=== PATIENT | female | born 2000 | race Caucasian/White ===

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

== ENCOUNTER 2020-04-18 20:33 | Inpatient (IN) | payer MEDICAID, SELFPAY ==
[2020-02-28 09:34] VITALS: BMI 18.8
[2020-04-18] VITALS (8 sets, daily range): BP systolic 124–131; BP diastolic 78–87; PULSE 113–141; RESP 16–28; TEMP 36.3–37.4; O2SAT 98–100; BMI 23.0; BMI 22.8; BMI 66.2
--- NOTE | 2020-04-18 20:46 | EKG12_ITS ---
Test Reason : VOMITTING Blood Pressure : / mmHG Vent. Rate : 131 BPM Atrial Rate : 133 BPM P-R Int : 136 ms QRS Dur : 082 ms QT Int : 400 ms P-R-T Axes : 079 074 027 degrees QTc Int : 590 ms Sinus tachycardia Nonspecific ST and T wave abnormality Abnormal ECG Confirmed by GONZALO IQBAL, ANA MARIA ([id number]), associate entertainment editor SERGIO LEE ([id number]) on 04/21/2020 8:17:31 AM Referred By: JULIANNA Confirmed By:ANA MARIA SÁNCHEZ MD
--- NOTE | 2020-04-18 20:47 | ED.DCSUM_ITS ---
History of Present Illness Chief Complaint: Nausea/Vomiting Informant: Patient Onset: Days - 2 days Context: Gradual Onset Current Severity: Moderate Maximum Severity: Moderate Narrative: Patient presents with nausea and vomiting for the past 2 days and believes she is likely in DKA. She is a type I diabetic and reports being out of her insulin for the last month. She does not have test strips has not been checking her blood sugar. She states she lost her insurance and was not able to get her insulin filled. She has not talked to her doctor or her straightener and aligner about this. - Past Medical History (1) Diabetes Status: Chronic Past Medical History - Allergies and Home Meds Allergies/Adverse Reactions: Allergies amoxicillin Allergy (Verified 04/18/20 20:58) Hives Sulfa (Sulfonamide Antibiotics) Allergy (Verified 04/18/20 20:58) Hives tomato Allergy (Verified 04/18/20 20:58) Hives Primary Care Physician: Rima Sheets MD [Primary Care Provider] - Prior records reviewed: Yes Smoking Status: Unknown if ever smoked Review of Systems General: Denies: Chills, Fever Eyes: Denies: Visual changes - bilaterally ENT: Denies: Bilateral ear pain Cardiovascular: Denies: Chest pain Respiratory: Denies: Dyspnea Gastrointestinal: Reports: Abdominal pain, Nausea, Vomiting. Denies: Diarrhea Genitourinary: Denies: Dysuria Musculoskeletal: Denies: Extremity Pain Neurological: Denies: Headache Endocrine: Reports: Polyuria, Polydipsia Physical Exam Vital Signs/Narrative: Vital Signs Temp Pulse Resp BP Pulse Ox 04/18/20 20:34 97.4 F L 141 H 20 H 130/87 H 100 Inital Vital Signs reviewed: Yes General: Well nourished, Well developed Head: Normocephalic ENT: Dry mucous membranes Cardiovascular: Tachycardia Respiratory: No distress, CTA bilaterally, - - Tachypneic Abdomen: Soft, Nontender, Hypoactive bowel sounds Extremities: Nontender Skin: Normal color Neurological: Alert, Oriented x3 Psychological: Normal affect Diagnostic/Tx/Re-eval Laboratory Results 04/18/20 04/18/20 04/18/20 20:44 21:00 21:00 WBC 14.9 H RBC 5.39 Hgb 16.4 H Hct 48.0 H MCV 89.1 MCH 30.4 MCHC 34.2 RDW Std Deviation 42.6 RDW Coeff of Mark 13.2 Plt Count 348 MPV 9.3 Immature Gran % (Auto) 0.700 Neut % (Auto) 74.1 H Lymph % (Auto) 16.3 L [place] % (Auto) 7.3 Eos % (Auto) 1.1 Baso % (Auto) 0.5 Absolute Neuts (auto) 11.0 H Absolute Lymphs (auto) 2.43 Nucleated RBC % 0 Sodium 138 Potassium 3.3 L Chloride 113 H Carbon Dioxide 5.0 L* Anion Gap 20 H BUN 6 L Creatinine 0.82 Estim Creat Clear Calc 106.42 Est GFR (MDRD) Af Amer 114 Est GFR (MDRD) Non-Af 94 BUN/Creatinine Ratio 7.3 L Glucose 467 H* Hemoglobin A1c Calcium 8.4 L Total Bilirubin 0.50 AST 7 L ALT 19 Alkaline Phosphatase 214 H Total Protein 7.9 Albumin 3.8 Globulin 4.1 Albumin/Globulin Ratio 0.9 Serum , Qual Acetone Level POC Glucose 468 H* 04/18/20 04/18/20 04/18/20 21:00 21:00 21:00 WBC RBC Hgb Hct MCV MCH MCHC RDW Std Deviation RDW Coeff of Mark Plt Count MPV Immature Gran % (Auto) Neut % (Auto) Lymph % (Auto) [place] % (Auto) Eos % (Auto) Baso % (Auto) Absolute Neuts (auto) Absolute Lymphs (auto) Nucleated RBC % Sodium Potassium Chloride Carbon Dioxide Anion Gap BUN Creatinine Estim Creat Clear Calc Est GFR (MDRD) Af Amer Est GFR (MDRD) Non-Af BUN/Creatinine Ratio Glucose Hemoglobin A1c 11.9 H Calcium Total Bilirubin AST ALT Alkaline Phosphatase Total Protein Albumin Globulin Albumin/Globulin Ratio Serum , Qual NEGATIVE Acetone Level LARGE H POC Glucose - EKG Initial EKG Interpretation: Sinus Tachycardia - Sinus tach at 131. - Medical Decision Making Patient was ordered Phenergan for nausea as well as 2 L of IV fluid on my initial evaluation. Labs are reviewed with her. Insulin drip will be ordered. I will speak with hospitalist regarding admission. - Critical Care Time Critical care time (excluding procedures): 30-74 minutes ED Disposition - Plan for ED Patient: Disposition: Acute Care Hospital [facility] Diagnosis: DKA (diabetic ketoacidoses) Referrals: Rima Sheets MD [Primary Care Provider] -
[2020-04-18 20:51] LABS: Bedside Glucose 468 mg/dL (70-110)
[2020-04-18] MEDS: 0.9% Normal Saline 1,000 ML 999 ML IV ×2 (20:59→22:38)
[2020-04-18] MEDS: proMETHazine 25 MG/ML Syringe 12.5 MG IV (21:07)
[2020-04-18 21:10] LABS: Absolute Lymphocyte Count 2.43 X10^3/uL (0.83-4.51); Basophil# 0.07 X10^3/uL; Basophil% 0.5 % (0-1); Eosinophil# 0.16 X10^3/uL; Eosinophils% 1.1 % (0-5); Hemoglobin 16.4 g/dL (12.0-15.0); Lymphocyte # 2.43 X10^3/ul (4.0); Lymphocyte % 16.3 % (19-41); Mean Corp Hgb Conc 34.2 g/dL (32-36); Mean Corpuscular Hgb 30.4 pg (27.0-32.0); Mean Corpuscular Volume 89.1 fL (81-99); Mean Platelet Vol. 9.3 fl (6.2-12.0); Monocyte# 1.08 X10^3/uL; Monocyte% 7.3 % (0-10); NRBC Flagged by Analyzer 0 % (0-5); Neutrophil # 11.04 X10^3/uL (2.7-7.7); Neutrophil % 74.1 % (47-70); Platelet Count 348 K/mm3 (150-450); RBC Distribution Width CV 13.2 % (11.6-14.6); RBC Distribution Width SD 42.6 fl (35.1-43.9); Red Blood Count 5.39 M/mm3 (4.2-5.4); White Blood Count 14.9 K/mm3 (4.4-11.0)
[2020-04-18 21:17] LABS: Internal QC Validated? YES +Cl - CLEAR BKGD; Pregnancy, Serum, hCG Quali. NEGATIVE Negative
[2020-04-18 21:27] LABS: Hemoglobin A1c 11.9 % (3.8-5.6)
[2020-04-18 21:49] LABS: ALB/GLOB Ratio 0.9 RATIO (0.9-2.4); AST(SGOT) 7 U/L (15-37); Alanine Aminotransfer ALT/SGPT 19 U/L (13-56); Albumin, Serum 3.8 g/dL (3.2-5.0); Alkaline Phosphatase 214 U/L (45-117); Anion Gap 20 (5-15); BUN 6 mg/dL (7-18); BUN/Creat Ratio 7.3 RATIO (10-20); Calcium,Total 8.4 mg/dL (8.5-10.1); Chloride 113 mmol/L (98-107); Creatinine, Serum 0.82 mg/dL (0.55-1.02); EST Glomerular Filtration Rate 94 mL/min (>60); Est Glom Filt Rate - Afr Amer 114 mL/min (>60); Estimated Creatinine Clearance 106.42 ml/min; Globulin 4.1 g/dL (2.2-4.2); Glucose 467 mg/dL (74-106); Potassium 3.3 mmol/L (3.5-5.1); Protein, Total 7.9 g/dL (6.4-8.2); Sodium Level 138 mmol/L (136-145)
[2020-04-18 22:15] LABS: Bedside Glucose 375 mg/dL (70-110)
[2020-04-18] MEDS: Potassium Chloride 10mEq/100mL 10 MEQ/100 ML IV.SOLN. 100 MEQ IV BOLUS (22:40)
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
[2020-04-19] VITALS (23 sets, daily range): BP systolic 88–124; BP diastolic 57–81; PULSE 90–123; RESP 14–26; TEMP 36.2–36.7; O2SAT 97–100
[2020-04-19 00:11] LABS: Bedside Glucose 282 mg/dL (70-110)
[2020-04-19 00:11] LABS: Bedside Glucose 355 mg/dL (70-110)
[2020-04-19] MEDS: Ondansetron 4 MG/2 ML Vial IV ×3 (01:00→10:20)
[2020-04-19 01:06] LABS: Bedside Glucose 227 mg/dL (70-110)
[2020-04-19] MEDS: Dext 5%-0.45% NS 1,000 ML 200 ML IV ×3 (02:00→12:21)
[2020-04-19 02:11] LABS: Bedside Glucose 117 mg/dL (70-110)
[2020-04-19 02:16] LABS: Anion Gap 16 (5-15); BUN 7 mg/dL (7-18); BUN/Creat Ratio 12.9 RATIO (10-20); Calcium,Total 8.1 mg/dL (8.5-10.1); Chloride 122 mmol/L (98-107); Creatinine, Serum 0.54 mg/dL (0.55-1.02); EST Glomerular Filtration Rate 152 mL/min (>60); Est Glom Filt Rate - Afr Amer 184 mL/min (>60); Glucose 155 mg/dL (74-106); Potassium 3.2 mmol/L (3.5-5.1); Sodium Level 144 mmol/L (136-145)
[2020-04-19 03:06] LABS: Bedside Glucose 182 mg/dL (70-110)
[2020-04-19 04:11] LABS: Bedside Glucose 194 mg/dL (70-110)
[2020-04-19] MEDS: Ibuprofen 400 MG Tablet PO (05:34)
[2020-04-19 05:36] LABS: Bedside Glucose 186 mg/dL (70-110)
[2020-04-19 05:47] LABS: Anion Gap 12 (5-15); BUN 7 mg/dL (7-18); BUN/Creat Ratio 10.6 RATIO (10-20); Calcium,Total 7.9 mg/dL (8.5-10.1); Chloride 120 mmol/L (98-107); Creatinine, Serum 0.66 mg/dL (0.55-1.02); EST Glomerular Filtration Rate 121 mL/min (>60); Est Glom Filt Rate - Afr Amer 146 mL/min (>60); Estimated Creatinine Clearance 132.22 ml/min; Glucose 186 mg/dL (74-106); Potassium 2.9 mmol/L (3.5-5.1); Sodium Level 141 mmol/L (136-145)
[2020-04-19 06:06] LABS: Bedside Glucose 162 mg/dL (70-110)
[2020-04-19 07:11] LABS: Bedside Glucose 155 mg/dL (70-110)
[2020-04-19 07:48] LABS: Magnesium 1.7 mg/dL (1.6-2.6)
[2020-04-19 09:00] LABS: Bedside Glucose 124 mg/dL (70-110)
[2020-04-19 09:41] LABS: Anion Gap 8 (5-15); BUN 8 mg/dL (7-18); Calcium,Total 7.9 mg/dL (8.5-10.1); Chloride 124 mmol/L (98-107); Creatinine, Serum 0.57 mg/dL (0.55-1.02); EST Glomerular Filtration Rate 143 mL/min (>60); Est Glom Filt Rate - Afr Amer 174 mL/min (>60); Glucose 138 mg/dL (74-106); Potassium 2.7 mmol/L (3.5-5.1); Sodium Level 143 mmol/L (136-145)
[2020-04-19 10:11] LABS: Bedside Glucose 110 mg/dL (70-110)
--- NOTE | 2020-04-19 10:14 | PN_ITS ---
Patient Problems: Active and Suspected Problems (Last Reviewed 04/18/20 @ 22:[address] David Ortega, DO) DKA (diabetic ketoacidoses) (Acute) Subjective: Pt sleepy and not wanting to talk much today> reports compliance with her insulin but A1c is 11.9. She has been a diabetic since she was a child. Vitals/I&O's: Vital Signs Temp Pulse Resp BP Pulse Ox 97.6 F L 90 25 H 100/63 99 04/19/20 08:00 04/19/20 09:00 04/19/20 09:00 04/19/20 09:00 04/19/20 09:00 Oxygen Delivery Method Room Air Weight: 67.54 kg Body Mass Index (BMI) 22.8 Finger Stick Blood Glucose 124 Intake and Output for Last 24 Hours 04/17/20 04/18/20 04/19/20 23:59 23:59 23:59 Intake Total 1030.14 / 1046.84 3.93 / 2092.93 Output Total 0 / 0 Balance 1030.14 / 1046.84 2092. / 2092.93 General: Oriented x3, Cooperative, No apparent distress, Well developed, Well nourished, - - sleepy but answers questions when stimulated and answers correctly HEENT: Atraumatic, Normocephalic Oral: Moist Mucosa, No Gingival or Mucosal Lesions/ Ulcerations Neck: Supple, Trachea Midline, Thyroid Normal Size and Texture Lungs: Clear to auscultation, Normal air movement, No rhonchi, No wheeze, No rales Cardiovascular: Regular rate, Regular Rhythm, Normal S1, Normal S2, No murmurs, No Ectopic Activity, No rub noted, No Gallop Abdomen: Bowel Sounds Present, Soft, Non Tender, Non-Distended Extremities: No clubbing, No cyanosis, No edema, Capillary Refill Less than 3 Seconds, Peripheral Pulses Normal Skin: No rashes, No breakdown Musculoskeletal: No Tenderness to Palpation of Joints or Extremities, No Muscle Wasting Lymphatic: No Cervical, Supraclavicular, or Inguinal Adenopathy Neurological: Cranial nerves II-XII grossly intact, Neuro grossly intact, Muscle tone normal, Coordination normal, - - [place] symmetrically Psych/Mental Status: - - sleepy and no wanting to interact much Laboratory Results 04/18/20 20:44: POC Glucose 468 H* 04/18/20 21:00: WBC 14.9 H, RBC 5.39, Hgb 16.4 H, Hct 48.0 H, MCV 89.1, MCH 30.4, MCHC 34.2, RDW Std Deviation 42.6, RDW Coeff of Mark 13.2, Plt Count 348, MPV 9.3, Immature Gran % (Auto) 0.700, Neut % (Auto) 74.1 H, Lymph % (Auto) 16.3 L, [place] % (Auto) 7.3, Eos % (Auto) 1.1, Baso % (Auto) 0.5, Absolute Neuts (auto) 11.0 H, Absolute Lymphs (auto) 2.43, Nucleated RBC % 0 04/18/20 21:00: Sodium 138, Potassium 3.3 L, Chloride 113 H, Carbon Dioxide 5.0 L*, Anion Gap 20 H, BUN 6 L, Creatinine 0.82, Estim Creat Clear Calc 106.42, Est GFR (MDRD) Af Amer 114, Est GFR (MDRD) Non-Af 94, BUN/Creatinine Ratio 7.3 L, Glucose 467 H*, Calcium 8.4 L, Total Bilirubin 0.50, AST 7 L, ALT 19, Alkaline Phosphatase 214 H, Total Protein 7.9, Albumin 3.8, Globulin 4.1, Albumin/Globulin Ratio 0.9 04/18/20 21:00: Acetone Level LARGE H 04/18/20 21:00: Hemoglobin A1c 11.9 H 04/18/20 21:00: Serum , Qual NEGATIVE 04/18/20 22:07: POC Glucose 375 H 04/18/20 23:04: POC Glucose 355 H 04/18/20 23:59: POC Glucose 282 H 04/19/20 00:55: POC Glucose 227 H 04/19/20 01:50: Sodium 144, Potassium 3.2 L, Chloride 122 H, Carbon Dioxide 6.0 L*, Anion Gap 16 H, BUN 7, Creatinine 0.54 L, Estim Creat Clear Calc 161.60, Est GFR (MDRD) Af Amer 184, Est GFR (MDRD) Non-Af 152, BUN/Creatinine Ratio 12.9, Glucose 155 H, Calcium 8.1 L 04/19/20 02:02: POC Glucose 117 H 04/19/20 03:01: POC Glucose 182 H 04/19/20 04:01: POC Glucose 194 H 04/19/20 05:02: POC Glucose 186 H 04/19/20 05:05: Sodium 141, Potassium 2.9 L, Chloride 120 H, Carbon Dioxide 9.0 L*, Anion Gap 12, BUN 7, Creatinine 0.66, Estim Creat Clear Calc 132.22, Est GFR (MDRD) Af Amer 146, Est GFR (MDRD) Non-Af 121, BUN/Creatinine Ratio 10.6, Glucos e 186 H, Calcium 7.9 L 04/19/20 05:05: Magnesium 1.7 04/19/20 06:00: POC Glucose 162 H 04/19/20 07:03: POC Glucose 155 H 04/19/20 08:40: Sodium 143, Potassium 2.7 L*, Chloride 124 H, Carbon Dioxide 11.0 L, Anion Gap 8, BUN 8, Creatinine 0.57, Estim Creat Clear Calc 153.10, Est GFR (MDRD) Af Amer 174, Est GFR (MDRD) Non-Af 143, BUN/Creatinine Ratio 14.0, Glucose 138 H, Calcium 7.9 L 04/19/20 08:56: POC Glucose 124 H 04/19/20 10:04: POC Glucose 110 Current Medications Acetaminophen (Acetaminophen 325 Mg Tablet) 650 mg PO Q6H PRN PRN PRN Reason: Pain Score 1-10/Temp > 100.7 F Dextrose (Dextrose 50%-Water 25 Gm/50 Ml Disp.Syrin) 0 gm IV X1 PRN; Protocol PRN Reason: Hypoglycemia Protocol Insulin Human Lispro 100 unit/ (Sodium Chloride) 100 mls @ 6.66 mls/hr IV .Q15H1M DERRELL; Protocol Last Titration: 04/19/20 08:59 Dose: 0.08 units/kg/hr, 5 mls/hr Documented by: Dextrose/Sodium Chloride () 1,000 mls @ 200 mls/hr IV .Q5H DERRELL Last Admin: 04/19/20 07:22 Dose: 200 mls/hr Documented by: Ibuprofen (Ibuprofen 400 Mg Tablet) 400 mg PO Q4H PRN PRN PRN Reason: Pain Score 1-10/Temp > 100.7 F Last Admin: 04/19/20 05:34 Dose: 400 mg Documented by: Melatonin (Melatonin 3 Mg Tablet) 3 mg PO QHS PRN PRN PRN Reason: INSOMNIA Ondansetron HCl (Ondansetron 4 Mg/2 Ml Vial) 4 mg IV Q4H PRN PRN PRN Reason: NAUSEA Last Admin: 04/19/20 05:45 Dose: 4 mg Documented by: Potassium Chloride (Potassium Chloride 20 Meq Tablet) 40 meq PO BIDCM DERRELL Stop: 04/20/20 08:01 Last Admin: 04/19/20 08:30 Dose: 40 meq Documented by: Potassium Chloride (Potassium Chloride 20 Meq Tablet) 40 meq PO X1 ONE Stop: 04/19/20 12:01 Sodium Chloride (0.9% Saline Lock 10 Ml Syringe) 10 - 40 ml IV UD PRN PRN Reason: SALINE FLUSH STROKE Vital Signs/Narrative: Vital Signs Temp Pulse Resp BP Pulse Ox 04/19/20 09:00 90 25 H 100/63 99 04/19/20 08:00 97.6 F L 97 20 H 107/72 99 04/19/20 07:15 105 H Medical Necessity - Tobacco Use Smoking Status: Current every day smoker Tobacco Use: Vapor Assessment/Plan All Active Problems (Last Reviewed 04/18/20 @ 22:[address] David Ortega, DO) DKA (diabetic ketoacidoses) (Acute) DKA -resolving -HCO2 is still low but Gap is closed x 2 -repeat ketones at 12 and if better will get off ggt later today -continue IVF -ok for carb controlled diet DM-1 uncontrolled -suspect compliance is an issues although pt states that she is compliant -once wean ggt will restart home insulin and assess Severe Hypokalemia -40 mEq po today TID -was given 60 mEq overnight -continue BMP's until off ggt -repeat BMP in am NAGMA -suspect related to hyperchloremia -should resolve with cessation of IVF Leukocytosis and Erythrocytosis -suspect 2/2 hemoconcentration -repeat CBC in am Tobacco Abuse -recommend cessation -nicotine patch DVT prophylaxis -early ambulation Inpatient E&M: [id number] [facility] Hosp L3
[2020-04-19] MEDS: Acetaminophen 325 MG Tablet 650 MG PO ×2 (10:20→19:31)
[2020-04-19 11:10] LABS: Bedside Glucose 117 mg/dL (70-110)
[2020-04-19 12:10] LABS: Bedside Glucose 114 mg/dL (70-110)
[2020-04-19] MEDS: Insulin NPH Human 100 UNITS/ML PEN 10 UNITS SC (13:13)
[2020-04-19 13:16] LABS: Bedside Glucose 122 mg/dL (70-110)
[2020-04-19] MEDS: Insulin Lispro 100 UNIT/ML INSULN.PEN SC ×2 (16:23→21:42)
[2020-04-19] MEDS: Insulin Lispro 100 UNIT/ML INSULN.PEN 14 UNIT SC (16:23)
[2020-04-19 16:31] LABS: Bedside Glucose 267 mg/dL (70-110)
[2020-04-19 20:54] LABS: Anion Gap 11 (5-15); BUN 9 mg/dL (7-18); BUN/Creat Ratio 16.6 RATIO (10-20); Calcium,Total 8.3 mg/dL (8.5-10.1); Chloride 115 mmol/L (98-107); Creatinine, Serum 0.54 mg/dL (0.55-1.02); EST Glomerular Filtration Rate 152 mL/min (>60); Est Glom Filt Rate - Afr Amer 184 mL/min (>60); Glucose 341 mg/dL (74-106); Potassium 3.6 mmol/L (3.5-5.1); Sodium Level 138 mmol/L (136-145)
[2020-04-19] MEDS: 0.9% Saline Lock 10 ML Syringe IV (21:44)
[2020-04-19 21:51] LABS: Bedside Glucose 309 mg/dL (70-110)
[2020-04-20] VITALS (23 sets, daily range): BP systolic 92–118; BP diastolic 51–79; PULSE 91–117; RESP 12–25; TEMP 36.1–36.6; O2SAT 98–100
[2020-04-20] MEDS: Ibuprofen 400 MG Tablet PO ×3 (02:38→15:43)
[2020-04-20 04:50] LABS: Anion Gap 14 (5-15); BUN 7 mg/dL (7-18); BUN/Creat Ratio 12.3 RATIO (10-20); Chloride 113 mmol/L (98-107); Creatinine, Serum 0.57 mg/dL (0.55-1.02); EST Glomerular Filtration Rate 143 mL/min (>60); Est Glom Filt Rate - Afr Amer 174 mL/min (>60); Glucose 365 mg/dL (74-106); Magnesium 1.9 mg/dL (1.6-2.6); Potassium 3.2 mmol/L (3.5-5.1); Sodium Level 140 mmol/L (136-145)
[2020-04-20] MEDS: Acetaminophen 325 MG Tablet 650 MG PO ×2 (06:01→14:40)
--- NOTE | 2020-04-20 07:59 | PN_ITS ---
Patient Problems: Active and Suspected Problems (Last Reviewed 04/18/20 @ 22:[address] David Ortega, DO) DKA (diabetic ketoacidoses) (Acute) Reason for Visit: Follow-up for DKA Objective: Patient has mild nausea but no vomiting. Loss of appetite. No fever or chills. K3.2. Anion gap was 11 to 14. Bicarb increased 11 to 13. Patient is still having nausea and mild loss of appetite. No vomiting, abdominal pain. Mild tachycardia, heart rate 112. Respiratory rate 22. Physical exam General: Alert, Oriented x3, Cooperative HEENT: Atraumatic, PERRLA, EOMI, Normocephalic Oral: No Gingival or Mucosal Lesions/ Ulcerations Neck: Supple, No JVD, Negative Carotid Bruits Lungs: Air entry equal in bilateral lung bases. No crepitation/rhonchi Cardiovascular: Regular rate, Regular Rhythm, Normal S1, Normal S2, No murmurs Abdomen: Bowel Sounds Present, Soft, Non Tender, Non-Distended : No renal angle tenderness. No suprapubic tenderness. Extremities: No edema, Capillary Refill Less than 3 Seconds Skin: No rashes, No breakdown Musculoskeletal: No Tenderness to Palpation of Joints or Extremities Neurological: Cranial nerves II-XII grossly intact, Deep Tendon Reflexes 2+/4 and Symmetrical, Neuro grossly intact Psych/Mental Status: Normal Affect, Appropriate. Vitals/I&O's: Vital Signs Temp Pulse Resp BP Pulse Ox 97.7 F L 105 H 12 96/65 99 04/20/20 04:00 04/20/20 06:00 04/20/20 06:00 04/20/20 06:00 04/20/20 06:00 Oxygen Delivery Method Room Air Weight: 149 lb 14.629 oz Body Mass Index (BMI) 22.8 Finger Stick Blood Glucose 114 Intake and Output for Last 24 Hours 04/18/20 04/19/20 04/20/20 23:59 23:59 23:59 Intake Total 1030.14 / 1046.84 4200.88 / 4200.88 560 / 560 Output Total 1900 / 1900 0 / 0 Balance 1030.14 / 1046.84 2300.88 / 2300.88 560 / 560 Laboratory Results 04/19/20 08:40: Sodium 143, Potassium 2.7 L*, Chloride 124 H, Carbon Dioxide 11.0 L, Anion Gap 8, BUN 8, Creatinine 0.57, Estim Creat Clear Calc 153.10, Est GFR (MDRD) Af Amer 174, Est GFR (MDRD) Non-Af 143, BUN/Creatinine Ratio 14.0, Glucose 138 H, Calcium 7.9 L 04/19/20 08:56: POC Glucose 124 H 04/19/20 10:04: POC Glucose 110 04/19/20 11:07: POC Glucose 117 H 04/19/20 11:40: Acetone Level SMALL H 04/19/20 12:08: POC Glucose 114 H 04/19/20 13:09: POC Glucose 122 H 04/19/20 16:22: POC Glucose 267 H 04/19/20 20:15: Sodium 138, Potassium 3.6, Chloride 115 H, Carbon Dioxide 12.0 L , Anion Gap 11, BUN 9, Creatinine 0.54 L, Estim Creat Clear Calc 161.60, Est GFR (MDRD) Af Amer 184, Est GFR (MDRD) Non-Af 152, BUN/Creatinine Ratio 16.6, Glucose 341 H, Calcium 8.3 L 04/19/20 21:40: POC Glucose 309 H 04/20/20 04:25: Sodium 140, Potassium 3.2 L, Chloride 113 H, Carbon Dioxide 13.0 L, Anion Gap 14, BUN 7, Creatinine 0.57, Estim Creat Clear Calc 153.10, Est GFR (MDRD) Af Amer 174, Est GFR (MDRD) Non-Af 143, BUN/Creatinine Ratio 12.3, Glucose 365 H, Calcium 8.0 L, Magnesium 1.9 Current Medications Acetaminophen (Acetaminophen 325 Mg Tablet) 650 mg PO Q6H PRN PRN PRN Reason: Pain Score 1-10/Temp > 100.7 F Last Admin: 04/20/20 06:01 Dose: 650 mg Documented by: Dextrose (Dextrose 50%-Water 25 Gm/50 Ml Disp.Syrin) 0 gm IV X1 PRN; Protocol PRN Reason: Hypoglycemia Protocol Ibuprofen (Ibuprofen 400 Mg Tablet) 400 mg PO Q4H PRN PRN PRN Reason: Pain Score 1-10/Temp > 100.7 F Last Admin: 04/20/20 02:38 Dose: 400 mg Documented by: Insulin Glargine (Insulin Glargine 100 Units/Ml Pen) 30 units SC QHS [facility] Last Admin: 04/19/20 21:41 Dose: 30 units Documented by: Insulin Human Lispro (Insulin Lispro 100 Unit/Ml Insuln.Pen) 14 unit SC TIDAC [facility] Last Admin: 04/19/20 16:23 Dose: 14 u Documented by: Insulin Human Lispro (Insulin Lispro 100 Unit/Ml Insuln.Pen) 0 unit SC ACHS [facility]; Protocol Last Admin: 04/19/20 21:42 Dose: 3 u Documented by: Melatonin (Melatonin 3 Mg Tablet) 3 mg PO QHS PRN PRN PRN Reason: INSOMNIA Ondansetron HCl (Ondansetron 4 Mg/2 Ml Vial) 4 mg IV Q4H PRN PRN PRN Reason: NAUSEA Last Admin: 04/19/20 10:20 Dose: 4 mg Documented by: Potassium Chloride (Potassium Chloride 20 Meq Tablet) 40 meq PO BIDCM [facility] Stop: 04/20/20 08:01 Last Admin: 04/19/20 16:24 Dose: 40 meq Documented by: Sodium Chloride (0.9% Saline Lock 10 Ml Syringe) 10 - 40 ml IV UD PRN PRN Reason: SALINE FLUSH Last Admin: 04/19/20 21:44 Dose: 20 ml Documented by: STROKE Vital Signs/Narrative: Vital Signs Temp Pulse Resp BP Pulse Ox 04/20/20 06:00 105 H 12 96/65 99 04/20/20 05:00 94 17 95/51 L 98 04/20/20 04:00 97.7 F L 99 18 96/63 98 Medical Necessity - Tobacco Use Smoking Status: Current every day smoker Tobacco Use: Vapor Assessment/Plan All Active Problems (Last Reviewed 04/18/20 @ 22:[address] David Ortega, DO) DKA (diabetic ketoacidoses) (Acute) This 20-year-old female admitted with DKA. She has history of type 1 diabetes mellitus. DKA Patient had a rebound of DKA probably was taken off insulin drip early. Serum acetone small. Patient bicarb is trending low and anion gap high. Last bicarb 14, anion gap 15 and glucose 176. Patient put back on insulin drip. 1 L of normal saline. Continue diet. DM-1 uncontrolled -suspect compliance is an issues although pt states that she is compliant Severe Hypokalemia and hypophosphatemia Continue potassium replacement. IV K-Phos ordered. Monitor electrolyte High anion gap metabolic acidosis Leukocytosis and Erythrocytosis -CBC ordered Tobacco Abuse -recommend cessation -nicotine patch DVT prophylaxis -early ambulation Inpatient E&M: 31243 Subs Hosp L3
[2020-04-20] MEDS: Insulin Lispro 100 UNIT/ML INSULN.PEN 14 UNIT SC (08:56)
[2020-04-20] MEDS: Insulin Lispro 100 UNIT/ML INSULN.PEN SC ×2 (08:57→22:08)
[2020-04-20 09:01] LABS: Bedside Glucose 335 mg/dL (70-110)
[2020-04-20 09:36] LABS: Phosphorus 1.4 mg/dL (2.5-4.9)
[2020-04-20 10:29] LABS: Anion Gap 15 (5-15); BUN 6 mg/dL (7-18); BUN/Creat Ratio 9.2 RATIO (10-20); Calcium,Total 7.8 mg/dL (8.5-10.1); Chloride 108 mmol/L (98-107); Creatinine, Serum 0.66 mg/dL (0.55-1.02); EST Glomerular Filtration Rate 122 mL/min (>60); Est Glom Filt Rate - Afr Amer 148 mL/min (>60); Estimated Creatinine Clearance 132.22 ml/min; Glucose 476 mg/dL (74-106); Potassium 3.4 mmol/L (3.5-5.1); Sodium Level 137 mmol/L (136-145)
--- NOTE | 2020-04-20 11:08 | CASEMGMT ---
Addendum entered by Suma Harding 04/20/20 12:57: Received call back from Mariana with [facility]. Per Mariana, patient does not have a child. Mariana to follow up with patient. This worker to follow up with patient regarding Release of Information for Mariana with [facility]. Original Note: SOCIAL WORK Reason for Consult: Resources/Discharge Planning Met with patient in room. Introduced role and reason for referral. Patient reports up until the last week was living with her parents. Patient admits to being homeless since leaving parents home and states I just don't like it there so I've been staying with friends. Patient denies any history of mental health or substance use. Discussed needs for home going. Patient reports to not have insulin or a glucometer. Informed patient insurance has been verified as [employer]. Patient states enthusiastically YES! Sorry that is just good to know because I thought I lost it since I worked 40 hours last week. Patient states has been employed with [employer] for last month and a half. Informed patient Sri GREGORY will be following up in regards to medications and obtaining glucometer. Patient reports will be staying with friend, Suma upon discharge from hospital and will have transportation home. Patient states does not have a primary care provider. Explored option of following up [facility] and information given. Per report from staff, patient has a baby and person to notify on chart is Mariana Hoffmann with [facility]. Discussed care of baby while in the hospital and if patient has been in contact with Mariana. Mariana became upset stating, You don't have to call her. The baby is fine. Patient later stated, I will call her, you don't have to. There is no baby. Patient unwilling to give this worker any further information. Due to concerns for child, call to Mariana Aceer with [facility]. No answer, left message requesting return phone call with this worker contact information. Call to Isadora to make report regarding the above and safety of child. Isadora to follow up and return call to this worker. Plan: Home with friend. Resources provided. RICCARDO De Santiago, CASE FINISHER
[2020-04-20] MEDS: 0.9% Normal Saline 1,000 ML 999 ML IV (11:48)
[2020-04-20 12:51] LABS: Absolute Lymphocyte Count 2.05 X10^3/uL (0.83-4.51); Basophil# 0.05 X10^3/uL; Basophil% 0.6 % (0-1); Eosinophil# 0.38 X10^3/uL; Eosinophils% 4.6 % (0-5); Hemoglobin 12.5 g/dL (12.0-15.0); Lymphocyte # 2.05 X10^3/ul (4.0); Lymphocyte % 25.1 % (19-41); Mean Corp Hgb Conc 34.7 g/dL (32-36); Mean Corpuscular Volume 86.3 fL (81-99); Mean Platelet Vol. 9.5 fl (6.2-12.0); Monocyte# 0.64 X10^3/uL; Monocyte% 7.8 % (0-10); NRBC Flagged by Analyzer 0 % (0-5); Neutrophil # 5.03 X10^3/uL (2.7-7.7); Neutrophil % 61.5 % (47-70); Platelet Count 221 K/mm3 (150-450); RBC Distribution Width CV 13.5 % (11.6-14.6); RBC Distribution Width SD 42.4 fl (35.1-43.9); Red Blood Count 4.17 M/mm3 (4.2-5.4); White Blood Count 8.2 K/mm3 (4.4-11.0)
--- NOTE | 2020-04-20 12:55 | CASEMGMT ---
PETEY GREGORY NOTE: PETEY GREGORY to room to talk w/pt re: glucometer and insulin. Pt states she used to have a glucometer (through [employer] insurance) but she does not have it any longer. She states she got it about 6 months ago. Pt made aware that [employer] will most likely not cover for another glucometer so soon, but [employer] @ [employer] is very inexpensive for the machine and supplies (~$20) and that a script could be provided for her. She states this is affordable and she plans to get one. Pt made aware to talk with pharmacist when purchasing glucometer for instruction/teaching on the new machine. She also states does not have any insulin d/t she thought she no longer had insurance coverage, so she did not get her medications. She states, if her insurance will cover it, she would get it and is willing to take it. Call placed to [facility] and spoke with Yesica. She confirms pt is active with [employer] insurance/has coverage. Pt made aware. Pt states she does not have a PCP, stating she used to go to Dr Rima Sheets, but she has not been there for a couple years. She states would like to go to [facility] and agreeable to secretary to board of commissioners making a new-pt appt for her. Dolores, ICU secretary to board of commissioners, made aware and states she will call to set this up. Pt provided with [facility] information and also with Dr [email or web address]. Pt states, Oh, I know her. Pt states she is a pt of Dr Rush's and that she just had an appt with her a couple months ago and has another appt scheduled with her in May. Pt states she has transportation to her appts. D/C Plan: Stem Roller to [facility] to get established as a new pt. Pt will need script for glucometer and insulin/pen needles. Pt prefers Flex Pen. SW has been in to see pt. See SW notes. Sean CHAMBERSN PETEY GREGORY
[2020-04-20 13:26] LABS: Bedside Glucose 175 mg/dL (70-110)
--- NOTE | 2020-04-20 14:07 | CASEMGMT ---
Addendum entered by Suma Harding 04/20/20 17:12: Copy of SOPHIE faxed to Mariana with [facility]. Original Note: SOCIAL WORK Patient signed Release of Information for this worker to share information with Mariana Hoffmann with [facility]. Mariana Hoffmann is listed as patient's Person to Notify. Copy of SOPHIE added to chart. Anjum Harding, FILL TECHNICIAN, OWNER OPERATOR TANKER TRUCK DRIVER
[2020-04-20 14:51] LABS: Bedside Glucose 86 mg/dL (70-110)
[2020-04-20 15:46] LABS: Bedside Glucose 162 mg/dL (70-110)
[2020-04-20 15:46] LABS: Bedside Glucose 249 mg/dL (70-110)
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
[2020-04-20 16:20] LABS: Anion Gap 9 (5-15); BUN 8 mg/dL (7-18); BUN/Creat Ratio 20.5 RATIO (10-20); Calcium,Total 7.6 mg/dL (8.5-10.1); Chloride 113 mmol/L (98-107); Creatinine, Serum 0.39 mg/dL (0.55-1.02); EST Glomerular Filtration Rate 222 mL/min (>60); Est Glom Filt Rate - Afr Amer 269 mL/min (>60); Estimated Creatinine Clearance 223.76 ml/min; Glucose 171 mg/dL (74-106); Potassium 3.7 mmol/L (3.5-5.1); Sodium Level 142 mmol/L (136-145)
[2020-04-20 17:01] LABS: Bedside Glucose 183 mg/dL (70-110)
[2020-04-20 17:56] LABS: Bedside Glucose 302 mg/dL (70-110)
[2020-04-20 19:01] LABS: Bedside Glucose 308 mg/dL (70-110)
[2020-04-20 20:16] LABS: Bedside Glucose 291 mg/dL (70-110)
[2020-04-20 20:24] LABS: Anion Gap 9 (5-15); BUN 12 mg/dL (7-18); BUN/Creat Ratio 28.1 RATIO (10-20); Calcium,Total 7.5 mg/dL (8.5-10.1); Chloride 110 mmol/L (98-107); Creatinine, Serum 0.43 mg/dL (0.55-1.02); EST Glomerular Filtration Rate 201 mL/min (>60); Est Glom Filt Rate - Afr Amer 243 mL/min (>60); Estimated Creatinine Clearance 202.95 ml/min; Glucose 300 mg/dL (74-106); Sodium Level 138 mmol/L (136-145)
[2020-04-20 21:05] LABS: Bedside Glucose 262 mg/dL (70-110)
[2020-04-20 22:15] LABS: Bedside Glucose 237 mg/dL (70-110)
[2020-04-20] MEDS: 0.9% Saline Lock 10 ML Syringe IV (22:21)
[2020-04-21] VITALS: BP 110/68; PULSE 97; RESP 19; TEMP 36.6; O2SAT 99
[2020-04-21 01:00] VITALS: BP 112/74; PULSE 99; RESP 19; O2SAT 99
[2020-04-21 01:16] LABS: Bedside Glucose 259 mg/dL (70-110)
--- NOTE | 2020-04-21 01:22 | NURSING ---
Called and gave report to Laney ANGELO on [facility]
--- NOTE | 2020-04-21 01:35 | NURSING ---
Transferred pt. with all of her belongings to 320.
--- NOTE | 2020-04-21 01:48 | NURSING ---
Called registration to transfer pt to [id number].
[2020-04-21 02:23] VITALS: BP 119/70; PULSE 92; RESP 16; TEMP 36.6; O2SAT 100
[2020-04-21 06:12] LABS: Absolute Lymphocyte Count 3.28 X10^3/uL (0.83-4.51); Absolute Neutrophil Count 2.9 X10^3/uL (2.0-7.7); Basophil# 0.05 X10^3/uL; Basophil% 0.7 % (0-1); Eosinophil# 0.39 X10^3/uL; Eosinophils% 5.4 % (0-5); Hematocrit 35.4 % (37-47); Hemoglobin 12.4 g/dL (12.0-15.0); Lymphocyte # 3.28 X10^3/ul (4.0); Lymphocyte % 45.6 % (19-41); Mean Corpuscular Volume 85.7 fL (81-99); Mean Platelet Vol. 8.8 fl (6.2-12.0); Monocyte# 0.61 X10^3/uL; Monocyte% 8.5 % (0-10); NRBC Flagged by Analyzer 0 % (0-5); Neutrophil # 2.85 X10^3/uL (2.7-7.7); Neutrophil % 39.7 % (47-70); Platelet Count 208 K/mm3 (150-450); RBC Distribution Width CV 13.4 % (11.6-14.6); RBC Distribution Width SD 42.1 fl (35.1-43.9); Red Blood Count 4.13 M/mm3 (4.2-5.4); White Blood Count 7.2 K/mm3 (4.4-11.0)
[2020-04-21] MEDS: Ibuprofen 400 MG Tablet PO (06:22)
[2020-04-21 06:46] LABS: Anion Gap 7 (5-15); BUN 8 mg/dL (7-18); BUN/Creat Ratio 25.9 RATIO (10-20); Chloride 112 mmol/L (98-107); Creatinine, Serum 0.31 mg/dL (0.55-1.02); EST Glomerular Filtration Rate 291 mL/min (>60); Est Glom Filt Rate - Afr Amer 352 mL/min (>60); Glucose 123 mg/dL (74-106); Potassium 2.7 mmol/L (3.5-5.1); Sodium Level 142 mmol/L (136-145)
[2020-04-21] MEDS: Potassium Chloride 10mEq/100mL 10 MEQ/100 ML IV.SOLN. 100 MEQ IV BOLUS ×4 (07:59→14:20)
[2020-04-21] MEDS: Insulin Lispro 100 UNIT/ML INSULN.PEN 15 UNIT SC ×3 (08:13→17:30)
[2020-04-21 08:21] LABS: Bedside Glucose 104 mg/dL (70-110)
[2020-04-21 08:23] VITALS: BP 106/69; PULSE 82; RESP 18; TEMP 36.6; O2SAT 97
[2020-04-21 08:38] LABS: Magnesium 1.9 mg/dL (1.6-2.6); Phosphorus 2.6 mg/dL (2.5-4.9)
--- NOTE | 2020-04-21 10:03 | DCINST_ITS ---
- Discharge Diagnoses Current Active Problems: Current Active and Chronic Problems (Last Reviewed 04/18/20 @ 22:[address] David Ortega, DO) DKA (diabetic ketoacidoses) (Acute) Diabetes (Chronic) You will use the following diet at home:: Calorie/Carbohydrate Controlled (specify 1200, 1400, etc) - CARB Controlled Your food should be the consistency of: Regular Discharge Activity: May Not Drive - for 2 weeks until see PCP Call your doctor if you observe: Fever of 101 or Higher, Numbness or Tingling, Change in Color, Inability to have a bowel movement, Using more than one pad per hour, Shortness of breath, Dizziness, Fainting spells, Swelling in the ankles, Chest pain, Prolonged hiccoughing, Increased palpitations (irregular heartbeat), Calf discomfort, Uncontrolled pain Allergies/Adverse Reactions: Allergies amoxicillin Allergy (Verified 04/18/20 20:58) Hives Sulfa (Sulfonamide Antibiotics) Allergy (Verified 04/18/20 20:58) Hives tomato Allergy (Verified 04/18/20 20:58) Hives Medications to take at Discharge MedroxyPROGESTERone [Depo-Provera] 150 mg IM .[id number] 06/01/17 glucagon HCl 1 mg solution for injection 1 mg SC Q20M PRN #1 ea 12/03/19 insulin aspart U-100 100 unit/mL (3 mL) subcutaneous pen See Rx Instructions SC TID #15 ml 12/16/19 blood sugar diagnostic See Rx Instructions .ROUTE .MEDSUPPLY #150 ea 01/24/20 Insulin Degludec [Tresiba Flextouch U-100] 30 unit SC DAILY #15 ml 04/21/20 Insulin Lispro [Humalog Kwikpen] 15 unit SC TID #15 ml 04/21/20 Lancets See Rx Instructions .ROUTE .MEDSUPPLY #150 ea 04/21/20 Na Biphos/Potassium Phosphate [Neutra-Phos Packet] 1 packet PO TID #7 packet 04/21/20 The following prescriptions were given: Insulin Lispro [Humalog Kwikpen] 15 unit SC TID #15 ml Lancets See Rx Instructions .ROUTE .MEDSUPPLY #150 ea Na Biphos/Potassium Phosphate [Neutra-Phos Packet] 1 packet PO TID #7 packet Insulin Degludec [Tresiba Flextouch U-100] 30 unit SC DAILY #15 ml Primary Care Physician: Rima Sheets MD [Primary Care Provider] - Please follow up with your Primary Care Physician in: In 1 to 2-week Test Results: Test results from this visit will be discussed in further detail at your follow- up appointment, if applicable. Please Follow Up With: Moustapha Rush MD When: In 2 weeks
[2020-04-21] MEDS: Na Biphos/Potassium Phosphate PACKET 1 PACKET PO ×2 (11:38→14:19)
[2020-04-21] MEDS: Insulin Lispro 100 UNIT/ML INSULN.PEN SC ×2 (11:49→17:30)
[2020-04-21 11:56] LABS: Bedside Glucose 198 mg/dL (70-110)
--- NOTE | 2020-04-21 12:30 | CASEMGMT ---
Addendum entered by Suma Harding 04/21/20 16:39: Received call back from [facility]. New patient appointment scheduled for 05/04/[address] Alvarado. Call to floor to add to discharge instructions. Patient has given permission for this worker to update case sealerMariana Workinger with [facility] as Mariana assists with transportation. Mariana updated at this time. Original Note: SOCIAL WORK Met with patient in room to follow up. Discussed establishing with primary care. Informed patient of case sealerMariana's recommendation for patient to follow up with PCP at [facility] as patient is already following with Dr. Rush in that office. Patient in agreement with plan. Patient reports will get in touch with Mariana today. Patient states plan is to go home with parents upon discharge and is hopeful for discharge today. Verified patient's contact information [phone] and informed patient if discharged before appointment arranged this worker will follow up via phone call. Patient in agreement with plan. Call to [facility] to set up new patient appointment. No answer, left message requesting return phone call with this worker's call back information. Anjum Harding, RETIREMENT ACTUARY, BLEACHER LARD
--- NOTE | 2020-04-21 17:05 | DS.PCM_ITS ---
Discharge Date and Diagnosis - Problem List Patient Problems: Active and Suspected Problems (Last Reviewed 04/18/20 @ 22:[address] David Ortega DO) DKA (diabetic ketoacidoses) (Acute) Date of Admission: 04/18/20 Date of Discharge: 04/21/20 - Primary Discharge Diagnosis Acute Problems: Active Problems (Last Reviewed 04/18/20 @ 22:[address] David Ortega DO) DKA (diabetic ketoacidoses) (Acute) - Secondary Discharge Diagnosis Chronic Problems: Chronic Problems (Last Reviewed 04/18/20 @ 22:[address] David Ortega DO) Diabetes (Chronic) Hospital Course and Treatment Summary of Care Provided: [] This 20-year-old female admitted with DKA. She has history of type 1 diabetes mellitus. DKA Patient had a rebound of DKA and pt was put back on Insulin drip and NaCl IV fluid Serum acetone small. AG times x2 closed along with increase in CO2. Mg and Phos level normal. Patient put back on insulin drip. 1 L of normal saline. Continue diet. DM-1 uncontrolled -suspect compliance is an issues although pt states that she is compliant Severe Hypokalemia and hypophosphatemia Electrolytes were monitored and replaced. Repeat K4.0. High anion gap metabolic acidosis Leukocytosis and Erythrocytosis Repeat cbc SHOWS normal wbc and HB. Tobacco Abuse -recommend cessation -nicotine patch DVT prophylaxis -early ambulation Discharge medication reconciliation done. Discharge follow-up instructions completed. Discharge process discussed with the patient and all questions were answered to patient's satisfaction. Prescription for insulin degludec and Humalog sent to retail pharmacy. Glucometer and insulin supplies were given. Total time spent, exact 35 minutes on discharge meds reconciliation, examinatio n, coordination of care with nurses and ancillary staff, review of imaging and blood test and discussion with the patient on follow-up instructions Laboratory Results 04/21/20 06:02: WBC 7.2, RBC 4.13 L, Hgb 12.4, Hct 35.4 L, MCV 85.7, MCH 30.0, MCHC 35.0, RDW Std Deviation 42.1, RDW Coeff of Mark 13.4, Plt Count 208, MPV 8.8, Immature Gran % (Auto) 0.100, Neut % (Auto) 39.7 L, Lymph % (Auto) 45.6 H, [place] % (Auto) 8.5, Eos % (Auto) 5.4 H, Baso % (Auto) 0.7, Absolute Neuts (auto) 2.9, Absolute Lymphs (auto) 3.28, Nucleated RBC % 0 04/21/20 06:02: Sodium 142, Potassium 2.7 L*, Chloride 112 H, Carbon Dioxide 23.0, Anion Gap 7, BUN 8, Creatinine 0.31 L, Estim Creat Clear Calc 281.51, Est GFR (MDRD) Af Amer 352, Est GFR (MDRD) Non-Af 291, BUN/Creatinine Ratio 25.9 H, Glucose 123 H, Calcium 8.0 L 04/21/20 06:02: Phosphorus 2.6, Magnesium 1.9 04/21/20 08:12: POC Glucose 104 04/21/20 11:46: POC Glucose 198 H Patient Problems: Active and Suspected Problems (Last Reviewed 04/18/20 @ 22:[address] David Ortega, DO) DKA (diabetic ketoacidoses) (Acute) - Physical Exam Vitals/I&O's: Vital Signs Temp Pulse Resp BP Pulse Ox 97.8 F 82 18 106/69 97 04/21/20 08:23 04/21/20 08:23 04/21/20 08:23 04/21/20 08:23 04/21/20 08:23 Oxygen Delivery Method Room Air Weight: 152 lb 1.903 oz Body Mass Index (BMI) 22.8 Finger Stick Blood Glucose 237 Intake and Output for Last 24 Hours 04/19/20 04/20/20 04/21/20 23:59 23:59 23:59 Intake Total 4200.88 / 4200.88 2607.22 / 2607.22 200 / 200 Output Total 1900 / 1900 0 / 0 Balance 2300.88 / 2300.88 2607.22 / 2607.22 200 / 200 Laboratory Results 04/20/20 10:00: Sodium 137, Potassium 3.4 L, Chloride 108 H, Carbon Dioxide 14.0 L, Anion Gap 15, BUN 6 L, Creatinine 0.66, Estim Creat Clear Calc 132.22, Est GFR (MDRD) Af Amer 148, Est GFR (MDRD) Non-Af 122, BUN/Creatinine Ratio 9.2 L, Glucose 476 H*, Calcium 7.8 L 04/20/20 12:09: POC Glucose 249 H 04/20/20 12:40: Acetone Level SMALL H 04/20/20 12:40: WBC 8.2, RBC 4.17 L, Hgb 12.5, Hct 36.0 L, MCV 86.3, MCH 30.0, MCHC 34.7, RDW Std Deviation 42.4, RDW Coeff of Mark 13.5, Plt Count 221, MPV 9.5, Immature Gran % (Auto) 0.400, Neut % (Auto) 61.5, Lymph % (Auto) 25.1, [place] % (Auto) 7.8, Eos % (Auto) 4.6, Baso % (Auto) 0.6, Absolute Neuts (auto) 5.0, Absolute Lymphs (auto) 2.05, Nucleated RBC % 0 04/20/20 13:17: POC Glucose 175 H 04/20/20 14:45: POC Glucose 86 04/20/20 15:39: POC Glucose 162 H 04/20/20 15:55: Sodium 142, Potassium 3.7, Chloride 113 H, Carbon Dioxide 20.0 L , Anion Gap 9, BUN 8, Creatinine 0.39 L, Estim Creat Clear Calc 223.76, Est GFR (MDRD) Af Amer 269, Est GFR (MDRD) Non-Af 222, BUN/Creatinine Ratio 20.5 H, Glucose 171 H, Calcium 7.6 L 04/20/20 15:55: Acetone Level SMALL H 04/20/20 16:53: POC Glucose 183 H 04/20/20 17:49: POC Glucose 302 H 04/20/20 18:56: POC Glucose 308 H 04/20/20 19:45: Sodium 138, Potassium 4.0, Chloride 110 H, Carbon Dioxide 19.0 L , Anion Gap 9, BUN 12, Creatinine 0.43 L, Estim Creat Clear Calc 202.95, Est GFR (MDRD) Af Amer 243, Est GFR (MDRD) Non-Af 201, BUN/Creatinine Ratio 28.1 H, Glucose 300 H, Calcium 7.5 L 04/20/20 19:58: POC Glucose 291 H 04/20/20 20:55: POC Glucose 262 H 04/20/20 22:06: POC Glucose 237 H 04/21/20 01:12: POC Glucose 259 H 04/21/20 06:02: WBC 7.2, RBC 4.13 L, Hgb 12.4, Hct 35.4 L, MCV 85.7, MCH 30.0, MCHC 35.0, RDW Std Deviation 42.1, RDW Coeff of Mark 13.4, Plt Count 208, MPV 8.8, Immature Gran % (Auto) 0.100, Neut % (Auto) 39.7 L, Lymph % (Auto) 45.6 H, [place] % (Auto) 8.5, Eos % (Auto) 5.4 H, Baso % (Auto) 0.7, Absolute Neuts (auto) 2.9, Absolute Lymphs (auto) 3.28, Nucleated RBC % 0 04/21/20 06:02: Sodium 142, Potassium 2.7 L*, Chloride 112 H, Carbon Dioxide 23.0, Anion Gap 7, BUN 8, Creatinine 0.31 L, Estim Creat Clear Calc 281.51, Est GFR (MDRD) Af Amer 352, Est GFR (MDRD) Non-Af 291, BUN/Creatinine Ratio 25.9 H, Glucose 123 H, Calcium 8.0 L 04/21/20 06:02: Phosphorus 2.6, Magnesium 1.9 04/21/20 08:12: POC Glucose 104 Current Medications Acetaminophen (Acetaminophen 325 Mg Tablet) 650 mg PO Q6H PRN PRN PRN Reason: Pain Score 1-10/Temp > 100.7 F Last Admin: 04/20/20 14:40 Dose: 650 mg Documented by: Dextrose (Dextrose 50%-Water 25 Gm/50 Ml Disp.Syrin) 0 gm IV X1 PRN; Protocol PRN Reason: Hypoglycemia Protocol Dextrose (Dextrose 50%-Water 25 Gm/50 Ml Disp.Syrin) 0 gm IV X1 PRN; Protocol PRN Reason: Hypoglycemia Glucagon (Glucagon 1 Mg/Ml Syringe) 1 mg IM .X1 PRN PRN Reason: Hypoglycemia Potassium Chloride () 10 meq in 100 mls @ 100 mls/hr IV BOLUS Q1H DERRELL Stop: 04/21/20 11:59 Last Admin: 04/21/20 07:59 Dose: 100 mls/hr Documented by: Ibuprofen (Ibuprofen 400 Mg Tablet) 400 mg PO Q4H PRN PRN PRN Reason: Pain Score 1-10/Temp > 100.7 F Last Admin: 04/21/20 06:22 Dose: 400 mg Documented by: Insulin Glargine (Insulin Glargine 100 Units/Ml Pen) 40 units SC QHS REPLACED BY [facility] Last Admin: 04/20/20 20:58 Dose: 40 units Documented by: Insulin Human Lispro (Insulin Lispro 100 Unit/Ml Insuln.Pen) 15 unit SC TIDAC REPLACED BY [facility] Last Admin: 04/21/20 08:13 Dose: 15 u Documented by: Insulin Human Lispro (Insulin Lispro 100 Unit/Ml Insuln.Pen) 0 unit SC ACHS REPLACED BY [facility]; Protocol Last Admin: 04/21/20 08:15 Dose: Not Given Documented by: Melatonin (Melatonin 3 Mg Tablet) 3 mg PO QHS PRN PRN PRN Reason: INSOMNIA Ondansetron HCl (Ondansetron 4 Mg/2 Ml Vial) 4 mg IV Q4H PRN PRN PRN Reason: NAUSEA Last Admin: 04/19/20 10:20 Dose: 4 mg Documented by: Potassium Chloride (Potassium Chloride 20 Meq Tablet) 40 meq PO Q3H REPLACED BY [facility] Stop: 04/21/20 11:01 Last Admin: 04/21/20 08:06 Dose: 40 meq Documented by: Potassium Phos/Sodium Phos (Na Biphos/Potassium Phosphate Packet) 1 packet PO TID REPLACED BY [facility] Stop: 04/23/20 09:56 Sodium Chloride (0.9% Saline Lock 10 Ml Syringe) 10 - 40 ml IV UD PRN PRN Reason: SALINE FLUSH Last Admin: 04/20/20 22:21 Dose: 20 ml Documented by: Discharge Activity: May Not Drive - for 2 weeks until see PCP Call your doctor if you observe: Fever of 101 or Higher, Numbness or Tingling, Change in Color, Inability to have a bowel movement, Using more than one pad per hour, Shortness of breath, Dizziness, Fainting spells, Swelling in the ankles, Chest pain, Prolonged hiccoughing, Increased palpitations (irregular heartbeat), Calf discomfort, Uncontrolled pain Home Medications: Medications to take at Discharge MedroxyPROGESTERone [Depo-Provera] 150 mg IM .[id number] 06/01/17 glucagon HCl 1 mg solution for injection 1 mg SC Q20M PRN #1 ea 12/03/19 blood sugar diagnostic See Rx Instructions .ROUTE .MEDSUPPLY #150 ea 01/24/20 Insulin Degludec [Tresiba Flextouch U-100] 30 unit SC DAILY #15 ml 04/21/20 Insulin Lispro [Humalog KwikPen] See Protocol SC ACHS #0 insuln.pen 04/21/20 Insulin Lispro [Humalog Kwikpen] 15 unit SC TID #15 ml 04/21/20 Lancets See Rx Instructions .ROUTE .MEDSUPPLY #150 ea 04/21/20 Na Biphos/Potassium Phosphate [Neutra-Phos Packet] 1 packet PO TID #7 packet 04/21/20 Following Prescriptions Were Given to Patient: Insulin Lispro [Humalog Kwikpen] 15 unit SC TID #15 ml Transmission Status: Received by [facility] Lancets See Rx Instructions .ROUTE .MEDSUPPLY #150 ea Transmission Status: Received by [facility] Na Biphos/Potassium Phosphate [Neutra-Phos Packet] 1 packet PO TID #7 packet Transmission Status: Received by [facility] Insulin Degludec [Tresiba Flextouch U-100] 30 unit SC DAILY #15 ml Transmission Status: Received by [facility] Other Amb Orders: Glucometer Location: None Selected Primary Care Physician: Rima Sheets MD [Primary Care Provider] - Please follow up with your Primary Care Physician in: In 1 to 2-week Please Follow Up With: Moustapha Rush MD When: In 2 weeks Medical Necessity - Tobacco Use Smoking Status: Current every day smoker Tobacco Use: Vapor Meaningful Use Info Meaningful Use Diagnoses (Choose all that apply): None applicable Inpatient E&M: [id number] [facility]
[2020-04-21 17:35] LABS: Bedside Glucose 186 mg/dL (70-110)
[2020-04-21 19:14] VITALS: BP 121/61; PULSE 68; RESP 18; TEMP 36.7; O2SAT 96
== END 2020-04-21 19:13 | disposition home or self-care (01) | DRG 420 ==
LOC: ED 21:53 → ICU 22:59 → MS3 04-21 01:49
PROVIDERS: Internal Medicine; Emergency Provider Emergency Medicine; PCP Pediatrics; Visit Provider Internal Medicine
DX: E10.10 Type 1 diabetes mellitus with ketoacidosis without coma (principal); Z79.4 Long term (current) use of insulin; Z23 Encounter for immunization; E87.6 Hypokalemia; E83.39 Other disorders of phosphorus metabolism; D75.1 Secondary polycythemia; D72.829 Elevated white blood cell count, unspecified; F17.290 Nicotine dependence, other tobacco product, uncomplicated; Z91.410 Personal history of adult physical and sexual abuse
CPT/HCPCS: 36415; 80048; 80053; 82009; 82962; 83036; 83735; 84100; 84132; 84703; 85025; 93005; 94762; 97802; 99281; 99285; 99406; J7030; J7050; 90686; A4216; J2405; J7799

== ENCOUNTER 2020-06-09 13:56 | Observation (INO) | payer MEDICAID, SELFPAY ==
[2020-06-08 08:09] VITALS: BMI 25.3
[2020-06-09] VITALS (13 sets, daily range): BP systolic 101–140; BP diastolic 55–90; PULSE 20–140; RESP 14–22; TEMP 35.9–36.4; O2SAT 94–100; BMI 26.9; BMI 25.7
--- NOTE | 2020-06-09 14:30 | EKG12_ITS ---
Test Reason : HYPERGLYCEMIA Blood Pressure : / mmHG Vent. Rate : 114 BPM Atrial Rate : 114 BPM P-R Int : 158 ms QRS Dur : 082 ms QT Int : 336 ms P-R-T Axes : 071 083 038 degrees QTc Int : 463 ms Sinus tachycardia Otherwise normal ECG Confirmed by MALINI IQBAL, MERRITT ([id number]), technical editor REI CONTRERAS ([id number]) on 06/22/2020 8:37:01 AM Referred By: GEOFF Confirmed By:DINORAH NAYAK MD
[2020-06-09 14:36] LABS: Bedside Glucose > 500 mg/dL (70-110)
--- NOTE | 2020-06-09 15:09 | RAD_ITS ---
STUDY: X-RAY CHEST REASON FOR EXAM: Female, 20 years old. DKA. N/V. TECHNIQUE: Single AP portable view of the chest. COMPARISON: None. FINDINGS: EKG electrodes are seen. The lungs are clear and expanded. There is no demonstrated pleural abnormality. Normal size heart. Normal mediastinum and raji. Normal visualized pulmonary arteries. Normal visualized aortic arch and descending thoracic aorta. Normal visualized thoracic spine. Normal visualized ribs, clavicles, and shoulders. There is no demonstrated abnormality of the visualized soft tissue structures of the upper abdomen. RAD/Chest 1 View (Portable) IMPRESSION: Normal x-ray examination of the chest. Electronically Signed: Dustin Castro, at 15:21 EST , Service support ,
[2020-06-09] MEDS: 0.9% Normal Saline 1,000 ML 999 ML IV ×2 (15:34→17:28)
[2020-06-09 15:36] LABS: Blood Gas Specimen Type VEN; VBG BASE EXCESS -11 mmol/L (-1.0-3.5); VBG Bicarbonate 15 mmol/L (22-26); VBG PO2 62 mmHg (25-40); VBG SO2 90 % (50-70); VBG TCO2 16 mmol/L (23-33); VBG pH 7.32 (7.32-7.42)
[2020-06-09 15:48] LABS: Absolute Lymphocyte Count 2.44 X10^3/uL (0.83-4.51); Absolute Neutrophil Count 7.5 X10^3/uL (2.0-7.7); Basophil# 0.05 X10^3/uL; Basophil% 0.5 % (0-1); Eosinophil# 0.02 X10^3/uL; Eosinophils% 0.2 % (0-5); Hematocrit 44.5 % (37-47); Hemoglobin 15.9 g/dL (12.0-15.0); Lymphocyte # 2.44 X10^3/ul (4.0); Mean Corp Hgb Conc 35.7 g/dL (32-36); Mean Corpuscular Hgb 30.9 pg (27.0-32.0); Mean Corpuscular Volume 86.4 fL (81-99); Monocyte# 0.61 X10^3/uL; Monocyte% 5.7 % (0-10); NRBC Flagged by Analyzer 0 % (0-5); Neutrophil # 7.45 X10^3/uL (2.7-7.7); Neutrophil % 70.1 % (47-70); Platelet Count 388 K/mm3 (150-450); RBC Distribution Width CV 11.1 % (11.6-14.6); RBC Distribution Width SD 35.2 fl (35.1-43.9); Red Blood Count 5.15 M/mm3 (4.2-5.4); White Blood Count 10.6 K/mm3 (4.4-11.0)
--- NOTE | 2020-06-09 16:16 | ED.DCSUM_ITS ---
History of Present Illness Chief Complaint: Hyperglycemia Narrative: Patient presenting for evaluation due to concern for diabetic ketoacidosis. Patient has a history of type 1 diabetes. Patient reports that over the course of the last 3 days. Patient reports that she has been having nausea vomiting and diarrhea. Patient reports that she thinks that she is currently in diabetic ketoacidosis. She has had high running glucoses and feels generally ill. She denies any fevers. She denies any cough or chest pain. She denies any urinary signs or symptoms. Patient does report that she had a similar presentation in April. Review of systems otherwise negative. Past Medical History - Allergies and Home Meds Allergies/Adverse Reactions: Allergies amoxicillin Allergy (Verified 04/18/20 20:58) Hives Sulfa (Sulfonamide Antibiotics) Allergy (Verified 04/18/20 20:58) Hives tomato Allergy (Verified 04/18/20 20:58) Hives Primary Care Physician: Care Physician,No Primary [Primary Care Provider] - Prior records reviewed: Yes Past Medical History: - - Type 1 diabetes Smoking Status: Unknown if ever smoked Alcohol: None Drugs: None - Family History Maternal Family History: Reports: - - no diabetes Review of Systems All systems negative except as indicated General: Reports: Malaise Eyes: Denies: Visual changes - bilaterally, Diplopia ENT: Denies: Rhinorrhea, Sore throat Cardiovascular: Denies: Chest pain, Palpitations Respiratory: Denies: Dyspnea, Cough, Dyspnea on exertion Gastrointestinal: Reports: Nausea, Vomiting, Diarrhea Genitourinary: Denies: Dysuria, Hematuria, Frequency Musculoskeletal: Denies: Back pain, Extremity Pain Skin: Denies: Rash, Wounds Neurological: Denies: Headache, Weakness, Numbness Physical Exam Vital Signs/Narrative: Vital Signs Temp Pulse Resp BP Pulse Ox 06/09/20 15:52 104 H 20 H 101/67 06/09/20 13:57 96.6 F L 140 H 22 H 138/90 H 98 Inital Vital Signs reviewed: Yes General: Well nourished, Well developed, No Acute Distress Head: Normocephalic, Atraumatic Eyes: Perrl, EOMI ENT: No rhinorrhea, Dry mucous membranes Neck: Supple, Nontender Cardiovascular: Regular rhythm, No murmurs, Tachycardia Respiratory: CTA bilaterally, Chest nontender, - - Mildly tachypneic, but not an otherwise respiratory distress Abdomen: Soft, Nontender, Nondistended, Normal bowel sounds Back: Nontender, Normal Inspection Extremities: Nontender, No edema Skin: Normal color, No rash Neurological: Alert, Oriented x3, Cranial nerves II-XII grossly intact, Normal Strength, Normal Sensation Psychological: Normal affect, Normal Mood Diagnostic/Tx/Re-eval Clinical Impression(s) from Imaging Studies Chest X-Ray 06/09/20 15:09 IMPRESSION: Normal x-ray examination of the chest. Electronically Signed: Dustin Castro, at 15:21 EST , Service support , Laboratory Data 06/09/20 06/09/20 06/09/20 14:18 15:30 15:30 WBC 10.6 RBC 5.15 Hgb 15.9 H Hct 44.5 MCV 86.4 MCH 30.9 MCHC 35.7 RDW Std Deviation 35.2 RDW Coeff of Mark 11.1 L Plt Count 388 MPV 9.0 Immature Gran % (Auto) 0.500 Neut % (Auto) 70.1 H Lymph % (Auto) 23.0 [place] % (Auto) 5.7 Eos % (Auto) 0.2 Baso % (Auto) 0.5 Absolute Neuts (auto) 7.5 Absolute Lymphs (auto) 2.44 Nucleated RBC % 0 Specimen Type VBG pH VBG pO2 VBG HCO3 VBG Total CO2 VBG O2 Sat (Calc) VBG Base Excess POC Mix VBG pCO2 Pt Tmp Sodium 133 L Potassium 4.1 Chloride 101 Carbon Dioxide 17.0 L Anion Gap 15 BUN 16 Creatinine 0.70 Estim Creat Clear Calc 120.01 Est GFR (MDRD) Af Amer 138 Est GFR (MDRD) Non-Af 114 BUN/Creatinine Ratio 23.0 H Glucose 471 H* Calcium 9.2 Phosphorus 4.0 Magnesium 2.2 Serum , Qual Acetone Level POC Glucose > 500 H* 06/09/20 06/09/20 06/09/20 15:30 15:30 15:32 WBC RBC Hgb Hct MCV MCH MCHC RDW Std Deviation RDW Coeff of Mark Plt Count MPV Immature Gran % (Auto) Neut % (Auto) Lymph % (Auto) [place] % (Auto) Eos % (Auto) Baso % (Auto) Absolute Neuts (auto) Absolute Lymphs (auto) Nucleated RBC % Specimen Type HAN VBG pH 7.32 VBG pO2 62 H VBG HCO3 15 L VBG Total CO2 16 L VBG O2 Sat (Calc) 90 H VBG Base Excess -11 L POC Mix VBG pCO2 Pt Tmp 29.0 L Sodium Potassium Chloride Carbon Dioxide Anion Gap BUN Creatinine Estim Creat Clear Calc Est GFR (MDRD) Af Amer Est GFR (MDRD) Non-Af BUN/Creatinine Ratio Glucose Calcium Phosphorus Magnesium Serum , Qual NEGATIVE Acetone Level MODERATE H POC Glucose - EKG Initial EKG Interpretation: - - Sinus tachycardia with a rate of 114 normal intervals, isoelectric ST segments normal T waves no evidence of acute ischemia or arrhythmia - Medical Decision Making Patient presented with concerns for DKA. Initial sugar was read as high she was tachycardic and tachypneic I feel little high likelihood of diabetic ketoacidosis, fluid resuscitation and insulin were immediately ordered. Chest x-ray was obtained was found to be negative. Patient was found to have a bicarbonate of 15 on a venous blood gas but not significant acidosis, there was moderate ketones. test was found to be negative. Patient was continued on fluid resuscitation and insulin drip. Patient is in early DKA at this point, I believe that she requires admission. I discussed this with the hospitalist. Critical care time (excluding procedures): 30-74 minutes ED Disposition - Plan for ED Patient: Disposition: Acute Care [facility] Diagnosis: DKA (diabetic ketoacidoses)
[2020-06-09 16:18] LABS: Anion Gap 15 (5-15); BUN 16 mg/dL (7-18); Calcium,Total 9.2 mg/dL (8.5-10.1); Chloride 101 mmol/L (98-107); EST Glomerular Filtration Rate 114 mL/min (>60); Est Glom Filt Rate - Afr Amer 138 mL/min (>60); Estimated Creatinine Clearance 120.01 ml/min; Glucose 471 mg/dL (74-106); Magnesium 2.2 mg/dL (1.6-2.6); Potassium 4.1 mmol/L (3.5-5.1); Sodium Level 133 mmol/L (136-145)
[2020-06-09 16:23] LABS: Internal QC Validated? YES +Cl - CLEAR BKGD; Pregnancy, Serum, hCG Quali. NEGATIVE Negative
--- NOTE | 2020-06-09 16:36 | PCM.HP.STD ---
Problem List (1) DKA (diabetic ketoacidoses) Status: Acute Qualifiers: Diabetes mellitus type: type 1 Diabetes mellitus complication detail: without coma Qualified Code(s): E10.10 - Type 1 diabetes mellitus with ketoacidosis without coma History of Present Illness Date of Admission: 06/09/20 Chief Complaint: Nausea, vomiting, diarrhea - 3 days The patient is a 20 year old F with past medical history of type I DM, history of recurrent admissions for DKA, noncompliant with medication who comes in with nausea, vomiting, diarrhea ongoing for 3 days. Patient states her blood sugars have been running high. She states that she has not been checking her blood sugars and giving herself an appropriate amount of insulin. She denied running out of supplies. She has enough supplies for diabetes management but she does not like to use prick to check her blood glucose. Denies any fever or chills or dysuria or chest pain or dizziness or palpitation. She denied any exposure to COVID-19. Labs in the ED showed temperature of 96.6F, heart rate 142, blood pressure 138/90, respiratory 22, SPO2 is 98% on room air. WBC count was 10.6, hemoglobin 15.9, platelet count 388, sodium 133, potassium 4.1, chloride 101, bicarbonate was 17, anion gap was 15, BUN was 16, creatinine 0.70. Glucose is 471, test negative. Acetone moderate. Admitting blood glucose was more than 500. VBG showed pH of 7.32, PO2 62, bicarb was 15. Rapid antigen test was negative. Admitting chest x-ray was unremarkable. Past Medical History Past Medical History (Chronic Problems): Chronic Problems (Last Reviewed 06/08/20 @ 09:[address] Moustapha Rush MD) Psychosocial problem (Chronic) Diabetes (Chronic) Medical History: Medical History (Last Reviewed 06/08/20 @ 09:[address] Moustapha Rush MD) Anxiety F41.9 Bipolar 1 disorder, depressed F31.9 Type 1 diabetes mellitus E10.9 Allergies amoxicillin Allergy (Verified 04/18/20 20:58) Hives Sulfa (Sulfonamide Antibiotics) Allergy (Verified 04/18/20 20:58) Hives tomato Allergy (Verified 04/18/20 20:58) Hives Home Medications: Ambulatory Orders Medication Instructions Recorded diazepam 5 mg tablet 5 mg PO DAILY 06/08/20 gabapentin 100 mg capsule 100 mg PO TID 06/08/20 Aripiprazole [Abilify] 15 mg PO DAILY 06/09/20 Diazepam [Valium] 10 mg PO QHS 06/09/20 Insulin Degludec [Tresiba 30 unit SC DAILY 06/09/20 Flextouch U-100] Insulin Lispro [Humalog Kwikpen] 20 unit SC TIDCM 06/09/20 Prazosin HCl 2 mg PO DAILY 06/09/20 Surgical History: no surgical history Psychiatric History: Bipolar 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 Denies: Anorexia, Chills, Fever, Weight Change Eyes: Denies: Blurred vision, Cataracts, Conjunctivae Inflammation HEENT: Denies: Difficulty Hearing, Difficulty Swallowing, Head Aches, Hearing Changes, Sinus Congestion, Sinus Drainage Cardiovascular: Denies: Chest Pain, Claudication, Orthopnea, Palpitations Respiratory: Denies: Cough, Hemoptysis, Shortness of breath at rest, Shortness of breath upon exertion, Sputum production Gastrointestinal: Denies: Abdominal Pain, Constipation, Hematemesis, Hematochezia, Nausea, Vomiting Genitourinary: Denies: Dysuria, Frequency Musculoskeletal: Denies: Joint Pain, Joint stiffness, Joint swelling, Joint Tenderness Skin: Denies: Rash, Wounds Neurological: Denies: Difficulty swallowing, Focal weakness, Numbness, Tingling Psychiatric: Denies: Anxiety, Depression, Homicidal Ideations, Suicidal Ideations Hematologic/ Lymphatic: Denies: Easy Bruising, Easy Bleeding VTE Information - Inpt Only VTE Present on Admission: No VTE Pharm Prophylaxis ordered?: Yes Patient Problems: Active and Suspected Problems (Last Reviewed 06/08/20 @ 09:[address] Moustapha Rush MD) DKA (diabetic ketoacidoses) (Acute) - Physical Exam Vitals/I&O's: Vital Signs Temp Pulse Resp BP Pulse Ox 96.6 F L 104 H 20 H 101/67 98 06/09/20 13:57 06/09/20 15:52 06/09/20 15:52 06/09/20 15:52 06/09/20 13:57 Oxygen Delivery Method Room Air Weight: 75.7 kg Body Mass Index (BMI) 26.9 Finger Stick Blood Glucose 500 General: Alert, Oriented x3, Cooperative, No apparent distress HEENT: Atraumatic, PERRLA, EOMI, Normocephalic Oral: Dry Mucosa Neck: Supple Lungs: Clear to auscultation, Normal air movement Cardiovascular: Regular rate, Regular Rhythm, Normal S1, Normal S2, No murmurs Abdomen: Bowel Sounds Present, Soft, Non Tender, Non-Distended Extremities: No edema Skin: No rashes Musculoskeletal: No Tenderness to Palpation of Joints or Extremities Lymphatic: No Cervical, Supraclavicular, or Inguinal Adenopathy Neurological: Cranial nerves II-XII grossly intact, Neuro grossly intact Psych/Mental Status: Normal Affect, Appropriate Laboratory Results 06/09/20 14:18: POC Glucose > 500 H* 06/09/20 15:30: WBC 10.6, RBC 5.15, Hgb 15.9 H, Hct 44.5, MCV 86.4, MCH 30.9, MCHC 35.7, RDW Std Deviation 35.2, RDW Coeff of Mark 11.1 L, Plt Count 388, MPV 9.0, Immature Gran % (Auto) 0.500, Neut % (Auto) 70.1 H, Lymph % (Auto) 23.0, [place] % (Auto) 5.7, Eos % (Auto) 0.2, Baso % (Auto) 0.5, Absolute Neuts (auto) 7.5, Absolute Lymphs (auto) 2.44, Nucleated RBC % 0 06/09/20 15:30: Sodium 133 L, Potassium 4.1, Chloride 101, Carbon Dioxide 17.0 L, Anion Gap 15, BUN 16, Creatinine 0.70, Estim Creat Clear Calc 120.01, Est GFR (MDRD) Af Amer 138, Est GFR (MDRD) Non-Af 114, BUN/Creatinine Ratio 23.0 H, Glucose 471 H*, Calcium 9.2, Phosphorus 4.0, Magnesium 2.2 06/09/20 15:30: Acetone Level MODERATE H 06/09/20 15:30: Serum , Qual NEGATIVE 06/09/20 15:32: Specimen Type HAN, VBG pH 7.32, VBG pO2 62 H, VBG HCO3 15 L, VBG Total CO2 16 L, VBG O2 Sat (Calc) 90 H, VBG Base Excess -11 L, POC Mix VBG pCO2 Pt Tmp 29.0 L Current Medications Insulin Human Lispro 100 unit/ (Sodium Chloride) 100 mls @ 7.57 mls/hr CONT INF .[id number] DERRELL; Protocol Stop: 06/10/20 03:42 Last Admin: 06/09/20 15:49 Dose: 7.5 mls/hr, 7.5 mls/hr Documented by: Assessment/Plan All Active Problems (Last Reviewed 06/08/20 @ 09:[address] Moustapha Rush MD) DKA (diabetic ketoacidoses) (Acute) 1. Acute DKA in a patient with known type I DKA. History of recurrent DKA Admitted with blood sugar more than 500, anion gap is 15, moderate ketones Started on insulin drip, will continue same Admit to ICU, follow-up with DKA protocol 2. Pseudohyponatremia, sodium is 133, secondary to DKA Repeat BMP per protocol 3. Bipolar disorder, continue on Abilify and Valium as well as gabapentin 4. DVT prophylaxis with early ambulation Inpatient E&M: [id number] Init Hosp L3
--- NOTE | 2020-06-09 16:42 | NURSING ---
ICU DKA PAINTSIL
[2020-06-09 17:00] LABS: Bedside Glucose 306 mg/dL (70-110)
--- NOTE | 2020-06-09 17:00 | NURSING ---
CV ICU 204
[2020-06-09 17:56] LABS: Bedside Glucose 208 mg/dL (70-110)
[2020-06-09 19:20] LABS: Bedside Glucose 122 mg/dL (70-110)
[2020-06-09] MEDS: Dext 5%-0.45% NS 1,000 ML 150 ML IV (19:25)
[2020-06-09 20:23] LABS: Anion Gap 9 (5-15); BUN 14 mg/dL (7-18); BUN/Creat Ratio 22.8 RATIO (10-20); Calcium,Total 7.6 mg/dL (8.5-10.1); Chloride 111 mmol/L (98-107); Creatinine, Serum 0.62 mg/dL (0.55-1.02); EST Glomerular Filtration Rate 132 mL/min (>60); Est Glom Filt Rate - Afr Amer 159 mL/min (>60); Glucose 385 mg/dL (74-106); Potassium 3.3 mmol/L (3.5-5.1); Sodium Level 140 mmol/L (136-145)
[2020-06-09 20:25] LABS: Osmolality, Serum 307 mOsm/KG (275-295)
[2020-06-09 20:30] LABS: Bedside Glucose 114 mg/dL (70-110)
[2020-06-09] MEDS: Gabapentin 100 MG Capsule PO (21:35)
[2020-06-09] MEDS: diazePAM 5 MG Tablet 10 MG PO (21:40)
[2020-06-10] VITALS (12 sets, daily range): BP systolic 102–129; BP diastolic 52–80; PULSE 86–99; RESP 8–21; TEMP 36.8–37.1; O2SAT 98–100
[2020-06-10 03:46] LABS: Absolute Lymphocyte Count 3.06 X10^3/uL (0.83-4.51); Basophil# 0.05 X10^3/uL; Basophil% 0.6 % (0-1); Eosinophil# 0.02 X10^3/uL; Eosinophils% 0.2 % (0-5); Hematocrit 37.1 % (37-47); Lymphocyte # 3.06 X10^3/ul (4.0); Lymphocyte % 34.3 % (19-41); Mean Corpuscular Hgb 30.5 pg (27.0-32.0); Mean Corpuscular Volume 87.1 fL (81-99); Mean Platelet Vol. 8.8 fl (6.2-12.0); Monocyte# 0.74 X10^3/uL; Monocyte% 8.3 % (0-10); NRBC Flagged by Analyzer 0 % (0-5); Neutrophil # 5.02 X10^3/uL (2.7-7.7); Neutrophil % 56.3 % (47-70); Platelet Count 272 K/mm3 (150-450); RBC Distribution Width CV 11.4 % (11.6-14.6); RBC Distribution Width SD 36.1 fl (35.1-43.9); Red Blood Count 4.26 M/mm3 (4.2-5.4); White Blood Count 8.9 K/mm3 (4.4-11.0)
[2020-06-10 04:04] LABS: ALB/GLOB Ratio 0.9 RATIO (0.9-2.4); AST(SGOT) 15 U/L (15-37); Alanine Aminotransfer ALT/SGPT 18 U/L (13-56); Albumin, Serum 2.9 g/dL (3.2-5.0); Alkaline Phosphatase 118 U/L (45-117); Anion Gap 6 (5-15); BUN 15 mg/dL (7-18); BUN/Creat Ratio 35.6 RATIO (10-20); Calcium,Total 8.2 mg/dL (8.5-10.1); Chloride 108 mmol/L (98-107); Creatinine, Serum 0.42 mg/dL (0.55-1.02); EST Glomerular Filtration Rate 204 mL/min (>60); Est Glom Filt Rate - Afr Amer 246 mL/min (>60); Estimated Creatinine Clearance 200.02 ml/min; Globulin 3.1 g/dL (2.2-4.2); Glucose 306 mg/dL (74-106); Potassium 4.5 mmol/L (3.5-5.1); Sodium Level 135 mmol/L (136-145)
[2020-06-10 05:36] LABS: Bedside Glucose 279 mg/dL (70-110)
[2020-06-10 08:31] LABS: Bedside Glucose 282 mg/dL (70-110)
[2020-06-10] MEDS: Insulin Lispro 100 UNIT/ML INSULN.PEN 20 UNIT SC (09:17)
[2020-06-10] MEDS: Doxazosin 1 MG Tablet 2 MG PO (09:19)
[2020-06-10] MEDS: ARIPiprazole 5 MG Tablet 15 MG PO (09:19)
[2020-06-10] MEDS: diazePAM 5 MG Tablet PO (09:25)
--- NOTE | 2020-06-10 10:14 | DCINST_ITS ---
- Discharge Diagnoses Current Active Problems: Current Active and Chronic Problems (Last Reviewed 06/08/20 @ 09:[address] Moustapha Rush MD) DKA (diabetic ketoacidoses) (Acute) You will use the following diet at home:: Calorie/Carbohydrate Controlled (specify 1200, 1400, etc) - 1800 Your food should be the consistency of: Regular Call your doctor if you observe: Fever of 101 or Higher, - - intactable nausea and vomiting. uncontrolled blood sugars. Allergies/Adverse Reactions: Allergies amoxicillin Allergy (Verified 06/09/20 16:53) Hives Sulfa (Sulfonamide Antibiotics) Allergy (Verified 06/09/20 16:53) Hives tomato Allergy (Verified 06/09/20 16:53) Hives Medications to take at Discharge diazepam 5 mg tablet 5 mg PO DAILY 06/08/20 gabapentin 100 mg capsule 100 mg PO TID 06/08/20 Aripiprazole [Abilify] 15 mg PO DAILY 06/09/20 Diazepam [Valium] 10 mg PO QHS 06/09/20 Insulin Degludec [Tresiba Flextouch U-100] 30 unit SC DAILY 06/09/20 Insulin Lispro [Humalog Kwikpen] 20 unit SC TIDCM 06/09/20 Prazosin HCl 2 mg PO DAILY 06/09/20 Primary Care Physician: Care Physician,No Primary [Primary Care Provider] - Test Results: Test results from this visit will be discussed in further detail at your follow- up appointment, if applicable. Please Follow Up With: primary care physician When: 2 weeks Please Follow Up With: endocrinology When: 4-6 weeks Proposed Discharge Date: 06/10/20
--- NOTE | 2020-06-10 10:16 | PCM.DC.SUM ---
Discharge Date and Diagnosis - Problem List Patient Problems: Active and Suspected Problems (Last Reviewed 06/08/20 @ 09:[address] Moustapha Rush MD) DKA (diabetic ketoacidoses) (Acute) Date of Admission: 06/09/20 Date of Discharge: 06/10/20 - Primary Discharge Diagnosis Acute Problems: Active Problems (Last Reviewed 06/08/20 @ 09:[address] Moustapha Rush MD) DKA (diabetic ketoacidoses) (Acute) - Secondary Discharge Diagnosis Chronic Problems: Chronic Problems (Last Reviewed 06/08/20 @ 09:[address] Moustapha Rush MD) Psychosocial problem (Chronic) Diabetes (Chronic) Hospital Course and Treatment Imaging Results: Clinical Impression(s) from Imaging Studies Chest X-Ray 06/09/20 15:09 IMPRESSION: Normal x-ray examination of the chest. Electronically Signed: Dustin Castro, at 15:21 EST , Service support , Operations: None Procedures: None Summary of Care Provided: The patient is a 20 year old F a 3-day history of intractable nausea and vomiting. Patient was still taking her basal insulin despite this but presented with diabetic ketoacidosis. Blood sugar was 471 with moderate acetone. Patient was started on insulin drip but DKA resolved quickly and the patient was resumed back on her normal home regimen. Patient has been eating and is otherwise feeling well. Patient was checked for COVID-19 with a rapid antigen test and that was negative. [] Patient Problems: Active and Suspected Problems (Last Reviewed 06/08/20 @ 09:[address] Moustapha Rush MD) DKA (diabetic ketoacidoses) (Acute) - Physical Exam Vitals/I&O's: Vital Signs Temp Pulse Resp BP Pulse Ox 36.8 C 97 20 H 129/80 H 100 06/10/20 08:00 06/10/20 09:00 06/10/20 09:00 06/10/20 09:00 06/10/20 09:00 Oxygen Delivery Method Room Air Weight: 68.5 kg Body Mass Index (BMI) 25.7 Finger Stick Blood Glucose 267 Intake and Output for Last 24 Hours 06/08/20 06/09/20 06/10/20 23:59 23:59 23:59 Intake Total 2597.61 / 2797.61 300 / 300 Output Total 0 / 0 Balance 2597.61 / 2797.61 300 / 300 General: Alert, No apparent distress HEENT: Atraumatic, Normocephalic Oral: Moist Mucosa, No Gingival or Mucosal Lesions/ Ulcerations Neck: No Nodes, Thyroid Normal Size and Texture Lungs: Clear to auscultation, Normal air movement, No rhonchi, No wheeze, No rales Cardiovascular: Regular rate, Regular Rhythm, Normal S1, Normal S2, No murmurs Abdomen: Bowel Sounds Present, Soft, Non Tender, Non-Distended, No Hepato-splenomegaly Microbiology Past 72 Hours 06/09/20 16:01 Mucosa - Nose SARS-CoV-2 Antigen (Rapid) - Final Laboratory Results 06/09/20 14:18: POC Glucose > 500 H* 06/09/20 15:30: WBC 10.6, RBC 5.15, Hgb 15.9 H, Hct 44.5, MCV 86.4, MCH 30.9, MCHC 35.7, RDW Std Deviation 35.2, RDW Coeff of Mark 11.1 L, Plt Count 388, MPV 9.0, Immature Gran % (Auto) 0.500, Neut % (Auto) 70.1 H, Lymph % (Auto) 23.0, Traill % (Auto) 5.7, Eos % (Auto) 0.2, Baso % (Auto) 0.5, Absolute Neuts (auto) 7.5, Absolute Lymphs (auto) 2.44, Nucleated RBC % 0 06/09/20 15:30: Sodium 133 L, Potassium 4.1, Chloride 101, Carbon Dioxide 17.0 L, Anion Gap 15, BUN 16, Creatinine 0.70, Estim Creat Clear Calc 120.01, Est GFR (MDRD) Af Amer 138, Est GFR (MDRD) Non-Af 114, BUN/Creatinine Ratio 23.0 H, Glucose 471 H*, Calcium 9.2, Phosphorus 4.0, Magnesium 2.2 06/09/20 15:30: Acetone Level MODERATE H 06/09/20 15:30: Serum , Qual NEGATIVE 06/09/20 15:32: Specimen Type HAN, VBG pH 7.32, VBG pO2 62 H, VBG HCO3 15 L, VBG Total CO2 16 L, VBG O2 Sat (Calc) 90 H, VBG Base Excess -11 L, POC Mix VBG pCO2 Pt Tmp 29.0 L 06/09/20 16:50: POC Glucose 306 H 06/09/20 17:46: POC Glucose 208 H 06/09/20 19:13: POC Glucose 122 H 06/09/20 19:40: Sodium 140, Potassium 3.3 L, Chloride 111 H, Carbon Dioxide 20.0 L, Anion Gap 9, BUN 14, Creatinine 0.62, Estim Creat Clear Calc 135.50, Est GFR (MDRD) Af Amer 159, Est GFR (MDRD) Non-Af 132, BUN/Creatinine Ratio 22.8 H, Glucose 385 H, Calcium 7.6 L 06/09/20 19:40: Serum Osmolality 307 H 06/09/20 20:27: POC Glucose 114 H 06/09/20 21:33: POC Glucose 279 H 06/10/20 03:25: WBC 8.9, RBC 4.26, Hgb 13.0, Hct 37.1, MCV 87.1, MCH 30.5, MCHC 35.0, RDW Std Deviation 36.1, RDW Coeff of Mark 11.4 L, Plt Count 272, MPV 8.8, Immature Gran % (Auto) 0.300, Neut % (Auto) 56.3, Lymph % (Auto) 34.3, Traill % (Auto) 8.3, Eos % (Auto) 0.2, Baso % (Auto) 0.6, Absolute Neuts (auto) 5.0, Absolute Lymphs (auto) 3.06, Nucleated RBC % 0 06/10/20 03:25: Sodium 135 L, Potassium 4.5, Chloride 108 H, Carbon Dioxide 21.0, Anion Gap 6, BUN 15, Creatinine 0.42 L, Estim Creat Clear Calc 200.02, Est GFR (MDRD) Af Amer 246, Est GFR (MDRD) Non-Af 204, BUN/Creatinine Ratio 35.6 H, Glucose 306 H, Calcium 8.2 L, Total Bilirubin 0.50, AST 15, ALT 18, Alkaline Phosphatase 118 H, Total Protein 6.0 L, Albumin 2.9 L, Globulin 3.1, Albumin/Globulin Ratio 0.9 06/10/20 08:27: POC Glucose 282 H Current Medications Acetaminophen (Acetaminophen 325 Mg Tablet) 650 mg PO Q6H PRN PRN PRN Reason: Pain Score 1-10/Temp > 100.7 F Al Hydroxide/Mg Hydroxide (Mag Hydrox/Al Hydrox/Simeth 30 Ml Udc) 30 ml PO Q6H PRN PRN PRN Reason: Gastric Burning Aripiprazole (Aripiprazole 5 Mg Tablet) 15 mg PO DAILY [facility] Last Admin: 06/10/20 09:19 Dose: 15 mg Documented by: Dextrose (Dextrose 50%-Water 25 Gm/50 Ml Disp.Syrin) 0 gm IV X1 PRN; Protocol PRN Reason: HYPOGLYCEMIA Diazepam (Diazepam 5 Mg Tablet) 10 mg PO QHS [facility] Last Admin: 06/09/20 21:40 Dose: 10 mg Documented by: Diazepam (Diazepam 5 Mg Tablet) 5 mg PO DAILY [facility] Last Admin: 06/10/20 09:25 Dose: 5 mg Documented by: Doxazosin Mesylate (Doxazosin 1 Mg Tablet) 2 mg PO DAILY [facility] Last Admin: 06/10/20 09:19 Dose: 2 mg Documented by: Gabapentin (Gabapentin 100 Mg Capsule) 100 mg PO TID [facility] Last Admin: 06/10/20 05:56 Dose: Not Given Documented by: Dextrose/Sodium Chloride () 1,000 mls @ 150 mls/hr IV .Q6H40M [facility] Last Admin: 06/10/20 09:18 Dose: Not Given Documented by: Insulin Glargine (Insulin Glargine 100 Units/Ml Pen) 30 units SC DAILY [facility] Last Admin: 06/10/20 09:18 Dose: 30 units Documented by: Insulin Human Lispro (Insulin Lispro 100 Unit/Ml Insuln.Pen) 20 unit SC 0800,1200,1700 [facility] Last Admin: 06/10/20 09:17 Dose: 20 units Documented by: Ondansetron HCl (Ondansetron 4 Mg/2 Ml Vial) 4 mg IV Q8H PRN PRN PRN Reason: NAUSEA/VOMITING Sodium Chloride (0.9% Saline Lock 10 Ml Syringe) 10 - 40 ml IV UD PRN PRN Reason: SALINE FLUSH Discharge Diet: 1800 Calorie Control Diet Discharge Activity: Return to Normal Activity Call your doctor if you observe: Fever of 101 or Higher, - - intactable nausea and vomiting. uncontrolled blood sugars. Home Medications: Medications to take at Discharge diazepam 5 mg tablet 5 mg PO DAILY 06/08/20 gabapentin 100 mg capsule 100 mg PO TID 06/08/20 Aripiprazole [Abilify] 15 mg PO DAILY 06/09/20 Diazepam [Valium] 10 mg PO QHS 06/09/20 Insulin Degludec [Tresiba Flextouch U-100] 30 unit SC DAILY 06/09/20 Insulin Lispro [Humalog Kwikpen] 20 unit SC TIDCM 06/09/20 Prazosin HCl 2 mg PO DAILY 06/09/20 Primary Care Physician: Care Physician,No Primary [Primary Care Provider] - Please Follow Up With: primary care physician When: 2 weeks Please Follow Up With: endocrinology When: 4-6 weeks Disposition: Home Minutes spent on discharge:: 28 Patient Condition:: Good Medical Necessity - Tobacco Use Smoking Status: Never smoker Tobacco Use: Non-smoker Meaningful Use Info Meaningful Use Diagnoses (Choose all that apply): None applicable OBSV E&M: 05853 Observation care discharge
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
== END 2020-06-10 11:05 | disposition home or self-care (01) ==
LOC: ED 16:31 → ICU 06-10 06:56
PROVIDERS: Admitting Provider Internal Medicine; Emergency Provider Emergency Medicine
DX: E10.10 Type 1 diabetes mellitus with ketoacidosis without coma (principal); Z79.899 Other long term (current) drug therapy; Z79.4 Long term (current) use of insulin; Z65.9 Problem related to unspecified psychosocial circumstances; F31.9 Bipolar disorder, unspecified
CPT/HCPCS: 71045; 80048; 80053; 82009; 82803; 82962; 83735; 83930; 84100; 84703; 85025; 87426; 93005; 96365; 96366; 97802; 99218; 99285; J7030; A4216; G0378; J7799

== ENCOUNTER 2020-06-15 08:30 | Outpatient (RCR) | payer MEDICAID, SELFPAY ==
[2020-06-09 18:27] VITALS: BMI 25.7
--- NOTE | 2020-06-15 09:10 | BH.SGPN.GN ---
Behaviors/Verbalizations/Mental Status: [] Eye contact is good. Motor activity is appropriate. Appearance is casual. Speech is Appropriate. Mood is depressed. Affect is flat. Thoughts are linear and logical. No evidence of psychosis. Reviewed daily check in sheet and pt reports 1/5 for suicidal thoughts and 0/5 for intent. Client Response/Progress/Benefit: [] Pt participated at times during the group discussion. Daily symptom tracker notes 2/5 for depression and 4/5 for anxiety. This was pt's first day in IOP. Shared with the group that she entered IOP due to severe depression and feelings of lonlieness. Discussed her struggles managing her Bipolar which has impacted her sleep. Reports that she will often wake up around 3am with increased energy and have to take a walk. States 2019 has been a very hard year for her. Hopeful about IOP and also notes she has a job interview today. Benefited from group support, encouragment, and feedback. Will continue in IOP to maintain safety, increase health coping skills, and improve functioning. Narrative Note: []
--- NOTE | 2020-06-15 10:20 | BH.SGPN.GN ---
Behaviors/Verbalizations/Mental Status: []Client alert and oriented, casually dressed and groomed. Eye contact good. Motor activity appropriate. Speech within normal limits. Affect constricted, mood anxious and depressed. Thoughts linear, logical, no signs of hallucinations or delusions. Client Response/Progress/Benefit: []Client engaged participant AEB client taking notes and listening attentively to peers. Group discussed healthy versus unhealthy coping skills and what contributes to people using unhealthy skills. The group stated unhealthy coping skills tend to be easy and habitual, temporary relief, and learned behaviors. Client shared she ?uses other?s problems to avoid my problems? and client uses other distractions. Had insight that these coping skills have negative consequences over time. Client participated in the group activity and connected that a healthy foundation of coping skills is composed of healthy internal and external coping skills. Client seemed to benefit from increased awareness of the importance of increasing healthy coping skills and consequences of utilizing unhealthy coping skills. Client?s first day of IOP tx. Will continue IOP tx to prevent decompensation, increase healthy coping skills, and improve daily functioning. Narrative Note: []
--- NOTE | 2020-06-15 11:20 | BH.SGPN.GN ---
Behaviors/Verbalizations/Mental Status: []Client alert and oriented, casual dress, hygiene tended to. Eye contact fair. Motor activity appropriate. Speech within normal limits. Affect constricted, mood anxious. Thoughts linear, logical, no signs of hallucinations or delusions. Client Response/Progress/Benefit: []Client responded well to session, actively listening and providing examples. Group discussed the different categories of coping skills which included distraction, emotional release, grounding, self-love, and thought challenging. Client participated in creating a coping skills ?menu? from the five categories of coping skills. Client's coping skill menu included: yelling, arts and crafts, pros and cons list, bubble bath and listening to audio book. Pt's first day in IOP. Appeared to benefit from increasing repertoire of healthy coping skills. Will continue tx to improve daily functioning, stabilize moods, and prevent decompensation. Narrative Note: []
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
--- NOTE | 2020-06-16 11:07 | BH.SGPN.GN ---
Behaviors/Verbalizations/Mental Status: []Client alert and oriented, neatly dressed and groomed. Eye contact good. Motor activity appropriate. Speech within normal limits. Affect constricted, mood anxious. Thoughts linear, logical, no signs of hallucinations or delusions. Client Response/Progress/Benefit: []Client responded well to session AEB client listening attentively to others and providing input during group discussion on the pay offs and costs of the different communication styles. Client took a leadership role in the activity. Attentive during psychoeducation on assertiveness strategies to improve communication, and client selected an assertiveness skill to practice. Client selected the skill describe the situation objectively. Client selected this skill as client reports having a difficult time verbalizing her emotions and thoughts to others. Client seemed to benefit from increasing awareness of healthy strategies to improve communication. Will continue IOP tx to prevent decompensation, improve emotional regulation skills, and improve daily functioning. Narrative Note: []
--- NOTE | 2020-06-17 09:35 | BH.COMM_ITS ---
Communication Note - Communication with Client Communication Note: Pt was scheduled with psychiatrist this AM however did not show for appointment. Attempted to call with no answer. We also recieved medical records from [facility] yesterday with pt's discharge plan. She had an appointment scheduled with [facility] yesterday morning which she was unaware and missed. Spoke with pt's polymer specialist. Reports that she has been attempting to reach pt as well with no success. biofuels plant construction worker is going to attempt to go to pt's residence. Per polymer specialist plan at discharge from [facility] was to place pt into [facility]'s [facility] however she was denied. Unsure why however due to pt's hx of non-compliance with medical as well as mental health treatment as well as unstable housing fci setting would be most beneficial to ensure stability and safety.
--- NOTE | 2020-06-17 09:35 | BH.COMM ---
Communication Note - Communication with Client Communication Note: Pt was scheduled with psychiatrist this AM however did not show for appointment. Attempted to call with no answer. We also recieved medical records from [facility] yesterday with pt's discharge plan. She had an appointment scheduled with psychiatrist at [facility] yesterday morning which she was unaware and missed. Spoke with pt's ammunition assembly ii laborer. Reports that she has been attempting to reach pt as well with no success. packing floor worker is going to attempt to go to pt's residence. Per ammunition assembly ii laborer plan at discharge from [facility] was to place pt into [facility]'s assisted however she was denied. Unsure why however due to pt's hx of non-compliance with medical as well as mental health treatment as well as unstable housing assisted setting would be most beneficial to ensure stability and safety.
--- NOTE | 2020-06-17 11:32 | BH.COMM_ITS ---
Communication Note - Communication with Client Communication Note: According to pt's porter sample case pt was re-addmitted to [facility]'s psychiatric unit yesterday. Unsure on the reasons. Talent Advisor in contact with psych unit and will keep us updated if referral to IOP to recommended.
--- NOTE | 2020-06-17 11:32 | BH.COMM ---
Communication Note - Communication with Client Communication Note: According to pt's case coordinator pt was re-addmitted to [facility]'s psychiatric unit yesterday. Unsure on the reasons. Metal Grinder in contact with psych unit and will keep us updated if referral to IOP to recommended.
--- NOTE | 2020-06-17 11:34 | BH.DS_ITS ---
Discharge Summary - Demographics Date of Admission:: 06/15/20 Discharge Date: 06/17/20 Presenting Problems at Admission:: Pt is a 20 year old female with a hx of Bipolar, Anxiety, PTSD, and Borderline PD. Recent admission to [facility] Psych unit with discharge on 06/01/20. Intially was admitted to ICU due to issues related to not managing her diabetes and was later transferred to psych. Per pt she was in a manic episode. At discharge from [place] pt was later admitted to [facility] due to DKA on 06/09/20. Pt unclear if follow-up psych was scheduled at her d/c on 06/01/20. Currently no outpatient psychiatrist and is unclear on if/when her next Abilify shot is scheduled. Prior to psych admit pt reported disorganized thoughts, impulsivity, and erratic mood. Reports that she had bought a plane ticket to [place]. Currently reports depressive episode with hopelessness and feelings of lonliness. Panic attacks. Possibly rapid cycling as she reports 1-2 days w/o sleep and then depression with SI. Reports SI with thoughts of methods on 06/11/20. Denied active SI, plan, or intent during intake. Denies substance abuse. Family hx of Bipolar. Adopted. Due to recent psych admission, fleeting SI, and erratic mood recommended [facility] level of care. Discharge Diagnoses:: Bipolar, most recent epsiode depressed. F31.4 Reason for Discharge:: Pt was admitted to higher level of care (inpatient psych unit). - Treatment Progress During Treatment & Response: Pt attended 2 days of IOP. She was engaged and per her report was gaining skills and insight from program. Pt reported significant stressors related to housing and medicaion compliance which was impacting stability. Pt was scheduled to meet with program psychiatrist on 06/17/20, however was admitted to [facility] psychiatric unit on 06/16/20 Issues Still to be Addressed:: Bipolar, psychosocial stressors, housing issues, hx of poor treatment and medication compliance, depression, Discharge Recommendations/Instructions:: Informed by pt's therapeutic case manager of her admission to inpatient level of care. Informed therapeutic case manager that pt is able to return to [facility] after discharge. Discharge Handout: Complete Discharge Handout with client on aftercare options and continuity of care.
== END 2020-06-17 13:57 | disposition short-term general hospital (02) ==
LOC: BHIOP 08:30
PROVIDERS: Referring Provider Psychiatry & Neurology Psychiatry; Visit Provider Psychiatry & Neurology Psychiatry
DX: F31.4 Bipolar disorder, current episode depressed, severe, without psychotic features (principal)
CPT/HCPCS: H2020

== ENCOUNTER 2020-09-17 16:24 | Observation (INO) | payer MEDICAID, SELFPAY ==
[2020-09-08 09:02] VITALS: BMI 25.1
[2020-09-17] VITALS (14 sets, daily range): BP systolic 96–137; BP diastolic 55–100; PULSE 103–142; RESP 19–32; TEMP 36.4–37.3; O2SAT 97–100; BMI 27.0; BMI 27.1; BMI 24.0
[2020-09-17 16:45] LABS: Bedside Glucose 400 mg/dL (70-110)
--- NOTE | 2020-09-17 16:51 | RAD_ITS ---
STUDY: X-RAY CHEST REASON FOR EXAM: Female, 20 years old. sob TECHNIQUE: Frontal view COMPARISON: 06/09/2020 FINDINGS: The lungs are clear and expanded. There is no demonstrated pleural abnormality. Normal size heart. Normal mediastinum and raji. Normal visualized pulmonary arteries. Normal visualized aortic arch and descending thoracic aorta. Normal visualized thoracic spine. Normal visualized ribs, clavicles, and shoulders. There is no demonstrated abnormality of the visualized soft tissue structures of the upper abdomen. RAD/Chest 1 View (Portable) IMPRESSION: Normal x-ray examination of the chest. Electronically Signed: Bradley Broussard DO at 19:48 EDT Tel [phone], Service support ,
--- NOTE | 2020-09-17 16:52 | EKG12_ITS ---
Test Reason : Blood Pressure : / mmHG Vent. Rate : 128 BPM Atrial Rate : 128 BPM P-R Int : 124 ms QRS Dur : 084 ms QT Int : 342 ms P-R-T Axes : 079 079 055 degrees QTc Int : 499 ms Sinus tachycardia Right atrial enlargement Borderline ECG Confirmed by HENRIQUE IQBAL, MORIAH ([id number]), editor publications SERGIO LEE ([id number]) on 09/21/2020 10:29:00 AM Referred By: RUDOLPH Confirmed By:MORIAH DUENAS MD
--- NOTE | 2020-09-17 16:56 | ED.DCSUM_ITS ---
History of Present Illness Chief Complaint: Nausea/Vomiting Informant: Patient Onset: Days Context: Gradual Onset Timing: Continuous Current Severity: Moderate Maximum Severity: Severe Narrative: The patient is a 20-year-old female medical history significant for bipolar disorder and insulin-dependent diabetes who presents to the emergency department shortness of breath, nausea, and vomiting. The patient states she is been without her diabetic supplies for about 5 to 7 days. She states that she left her bag in her friend's car and has not been able to get back. She states for the past few days, she had increasing shortness of breath, nausea, and vomiting. She states this feels very similar and she is in DKA before. She denies chest pain. She denies fever. She denies cough. She has not been checking her blood sugars. Prior similar symptoms: Yes Recent Illness/Hospitalization: No Past Medical History - Allergies and Home Meds Allergies/Adverse Reactions: Allergies amoxicillin Allergy (Verified 09/17/20 16:25) Hives Sulfa (Sulfonamide Antibiotics) Allergy (Verified 09/17/20 16:25) Hives tomato Allergy (Verified 09/17/20 16:25) Hives Primary Care Physician: Care Physician,No Primary [Primary Care Provider] - Prior records reviewed: Yes Past Medical History: - - DM Surgical History: no surgical history Smoking Status: Never smoker - Family History Maternal Family History: Family History (Last Reviewed 09/08/20 @ 09:[address] Moustapha Rush MD) Grandmother Diabetes Father Respiratory disease Uncle Respiratory disease Aunt Respiratory disease Family History: Reports: Unknown, - - no diabetes Paternal Family History: Family History (Last Reviewed 09/08/20 @ 09:[address] Moustapha Rush MD) Grandmother Diabetes Father Respiratory disease Uncle Respiratory disease Aunt Respiratory disease Family History: Reports: Unknown Review of Systems General: Reports: Malaise. Denies: Chills, Fever, Sweats Eyes: Denies: Visual changes - bilaterally, Diplopia ENT: Denies: Rhinorrhea, Sore throat Cardiovascular: Reports: Heart racing. Denies: Chest pain, Palpitations Respiratory: Reports: Dyspnea. Denies: Cough, Dyspnea on exertion Gastrointestinal: Reports: Nausea, Vomiting. Denies: Abdominal pain, Diarrhea, Melena, Hematochezia Genitourinary: Denies: Dysuria, Hematuria, Frequency Musculoskeletal: Denies: Back pain, Extremity Pain Skin: Denies: Rash, Wounds Neurological: Denies: Headache, Weakness, Numbness Physical Exam Vital Signs/Narrative: Vital Signs Temp Pulse Resp BP Pulse Ox 09/17/20 16:26 99.1 F 142 H 22 H 137/100 H 100 Inital Vital Signs reviewed: Yes General: Well nourished, Well developed, No Acute Distress Head: Normocephalic, Atraumatic Eyes: Perrl, EOMI ENT: No rhinorrhea, Dry mucous membranes Neck: Supple, Nontender Cardiovascular: No murmurs, Tachycardia Respiratory: No distress, CTA bilaterally, Chest nontender Abdomen: Soft, Nontender, Nondistended, Normal bowel sounds Back: Nontender, Normal Inspection Extremities: Nontender, No edema Skin: Normal color, No rash Neurological: Alert, Oriented x3, Cranial nerves II-XII grossly intact, Normal Strength, Normal Sensation Psychological: Normal affect, Normal Mood Diagnostic/Tx/Re-eval Chest X-Ray - ED: 1 View, Read by ED Physician, Normal, Heart, Lungs, Mediastinum, Bony Structures Abnormal Lab Results 09/17/20 09/17/20 09/17/20 16:31 18:24 18:24 WBC 16.7 H RBC 6.49 H Hgb 18.9 H* Hct 55.8 H MCV 86.0 MCH 29.1 MCHC 33.9 RDW Std Deviation 40.7 RDW Coeff of Mark 13.2 Plt Count 501 H MPV 9.6 Immature Gran % (Auto) 0.500 Neut % (Auto) 81.0 H Lymph % (Auto) 11.9 L [place] % (Auto) 5.5 Eos % (Auto) 0.2 Baso % (Auto) 0.9 Absolute Neuts (auto) 13.5 H Absolute Lymphs (auto) 1.99 Nucleated RBC % 0 Specimen Type VBG pH VBG pO2 VBG HCO3 VBG Total CO2 VBG O2 Sat (Calc) VBG Base Excess POC Mix VBG pCO2 Pt Tmp Crit Call To/Read Back Sodium 131 L Potassium 3.4 L Chloride 100 Carbon Dioxide 7.0 L* Anion Gap 24 H BUN 12 Creatinine 1.10 H Estim Creat Clear Calc 82.30 Est GFR (MDRD) Af Amer 81 Est GFR (MDRD) Non-Af 67 BUN/Creatinine Ratio 10.9 Glucose 406 H Lactic Acid Calcium 8.9 Total Bilirubin 0.50 AST 5 L ALT 19 Alkaline Phosphatase 182 H Total Protein 9.4 H Albumin 4.6 Globulin 4.8 H Albumin/Globulin Ratio 1.0 Serum , Qual Urine Color Urine Clarity Urine pH Ur Specific [place] Urine Protein Urine Glucose (UA) Urine Ketones Urine Occult Blood Urine Nitrite Urine Bilirubin Urine Urobilinogen Ur Leukocyte Esterase Urine RBC Urine WBC Ur Squamous Epith Cells Urine Bacteria Urine Mucus Acetone Level POC Glucose 400 H 09/17/20 09/17/20 09/17/20 18:24 18:24 18:24 WBC RBC Hgb Hct MCV MCH MCHC RDW Std Deviation RDW Coeff of Mark Plt Count MPV Immature Gran % (Auto) Neut % (Auto) Lymph % (Auto) [place] % (Auto) Eos % (Auto) Baso % (Auto) Absolute Neuts (auto) Absolute Lymphs (auto) Nucleated RBC % Specimen Type VBG pH VBG pO2 VBG HCO3 VBG Total CO2 VBG O2 Sat (Calc) VBG Base Excess POC Mix VBG pCO2 Pt Tmp Crit Call To/Read Back Sodium Potassium Chloride Carbon Dioxide Anion Gap BUN Creatinine Estim Creat Clear Calc Est GFR (MDRD) Af Amer Est GFR (MDRD) Non-Af BUN/Creatinine Ratio Glucose Lactic Acid 1.7 Calcium Total Bilirubin AST ALT Alkaline Phosphatase Total Protein Albumin Globulin Albumin/Globulin Ratio Serum , Qual NEGATIVE Urine Color Urine Clarity Urine pH Ur Specific [place] Urine Protein Urine Glucose (UA) Urine Ketones Urine Occult Blood Urine Nitrite Urine Bilirubin Urine Urobilinogen Ur Leukocyte Esterase Urine RBC Urine WBC Ur Squamous Epith Cells Urine Bacteria Urine Mucus Acetone Level SMALL H POC Glucose 09/17/20 09/17/20 18:36 18:36 WBC RBC Hgb Hct MCV MCH MCHC RDW Std Deviation RDW Coeff of Mark Plt Count MPV Immature Gran % (Auto) Neut % (Auto) Lymph % (Auto) [place] % (Auto) Eos % (Auto) Baso % (Auto) Absolute Neuts (auto) Absolute Lymphs (auto) Nucleated RBC % Specimen Type HAN VBG pH 6.99 L* VBG pO2 44 H VBG HCO3 7 L VBG Total CO2 7 L VBG O2 Sat (Calc) 56 VBG Base Excess -25 L POC Mix VBG pCO2 Pt Tmp 26.8 L Crit Call To/Read Back Yes Sodium Potassium Chloride Carbon Dioxide Anion Gap BUN Creatinine Estim Creat Clear Calc Est GFR (MDRD) Af Amer Est GFR (MDRD) Non-Af BUN/Creatinine Ratio Glucose Lactic Acid Calcium Total Bilirubin AST ALT Alkaline Phosphatase Total Protein Albumin Globulin Albumin/Globulin Ratio Serum , Qual Urine Color Yellow Urine Clarity Clear Urine pH 5.0 Ur Specific [place] 1.025 Urine Protein 100 H Urine Glucose (UA) 1000 H Urine Ketones 150 H Urine Occult Blood 250 H Urine Nitrite Negative Urine Bilirubin Negative Urine Urobilinogen Normal Ur Leukocyte Esterase Negative Urine RBC 0 SEEN Urine WBC 0 SEEN Ur Squamous Epith Cells 0 SEEN Urine Bacteria 0 SEEN Urine Mucus 0 SEEN Acetone Level POC Glucose - Rhythm Strip Rhythm Strip: Sinus Tach Rate: 130 Ectopy: None - EKG Initial EKG Interpretation: No Acute Injury Pattern, Sinus Tachycardia Prior: Unchanged - Medical Decision Making The patient is a 20-year-old female who presents with symptoms of DKA. She has been without her insulin for 5 days. We did have a difficult time establishing IV access. EKG was obtained which was sinus tachycardia without acute ischemic change. I was able to place an ultrasound-guided IV in her left AC. Labs were obtained. I obtained a venous blood gas which showed that the patient was acidotic consistent with her history. Her bicarb is 7. The patient was aggressively hydrated and started on insulin drip. At this point, she will be admitted to the ICU for further treatment of DKA. Impression 1. DKA 2. Tachycardia 3. Nausea vomiting - Critical Care Time Critical care time (excluding procedures): 30-74 minutes, Discussing w/Patient &/or Family/Clinic Manager, Discussing w/Consultants, Arranging Admission or Transfer, Performing Direct Patient Care at Bedside ED Disposition - Plan for ED Patient: Referrals: Care Physician,No Primary [Primary Care Provider] -
--- NOTE | 2020-09-17 17:46 | ED.RN ---
third nurse assessing for iv line at this time.
[2020-09-17] MEDS: Ondansetron ODT 4 MG Tablet PO (18:00)
[2020-09-17 18:40] LABS: Blood Gas Specimen Type VEN; VBG BASE EXCESS -25 mmol/L (-1.0-3.5); VBG Bicarbonate 7 mmol/L (22-26); VBG PO2 44 mmHg (25-40); VBG SO2 56 % (50-70); VBG TCO2 7 mmol/L (23-33); VBG pCO2 26.8 mmHg (41-51); VBG pH 6.99 (7.32-7.42)
[2020-09-17] MEDS: Acetaminophen 500 MG Tablet 1000 MG PO (18:40)
[2020-09-17] MEDS: 0.9% Normal Saline 1,000 ML 1000 ML IV ×2 (18:40→19:10)
--- NOTE | 2020-09-17 18:41 | CPS ---
Critical VBG results handed to Dr. Moore at 1841.
[2020-09-17 18:45] LABS: Bacteria 0 SEEN /hpf (None Seen); Mucous, Urine 0 SEEN /hpf (<or=2+); Red Blood Cells-Urine 0 SEEN /hpf (0-5); Squamous Epithelial Cells - UA 0 SEEN /hpf (5-10); White Blood Cells 0 SEEN /hpf (0-5)
[2020-09-17 18:46] LABS: Color, Urine Yellow (Yellow); Glucose, Dipstick 1000 mg/dl (Normal); Leukocyte Esterase-Dipstick Negative /ul (Negative); Nitrite-Dipstick Negative (Negative); Occult Blood-Urine 250 /ul (Negative); Protein-Dipstick 100 mg/dl (Negative); Specific Gravity, Urine 1.025 (1.002-1.030); Urine Bilirubin Dipstick Negative (Negative); Urine Clarity Clear (Clear); Urine Urobilinogen Normal (Normal)
[2020-09-17 18:46] LABS: Absolute Lymphocyte Count 1.99 X10^3/uL (0.83-4.51); Absolute Neutrophil Count 13.5 X10^3/uL (2.0-7.7); Basophil# 0.15 X10^3/uL; Basophil% 0.9 % (0-1); Eosinophil# 0.03 X10^3/uL; Eosinophils% 0.2 % (0-5); Lymphocyte # 1.99 X10^3/ul (4.0); Lymphocyte % 11.9 % (19-41); Mean Corp Hgb Conc 33.9 g/dL (32-36); Mean Corpuscular Hgb 29.1 pg (27.0-32.0); Mean Platelet Vol. 9.6 fl (6.2-12.0); Monocyte# 0.91 X10^3/uL; Monocyte% 5.5 % (0-10); NRBC Flagged by Analyzer 0 % (0-5); Platelet Count 501 K/mm3 (150-450); RBC Distribution Width CV 13.2 % (11.6-14.6); RBC Distribution Width SD 40.7 fl (35.1-43.9); Red Blood Count 6.49 M/mm3 (4.2-5.4); White Blood Count 16.7 K/mm3 (4.4-11.0)
[2020-09-17 18:47] LABS: Ketone-Dipstick 150 mg/dl (Negative)
[2020-09-17 18:49] LABS: Hematocrit 55.8 % (37-47)
[2020-09-17 18:50] LABS: Hemoglobin 18.9 g/dL (12.0-15.0); POSITIVE COUNT NO; POSITIVE DIFFERENTIAL NO; POSITIVE MORPHOLOGY NO
[2020-09-17 18:59] LABS: Internal QC Validated? YES +Cl - CLEAR BKGD; Pregnancy, Serum, hCG Quali. NEGATIVE Negative
[2020-09-17 19:45] LABS: AST(SGOT) 5 U/L (15-37); Alanine Aminotransfer ALT/SGPT 19 U/L (13-56); Albumin, Serum 4.6 g/dL (3.2-5.0); Alkaline Phosphatase 182 U/L (45-117); Anion Gap 24 (5-15); BUN 12 mg/dL (7-18); BUN/Creat Ratio 10.9 RATIO (10-20); Calcium,Total 8.9 mg/dL (8.5-10.1); Chloride 100 mmol/L (98-107); EST Glomerular Filtration Rate 67 mL/min (>60); Est Glom Filt Rate - Afr Amer 81 mL/min (>60); Globulin 4.8 g/dL (2.2-4.2); Glucose 406 mg/dL (74-106); Lactic Acid 1.7 mmol/L (0.4-1.9); Potassium 3.4 mmol/L (3.5-5.1); Protein, Total 9.4 g/dL (6.4-8.2); Sodium Level 131 mmol/L (136-145)
--- NOTE | 2020-09-17 19:56 | CM.ED ---
Social Work Consult: No PCP Referral Source: Self Referral Met with patient in room. Introduced self and social media project manager role. Patient agreeable to speak with this social media project manager. This social media project manager broached topic of PCP for patient. Patient reports to have a PCP, Dr. Gallo. This social media project manager updated patient chart. Patient denies any other community needs or concerns. Patient to be admitted for DKA. Stefani GU, RYAN
[2020-09-17 20:21] LABS: Bedside Glucose 291 mg/dL (70-110)
--- NOTE | 2020-09-17 20:28 | HP.PCM_ITS ---
Problem List (1) Bipolar disorder Status: Chronic Comment: Patient follows with psychiatry in [place]. She will be changing psychiatrists in the future. (2) Psychosocial problem Status: Chronic (3) DKA (diabetic ketoacidoses) Status: Acute Qualifiers: Diabetes mellitus type: type 1 Diabetes mellitus complication detail: without coma Qualified Code(s): E10.10 - Type 1 diabetes mellitus with ketoacidosis without coma (4) Diabetes Status: Chronic Qualifiers: Diabetes mellitus type: type 1 Diabetes mellitus complication status: with hyperglycemia Qualified Code(s): E10.65 - Type 1 diabetes mellitus with h yperglycemia History of Present Illness Date of Admission: 09/17/20 Chief Complaint: nausea and vomiting The patient is a 20 year old F with a significant history of anxiety and depression; bipolar disorder and diabetes mellitus with multiple DKA who presents to the emergency department with progressively worsening nausea and vomiting that started 3 days ago. Associated with her symptoms is polydipsia; anorexia; fatigue and headache. Reportedly patient missed her insulin for 5 days because she left her insulin in her friend's vehicle. Past Medical History Past Medical History (Chronic Problems): Chronic Problems (Last Reviewed 09/17/20 @ 20:[address] Aristeo Banuelos MD) Bipolar disorder (Chronic) Patient follows with psychiatry in [place]. She will be changing psychiatrists in the future. Psychosocial problem (Chronic) Diabetes (Chronic) Medical History: Medical History (Last Reviewed 09/17/20 @ 23:[address] Aristeo Banuelos MD) Anxiety F41.9 Bipolar 1 disorder, depressed F31.9 Type 1 diabetes mellitus E10.9 Allergies amoxicillin Allergy (Verified 09/17/20 16:25) Hives Sulfa (Sulfonamide Antibiotics) Allergy (Verified 09/17/20 16:25) Hives tomato Allergy (Verified 09/17/20 16:25) Hives Home Medications: Ambulatory Orders Medication Instructions Recorded Insulin Degludec [Tresiba 30 unit SC DAILY 06/09/20 Flextouch U-100] Insulin Lispro [Humalog Kwikpen] 20 unit SC TIDCM 06/09/20 aripiprazole 400 mg intramuscular 400 mg IM QMONTH ea 09/08/20 suspension,extended release gabapentin 300 mg capsule 300 mg PO TID cap 09/08/20 Surgical History: no surgical history Psychiatric History: Bipolar [employer] History: No pertinent [employer] history Smoking Status: Current every day smoker Tobacco Use: Cigarettes, Vapor - *Family History Maternal Family History: Family History (Last Reviewed 09/17/20 @ 23:[address] Aristeo Banuelos MD) Grandmother Diabetes Father Respiratory disease Uncle Respiratory disease Aunt Respiratory disease History Items: Unknown, - - no diabetes Paternal Family History: Family History (Last Reviewed 09/17/20 @ 23:[address] Aristeo Banuelos MD) Grandmother Diabetes Father Respiratory disease Uncle Respiratory disease Aunt Respiratory disease Review of Systems Constitutional: Reports: Anorexia. Denies: Chills, Fever, Weight Change HEENT: Reports: Head Aches. Denies: Sinus Congestion, Sinus Drainage Cardiovascular: Denies: Chest Pain, Palpitations Respiratory: Denies: Cough, Shortness of breath at rest, Sputum production Gastrointestinal: Reports: Nausea, Vomiting. Denies: Abdominal Pain Genitourinary: Denies: Dysuria Musculoskeletal: Denies: Joint Pain, Joint Tenderness Skin: Denies: Rash, Wounds Neurological: Denies: Numbness, Tingling, Focal weakness Psychiatric: Denies: Anxiety, Depression, Homicidal Ideations, Suicidal Ideations Hematologic/ Lymphatic: Denies: Easy Bruising, Easy Bleeding VTE Information - Inpt Only VTE Present on Admission: No VTE Mechan Device Prophylaxis: SCD's VTE Pharm Prophylaxis ordered?: No Patient Problems: Active and Suspected Problems (Last Reviewed 09/17/20 @ 20:[address] Aristeo Banuelos MD) DKA (diabetic ketoacidoses) (Acute) - Physical Exam Vitals/I&O's: Vital Signs Temp Pulse Resp BP Pulse Ox 97.5 F L 128 H 24 H 124/97 H 100 09/17/20 20:00 09/17/20 20:00 09/17/20 20:00 09/17/20 20:00 09/17/20 20:00 Oxygen Delivery Method Room Air Weight: 80.739 kg Body Mass Index (BMI) 27.0 Finger Stick Blood Glucose 291 Intake and Output for Last 24 Hours 09/15/20 09/16/20 09/17/20 23:59 23:59 23:59 Intake Total 508.51 / 508.51 Balance 508.51 / 508.51 General: Alert, Oriented x3, Cooperative HEENT: Atraumatic, PERRLA, EOMI, Normocephalic, - - Injected left eye Neck: Supple, No JVD, Negative Carotid Bruits Lungs: Clear to auscultation, Normal air movement, Tachypneic Cardiovascular: Normal S1, Normal S2, No murmurs, Tachycardic Abdomen: Bowel Sounds Present, Soft, Non Tender Extremities: No edema, Capillary Refill Less than 3 Seconds Skin: No rashes, No breakdown Musculoskeletal: No Tenderness to Palpation of Joints or Extremities Neurological: Cranial nerves II-XII grossly intact Psych/Mental Status: Normal Affect, Appropriate Laboratory Results 09/17/20 16:31: POC Glucose 400 H 09/17/20 18:24: WBC 16.7 H, RBC 6.49 H, Hgb 18.9 H*, Hct 55.8 H, MCV 86.0, MCH 29.1, MCHC 33.9, RDW Std Deviation 40.7, RDW Coeff of Mark 13.2, Plt Count 501 H, MPV 9.6, Immature Gran % (Auto) 0.500, Neut % (Auto) 81.0 H, Lymph % (Auto) 11.9 L, [place] % (Auto) 5.5, Eos % (Auto) 0.2, Baso % (Auto) 0.9, Absolute Neuts (auto) 13.5 H, Absolute Lymphs (auto) 1.99, Nucleated RBC % 0 09/17/20 18:24: Sodium 131 L, Potassium 3.4 L, Chloride 100, Carbon Dioxide 7.0 L*, Anion Gap 24 H, BUN 12, Creatinine 1.10 H, Estim Creat Clear Calc 82.30, Est GFR (MDRD) Af Amer 81, Est GFR (MDRD) Non-Af 67, BUN/Creatinine Ratio 10.9, Glucose 406 H, Calcium 8.9, Total Bilirubin 0.50, AST 5 L, ALT 19, Alkaline Phosphatase 182 H, Total Protein 9.4 H, Albumin 4.6, Globulin 4.8 H, Albumin/Globulin Ratio 1.0 09/17/20 18:24: Lactic Acid 1.7 09/17/20 18:24: Serum , Qual NEGATIVE 09/17/20 18:24: Acetone Level SMALL H 09/17/20 18:36: Urine Color Yellow, Urine Clarity Clear, Urine pH 5.0, Ur Specific [place] 1.025, Urine Protein 100 H, Urine Glucose (UA) 1000 H, Urine Ketones 150 H, Urine Occult Blood 250 H, Urine Nitrite Negative, Urine Bilirubin Negative, Urine Urobilinogen Normal, Ur Leukocyte Esterase Negative, Urine RBC 0 SEEN, Urine WBC 0 SEEN, Ur Squamous Epith Cells 0 SEEN, Urine Bacteria 0 SEEN, Urine Mucus 0 SEEN 09/17/20 18:36: Specimen Type HAN, VBG pH 6.99 L*, VBG pO2 44 H, VBG HCO3 7 L, VBG Total CO2 7 L, VBG O2 Sat (Calc) 56, VBG Base Excess -25 L, POC Mix VBG pCO2 Pt Tmp 26.8 L, Crit Call To/Read Back Yes 09/17/20 20:09: POC Glucose 291 H Current Medications Dextrose (Dextrose 50%-Water 25 Gm/50 Ml Disp.Syrin) 0 gm IV X1 PRN; Protocol PRN Reason: Hypoglycemia Protocol Insulin Human Lispro 100 unit/ (Sodium Chloride) 100 mls @ 8.074 mls/hr CONT INF .[id number] DERRELL; Protocol Stop: 09/18/20 07:08 Last Infusion: 09/17/20 20:14 Dose: 4 mls/hr Documented by: Assessment/Plan All Active Problems (Last Reviewed 09/17/20 @ 20:[address] Aristeo Banuelos MD) DKA (diabetic ketoacidoses) (Acute) The patient is a 20 year old F with a significant history of anxiety and depression; bipolar disorder and diabetes mellitus with multiple DKA who presents emergency department with progressively worsening nausea and vomiting ; polydipsia; anorexia; fatigue and headache and found to be in DKA. DKA Her DKA is secondary to insufficient insulin to meet her metabolic demands Serum glucose : 406 acetone level: small Anion gap of 24 Sodium 131, . Corrected sodium: 136 Insulin drip started from emergency department; continue Completed IV bolus of normal saline and normal saline infusion. Because of hypokalemia with potassium of 3.4 mEq of potassium p.o. was ordered at emergency department. IV hydration/dextrose and potassium supplementation per DKA protocol ordered BMP every 4 hours to calculate anion gap. N.p.o. for now Admitted to ICU Zofran as needed. Hold home insulin regimen at this time. Acute left eye conjunctivitis/Corneal abrasion Erythromycin ordered. Tobacco abuse Counseled Declined nicotine patch because of allergy to a adhesives. Nicotine gum ordered. DVT prophylaxis Low risk. Encourage to ambulate. Inpatient E&M: [id number] Init Hosp L3
[2020-09-17] MEDS: Erythromycin Base 1 OPTH.TUBE 1 APPLIC LEFT EYE (20:38)
[2020-09-17] MEDS: Potassium Chloride Oral Tablet 20 MEQ 40 MEQ PO (20:38)
[2020-09-17] MEDS: Gabapentin 300 MG Capsule PO (22:28)
[2020-09-17] MEDS: Potassium Chloride 40 MEQ in Dext 5%-0.45% NS 1,000 ML 150 MEQ IV (22:53)
[2020-09-17 23:02] LABS: Anion Gap 17 (5-15); BUN 11 mg/dL (7-18); BUN/Creat Ratio 15.6 RATIO (10-20); Calcium,Total 7.6 mg/dL (8.5-10.1); Chloride 113 mmol/L (98-107); EST Glomerular Filtration Rate 112 mL/min (>60); Est Glom Filt Rate - Afr Amer 136 mL/min (>60); Estimated Creatinine Clearance 129.32 ml/min; Glucose 178 mg/dL (74-106); Potassium 3.3 mmol/L (3.5-5.1); Sodium Level 139 mmol/L (136-145)
[2020-09-18] VITALS (16 sets, daily range): BP systolic 95–125; BP diastolic 44–74; PULSE 98–123; RESP 14–21; TEMP 36.6–36.8; O2SAT 96–100
[2020-09-18 00:01] LABS: Bedside Glucose 176 mg/dL (70-110)
[2020-09-18 00:01] LABS: Bedside Glucose 198 mg/dL (70-110)
[2020-09-18 00:13] LABS: Hemoglobin A1c 10.6 % (3.8-5.6)
[2020-09-18 01:36] LABS: Bedside Glucose 189 mg/dL (70-110)
[2020-09-18 02:36] LABS: Anion Gap 8 (5-15); BUN 11 mg/dL (7-18); BUN/Creat Ratio 14.9 RATIO (10-20); Calcium,Total 7.8 mg/dL (8.5-10.1); Chloride 115 mmol/L (98-107); Creatinine, Serum 0.74 mg/dL (0.55-1.02); EST Glomerular Filtration Rate 106 mL/min (>60); Est Glom Filt Rate - Afr Amer 128 mL/min (>60); Estimated Creatinine Clearance 122.33 ml/min; Glucose 198 mg/dL (74-106); Potassium 3.7 mmol/L (3.5-5.1); Sodium Level 138 mmol/L (136-145)
[2020-09-18 04:31] LABS: Bedside Glucose 198 mg/dL (70-110)
[2020-09-18] MEDS: Potassium Chloride 40 MEQ in Dext 5%-0.45% NS 1,000 ML 150 MEQ IV (05:47)
[2020-09-18] MEDS: Erythromycin Base 1 OPTH.TUBE 1 APPLIC LEFT EYE ×2 (06:01→13:15)
[2020-09-18 06:45] LABS: Bedside Glucose 180 mg/dL (70-110)
--- NOTE | 2020-09-18 07:24 | CON.PCM_ITS ---
Problem List (1) Bipolar disorder Status: Chronic Comment: Patient follows with psychiatry in [place]. She will be changing psychiatrists in the future. (2) Psychosocial problem Status: Chronic (3) DKA (diabetic ketoacidoses) Status: Acute Qualifiers: Diabetes mellitus type: type 1 Diabetes mellitus complication detail: without coma Qualified Code(s): E10.10 - Type 1 diabetes mellitus with ketoacidosis without coma (4) Diabetes Status: Chronic Qualifiers: Diabetes mellitus type: type 1 Diabetes mellitus complication status: with hyperglycemia Qualified Code(s): E10.65 - Type 1 diabetes mellitus with h yperglycemia Reason for Consult Date of Consultation: 09/18/20 Reason for Consultation: DKA History of Present Illness: The patient is a 20 year old F, with past medical history listed below, who presented to [facility] on 09/17/2020 secondary to shortness of breath, nausea and vomiting. Patient reportedly had not had her diabetic supplies for 5 to 7 days secondary to leaving them in a friend's car. This is patient's third presentation in the last 6 months with similar type of symptoms. Patient had reported increased shortness of breath, nausea and vomiting. Patient thought this was similar to previous DKA admissions. Patient reportedly has not had anything to eat 48 hours prior to presentation. Patient did report that she had presented to an outside urgent care secondary to eye pain and was found to have a corneal abrasion following fluorescein. In the ER, patient was tachycardic at 142 bpm, tachypneic at 22 with elevated blood pressure. Patient was saturating well on room air. Laboratory work-up showed significant hemoconcentration with a leukocytosis of 16.7, hemoglobin of 18.9 and platelet count of 501. Chemistry showed a bicarbonate of 7 with anion gap of 24, along with a glucose of 400. Lactate was within normal limits and pH was 6.99. UA was unremarkable. Patient was given fluid resuscitation, insulin drip and admitted to the intensive care unit for further evaluation. Since being admitted to the intensive care unit, patient has been h emodynamically stable. Patient's last BMP did show that her gap is closed. Patient is still reporting some mild nausea, but feels this is better than previous. Patient attributes this to not having food for several days. Patient denies any current chest pain, abdominal pain or cough. Nursing reports there has been some difficulty in obtaining laboratory studies. Review of systems otherwise negative from a constitutional, HEENT, respiratory, cardiovascular, GI, genitourinary, musculoskeletal, skin, neurologic, psychiatric and hematologic system unless stated above. Past Medical History Past Medical History (Chronic Problems): Chronic Problems (Last Reviewed 09/17/20 @ 23:[address] Aristeo Banuelos MD) Bipolar disorder (Chronic) Patient follows with psychiatry in [place]. She will be changing psychiatrists in the future. Psychosocial problem (Chronic) Diabetes (Chronic) Medical History: Medical History (Last Reviewed 09/17/20 @ 23:[address] Aristeo Banuelos MD) Anxiety F41.9 Bipolar 1 disorder, depressed F31.9 Type 1 diabetes mellitus E10.9 Allergies amoxicillin Allergy (Verified 09/17/20 16:25) Hives Sulfa (Sulfonamide Antibiotics) Allergy (Verified 09/17/20 16:25) Hives tomato Allergy (Verified 09/17/20 16:25) Hives Home Medications: Ambulatory Orders Medication Instructions Recorded Insulin Degludec [Tresiba 30 unit SC DAILY 06/09/20 Flextouch U-100] Insulin Lispro [Humalog Kwikpen] 20 unit SC TIDCM 06/09/20 aripiprazole 400 mg intramuscular 400 mg IM QMONTH ea 09/08/20 suspension,extended release gabapentin 300 mg capsule 300 mg PO TID cap 09/08/20 Surgical History: no surgical history Psychiatric History: Bipolar INFECTION CONTROL RN History: No pertinent INFECTION CONTROL RN history Smoking Status: Current every day smoker Tobacco Use: Cigarettes, Vapor - *Family History Maternal Family History: Family History (Last Reviewed 09/17/20 @ 23:[address] Aristeo Banuelos MD) Grandmother Diabetes Father Respiratory disease Uncle Respiratory disease Aunt Respiratory disease History Items: Unknown, - - no diabetes Paternal Family History: Family History (Last Reviewed 09/17/20 @ 23:[address] Aristeo Banuelos MD) Grandmother Diabetes Father Respiratory disease Uncle Respiratory disease Aunt Respiratory disease History Items: Unknown Review of Systems Comment: See HPI Patient Problems: Active and Suspected Problems (Last Reviewed 09/17/20 @ 23:[address] Aristeo Banuelos MD) DKA (diabetic ketoacidoses) (Acute) Objective: Chest x-ray was personally reviewed and shows no significant infiltrates or pathology. - Physical Exam Vitals/I&O's: Vital Signs Temp Pulse Resp BP Pulse Ox 36.7 C 104 H 21 H 116/61 100 09/18/20 04:00 09/18/20 07:00 09/18/20 07:00 09/18/20 07:00 09/18/20 07:00 Oxygen Delivery Method Room Air Weight: 71.9 kg Body Mass Index (BMI) 24.0 Finger Stick Blood Glucose 137 Intake and Output for Last 24 Hours 09/16/20 09/17/20 09/18/20 23:59 23:59 23:59 Intake Total 1518.55 / 1518.55 1042.22 / 1042.22 Output Total 600 / 600 Balance 1518.55 / 1518.55 442.22 / 442.22 General: Alert, Oriented x3, Cooperative, No apparent distress, - - No conversational dyspnea HEENT: Atraumatic, PERRLA, EOMI, Normocephalic, - - Scleral injection and edema of the left eye noted Oral: Moist Mucosa, No Gingival or Mucosal Lesions/ Ulcerations Neck: Supple, No JVD, No Nodes, Trachea Midline Lungs: Clear to auscultation, Normal air movement, No rhonchi, No wheeze, No rales Cardiovascular: Regular rate, Regular Rhythm, Normal S1, Normal S2, No murmurs, No rub noted, No Gallop Abdomen: Bowel Sounds Present, Soft, Non Tender, Non-Distended Extremities: No clubbing, No cyanosis, No edema Skin: No rashes, No breakdown Musculoskeletal: No Tenderness to Palpation of Joints or Extremities Lymphatic: No Cervical, Supraclavicular, or Inguinal Adenopathy Neurological: Cranial nerves II-XII grossly intact, Neuro grossly intact, Motor Exam 5/5 strength throughout Psych/Mental Status: Flat Affect, Restless Laboratory Results 09/17/20 16:31: POC Glucose 400 H 09/17/20 18:24: WBC 16.7 H, RBC 6.49 H, Hgb 18.9 H*, Hct 55.8 H, MCV 86.0, MCH 29.1, MCHC 33.9, RDW Std Deviation 40.7, RDW Coeff of Mark 13.2, Plt Count 501 H, MPV 9.6, Immature Gran % (Auto) 0.500, Neut % (Auto) 81.0 H, Lymph % (Auto) 11.9 L, Iron % (Auto) 5.5, Eos % (Auto) 0.2, Baso % (Auto) 0.9, Absolute Neuts (auto) 13.5 H, Absolute Lymphs (auto) 1.99, Nucleated RBC % 0 09/17/20 18:24: Sodium 131 L, Potassium 3.4 L, Chloride 100, Carbon Dioxide 7.0 L*, Anion Gap 24 H, BUN 12, Creatinine 1.10 H, Estim Creat Clear Calc 82.30, Est GFR (MDRD) Af Amer 81, Est GFR (MDRD) Non-Af 67, BUN/Creatinine Ratio 10.9, Glucose 406 H, Calcium 8.9, Total Bilirubin 0.50, AST 5 L, ALT 19, Alkaline Phosphatase 182 H, Total Protein 9.4 H, Albumin 4.6, Globulin 4.8 H, Albumin/Globulin Ratio 1.0 09/17/20 18:24: Lactic Acid 1.7 09/17/20 18:24: Serum , Qual NEGATIVE 09/17/20 18:24: Acetone Level SMALL H 09/17/20 18:24: Hemoglobin A1c 10.6 H 09/17/20 18:36: Urine Color Yellow, Urine Clarity Clear, Urine pH 5.0, Ur Specific [place] 1.025, Urine Protein 100 H, Urine Glucose (UA) 1000 H, Urine Ketones 150 H, Urine Occult Blood 250 H, Urine Nitrite Negative, Urine Bilirubin Negative, Urine Urobilinogen Normal, Ur Leukocyte Esterase Negative, Urine RBC 0 SEEN, Urine WBC 0 SEEN, Ur Squamous Epith Cells 0 SEEN, Urine Bacteria 0 SEEN, Urine Mucus 0 SEEN 09/17/20 18:36: Specimen Type HAN, VBG pH 6.99 L*, VBG pO2 44 H, VBG HCO3 7 L, VBG Total CO2 7 L, VBG O2 Sat (Calc) 56, VBG Base Excess -25 L, POC Mix VBG pCO2 Pt Tmp 26.8 L, Crit Call To/Read Back Yes 09/17/20 20:09: POC Glucose 291 H 09/17/20 21:26: POC Glucose 198 H 09/17/20 22:27: POC Glucose 176 H 09/17/20 22:30: Sodium 139, Potassium 3.3 L, Chloride 113 H, Carbon Dioxide 9.0 L*, Anion Gap 17 H, BUN 11, Creatinine 0.70, Estim Creat Clear Calc 129.32, Est GFR (MDRD) Af Amer 136, Est GFR (MDRD) Non-Af 112, BUN/Creatinine Ratio 15.6, Glucose 178 H, Calcium 7.6 L 09/17/20 23:57: POC Glucose 189 H 09/18/20 02:12: POC Glucose 180 H 09/18/20 02:15: Sodium 138, Potassium 3.7, Chloride 115 H, Carbon Dioxide 15.0 L , Anion Gap 8, BUN 11, Creatinine 0.74, Estim Creat Clear Calc 122.33, Est GFR (MDRD) Af Amer 128, Est GFR (MDRD) Non-Af 106, BUN/Creatinine Ratio 14.9, Glucose 198 H, Calcium 7.8 L 09/18/20 04:24: POC Glucose 198 H 09/18/20 07:15: Sodium Pending, Potassium Pending, Chloride Pending, Carbon Dioxide Pending, Anion Gap Pending, BUN Pending, Creatinine Pending, Est GFR (MDRD) Af Amer Pending, Est GFR (MDRD) Non-Af Pending, BUN/Creatinine Ratio Pending, Glucose Pending, Calcium Pending Current Medications Acetaminophen (Acetaminophen 325 Mg Tablet) 650 mg PO Q4H PRN PRN PRN Reason: Pain 1-10 or Fever Dextrose (Dextrose 50%-Water 25 Gm/50 Ml Disp.Syrin) 0 gm IV X1 PRN; Protocol PRN Reason: Hypoglycemia Protocol Dextrose (Dextrose 50%-Water 25 Gm/50 Ml Disp.Syrin) 0 gm IV X1 PRN; Protocol PRN Reason: HYPOGLYCEMIA Erythromycin (Erythromycin Base 1 Opth.Tube) 1 applic LEFT EYE TID [facility] Last Admin: 09/18/20 06:01 Dose: 1 applic Documented by: Insulin Human Lispro 100 unit/ (Sodium Chloride) 100 mls @ 8.074 mls/hr CONT INF .[id number] [facility]; Protocol Last Admin: 09/17/20 21:38 Dose: Not Given Documented by: Sodium Chloride () 250 mls @ 15 mls/hr IV .[id number] PRN PRN Reason: Saline Flush Sodium Chloride () 250 mls @ 15 mls/hr IV .[id number] PRN PRN Reason: Additional IVPB Infusion Potassium Chloride 40 meq/ (Dextrose/Sodium Chloride) 1,020 mls @ 150 mls/hr IV .[id number] [facility] Last Admin: 09/18/20 05:47 Dose: 150 mls/hr Documented by: Nicotine Polacrilex (Nicotine Polacrilex 2 Mg Gum) 2 mg PO Q2H PRN PRN PRN Reason: Nicotine cravings Ondansetron HCl (Ondansetron 4 Mg/2 Ml Vial) 4 mg IV Q8H PRN PRN PRN Reason: NAUSEA/VOMITING Sodium Chloride (0.9% Saline Lock 10 Ml Syringe) 10 - 40 ml IV UD PRN PRN Reason: SALINE FLUSH Clinical Impression(s) from Imaging Studies Chest X-Ray 09/17/20 16:51 IMPRESSION: Normal x-ray examination of the chest. Electronically Signed: Bradley Broussard DO at 19:48 EDT Tel [phone], Service support , Assessment/Plan Active and Suspected Problems (Last Reviewed 09/17/20 @ 23:[address] Aristeo Banuelos MD) DKA (diabetic ketoacidoses) (Acute) RECOMMENDATIONS: 1. Continue with DKA protocol 2. Potentially switch to subcu insulin following next BMP 3. Social work/case management for diabetic supplies given recurrent admi ssions 4. Diabetic teaching 5. Continue erythromycin eye drops IMPRESSIONS: 1. Acute DKA secondary to noncompliance Patient is not reporting any difficulty with obtaining supplies, but does not feel motivated to control her sugars at this time. Recommend diabetic teaching. We will have case management/social work evaluate for possible barriers to compliance. Gap has been closed on last BMP. If this persists, patient will be transition to subcu insulin. Continue aggressive fluid resuscitation. Do not believe home regimen needs to be changed at this time to avoid future complications. Corneal abrasion does not appear systemic that would lead to DKA. 2. Corneal abrasion/left eye conjunctivitis Patient reportedly seen in outside urgent care and evaluated with fluorescein. Continue with erythromycin as previously ordered. Patient does not appear to have loss of visual acuity or systemic effects that would lead to DKA. 3. Bipolar disorder/tobacco abuse/recurrent admissions Complicates care, management, recovery and prognosis. Patient would benefit from control of psychiatric condition to help with compliance with DKA. Smoking cessation was recommended. Inpatient E&M: 45630 Init Hosp L2
[2020-09-18 07:29] LABS: Absolute Lymphocyte Count 3.06 X10^3/uL (0.83-4.51); Absolute Neutrophil Count 5.5 X10^3/uL (2.0-7.7); Basophil# 0.08 X10^3/uL; Basophil% 0.8 % (0-1); Eosinophil# 0.46 X10^3/uL; Eosinophils% 4.4 % (0-5); Hematocrit 45.2 % (37-47); Hemoglobin 15.7 g/dL (12.0-15.0); Lymphocyte # 3.06 X10^3/ul (4.0); Lymphocyte % 29.5 % (19-41); Mean Corp Hgb Conc 34.7 g/dL (32-36); Mean Corpuscular Hgb 29.3 pg (27.0-32.0); Mean Corpuscular Volume 84.3 fL (81-99); Mean Platelet Vol. 9.2 fl (6.2-12.0); Monocyte# 1.23 X10^3/uL; Monocyte% 11.9 % (0-10); NRBC Flagged by Analyzer 0 % (0-5); Neutrophil # 5.49 X10^3/uL (2.7-7.7); Platelet Count 338 K/mm3 (150-450); RBC Distribution Width CV 13.3 % (11.6-14.6); RBC Distribution Width SD 40.7 fl (35.1-43.9); Red Blood Count 5.36 M/mm3 (4.2-5.4); White Blood Count 10.4 K/mm3 (4.4-11.0)
[2020-09-18 07:48] LABS: Anion Gap 7 (5-15); BUN 12 mg/dL (7-18); BUN/Creat Ratio 17.1 RATIO (10-20); Calcium,Total 8.4 mg/dL (8.5-10.1); Chloride 117 mmol/L (98-107); EST Glomerular Filtration Rate 112 mL/min (>60); Est Glom Filt Rate - Afr Amer 136 mL/min (>60); Estimated Creatinine Clearance 129.32 ml/min; Glucose 122 mg/dL (74-106); Potassium 3.5 mmol/L (3.5-5.1); Sodium Level 140 mmol/L (136-145)
[2020-09-18 07:55] LABS: Bedside Glucose 137 mg/dL (70-110)
[2020-09-18 08:16] LABS: Bedside Glucose 148 mg/dL (70-110)
[2020-09-18 09:00] LABS: Bedside Glucose 115 mg/dL (70-110)
--- NOTE | 2020-09-18 10:28 | CASEMGMT ---
PETEY GREGORY Assessment: Face to Face with pt for initial transition planning/care coordination assessment. PETEY GREGORY introduced self and role at [facility], pt voices understanding and consents to assessment. Pt laying in bed with lights off due to pain in her eye. Pt is A/O x4 and answers all questions appropriately at this time. Care providers, pharmacy, and demographics verified/updated. Admitting Dx: DKA PCP: Dr. Gallo Specialists: , senior program analyst Preferred Pharmacy: [facility] [place] Insurance: Ji Prescription Benefit: yes LW/HPOA: Pt denies having LW/HPOA and denies need for info. LNOK: Mariana Hoffmann, shelter case manager through [place]. Living Arrangements: Pt lives with 2 friends in a first floor apt with 1 step to enter. Pt is I in ADL's. Denies concerns at home. Transportation: Pt unable to drive d/t A1C. States her shelter case manager takes her to appts. DME/HHC/SNF: Pt has glucometer at home, no other DME. Denies need for DME. Pt has no history of HHC and reports no SNF stay. Pt states she has a glucometer, test strips and lancets at home. She reports testing her blood sugar before meals and reports this is what the endocrinologst has asked her to do. Pt states she does take insulin. She denies any issues regarding monitoring of blood sugar or insulin administration. Pt states no concerns with going home at time of dc. Pt states no further concerns/needs. CM to follow. Advised pt to ask CM if any further question/concerns/needs arise, voices understanding. Pt Goal: Home Plan: Home
[2020-09-18 11:20] LABS: Pathologist Review Reviewed
[2020-09-18] MEDS: Insulin Lispro 100 UNIT/ML INSULN.PEN SC (11:59)
[2020-09-18] MEDS: Acetaminophen 325 MG Tablet 650 MG PO (12:02)
--- NOTE | 2020-09-18 12:04 | DCINST_ITS ---
- Discharge Diagnoses Current Active Problems: Current Active and Chronic Problems (Last Reviewed 09/17/20 @ 23:[address] Aristeo Banuelos MD) Bipolar disorder (Chronic) Patient follows with psychiatry in [place]. She will be changing psychiatrists in the future. Psychosocial problem (Chronic) DKA (diabetic ketoacidoses) (Acute) Diabetes (Chronic) You will use the following diet at home:: Calorie/Carbohydrate Controlled (specify 1200, 1400, etc) - 1800 Your food should be the consistency of: Regular Your liquids should be the consistency of: Regular/Thin Call your doctor if you observe: Fever of 101 or Higher, - - uncontrolled blood sugar Allergies/Adverse Reactions: Allergies amoxicillin Allergy (Verified 09/17/20 16:25) Hives Sulfa (Sulfonamide Antibiotics) Allergy (Verified 09/17/20 16:25) Hives tomato Allergy (Verified 09/17/20 16:25) Hives Medications to take at Discharge Insulin Degludec [Tresiba Flextouch U-100] 30 unit SC DAILY 06/09/20 Insulin Lispro [Humalog Kwikpen] 20 unit SC TIDCM 06/09/20 aripiprazole 400 mg intramuscular suspension,extended release 400 mg IM QMONTH ea 09/08/20 gabapentin 300 mg capsule 300 mg PO TID cap 09/08/20 Primary Care Physician: Care Physician,No Primary [NON-STAFF] - Test Results: Test results from this visit will be discussed in further detail at your follow- up appointment, if applicable. Please Follow Up With: Thalia Gallo MD When: 1-2 weeks Proposed Discharge Date: 09/18/20
[2020-09-18 12:06] LABS: Bedside Glucose 296 mg/dL (70-110)
--- NOTE | 2020-09-18 12:09 | DS.PCM_ITS ---
Discharge Date and Diagnosis - Problem List Patient Problems: Active and Suspected Problems (Last Reviewed 09/17/20 @ 23:[address] Aristeo Banuelos MD) DKA (diabetic ketoacidoses) (Acute) Date of Admission: 09/17/20 Date of Discharge: 09/18/20 - Primary Discharge Diagnosis Acute Problems: Active Problems (Last Reviewed 09/17/20 @ 23:[address] Aristeo Banuelos MD) DKA (diabetic ketoacidoses) (Acute) - Secondary Discharge Diagnosis Chronic Problems: Chronic Problems (Last Reviewed 09/17/20 @ 23:[address] Aristeo Banuelos MD) Bipolar disorder (Chronic) Patient follows with psychiatry in [place]. She will be changing psychiatrists in the future. Psychosocial problem (Chronic) Diabetes (Chronic) Hospital Course and Treatment Imaging Results: Clinical Impression(s) from Imaging Studies Chest X-Ray 09/17/20 16:51 IMPRESSION: Normal x-ray examination of the chest. Electronically Signed: Bradley Broussard DO at 19:48 EDT Tel [phone], Service support , Operations: None Procedures: None Summary of Care Provided: The patient is a 20 year old F presents with nausea and vomiting. Patient stated that she has not taken her insulin because she left in a friend's vehicle. So patient presented with diabetic ketoacidosis. Patient started on insulin drip and then this morning was transitioned over to insulin glargine.. Patient has been feeling well tolerating p.o.. Patient was able to get her insulin from her friend but states that she has very little short-term insulin so patient will receive a prescription for NovoLog to be sent to her pharmacy. Patient is otherwise doing well and stable condition he will be discharged home. Patient states that she has all of her supplies. [] Patient Problems: Active and Suspected Problems (Last Reviewed 09/17/20 @ 23:[address] Aristeo Banuelos MD) DKA (diabetic ketoacidoses) (Acute) - Physical Exam Vitals/I&O's: Vital Signs Temp Pulse Resp BP Pulse Ox 36.7 C 118 H 16 116/59 L 100 09/18/20 08:00 09/18/20 11:13 09/18/20 11:00 09/18/20 11:00 09/18/20 11:00 Oxygen Delivery Method Room Air Weight: 71.9 kg Body Mass Index (BMI) 24.0 Finger Stick Blood Glucose 137 Intake and Output for Last 24 Hours 09/16/20 09/17/20 09/18/20 23:59 23:59 23:59 Intake Total 1518.55 / 1518.55 1992.42 / 1991.42 Output Total 1400 / 1400 Balance 1518.55 / 1518.55 592.42 / 592.42 General: Alert, No apparent distress HEENT: Atraumatic, Normocephalic Oral: Moist Mucosa, No Gingival or Mucosal Lesions/ Ulcerations Neck: No Nodes, Thyroid Normal Size and Texture Lungs: Clear to auscultation, Normal air movement, No rhonchi, No wheeze, No rales Cardiovascular: Regular rate, Regular Rhythm, Normal S1, Normal S2, No murmurs Abdomen: Bowel Sounds Present, Soft, Non Tender, Non-Distended, No Hepato- splenomegaly Extremities: No edema, No Calf Tenderness Laboratory Results 09/17/20 16:31: POC Glucose 400 H 09/17/20 18:24: WBC 16.7 H, RBC 6.49 H, Hgb 18.9 H*, Hct 55.8 H, MCV 86.0, MCH 29.1, MCHC 33.9, RDW Std Deviation 40.7, RDW Coeff of Mark 13.2, Plt Count 501 H, MPV 9.6, Immature Gran % (Auto) 0.500, Neut % (Auto) 81.0 H, Lymph % (Auto) 11.9 L, [place] % (Auto) 5.5, Eos % (Auto) 0.2, Baso % (Auto) 0.9, Absolute Neuts (auto) 13.5 H, Absolute Lymphs (auto) 1.99, Nucleated RBC % 0, Diff Path Review Reviewed 09/17/20 18:24: Sodium 131 L, Potassium 3.4 L, Chloride 100, Carbon Dioxide 7.0 L*, Anion Gap 24 H, BUN 12, Creatinine 1.10 H, Estim Creat Clear Calc 82.30, Est GFR (MDRD) Af Amer 81, Est GFR (MDRD) Non-Af 67, BUN/Creatinine Ratio 10.9, Glucose 406 H, Calcium 8.9, Total Bilirubin 0.50, AST 5 L, ALT 19, Alkaline Phosphatase 182 H, Total Protein 9.4 H, Albumin 4.6, Globulin 4.8 H, Albumin/Globulin Ratio 1.0 09/17/20 18:24: Lactic Acid 1.7 09/17/20 18:24: Serum , Qual NEGATIVE 09/17/20 18:24: Acetone Level SMALL H 09/17/20 18:24: Hemoglobin A1c 10.6 H 09/17/20 18:36: Urine Color Yellow, Urine Clarity Clear, Urine pH 5.0, Ur Specific [place] 1.025, Urine Protein 100 H, Urine Glucose (UA) 1000 H, Urine Ketones 150 H, Urine Occult Blood 250 H, Urine Nitrite Negative, Urine Bilirubin Negative, Urine Urobilinogen Normal, Ur Leukocyte Esterase Negative, Urine RBC 0 SEEN, Urine WBC 0 SEEN, Ur Squamous Epith Cells 0 SEEN, Urine Bacteria 0 SEEN, Urine Mucus 0 SEEN 09/17/20 18:36: Specimen Type HAN, VBG pH 6.99 L*, VBG pO2 44 H, VBG HCO3 7 L, VBG Total CO2 7 L, VBG O2 Sat (Calc) 56, VBG Base Excess -25 L, POC Mix VBG pCO2 Pt Tmp 26.8 L, Crit Call To/Read Back Yes 09/17/20 20:09: POC Glucose 291 H 09/17/20 21:26: POC Glucose 198 H 09/17/20 22:27: POC Glucose 176 H 09/17/20 22:30: Sodium 139, Potassium 3.3 L, Chloride 113 H, Carbon Dioxide 9.0 L*, Anion Gap 17 H, BUN 11, Creatinine 0.70, Estim Creat Clear Calc 129.32, Est GFR (MDRD) Af Amer 136, Est GFR (MDRD) Non-Af 112, BUN/Creatinine Ratio 15.6, Glucose 178 H, Calcium 7.6 L 09/17/20 23:57: POC Glucose 189 H 09/18/20 02:12: POC Glucose 180 H 09/18/20 02:15: Sodium 138, Potassium 3.7, Chloride 115 H, Carbon Dioxide 15.0 L , Anion Gap 8, BUN 11, Creatinine 0.74, Estim Creat Clear Calc 122.33, Est GFR (MDRD) Af Amer 128, Est GFR (MDRD) Non-Af 106, BUN/Creatinine Ratio 14.9, Glucose 198 H, Calcium 7.8 L 09/18/20 04:24: POC Glucose 198 H 09/18/20 06:38: POC Glucose 137 H 09/18/20 07:15: Sodium 140, Potassium 3.5, Chloride 117 H, Carbon Dioxide 16.0 L , Anion Gap 7, BUN 12, Creatinine 0.70, Estim Creat Clear Calc 129.32, Est GFR (MDRD) Af Amer 136, Est GFR (MDRD) Non-Af 112, BUN/Creatinine Ratio 17.1, Glucose 122 H, Calcium 8.4 L 09/18/20 07:15: WBC 10.4, RBC 5.36, Hgb 15.7 H, Hct 45.2, MCV 84.3, MCH 29.3, MCHC 34.7, RDW Std Deviation 40.7, RDW Coeff of Mark 13.3, Plt Count 338, MPV 9.2, Immature Gran % (Auto) 0.400, Neut % (Auto) 53.0, Lymph % (Auto) 29.5, [place] % (Auto) 11.9 H, Eos % (Auto) 4.4, Baso % (Auto) 0.8, Absolute Neuts (auto) 5.5, Absolute Lymphs (auto) 3.06, Nucleated RBC % 0 09/18/20 08:09: POC Glucose 148 H 09/18/20 08:55: POC Glucose 115 H 09/18/20 11:54: POC Glucose 296 H Current Medications Acetaminophen (Acetaminophen 325 Mg Tablet) 650 mg PO Q4H PRN PRN PRN Reason: Pain 1-10 or Fever Last Admin: 09/18/20 12:02 Dose: 650 mg Documented by: Dextrose (Dextrose 50%-Water 25 Gm/50 Ml Disp.Syrin) 0 gm IV X1 PRN; Protocol PRN Reason: Hypoglycemia Protocol Dextrose (Dextrose 50%-Water 25 Gm/50 Ml Disp.Syrin) 0 gm IV X1 PRN; Protocol PRN Reason: HYPOGLYCEMIA Erythromycin (Erythromycin Base 1 Opth.Tube) 1 applic LEFT EYE TID [facility] Last Admin: 09/18/20 06:01 Dose: 1 applic Documented by: Sodium Chloride () 250 mls @ 15 mls/hr IV .[id number] PRN PRN Reason: Saline Flush Sodium Chloride () 250 mls @ 15 mls/hr IV .[id number] PRN PRN Reason: Additional IVPB Infusion Insulin Glargine (Insulin Glargine 100 Units/Ml Pen) 30 units SC DAILY [facility] Last Admin: 09/18/20 10:10 Dose: 30 u Documented by: Insulin Human Lispro (Insulin Lispro 100 Unit/Ml Insuln.Pen) 0 unit SC ACHS [facility]; Protocol Last Admin: 09/18/20 11:59 Dose: 9 u Documented by: Nicotine Polacrilex (Nicotine Polacrilex 2 Mg Gum) 2 mg PO Q2H PRN PRN PRN Reason: Nicotine cravings Ondansetron HCl (Ondansetron 4 Mg/2 Ml Vial) 4 mg IV Q8H PRN PRN PRN Reason: NAUSEA/VOMITING Sodium Chloride (0.9% Saline Lock 10 Ml Syringe) 10 - 40 ml IV UD PRN PRN Reason: SALINE FLUSH Discharge Diet: 1800 Calorie Control Diet Call your doctor if you observe: Fever of 101 or Higher, - - uncontrolled blood sugar Home Medications: Medications to take at Discharge Insulin Degludec [Tresiba Flextouch U-100] 30 unit SC DAILY 06/09/20 aripiprazole 400 mg intramuscular suspension,extended release 400 mg IM QMONTH ea 09/08/20 gabapentin 300 mg capsule 300 mg PO TID cap 09/08/20 Insulin Lispro [Humalog Kwikpen] 20 unit SC TIDCM #1 pen 09/18/20 Following Prescriptions Were Given to Patient: Insulin Lispro [Humalog Kwikpen] 20 unit SC TIDCM #1 pen Transmission Status: Pending to [facility]/pharmacy #[id number] Primary Care Physician: Care Physician,No Primary [NON-STAFF] - Please Follow Up With: Thalia Gallo MD When: 1-2 weeks Minutes spent on discharge:: 24 Patient Condition:: Good Medical Necessity - Tobacco Use Smoking Status: Current every day smoker Tobacco Use: Cigarettes, Vapor Meaningful Use Info Meaningful Use Diagnoses (Choose all that apply): None applicable OBSV E&M: 14788 Observation care discharge
== END 2020-09-18 13:45 | disposition home or self-care (01) ==
LOC: ED 19:55 → ICU 09-18 07:02
PROVIDERS: Admitting Provider Hospitalist; Emergency Provider Emergency Medicine; PCP Internal Medicine
DX: E10.10 Type 1 diabetes mellitus with ketoacidosis without coma (principal); F31.9 Bipolar disorder, unspecified; Z79.899 Other long term (current) drug therapy; Z79.4 Long term (current) use of insulin; R00.0 Tachycardia, unspecified; Z65.9 Problem related to unspecified psychosocial circumstances; F41.9 Anxiety disorder, unspecified; F17.210 Nicotine dependence, cigarettes, uncomplicated; H10.32 Unspecified acute conjunctivitis, left eye; S05.02XA Injury of conjunctiva and corneal abrasion without foreign body, left eye, initial encounter; X58.XXXA Exposure to other specified factors, initial encounter; Z91.19 Patient's noncompliance with other medical treatment and regimen
CPT/HCPCS: 36415; 71045; 80048; 80053; 81001; 82009; 82803; 82962; 83036; 83605; 84703; 85025; 93005; 96361; 96365; 96366; 97802; 99218; 99284; J7030; A4216; G0378; J7799

== ENCOUNTER 2020-10-09 14:09 | Observation (INO) | payer MEDICAID, SELFPAY ==
[2020-09-17 21:01] VITALS: BMI 24.0
[2020-10-09] VITALS (10 sets, daily range): BP systolic 109–130; BP diastolic 63–80; PULSE 64–88; RESP 15–18; TEMP 36.4–36.9; O2SAT 97–100; BMI 23.6; BMI 26.5
--- NOTE | 2020-10-09 14:28 | EKG12_ITS ---
Test Reason : HG Blood Pressure : / mmHG Vent. Rate : 074 BPM Atrial Rate : 074 BPM P-R Int : 158 ms QRS Dur : 078 ms QT Int : 386 ms P-R-T Axes : 069 077 053 degrees QTc Int : 428 ms Normal sinus rhythm with sinus arrhythmia Normal ECG Confirmed by HENRIQUE IQBAL, MORIAH ([id number]), editor publications SERGIO LEE ([id number]) on 10/14/2020 10:38:41 AM Referred By: MR Confirmed By:MORIAH DUENAS MD
[2020-10-09] MEDS: Ondansetron 4 MG/2 ML Vial IV (14:59)
[2020-10-09 15:00] LABS: Absolute Lymphocyte Count 2.41 X10^3/uL (0.83-4.51); Absolute Neutrophil Count 4.3 X10^3/uL (2.0-7.7); Basophil# 0.05 X10^3/uL; Basophil% 0.6 % (0-1); Eosinophil# 0.38 X10^3/uL; Eosinophils% 4.9 % (0-5); Hemoglobin 14.2 g/dL (12.0-15.0); Lymphocyte # 2.41 X10^3/ul (4.0); Lymphocyte % 31.3 % (19-41); Mean Corp Hgb Conc 33.8 g/dL (32-36); Mean Corpuscular Hgb 29.3 pg (27.0-32.0); Mean Corpuscular Volume 86.8 fL (81-99); Monocyte# 0.53 X10^3/uL; Monocyte% 6.9 % (0-10); NRBC Flagged by Analyzer 0 % (0-5); Neutrophil # 4.31 X10^3/uL (2.7-7.7); Neutrophil % 55.9 % (47-70); Platelet Count 286 K/mm3 (150-450); RBC Distribution Width CV 12.6 % (11.6-14.6); RBC Distribution Width SD 39.7 fl (35.1-43.9); Red Blood Count 4.84 M/mm3 (4.2-5.4); White Blood Count 7.7 K/mm3 (4.4-11.0)
[2020-10-09] MEDS: 0.9% Normal Saline 1,000 ML 999 ML IV ×2 (15:00→16:04)
[2020-10-09 15:01] LABS: Bedside Glucose > 500 mg/dL (70-110)
[2020-10-09 15:05] LABS: Internal QC Validated? YES +Cl - CLEAR BKGD; Pregnancy, Serum, hCG Quali. NEGATIVE Negative
[2020-10-09 15:14] LABS: Anion Gap 10 (5-15); BUN 14 mg/dL (7-18); BUN/Creat Ratio 19.4 RATIO (10-20); Calcium,Total 8.8 mg/dL (8.5-10.1); Chloride 100 mmol/L (98-107); Creatinine, Serum 0.72 mg/dL (0.55-1.02); EST Glomerular Filtration Rate 109 mL/min (>60); Est Glom Filt Rate - Afr Amer 132 mL/min (>60); Estimated Creatinine Clearance 125.73 ml/min; Glucose 575 mg/dL (74-106); Potassium 3.8 mmol/L (3.5-5.1); Sodium Level 130 mmol/L (136-145)
--- NOTE | 2020-10-09 16:10 | ED.DCSUM_ITS ---
History of Present Illness Chief Complaint: Hyperglycemia Narrative: Patient presenting due to concern for diabetic ketoacidosis. Patient is a type I diabetic. She tells me that her glucose meter broke, and she has not tested her blood sugar in 2 days. She has been continuing to give herself her baseline insulin, but believes that she potentially could be in diabetic ketoacidosis currently. She states that she has been vomiting all morning. She denies any abdominal pain. She states that she is very thirsty. She denies any presence of fevers. Review of systems otherwise negative. Past Medical History - Allergies and Home Meds Allergies/Adverse Reactions: Allergies amoxicillin Allergy (Verified 10/09/20 14:10) Hives Sulfa (Sulfonamide Antibiotics) Allergy (Verified 10/09/20 14:10) Hives tomato Allergy (Verified 10/09/20 14:10) Hives Prior records reviewed: Yes Past Medical History: - - Type 1 diabetes Surgical History: no surgical history Smoking Status: Current every day smoker - Family History Maternal Family History: Family History (Last Reviewed 09/17/20 @ 23:[address] Aristeo Banuelos MD) Grandmother Diabetes Father Respiratory disease Uncle Respiratory disease Aunt Respiratory disease Family History: Reports: Unknown, - - no diabetes Paternal Family History: Family History (Last Reviewed 09/17/20 @ 23:[address] Aristeo Banuelos MD) Grandmother Diabetes Father Respiratory disease Uncle Respiratory disease Aunt Respiratory disease Family History: Reports: Unknown Review of Systems All systems negative except as indicated General: Denies: Chills, Fever, Sweats Eyes: Denies: Visual changes - bilaterally, Diplopia ENT: Denies: Rhinorrhea, Sore throat Cardiovascular: Denies: Chest pain, Palpitations Respiratory: Denies: Dyspnea, Cough, Dyspnea on exertion Gastrointestinal: Reports: Nausea, Vomiting Genitourinary: Denies: Dysuria, Hematuria, Frequency Musculoskeletal: Denies: Back pain, Extremity Pain Skin: Denies: Rash, Wounds Neurological: Denies: Headache, Weakness, Numbness Endocrine: Reports: Polydipsia Physical Exam Vital Signs/Narrative: Vital Signs Temp Pulse Resp BP Pulse Ox 10/09/20 14:10 97.6 F L 88 16 120/74 97 Inital Vital Signs reviewed: Yes General: Well nourished, Well developed, No Acute Distress Head: Normocephalic, Atraumatic Eyes: Perrl, EOMI ENT: No rhinorrhea, Dry mucous membranes Neck: Supple, Nontender Cardiovascular: Regular rate, Regular rhythm, No murmurs Respiratory: No distress, CTA bilaterally, Chest nontender Abdomen: Soft, Nontender, Nondistended, Normal bowel sounds Back: Nontender, Normal Inspection Extremities: Nontender, No edema Skin: Normal color, No rash Neurological: Alert, Oriented x3, Cranial nerves II-XII grossly intact, Normal Strength, Normal Sensation Psychological: Normal affect, Normal Mood Diagnostic/Tx/Re-eval Laboratory Data 10/09/20 10/09/20 10/09/20 14:45 14:45 14:45 WBC 7.7 RBC 4.84 Hgb 14.2 Hct 42.0 MCV 86.8 MCH 29.3 MCHC 33.8 RDW Std Deviation 39.7 RDW Coeff of Mark 12.6 Plt Count 286 MPV 10.0 Immature Gran % (Auto) 0.400 Neut % (Auto) 55.9 Lymph % (Auto) 31.3 [place] % (Auto) 6.9 Eos % (Auto) 4.9 Baso % (Auto) 0.6 Absolute Neuts (auto) 4.3 Absolute Lymphs (auto) 2.41 Nucleated RBC % 0 Sodium 130 L Potassium 3.8 Chloride 100 Carbon Dioxide 20.0 L Anion Gap 10 BUN 14 Creatinine 0.72 Estim Creat Clear Calc 125.73 Est GFR (MDRD) Af Amer 132 Est GFR (MDRD) Non-Af 109 BUN/Creatinine Ratio 19.4 Glucose 575 H* Calcium 8.8 Serum , Qual Acetone Level SMALL H POC Glucose 10/09/20 10/09/20 14:45 14:58 WBC RBC Hgb Hct MCV MCH MCHC RDW Std Deviation RDW Coeff of Mark Plt Count MPV Immature Gran % (Auto) Neut % (Auto) Lymph % (Auto) [place] % (Auto) Eos % (Auto) Baso % (Auto) Absolute Neuts (auto) Absolute Lymphs (auto) Nucleated RBC % Sodium Potassium Chloride Carbon Dioxide Anion Gap BUN Creatinine Estim Creat Clear Calc Est GFR (MDRD) Af Amer Est GFR (MDRD) Non-Af BUN/Creatinine Ratio Glucose Calcium Serum , Qual NEGATIVE Acetone Level POC Glucose > 500 H* - Medical Decision Making Patient presenting for evaluation secondary to concerns for DKA. She was noted to be profoundly hyperglycemic in the 500s she was started on fluid resuscitation. Patient was noted to have a glucose in the 500s with no anion gap a mild acidosis. I had social work speak with the patient about getting a new glucose monitor, she apparently already got her 1 allotted glucose monitor for the year and its already broken. They had a discussion about whether or not she could get some money from her mother and get a cheap [id number] monitor. Patient remained stable in the emergency department. She is in mild DKA at this point, so I did order insulin. Patient seems also have other social confounding factors that would make it difficult to discharge the patient after emergency department resuscitation although I do feel that she will rebound quite quickly as this is mild DKA with no evidence of anion gap acidosis. I will discuss this with the hospitalist. - Critical Care Time Critical care time (excluding procedures): 30-74 minutes ED Disposition - Plan for ED Patient: Disposition: Acute Care Hospital [facility] Diagnosis: DKA (diabetic ketoacidoses), Noncompliance
[2020-10-09 16:15] LABS: Bedside Glucose 369 mg/dL (70-110)
--- NOTE | 2020-10-09 16:49 | PCM.HP.STD ---
Problem List (1) Hyperglycemia due to type 1 diabetes mellitus Status: Acute (2) Tobacco abuse Status: Chronic (3) Bipolar disorder Status: Chronic Qualifiers: Active/Remission status: remission status unspecified Qualified Code(s): F31.9 - Bipolar disorder, unspecified Comment: Patient follows with psychiatry in [place]. She will be changing psychiatrists in the future. (4) Psychosocial problem Status: Chronic History of Present Illness Date of Admission: 10/09/20 Chief Complaint: DM meter broke, N/V, polyuria, polydipsia. The patient is a 20 y/o F w/ PMHx: Anxiety and Depression/bipolar disorder, Diabetes mellitus type I with non-compliance history, Tobacco use who presents to the [facility] ED on 10/09/20 with history of her diabetic meter reportedly breaking 2 days prior with no specific patient effort to contact her primary care physician or retread builder with onset following nausea, emesis, polyuria as well as polydipsia, not improving and given concern with history of frequent DKA patient presented to the ED for evaluation. Work-up in the ED included T 97.6, heart rate 88, BP 120/74, respiratory rate 16, 97% on room air, CBC with WC 7.7, hemoglobin 14.2, platelet 286 without marked shift, BMP with sodium 130, common oxide 20, anion gap 10, BUN/creatinine 14/0.72, glucose 575, negative serum testing, small acetone. Given patient significant nausea and emesis with notable history of DKA, recent admissions ED physician initiated patient on aggressive IV fluids with insulin drip and hospitalist consulted for admission for concern for early DKA. Past Medical History Past Medical History (Chronic Problems): Chronic Problems (Last Reviewed 09/17/20 @ 23:[address] Aristeo Banuelos MD) Tobacco abuse (Chronic) Bipolar disorder (Chronic) Patient follows with psychiatry in [place]. She will be changing psychiatrists in the future. Psychosocial problem (Chronic) Diabetes (Chronic) Medical History: Medical History (Last Reviewed 09/17/20 @ 23:[address] Aristeo Banuelos MD) Anxiety F41.9 Bipolar 1 disorder, depressed F31.9 Type 1 diabetes mellitus E10.9 Allergies amoxicillin Allergy (Verified 10/09/20 14:10) Hives Sulfa (Sulfonamide Antibiotics) Allergy (Verified 10/09/20 14:10) Hives tomato Allergy (Verified 10/09/20 14:10) Hives Home Medications: Ambulatory Orders Medication Instructions Recorded Insulin Degludec [Tresiba 30 unit SC DAILY 06/09/20 Flextouch U-100] aripiprazole 400 mg intramuscular 400 mg IM QMONTH ea 09/08/20 suspension,extended release gabapentin 300 mg capsule 300 mg PO TID cap 09/08/20 Insulin Lispro [Humalog Kwikpen] 20 unit SC TIDCM #1 pen 09/18/20 Surgical History: no surgical history Psychiatric History: Anxiety, Bipolar, Depression [employer] History: No pertinent [employer] history Lives: Roommate Smoking Status: Current every day smoker - Patient with ongoing 1 pack/day since he got tobacco usage. Tobacco Use: Cigarettes Alcohol: None Drugs: None - *Family History Maternal Family History: Family History (Last Reviewed 09/17/20 @ 23:[address] Aristeo Banuelos MD) Grandmother Diabetes Father Respiratory disease Uncle Respiratory disease Aunt Respiratory disease History Items: - - Mother with a history of significant psychiatric disorders including bipolar. Patient denies any maternal family history of heart disease, diabetes, cancer. Paternal Family History: Family History (Last Reviewed 09/17/20 @ 23:[address] Aristeo Banuelos MD) Grandmother Diabetes Father Respiratory disease Uncle Respiratory disease Aunt Respiratory disease History Items: Pulmonary Disease, - - Father with a history of significant emphysema/COPD with significant tobacco use history. Review of Systems Constitutional: Reports: Anorexia, Malaise, Weakness, Fatigue. Denies: Chills, Fever, Weight Change HEENT: Denies: Head Aches, Sinus Congestion, Sinus Drainage Cardiovascular: Denies: Chest Pain, Chest Pressure, Chest Tightness, Palpitations Respiratory: Denies: Cough, Shortness of Breath, Shortness of breath at rest, Shortness of breath upon exertion, Sputum production Gastrointestinal: Reports: Abdominal Pain, Nausea, Vomiting Genitourinary: Denies: Dysuria Musculoskeletal: Reports: Joint Pain. Denies: Joint Tenderness Skin: Denies: Rash, Wounds Neurological: Denies: Numbness, Tingling, Focal weakness Psychiatric: Reports: Anxiety, Depression. Denies: Homicidal Ideations, Suicidal Ideations Endocrine: Reports: Polydipsia, Polyuria Hematologic/ Lymphatic: Denies: Easy Bruising, Easy Bleeding VTE Information - Inpt Only VTE Present on Admission: No VTE Mechan Device Prophylaxis: SCD's VTE Pharm Prophylaxis ordered?: Yes Patient Problems: Active and Suspected Problems (Last Reviewed 09/17/20 @ 23:[address] Aristeo Banuelos MD) Noncompliance (Acute) DKA (diabetic ketoacidoses) (Acute) Subjective: Patient laying in the ED bed, fatigued and ill-appearing. Objective: Physical Examination: General: awake, alert, oriented x 3 and cooperative, laying in the ED bed, fatigued and ill-appearing. Skin: normal color, turgor, no icterus, cyanosis. HEENT: AT/NC, EOMI, PERRLA, dry MM, no carotid bruits or JVD noted. Lungs: Diminished breath sounds, greater bases, appropriate effort, no rales, ronchi or wheezing. Heart: Regular rate and rhythm; no gallop, rub audible. Abdomen: soft, mild generalized discomfort with palpation, ND, moderately hyperactive BS, no HSM. Extremities: no cyanosis, clubbing, or edema. Neurological: patient awake, alert, oriented x 3; cognitive function intact; pupils equally reactive to light and accomodation; cranial nerves II-XII grossly normal, moving all 4 extremities, no focal deficits, strength moderately global decrease secondary to acute presentation. Psychiatric: affect appears fatigued, ill-appearing, tearful, history of anxiety depression/bipolar disorder. - Physical Exam Vitals/I&O's: Vital Signs Temp Pulse Resp BP Pulse Ox 97.6 F L 66 15 120/74 99 10/09/20 14:10 10/09/20 16:10 10/09/20 16:10 10/09/20 14:10 10/09/20 16:10 Oxygen Delivery Method Room Air Weight: 155 lb 3.287 oz Body Mass Index (BMI) 23.6 Finger Stick Blood Glucose 369 Intake and Output for Last 24 Hours 10/07/20 10/08/20 10/09/20 23:59 23:59 23:59 Intake Total 1000 / 1000 Balance 1000 / 1000 Laboratory Results 10/09/20 14:45: WBC 7.7, RBC 4.84, Hgb 14.2, Hct 42.0, MCV 86.8, MCH 29.3, MCHC 33.8, RDW Std Deviation 39.7, RDW Coeff of Mark 12.6, Plt Count 286, MPV 10.0, Immature Gran % (Auto) 0.400, Neut % (Auto) 55.9, Lymph % (Auto) 31.3, [place] % (Auto) 6.9, Eos % (Auto) 4.9, Baso % (Auto) 0.6, Absolute Neuts (auto) 4.3, Absolute Lymphs (auto) 2.41, Nucleated RBC % 0 10/09/20 14:45: Sodium 130 L, Potassium 3.8, Chloride 100, Carbon Dioxide 20.0 L, Anion Gap 10, BUN 14, Creatinine 0.72, Estim Creat Clear Calc 125.73, Est GFR (MDRD) Af Amer 132, Est GFR (MDRD) Non-Af 109, BUN/Creatinine Ratio 19.4, Glucose 575 H*, Calcium 8.8 10/09/20 14:45: Acetone Level SMALL H 10/09/20 14:45: Serum , Qual NEGATIVE 10/09/20 14:58: POC Glucose > 500 H* 10/09/20 16:09: POC Glucose 369 H Current Medications Dextrose (Dextrose 50%-Water 25 Gm/50 Ml Disp.Syrin) 0 gm IV X1 PRN; Protocol PRN Reason: Hypoglycemia Protocol Insulin Human Lispro 100 unit/ (Sodium Chloride) 100 mls @ 7.04 mls/hr CONT INF .[id number] DERRELL; Protocol Assessment/Plan All Active Problems (Last Reviewed 09/17/20 @ 23:[address] Aristeo Banuelos MD) Noncompliance (Acute) Hyperglycemia due to type 1 diabetes mellitus (Acute) DKA (diabetic ketoacidoses) (Acute) The patient is a 20 y/o F w/ PMHx: Anxiety and Depression/bipolar disorder, Diabetes mellitus type I with non-compliance history, Tobacco use who presents to the [facility] ED on 10/09/20 with history of her diabetic meter reportedly breaking 2 days prior with onset nausea, emesis, polyuria as well as polydipsia. 1. Hyperglycemia w/ Acidosis with intractable nausea, emesis, polyuria and polydipsia with Non-anion Gap: Patient started on an insulin drip in the ED given concern for transition to DKA with ongoing nausea and emesis with hyperglycemia and small acetone although no specific anion gap. Will admit to the ICU given usage of insulin drip, continue on insulin drip, check serial K+, glucose w/ IVF changes pending these levels, serial chemistry, obtain mag, phos daily w/ repletion as needed, transition to home SC regimen when blood sugars appropriately improved and resolution of nausea/emesis, nutrition consultation. Encouraged diet and insulin regimen compliance. Most recent noted hemoglobin A1c 06/08/2020 11.1%, repeat requested. Continue patient gabapentin regimen. 2. Anxiety and depression/bipolar disorder: Patient on monthly IM injection of a rip resolved, encourage continuation of this regimen as well as outpatient therapy. 3. Tobacco Abuse: Encouraged cessation, inpatient consultation per RT, NR if desired. 4. GERD: We will continue famotidine. 5. DVT prophylaxis: SCDs, Lovenox. OBSV E&M: [id number] Initial observation care L3
--- NOTE | 2020-10-09 17:15 | CM.ED ---
Social Work Emergency Department Consulted by Dr. Blackburn regarding resources for diabetic management. Chart reviewed. Met with patient in room who was laying curled up in bed, fair eye contact, answers questions. Patient reports to live with 2 roommates and to feel safe in home situation. No income reported and states to live for free at the apartment. Patient's mother reportedly buys patient food. Patient reports her parents are usually good about helping with cost of household items the patient needs. Discussed glucometer. Patient reports her insurance will pay for one a year, and has already received the meter for 2020. Educated to the relyon brand at [facility], which seems to be the least expensive option. Patient reports to be aware of this brand, and reports belief that her mother would be willing to purchase this for the patient. Addressed other supports in patient's life. Patient reports to have a counselor at [facility] and then involved with the transitional program at children services for people who have aged out of foster care, and in the transitional period of independent living. Offered to call Mariana, and patient declined stating that will update Mariana on own. Patient denies any other concerns at this time. Denies any suicidals thoughts, ideation, or planning. Updated ED physician about patient's response regarding the glucometer. -RYAN Palencia, MATERNAL CHILD NURSE
[2020-10-09 17:30] LABS: Bedside Glucose 311 mg/dL (70-110)
[2020-10-09 18:21] LABS: Anion Gap 9 (5-15); BUN 10 mg/dL (7-18); BUN/Creat Ratio 20.2 RATIO (10-20); Calcium,Total 7.8 mg/dL (8.5-10.1); Chloride 109 mmol/L (98-107); EST Glomerular Filtration Rate 168 mL/min (>60); Est Glom Filt Rate - Afr Amer 203 mL/min (>60); Estimated Creatinine Clearance 181.05 ml/min; Glucose 315 mg/dL (74-106); Potassium 4.3 mmol/L (3.5-5.1); Sodium Level 137 mmol/L (136-145)
[2020-10-09 18:41] LABS: Bedside Glucose 212 mg/dL (70-110)
[2020-10-09 18:58] LABS: Magnesium 1.9 mg/dL (1.6-2.6); Phosphorus 3.6 mg/dL (2.5-4.9)
[2020-10-09 19:15] LABS: Anion Gap 8 (5-15); BUN 11 mg/dL (7-18); BUN/Creat Ratio 25.2 RATIO (10-20); Chloride 111 mmol/L (98-107); Creatinine, Serum 0.44 mg/dL (0.55-1.02); EST Glomerular Filtration Rate 195 mL/min (>60); Est Glom Filt Rate - Afr Amer 236 mL/min (>60); Estimated Creatinine Clearance 205.74 ml/min; Glucose 200 mg/dL (74-106); Potassium 3.3 mmol/L (3.5-5.1); Sodium Level 138 mmol/L (136-145)
[2020-10-09] MEDS: Potassium Chloride Oral Tablet 20 MEQ 60 MEQ PO (22:10)
[2020-10-09] MEDS: Gabapentin 300 MG Capsule PO (22:11)
[2020-10-09] MEDS: Famotidine 20 MG Tablet PO (22:11)
[2020-10-09] MEDS: Insulin Lispro 100 UNIT/ML INSULN.PEN SC (22:11)
[2020-10-09 22:45] LABS: Bedside Glucose 320 mg/dL (70-110)
--- NOTE | 2020-10-09 23:46 | NURSING ---
Dillon from lab called about 2226 lab order. He states that it has been cancelled. I called Kassandra in ICU who cancelled the order and she said those orders pertain to when the pt is on an insulin gtt and the pt is no longer on one so it was cancelled. Lab notified.
[2020-10-10] MEDS: Gabapentin 300 MG Capsule PO (05:33)
[2020-10-10 05:43] VITALS: BP 110/62; PULSE 75; RESP 16; TEMP 36.8; O2SAT 100
[2020-10-10 05:51] LABS: Mucous, Urine 0 SEEN /hpf (<or=2+)
[2020-10-10 05:56] LABS: Color, Urine Yellow (Yellow); Glucose, Dipstick 1000 mg/dl (Normal); Ketone-Dipstick 50 mg/dl (Negative); Leukocyte Esterase-Dipstick 100 /ul (Negative); Nitrite-Dipstick Negative (Negative); Occult Blood-Urine Negative /ul (Negative); Protein-Dipstick 15 mg/dl (Negative); Specific Gravity, Urine 1.015 (1.002-1.030); Urine Bilirubin Dipstick Negative (Negative); Urine Clarity Clear (Clear); Urine Urobilinogen Normal (Normal)
[2020-10-10] MEDS: Insulin Lispro 100 UNIT/ML INSULN.PEN SC ×2 (06:23→11:21)
[2020-10-10 06:26] LABS: Bedside Glucose 281 mg/dL (70-110)
[2020-10-10 06:31] LABS: Squamous Epithelial Cells - UA 0-5 SEEN /hpf (5-10); White Blood Cells 0-5 SEEN /hpf (0-5)
[2020-10-10 06:32] LABS: Amorphous Sediment R; Bacteria RARE /hpf (None Seen); Red Blood Cells-Urine 0-5 SEEN /hpf (0-5)
[2020-10-10 07:14] LABS: Absolute Lymphocyte Count 3.24 X10^3/uL (0.83-4.51); Absolute Neutrophil Count 3.4 X10^3/uL (2.0-7.7); Basophil# 0.06 X10^3/uL; Basophil% 0.8 % (0-1); Eosinophil# 0.48 X10^3/uL; Eosinophils% 6.2 % (0-5); Hematocrit 41.2 % (37-47); Hemoglobin 13.8 g/dL (12.0-15.0); Lymphocyte # 3.24 X10^3/ul (4.0); Lymphocyte % 42.1 % (19-41); Mean Corp Hgb Conc 33.5 g/dL (32-36); Mean Corpuscular Hgb 29.4 pg (27.0-32.0); Mean Corpuscular Volume 87.8 fL (81-99); Mean Platelet Vol. 9.7 fl (6.2-12.0); Monocyte# 0.47 X10^3/uL; Monocyte% 6.1 % (0-10); NRBC Flagged by Analyzer 0 % (0-5); Neutrophil # 3.43 X10^3/uL (2.7-7.7); Neutrophil % 44.5 % (47-70); Platelet Count 269 K/mm3 (150-450); RBC Distribution Width CV 12.7 % (11.6-14.6); RBC Distribution Width SD 40.8 fl (35.1-43.9); Red Blood Count 4.69 M/mm3 (4.2-5.4); White Blood Count 7.7 K/mm3 (4.4-11.0)
[2020-10-10 07:29] LABS: Anion Gap 6 (5-15); BUN 9 mg/dL (7-18); Calcium,Total 8.2 mg/dL (8.5-10.1); Chloride 108 mmol/L (98-107); Creatinine, Serum 0.45 mg/dL (0.55-1.02); EST Glomerular Filtration Rate 188 mL/min (>60); Est Glom Filt Rate - Afr Amer 227 mL/min (>60); Estimated Creatinine Clearance 201.17 ml/min; Glucose 264 mg/dL (74-106); Sodium Level 137 mmol/L (136-145)
[2020-10-10 07:42] VITALS: O2SAT 98
[2020-10-10] MEDS: Famotidine 20 MG Tablet PO (08:31)
[2020-10-10 09:42] LABS: Hemoglobin A1c 11.2 % (3.8-5.6)
[2020-10-10 09:56] VITALS: BP 117/70; PULSE 84; RESP 16; TEMP 37.2; O2SAT 98
[2020-10-10 11:20] LABS: Bedside Glucose 325 mg/dL (70-110)
[2020-10-10] MEDS: Insulin Lispro 100 UNIT/ML INSULN.PEN 15 UNIT SC (11:20)
--- NOTE | 2020-10-10 14:03 | PCM.DC ---
- Discharge Diagnoses Current Active Problems: Current Active and Chronic Problems (Last Reviewed 09/17/20 @ 23:[address] Aristeo Banuelos MD) Noncompliance (Acute) Hyperglycemia due to type 1 diabetes mellitus (Acute) Tobacco abuse (Chronic) Bipolar disorder (Chronic) Patient follows with psychiatry in [place]. She will be changing psychiatrists in the future. Psychosocial problem (Chronic) DKA (diabetic ketoacidoses) (Acute) You will use the following diet at home:: Calorie/Carbohydrate Controlled (specify 1200, 1400, etc) - 2000 Your food should be the consistency of: Regular Your liquids should be the consistency of: Regular/Thin Discharge Activity: Return to Normal Activity Weight Bearing Status: Full weight bearing Allergies/Adverse Reactions: Allergies amoxicillin Allergy (Verified 10/09/20 14:10) Hives Sulfa (Sulfonamide Antibiotics) Allergy (Verified 10/09/20 14:10) Hives tomato Allergy (Verified 10/09/20 14:10) Hives Medications to take at Discharge aripiprazole 400 mg intramuscular suspension,extended release 400 mg IM QMONTH ea 09/08/20 gabapentin 300 mg capsule 300 mg PO TID cap 09/08/20 Insulin Degludec [Tresiba Flextouch U-100] 38 unit SC DAILY #1 10/10/20 Insulin Lispro [Humalog Kwikpen] 25 unit SC TIDCM #1 pen 10/10/20 The following prescriptions were given: Insulin Lispro [Humalog Kwikpen] 25 unit SC TIDCM #1 pen Insulin Degludec [Tresiba Flextouch U-100] 38 unit SC DAILY #1 Primary Care Physician: Thalia Gallo MD [Primary Care Provider] - Please follow up with your Primary Care Physician in: in one week Test Results: Test results from this visit will be discussed in further detail at your follow-up appointment, if applicable.
--- NOTE | 2020-10-10 18:16 | PCM.DC.SUM ---
Discharge Date and Diagnosis - Problem List Patient Problems: Active and Suspected Problems (Last Reviewed 09/17/20 @ 23:[address] Aristeo Banuelos MD) Noncompliance (Acute) Hyperglycemia due to type 1 diabetes mellitus (Acute) DKA (diabetic ketoacidoses) (Acute) Date of Admission: 10/09/20 Date of Discharge: 10/10/20 - Primary Discharge Diagnosis Acute Problems: Active Problems (Last Reviewed 09/17/20 @ 23:[address] Aristeo Banuelos MD) #1 uncontrolled type 1 diabetes without DKA #2 anxiety and depression/bipolar disorder #3 noncompliance with medical regimen - Secondary Discharge Diagnosis Chronic Problems: Chronic Problems (Last Reviewed 09/17/20 @ 23:[address] Aristeo Banuelos MD) Tobacco abuse (Chronic) Bipolar disorder (Chronic) Patient follows with psychiatry in [place]. She will be changing psychiatrists in the future. Psychosocial problem (Chronic) Diabetes (Chronic) Hospital Course and Treatment Operations: None Procedures: None Summary of Care Provided: The patient is a 20 year old F was seen in the emergency room at [facility] with a chief complaint of blurred vision, fatigue, and dry mouth. Patient is a type I diabetic, her glucose monitor have been broken over 2 weeks and she had not contacted her PCP. Evaluation in the emergency room revealed her glucose to be 575, her anion gap was not abnormal, she had a small amount of acetone present. Patient was not felt to be in DKA, she was placed in observation status and given IV fluids and supplemental insulin. On 10/10/2020, patient was seen and examined: On examination she appeared in good health and spirits, she does not appear to be in any distress. Vital signs as documented. Skin warm and dry and without overt rashes. Neck without JVD, thyroid appears normal, trachea is midline, neck is supple. Lungs clear, normal air movement was noted. Heart exam notable for regular rhythm, normal sounds and absence of murmurs, rubs or gallops. Abdomen unremarkable and without evidence of organomegaly, masses, or abdominal aortic enlargement, bowel sounds are present in all 4 quadrants, no abdominal tenderness was noted. Extremities nonedematous, no cyanosis was noted, no clubbing was noted. Neuro: Cranial nerves II through XII are grossly intact, no focal motor deficits were noted, sensation to light touch and pinprick is intact, motor exam 5/5 throughout. Psych: Patient is alert and oriented x3, she does not appear anxious or depressed, she does not appear agitated. Patient was felt to be stable for discharge on 10/10/2020, I made changes in her ongoing insulin dosage, patient stated that she did have a replacement monitor and will be following up with her lithographic press feeder. Patient Problems: Active and Suspected Problems (Last Reviewed 09/17/20 @ 23:[address] Aristeo Banuelos MD) Noncompliance (Acute) Hyperglycemia due to type 1 diabetes mellitus (Acute) DKA (diabetic ketoacidoses) (Acute) - Physical Exam Vitals/I&O's: Vital Signs Temp Pulse Resp BP Pulse Ox 98.9 F 84 16 117/70 98 10/10/20 09:56 10/10/20 09:56 10/10/20 09:56 10/10/20 09:56 10/10/20 09:56 Oxygen Delivery Method Room Air Weight: 79.1 kg Body Mass Index (BMI) 26.5 Finger Stick Blood Glucose 212 Intake and Output for Last 24 Hours 10/08/20 10/09/20 10/10/20 23:59 23:59 23:59 Intake Total 500 / 500 Output Total 200 / 200 Balance 300 / 300 Laboratory Results 10/09/20 17:25: Sodium 137, Potassium 4.3, Chloride 109 H, Carbon Dioxide 19.0 L, Anion Gap 9, BUN 10, Creatinine 0.50 L, Estim Creat Clear Calc 181.05, Est GFR (MDRD) Af Amer 203, Est GFR (MDRD) Non-Af 168, BUN/Creatinine Ratio 20.2 H, Glucose 315 H, Calcium 7.8 L 10/09/20 17:25: Phosphorus 3.6, Magnesium 1.9 10/09/20 18:35: POC Glucose 212 H 10/09/20 18:45: Sodium 138, Potassium 3.3 L, Chloride 111 H, Carbon Dioxide 19.0 L, Anion Gap 8, BUN 11, Creatinine 0.44 L, Estim Creat Clear Calc 205.74, Est GFR (MDRD) Af Amer 236, Est GFR (MDRD) Non-Af 195, BUN/Creatinine Ratio 25.2 H, Glucose 200 H, Calcium 8.0 L 10/09/20 22:07: POC Glucose 320 H 10/10/20 05:40: Urine Color Yellow, Urine Clarity Clear, Urine pH 6.0, Ur Specific [place] 1.015, Urine Protein 15 H, Urine Glucose (UA) 1000 H, Urine Ketones 50 H, Urine Occult Blood Negative, Urine Nitrite Negative, Urine Bilirubin Negative, Urine Urobilinogen Normal, Ur Leukocyte Esterase 100 H, Urine RBC 0-5 SEEN, Urine WBC 0-5 SEEN, Ur Squamous Epith Cells 0-5 SEEN, Amorphous Sediment R, Urine Bacteria RARE, Urine Mucus 0 SEEN 10/10/20 06:20: POC Glucose 281 H 10/10/20 06:44: WBC 7.7, RBC 4.69, Hgb 13.8, Hct 41.2, MCV 87.8, MCH 29.4, MCHC 33.5, RDW Std Deviation 40.8, RDW Coeff of Mark 12.7, Plt Count 269, MPV 9.7, Immature Gran % (Auto) 0.300, Neut % (Auto) 44.5 L, Lymph % (Auto) 42.1 H, [place] % (Auto) 6.1, Eos % (Auto) 6.2 H, Baso % (Auto) 0.8, Absolute Neuts (auto) 3.4, Absolute Lymphs (auto) 3.24, Nucleated RBC % 0 10/10/20 06:44: Hemoglobin A1c 11.2 H 10/10/20 06:44: Sodium 137, Potassium 4.0, Chloride 108 H, Carbon Dioxide 23.0, Anion Gap 6, BUN 9, Creatinine 0.45 L, Estim Creat Clear Calc 201.17, Est GFR (MDRD) Af Amer 227, Est GFR (MDRD) Non-Af 188, BUN/Creatinine Ratio 20.0, Glucose 264 H, Calcium 8.2 L 10/10/20 11:17: POC Glucose 325 H Discharge Activity: Return to Normal Activity Weight Bearing Status: Full weight bearing Home Medications: Medications to take at Discharge aripiprazole 400 mg intramuscular suspension,extended release 400 mg IM QMONTH ea 09/08/20 gabapentin 300 mg capsule 300 mg PO TID cap 09/08/20 Insulin Degludec [Tresiba Flextouch U-100] 38 unit SC DAILY #1 10/10/20 Insulin Lispro [Humalog Kwikpen] 25 unit SC TIDCM #1 pen 10/10/20 Following Prescriptions Were Given to Patient: Insulin Lispro [Humalog Kwikpen] 25 unit SC TIDCM #1 pen Insulin Degludec [Tresiba Flextouch U-100] 38 unit SC DAILY #1 Primary Care Physician: Thalia Gallo MD [Primary Care Provider] - Please follow up with your Primary Care Physician in: in one week Disposition: Home Minutes spent on discharge:: 30 Patient Condition:: Stable Medical Necessity - Tobacco Use Smoking Status: Current every day smoker Tobacco Use: Cigarettes Meaningful Use Info Meaningful Use Diagnoses (Choose all that apply): None applicable OBSV E&M: 24233 Observation care discharge
== END 2020-10-10 15:00 | disposition home or self-care (01) ==
LOC: ED 16:16 → ICU 18:11 → MS3 22:50
PROVIDERS: Admitting Provider Family Medicine; Emergency Provider Emergency Medicine; PCP Internal Medicine; Visit Provider Internal Medicine
DX: E10.10 Type 1 diabetes mellitus with ketoacidosis without coma (principal); Z91.19 Patient's noncompliance with other medical treatment and regimen; F17.210 Nicotine dependence, cigarettes, uncomplicated; F31.9 Bipolar disorder, unspecified; F41.9 Anxiety disorder, unspecified; K21.9 Gastro-esophageal reflux disease without esophagitis; Z79.4 Long term (current) use of insulin; Z79.899 Other long term (current) drug therapy; Z65.9 Problem related to unspecified psychosocial circumstances
CPT/HCPCS: 36415; 80048; 81001; 82009; 82962; 83036; 83735; 84100; 84703; 85025; 93005; 96361; 96365; 96375; 97802; 99218; 99285; J7030; A4216; G0378; J2405

== ENCOUNTER 2020-11-15 16:38 | Emergency (ER) | payer MEDICAID, SELFPAY ==
[2020-10-09 18:26] VITALS: BMI 26.5
[2020-11-15 16:38] VITALS: BP 108/76; PULSE 100; RESP 16; TEMP 36.1; O2SAT 98; BMI 23.7
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
--- NOTE | 2020-11-15 17:05 | RAD_ITS ---
EXAM: XR LEFT FOOT COMPLETE, 3 OR MORE VIEWS : 2000 CLINICAL INDICATION: injury TECHNIQUE: Frontal, lateral and oblique views of the left foot. This report was created using [place] report generation technology. COMPARISON: None. FINDINGS: BONES/JOINTS: Unremarkable. No acute fracture. No subluxation. Normal alignment. Preservation of the joint space. No sclerotic or destructive changes observed. SOFT TISSUES: Unremarkable. No soft tissue swelling or gas. No radiopaque foreign body. RAD/Foot min 3 Views IMPRESSION: Negative left foot x-rays. at 1727 Reported and signed by: Brody Kapoor MD Electronically Signed: Brody Kapoor MD at 17:26 EDT Tel , Service support ,
== END 2020-11-15 17:52 | disposition home or self-care (01) ==
PROVIDERS: Emergency Provider Emergency Medicine; PCP Internal Medicine
DX: S90.32XA Contusion of left foot, initial encounter (principal); S90.812A Abrasion, left foot, initial encounter; W01.0XXA Fall on same level from slipping, tripping and stumbling without subsequent striking against object, initial encounter; Y93.02 Activity, running; Y92.9 Unspecified place or not applicable; F41.9 Anxiety disorder, unspecified; F31.9 Bipolar disorder, unspecified; E10.9 Type 1 diabetes mellitus without complications; Z79.4 Long term (current) use of insulin; Z79.899 Other long term (current) drug therapy; F17.200 Nicotine dependence, unspecified, uncomplicated
CPT/HCPCS: 73630; 99283

== ENCOUNTER 2020-11-27 16:12 | Inpatient (IN) | payer MEDICAID, SELFPAY ==
[2020-11-24 08:12] VITALS: BMI 23.7
[2020-11-27] VITALS (17 sets, daily range): BP systolic 117–145; BP diastolic 66–97; PULSE 93–138; RESP 20–36; TEMP 35.5–36.8; O2SAT 99–100; BMI 21.8
--- NOTE | 2020-11-27 16:30 | EKG12_ITS ---
Test Reason : Blood Pressure : / mmHG Vent. Rate : 127 BPM Atrial Rate : 127 BPM P-R Int : 120 ms QRS Dur : 078 ms QT Int : 406 ms P-R-T Axes : 080 077 073 degrees QTc Int : 590 ms Sin[address] tachycardia Nonspecific ST abnormality Abnormal ECG Confirmed by HENRIQUE IQBAL, MORIAH ([id number]), newspaper or periodical editor SERGIO LEE ([id number]) on 12/01/2020 2:00:30 PM Referred By: JAVON Confirmed By:MORIAH DUENAS MD
--- NOTE | 2020-11-27 16:34 | EDS_ITS ---
HPI <Dr. Levi Alejandro DO - Last Filed: 11/27/20 21:45> History of Present Illness Chief Complaint: General Illness Narrative Narrative: Patient presenting with generalized malaise, shortness of breath, nausea, achiness. She reports a fever of 101 at home. Patient also feels as if she is short of breath. She denies chest pain. She has history of type 1 diabetes and has not been taking her insulin because she is not been eating for the last 2 days. She states she does not like hypoglycemia. Patient admits to increased thirst. She has some crampy abdominal pain as well. [facility] <Dr. Levi Alejandro DO - Last Filed: 11/27/20 21:45> [facility] Medical History Anxiety Bipolar 1 disorder, depressed Type 1 diabetes mellitus Home Medications aripiprazole 400 mg intramuscular suspension,extended release 400 mg IM QMONTH ea 09/08/20 [History Last Taken 09/21/20] gabapentin 300 mg capsule 300 mg PO BID cap 09/08/20 [History Last Taken 10/08/20] blood sugar diagnostic #100 ea 11/24/20 [Rx Last Taken Unknown] blood-glucose meter #1 ea 11/24/20 [Rx Last Taken Unknown] insulin degludec 100 unit/mL (3 mL) subcutaneous pen 38 unit SC DAILY #15 ml 11/24/20 [Rx Last Taken Unknown] insulin lispro 100 unit/mL subcutaneous pen 25 unit SC TIDCM #30 ml 11/24/20 [Rx Last Taken Unknown] pen needle, diabetic 32 gauge x 5/16 #200 ea 11/27/20 [Rx Last Taken Unknown] Allergy/AdvReac Type Severity Reaction Status Date / Time amoxicillin Allergy Hives Verified 11/27/20 16:17 Sulfa (Sulfonamide Allergy Hives Verified 11/27/20 16:17 Antibiotics) tomato Allergy Hives Verified 11/27/20 16:17 Family History Grandmother Diabetes Father Respiratory disease Uncle Respiratory disease Aunt Respiratory disease Social History Smoking Status: Current every day smoker tobacco type: cigarettes Tobacco: How many years used: 1 alcohol intake: never substance use type: does not use what type of physical activity do you participate in: walking frequency: daily ROS <Dr. Levi Alejandro, DO - Last Filed: 11/27/20 21:45> ROS ED Constitutional Constitutional ED: Reports chills and fever(s); Denies sweats Eyes Eyes: Denies blurry vision or change in vision ENT ENT ED: Denies ear pain, rhinorrhea or sore throat Cardiovascular Cardiovascular: Reports racing heartbeat; Denies chest pain or palpitations Respiratory/Chest Respiratory/Chest: Reports dyspnea; Denies cough or sputum Gastrointestinal Gastrointestinal: Reports abdominal pain; Denies constipation, diarrhea or vomiting Genitourinary Genitourinary ED: Denies dysuria, hematuria or urinary frequency Musculoskeletal Musculoskeletal: Reports myalgias; Denies arthralgias or neck pain Integumentary Denies abscess, Abrasions or rash Neurologic Neurologic: Denies headache(s), paresthesias or weakness Psychiatric Psychiatric: Reports anxiety; Denies depression, suicidal ideation or suicidal thoughts Endocrine Endocrinology: Denies polydipsia or polyuria EXAM <Dr. Levi Alejandro, DO - Last Filed: 11/27/20 21:45> Physical Exam Const Vital Signs: 11/27/20 16:13 11/27/20 16:17 11/27/20 16:32 Temperature 98.2 F 98.2 F Temperature Source Oral Oral Pulse Rate 128 H 122 H Respiratory Rate 25 H 30 H Respiratory Effort Short of Breath Respiratory Pattern Kussmaul Blood Pressure 138/97 H 138/97 H Blood Pressure Mean 110 110 Pulse Ox 100 100 Oxygen Delivery Method Nasal Cannula Room Air Oxygen Flow Rate (L/min) 3 11/27/20 18:21 11/27/20 18:30 11/27/20 18:45 Temperature 98.0 F Temperature Source Temporal Pulse Rate 133 H 125 H 138 H Respiratory Rate 31 H 20 H 36 H Respiratory Effort Respiratory Pattern Blood Pressure 130/90 H 131/79 H 145/89 H Blood Pressure Mean 103 96 107 Pulse Ox 100 99 99 Oxygen Delivery Method Room Air Room Air Room Air Oxygen Flow Rate (L/min) 11/27/20 19:00 11/27/20 19:15 11/27/20 19:30 Temperature Temperature Source Pulse Rate 132 H 129 H 130 H Respiratory Rate 35 H 32 H 28 H Respiratory Effort Respiratory Pattern Blood Pressure 127/85 H 125/90 H 130/88 H Blood Pressure Mean 99 101 102 Pulse Ox 100 100 100 Oxygen Delivery Method Room Air Room Air Room Air Oxygen Flow Rate (L/min) 11/27/20 19:45 11/27/20 20:06 11/27/20 20:19 Temperature 97.0 F L Temperature Source Temporal Pulse Rate 124 H 129 H 120 H Respiratory Rate 30 H 29 H 30 H Respiratory Effort Respiratory Pattern Blood Pressure 125/78 H 125/90 H 137/76 H Blood Pressure Mean 93 101 96 Pulse Ox 100 100 100 Oxygen Delivery Method Room Air Room Air Room Air Oxygen Flow Rate (L/min) General Appearance ED: Negative for pallor HEENT Reports normocephalic, head/scalp atraumatic and moist mucous membranes trauma Eyes PERRL and EOMs intact bilaterally Neck no lymphadenopathy and supple Chest Wall inspection of chest normal and palpation of chest normal Resp normal respiratory effort and clear to auscultation bilaterally Resp Narrative: Tachypneic Auscultation: Negative for rales, rhonchi or wheezes Cardio regular rhythm Rate: tachycardic GI normal to inspection, nondistended, normoactive bowel sounds and non-distended Palpation: soft Narrative: Deferred Back/Spine General Back: Negative for CVA tenderness Cervical Spine: Negative for cervical spine tenderness Extremity normal to inspection General Extremety ED: Negative for edema or tenderness General Extremity: Negative for edema Neuro oriented x3 and CN's II-XII intact bilaterally Sensorium / Orientation: alert Motor Exam: strength 5/5 throughout Psych mental status grossly normal Attitude: No agitated Skin no rashes or lesions noted and no wounds General Skin Exam: Negative for jaundice or pallor <Dr. Charlie Leggett MD - Last Filed: 11/27/20 19:52> Physical Exam Const Vital Signs: 11/27/20 16:13 11/27/20 16:17 11/27/20 16:32 Temperature 98.2 F 98.2 F Temperature Source Oral Oral Pulse Rate 128 H 122 H Respiratory Rate 25 H 30 H Respiratory Effort Short of Breath Respiratory Pattern Kussmaul Blood Pressure 138/97 H 138/97 H Blood Pressure Mean 110 110 Pulse Ox 100 100 Oxygen Delivery Method Nasal Cannula Room Air Oxygen Flow Rate (L/min) 3 11/27/20 18:21 11/27/20 18:30 11/27/20 18:45 Temperature 98.0 F Temperature Source Temporal Pulse Rate 133 H 125 H 138 H Respiratory Rate 31 H 20 H 36 H Respiratory Effort Respiratory Pattern Blood Pressure 130/90 H 131/79 H 145/89 H Blood Pressure Mean 103 96 107 Pulse Ox 100 99 99 Oxygen Delivery Method Room Air Room Air Room Air Oxygen Flow Rate (L/min) 11/27/20 19:00 11/27/20 19:15 11/27/20 19:30 Temperature Temperature Source Pulse Rate 132 H 129 H 130 H Respiratory Rate 35 H 32 H 28 H Respiratory Effort Respiratory Pattern Blood Pressure 127/85 H 125/90 H 130/88 H Blood Pressure Mean 99 101 102 Pulse Ox 100 100 100 Oxygen Delivery Method Room Air Room Air Room Air Oxygen Flow Rate (L/min) 11/27/20 19:45 11/27/20 20:06 11/27/20 20:19 Temperature 97.0 F L Temperature Source Temporal Pulse Rate 124 H 129 H 120 H Respiratory Rate 30 H 29 H 30 H Respiratory Effort Respiratory Pattern Blood Pressure 125/78 H 125/90 H 137/76 H Blood Pressure Mean 93 101 96 Pulse Ox 100 100 100 Oxygen Delivery Method Room Air Room Air Room Air Oxygen Flow Rate (L/min) [facility] <Dr. Levi Alejandro, DO - Last Filed: 11/27/20 21:45> [facility] Narrative Medical decision making narrative: Patient presents with tachycardia, tachypnea, 3 days of not using her insulin stating that she has not been eating. She does express increased thirst. She appears to be having Kussmaul breathing. Blood sugar by EMS was 326. Patient had EKG performed on arrival which shows a sinus tachycardia at 127 bpm as interpreted by myself. Chest x-ray is interpreted by myself shows no acute cardiopulmonary process and the central line appears to be in good place. Radiologist does agree. Patient has leukocytosis of 20,000 without findings on chest x-ray or urinalysis of infection. Renal function appears normal however patient has a glucose of 405 and an anion gap of 25. CO2 on BMP is 2.0. She has large acetone. LFTs are normal. Patient had delay in care as IV access was difficult to obtain. Please see procedure note. Patient was given 2 L of IV fluids. It is noted that her potassium is 3.0 and therefore I cannot start an insulin drip. I suspect that this will be lower after getting IV fluids. I did add a magnesium level which is also low at 1.5. Patient will need to have magnesium repleted as well. Patient was discussed with hospitalist who admit the patient to ICU for further treatment and monitoring. Impression: 1. DKA Lab Data Attestation: I reviewed the patient's lab results. Labs: Laboratory Results - last 24 hr 11/27/20 11/27/20 11/27/20 18:15 19:35 19:35 WBC 20.0 H RBC 5.45 H Hgb 16.7 H Hct 49.5 H MCV 90.8 MCH 30.6 MCHC 33.7 RDW Std Deviation 44.3 H RDW Coeff of Mark 13.5 Plt Count 436 MPV 9.6 Immature Gran % (Auto) 1.200 H Neut % (Auto) 77.6 H Lymph % (Auto) 14.5 L Eagle % (Auto) 5.6 Eos % (Auto) 0.2 Baso % (Auto) 0.9 Absolute Neuts (auto) 15.5 H Absolute Lymphs (auto) 2.90 Nucleated RBC % 0 PT INR Sodium 138 Potassium 3.0 L Chloride 111 H Carbon Dioxide 2.0 L* Anion Gap 25 H BUN 10 Creatinine 0.74 Estim Creat Clear Calc 122.33 Est GFR (MDRD) Af Amer 128 Est GFR (MDRD) Non-Af 106 BUN/Creatinine Ratio 13.6 Glucose 405 H Lactic Acid Calcium 8.2 L Phosphorus Magnesium Total Bilirubin 0.40 AST 7 L ALT 14 Alkaline Phosphatase 145 H Troponin I < 0.015 Total Protein 7.8 Albumin 3.9 Globulin 3.9 Albumin/Globulin Ratio 1.0 Serum , Qual Urine Color Yellow Urine Clarity Sl. Cloudy Urine pH 5.0 Ur Specific [place] 1.025 Urine Protein 100 H Urine Glucose (UA) 1000 H Urine Ketones 150 A* Urine Occult Blood 10 H Urine Nitrite Negative Urine Bilirubin Negative Urine Urobilinogen Normal Ur Leukocyte Esterase Negative Urine RBC 0-5 SEEN Urine WBC 0-5 SEEN Ur Squamous Epith Cells 5-10 SEEN Amorphous Sediment 1+ URATE Urine Bacteria 0 SEEN Urine Mucus 0 SEEN Acetone Level 11/27/20 11/27/20 11/27/20 19:35 19:35 19:35 WBC RBC Hgb Hct MCV MCH MCHC RDW Std Deviation RDW Coeff of Mark Plt Count MPV Immature Gran % (Auto) Neut % (Auto) Lymph % (Auto) Eagle % (Auto) Eos % (Auto) Baso % (Auto) Absolute Neuts (auto) Absolute Lymphs (auto) Nucleated RBC % PT 15.3 H INR 1.3 Sodium Potassium Chloride Carbon Dioxide Anion Gap BUN Creatinine Estim Creat Clear Calc Est GFR (MDRD) Af Amer Est GFR (MDRD) Non-Af BUN/Creatinine Ratio Glucose Lactic Acid Calcium Phosphorus Magnesium Total Bilirubin AST ALT Alkaline Phosphatase Troponin I Total Protein Albumin Globulin Albumin/Globulin Ratio Serum , Qual NEGATIVE Urine Color Urine Clarity Urine pH Ur Specific [place] Urine Protein Urine Glucose (UA) Urine Ketones Urine Occult Blood Urine Nitrite Urine Bilirubin Urine Urobilinogen Ur Leukocyte Esterase Urine RBC Urine WBC Ur Squamous Epith Cells Amorphous Sediment Urine Bacteria Urine Mucus Acetone Level LARGE H 11/27/20 11/27/20 11/27/20 19:35 19:35 19:35 WBC RBC Hgb Hct MCV MCH MCHC RDW Std Deviation RDW Coeff of Mark Plt Count MPV Immature Gran % (Auto) Neut % (Auto) Lymph % (Auto) Eagle % (Auto) Eos % (Auto) Baso % (Auto) Absolute Neuts (auto) Absolute Lymphs (auto) Nucleated RBC % PT INR Sodium Potassium Chloride Carbon Dioxide Anion Gap BUN Creatinine Estim Creat Clear Calc Est GFR (MDRD) Af Amer Est GFR (MDRD) Non-Af BUN/Creatinine Ratio Glucose Lactic Acid 0.8 Calcium Phosphorus 3.2 Magnesium 1.5 L Total Bilirubin AST ALT Alkaline Phosphatase Troponin I Total Protein Albumin Globulin Albumin/Globulin Ratio Serum , Qual Urine Color Urine Clarity Urine pH Ur Specific [place] Urine Protein Urine Glucose (UA) Urine Ketones Urine Occult Blood Urine Nitrite Urine Bilirubin Urine Urobilinogen Ur Leukocyte Esterase Urine RBC Urine WBC Ur Squamous Epith Cells Amorphous Sediment Urine Bacteria Urine Mucus Acetone Level ABG Data ABG results: ABG 11/27/20 20:10 Specimen Type HAN VBG pH 6.93 L* VBG pO2 61 H VBG HCO3 3 L VBG Total CO2 < 5 L VBG O2 Sat (Calc) 73 H VBG Base Excess -30 L POC Mix VBG pCO2 Pt Tmp 13.8 L* Crit Call To/Read Back Yes Blood Gas Notified Whom DR ALEJANDRO Radiography Diagnostic Testing: Radiology Impression Chest X-Ray 11/27/20 19:35 IMPRESSION: 1. No acute pulmonary abnormality. 2. Central venous catheter in good position. at 2017 Reported and signed by: Brody Kapoor MD Electronically Signed: Brody Kapoor MD at 20:16 EDT Tel , Service support , Chest X-Ray 11/27/20 19:55 IMPRESSION: 1. No acute pulmonary abnormality. 2. Central venous catheter in good position. at 2026 Reported and signed by: Brody Kapoor MD Electronically Signed: Brody Kapoor MD at 20:26 EDT Tel , Service support , <Dr. Charlie Leggett MD - Last Filed: 11/27/20 19:52> [facility] Lab Data Labs: Laboratory Results - last 24 hr 11/27/20 11/27/20 11/27/20 18:15 19:35 19:35 WBC 20.0 H RBC 5.45 H Hgb 16.7 H Hct 49.5 H MCV 90.8 MCH 30.6 MCHC 33.7 RDW Std Deviation 44.3 H RDW Coeff of Mark 13.5 Plt Count 436 MPV 9.6 Immature Gran % (Auto) 1.200 H Neut % (Auto) 77.6 H Lymph % (Auto) 14.5 L Eagle % (Auto) 5.6 Eos % (Auto) 0.2 Baso % (Auto) 0.9 Absolute Neuts (auto) 15.5 H Absolute Lymphs (auto) 2.90 Nucleated RBC % 0 PT INR Sodium 138 Potassium 3.0 L Chloride 111 H Carbon Dioxide 2.0 L* Anion Gap 25 H BUN 10 Creatinine 0.74 Estim Creat Clear Calc 122.33 Est GFR (MDRD) Af Amer 128 Est GFR (MDRD) Non-Af 106 BUN/Creatinine Ratio 13.6 Glucose 405 H Lactic Acid Calcium 8.2 L Phosphorus Magnesium Total Bilirubin 0.40 AST 7 L ALT 14 Alkaline Phosphatase 145 H Troponin I < 0.015 Total Protein 7.8 Albumin 3.9 Globulin 3.9 Albumin/Globulin Ratio 1.0 Serum , Qual Urine Color Yellow Urine Clarity Sl. Cloudy Urine pH 5.0 Ur Specific [place] 1.025 Urine Protein 100 H Urine Glucose (UA) 1000 H Urine Ketones 150 A* Urine Occult Blood 10 H Urine Nitrite Negative Urine Bilirubin Negative Urine Urobilinogen Normal Ur Leukocyte Esterase Negative Urine RBC 0-5 SEEN Urine WBC 0-5 SEEN Ur Squamous Epith Cells 5-10 SEEN Amorphous Sediment 1+ URATE Urine Bacteria 0 SEEN Urine Mucus 0 SEEN Acetone Level 11/27/20 11/27/20 11/27/20 19:35 19:35 19:35 WBC RBC Hgb Hct MCV MCH MCHC RDW Std Deviation RDW Coeff of Mark Plt Count MPV Immature Gran % (Auto) Neut % (Auto) Lymph % (Auto) Eagle % (Auto) Eos % (Auto) Baso % (Auto) Absolute Neuts (auto) Absolute Lymphs (auto) Nucleated RBC % PT 15.3 H INR 1.3 Sodium Potassium Chloride Carbon Dioxide Anion Gap BUN Creatinine Estim Creat Clear Calc Est GFR (MDRD) Af Amer Est GFR (MDRD) Non-Af BUN/Creatinine Ratio Glucose Lactic Acid Calcium Phosphorus Magnesium Total Bilirubin AST ALT Alkaline Phosphatase Troponin I Total Protein Albumin Globulin Albumin/Globulin Ratio Serum , Qual NEGATIVE Urine Color Urine Clarity Urine pH Ur Specific [place] Urine Protein Urine Glucose (UA) Urine Ketones Urine Occult Blood Urine Nitrite Urine Bilirubin Urine Urobilinogen Ur Leukocyte Esterase Urine RBC Urine WBC Ur Squamous Epith Cells Amorphous Sediment Urine Bacteria Urine Mucus Acetone Level LARGE H 11/27/20 11/27/20 11/27/20 19:35 19:35 19:35 WBC RBC Hgb Hct MCV MCH MCHC RDW Std Deviation RDW Coeff of Mark Plt Count MPV Immature Gran % (Auto) Neut % (Auto) Lymph % (Auto) Eagle % (Auto) Eos % (Auto) Baso % (Auto) Absolute Neuts (auto) Absolute Lymphs (auto) Nucleated RBC % PT INR Sodium Potassium Chloride Carbon Dioxide Anion Gap BUN Creatinine Estim Creat Clear Calc Est GFR (MDRD) Af Amer Est GFR (MDRD) Non-Af BUN/Creatinine Ratio Glucose Lactic Acid 0.8 Calcium Phosphorus 3.2 Magnesium 1.5 L Total Bilirubin AST ALT Alkaline Phosphatase Troponin I Total Protein Albumin Globulin Albumin/Globulin Ratio Serum , Qual Urine Color Urine Clarity Urine pH Ur Specific [place] Urine Protein Urine Glucose (UA) Urine Ketones Urine Occult Blood Urine Nitrite Urine Bilirubin Urine Urobilinogen Ur Leukocyte Esterase Urine RBC Urine WBC Ur Squamous Epith Cells Amorphous Sediment Urine Bacteria Urine Mucus Acetone Level ABG Data ABG results: ABG 11/27/20 20:10 Specimen Type HAN VBG pH 6.93 L* VBG pO2 61 H VBG HCO3 3 L VBG Total CO2 < 5 L VBG O2 Sat (Calc) 73 H VBG Base Excess -30 L POC Mix VBG pCO2 Pt Tmp 13.8 L* Crit Call To/Read Back Yes Blood Gas Notified Whom DR ALEJANDRO Radiography Diagnostic Testing: Radiology Impression Chest X-Ray 11/27/20 19:35 IMPRESSION: 1. No acute pulmonary abnormality. 2. Central venous catheter in good position. at 2017 Reported and signed by: Brody Kapoor MD Electronically Signed: Brody Kapoor MD at 20:16 EDT Tel , Service support , Chest X-Ray 11/27/20 19:55 IMPRESSION: 1. No acute pulmonary abnormality. 2. Central venous catheter in good position. at 2026 Reported and signed by: Brody Kapoor MD Electronically Signed: Brody Kapoor MD at 20:26 EDT Tel , Service support , <Dr. Charlie Leggett MD - Last Filed: 11/27/20 19:52> Other Procedures Procedure(s): Central line placement --I performed the central line for Dr. Alejandro, I agree the patient is presenting like she is in DKA and very dehydrated. Nurses were not able to get blood or peripheral IV. I obtained informed consent from the patient. Initially attempted left subclavian site but after 3 different attempts, was not able to get any blood. Then moved to the left internal jugular site which was sterilized and prepped and draped in a sterile fashion, under ultrasound guidance, I watched the vessel collapse under the tip of the needle without getting a flash of blood. The patient was having Kusmall breathing which made it more difficult and as a result, I inadvertently hit the carotid artery. This was recognized immediately and I held pressure, there is no hematoma formation. After that, I was able to find the internal jugular, for the guidewire without any resistance or difficulty, all 3 ports kirill back dark red blood and flushed easily. Modified Seldinger technique used. Chest x-ray confirms good placement and no pneumothorax with the exception that it is fairly deep with the tip residing in the RV area. Therefore, I withdrew the catheter 3 cm, resutured it, repeat chest x-ray showed good placement. <Dr. Levi Alejandro, DO - Last Filed: 11/27/20 21:45> Critical Care Time Critical care time (excluding procedures): 30-74 minutes, Discussing w/Patient &/or Family/Administrative Assistant Receptionist and Performing Direct Patient Care at Bedside Discharge Plan Triage Chief Complaint: General Illness ED Provider: Levi Alejandro Dx/Rx/DC Orders Primary Care Provider: Thalia Gallo
[2020-11-27] MEDS: Ondansetron ODT 4 MG Tablet PO (17:42)
[2020-11-27 18:26] LABS: Bacteria 0 SEEN /hpf (None Seen); Mucous, Urine 0 SEEN /hpf (<or=2+)
[2020-11-27 18:31] LABS: Color, Urine Yellow (Yellow); Nitrite-Dipstick Negative (Negative); Urine Bilirubin Dipstick Negative (Negative); Urine Clarity Sl. Cloudy (Clear); Urine Urobilinogen Normal (Normal)
[2020-11-27 18:33] LABS: Glucose, Dipstick 1000 mg/dl (Normal); Leukocyte Esterase-Dipstick Negative /ul (Negative); Occult Blood-Urine 10 /ul (Negative); Protein-Dipstick 100 mg/dl (Negative); Specific Gravity, Urine 1.025 (1.002-1.030)
[2020-11-27 18:42] LABS: Ketone-Dipstick 150 mg/dl (Negative)
[2020-11-27 18:54] LABS: Amorphous Sediment 1+ URATE; Red Blood Cells-Urine 0-5 SEEN /hpf (0-5); Squamous Epithelial Cells - UA 5-10 SEEN /hpf (5-10); White Blood Cells 0-5 SEEN /hpf (0-5)
--- NOTE | 2020-11-27 19:35 | RAD_ITS ---
EXAM: XR CHEST, 1 VIEW : 2000 CLINICAL INDICATION: dyspnea and line placement TECHNIQUE: Frontal view of the chest. This report was created using [employer] report generation technology. COMPARISON: 09/17/2020 FINDINGS: LUNGS AND PLEURAL SPACES: Unremarkable. No consolidation or edema. No pneumothorax. No effusion. HEART: Unremarkable. Cardiac silhouette not enlarged. MEDIASTINUM: Central airways and mediastinal contour are unremarkable. BONES/JOINTS: Unremarkable. SOFT TISSUES: Unremarkable. TUBES, LINES AND DEVICES: Left central venous catheter is in place the distal tip overlying the right atrium. RAD/Chest 1 View (Portable) IMPRESSION: 1. No acute pulmonary abnormality. 2. Central venous catheter in good position. at 2017 Reported and signed by: Brody Kapoor MD Electronically Signed: Brody Kapoor MD at 20:16 EDT Tel , Service support ,
--- NOTE | 2020-11-27 19:47 | ED.RN ---
THIS RN AT BEDSIDE TO ASSIST DR. GUILLEN IN PLACEMENT OF CENTRAL LINE. MULTIPLE ATTEMPTS TO TO LEFT CHEST WITH NO SUCCESS. MINIMAL FROM SITE. US GUIDED INTERNAL JUGULAR LINE PLACED PER DR. GUILLEN. SUTURED IN PLACED. STERILE DRESSING APPLIED. BLOOD DRAWN OFF OF [place]. FLUSHED WITH [address] GUILLEN LINE NEEDS PULLED BACK AFTER INITIAL XRAY COMPLETE. LINE PULLED BACK 3CM AND SUTURED IN PLACE, STERILE DRESSING APPLIED. PT TOLERATED WELL. PT PLACED IN POSITION OF COMFORT. AWAITING REPEAT XRAY AT THIS TIME.
--- NOTE | 2020-11-27 19:55 | RAD_ITS ---
EXAM: XR CHEST, 1 VIEW : 2000 CLINICAL INDICATION: line placement TECHNIQUE: Frontal view of the chest. This report was created using [employer] report generation technology. COMPARISON: 11/19/2020 at 1928 hrs. FINDINGS: LUNGS AND PLEURAL SPACES: Unremarkable. No consolidation or edema. No pneumothorax. No effusion. HEART: Unremarkable. Cardiac silhouette not enlarged. MEDIASTINUM: Central airways and mediastinal contour are unremarkable. BONES/JOINTS: Unremarkable. SOFT TISSUES: Unremarkable. TUBES, LINES AND DEVICES: Left jugular catheter has been retracted with the distal tip now at the junction of the superior vena cava and right atrium. RAD/Chest 1 View (Portable) IMPRESSION: 1. No acute pulmonary abnormality. 2. Central venous catheter in good position. at 2026 Reported and signed by: Brody Kapoor MD Electronically Signed: Brody Kapoor MD at 20:26 EDT Tel , Service support ,
[2020-11-27 19:57] LABS: Absolute Neutrophil Count 15.5 X10^3/uL (2.0-7.7); Basophil# 0.18 X10^3/uL; Basophil% 0.9 % (0-1); Eosinophil# 0.04 X10^3/uL; Eosinophils% 0.2 % (0-5); Hematocrit 49.5 % (37-47); Hemoglobin 16.7 g/dL (12.0-15.0); Lymphocyte % 14.5 % (19-41); Mean Corp Hgb Conc 33.7 g/dL (32-36); Mean Corpuscular Hgb 30.6 pg (27.0-32.0); Mean Corpuscular Volume 90.8 fL (81-99); Mean Platelet Vol. 9.6 fl (6.2-12.0); Monocyte# 1.12 X10^3/uL; Monocyte% 5.6 % (0-10); NRBC Flagged by Analyzer 0 % (0-5); Neutrophil # 15.48 X10^3/uL (2.7-7.7); Neutrophil % 77.6 % (47-70); Platelet Count 436 K/mm3 (150-450); RBC Distribution Width CV 13.5 % (11.6-14.6); RBC Distribution Width SD 44.3 fl (35.1-43.9); Red Blood Count 5.45 M/mm3 (4.2-5.4)
[2020-11-27 20:05] LABS: International Normalized Ratio 1.3; Prothrombin Time (Protime)PT. 15.3 SECONDS (11.7-14.9)
[2020-11-27] MEDS: 0.9% Normal Saline 1,000 ML 999 ML IV ×2 (20:05)
[2020-11-27 20:07] LABS: Internal QC Validated? YES +Cl - CLEAR BKGD; Pregnancy, Serum, hCG Quali. NEGATIVE Negative
[2020-11-27 20:10] LABS: Lactic Acid 0.8 mmol/L (0.4-1.9)
[2020-11-27 20:33] LABS: Blood Gas Specimen Type VEN
[2020-11-27 20:34] LABS: VBG BASE EXCESS -30 mmol/L (-1.0-3.5); VBG Bicarbonate 3 mmol/L (22-26); VBG PO2 61 mmHg (25-40); VBG SO2 73 % (50-70); VBG pCO2 13.8 mmHg (41-51); VBG pH 6.93 (7.32-7.42)
[2020-11-27 20:34] LABS: AST(SGOT) 7 U/L (15-37); Alanine Aminotransfer ALT/SGPT 14 U/L (13-56); Albumin, Serum 3.9 g/dL (3.2-5.0); Alkaline Phosphatase 145 U/L (45-117); Anion Gap 25 (5-15); BUN 10 mg/dL (7-18); BUN/Creat Ratio 13.6 RATIO (10-20); Calcium,Total 8.2 mg/dL (8.5-10.1); Chloride 111 mmol/L (98-107); Creatinine, Serum 0.74 mg/dL (0.55-1.02); EST Glomerular Filtration Rate 106 mL/min (>60); Est Glom Filt Rate - Afr Amer 128 mL/min (>60); Estimated Creatinine Clearance 122.33 ml/min; Globulin 3.9 g/dL (2.2-4.2); Glucose 405 mg/dL (74-106); Protein, Total 7.8 g/dL (6.4-8.2); Sodium Level 138 mmol/L (136-145)
[2020-11-27 20:35] LABS: VBG TCO2 < 5 mmol/L (23-33)
[2020-11-27 20:59] LABS: Magnesium 1.5 mg/dL (1.6-2.6)
--- NOTE | 2020-11-27 21:02 | PCM.HP.STD ---
HPI - General General Date of Admission: 11/27/20 Date of Service: 11/27/20 Chief Complaint: Abdominal pain, fever, difficulty breathing -3 days HPI Narrative RONA CHAU, is a 20 F who presents abdominal pain, difficulty breathing ongoing for 3 days. Patient has history of type I DKA, noncompliant with medication, anxiety/depression who comes in with the above. Patient stated that she has not been feeling well over the past 3 days. She lives with a friend. She has not been taking her insulin. She denies any fever or chills. She follows with Dr. Rush in the outpatient. Rapid Covid antigen test was negative. Chest x-ray was negative for acute abnormality. [facility] Medical History (Updated 11/27/20 @ 22:[address] Maureen Ospina MD) Anxiety Bipolar 1 disorder, depressed Type 1 diabetes mellitus Home Medications aripiprazole 400 mg intramuscular suspension,extended release 400 mg IM QMONTH ea 09/08/20 [History Last Taken 09/21/20] gabapentin 300 mg capsule 300 mg PO BID cap 09/08/20 [History Last Taken 10/08/20] blood sugar diagnostic #100 ea 11/24/20 [Rx Last Taken Unknown] blood-glucose meter #1 ea 11/24/20 [Rx Last Taken Unknown] insulin degludec 100 unit/mL (3 mL) subcutaneous pen 38 unit SC DAILY #15 ml 11/24/20 [Rx Last Taken Unknown] insulin lispro 100 unit/mL subcutaneous pen 25 unit SC TIDCM #30 ml 11/24/20 [Rx Last Taken Unknown] pen needle, diabetic 32 gauge x 5/16 #200 ea 11/27/20 [Rx Last Taken Unknown] Allergy/AdvReac Type Severity Reaction Status Date / Time amoxicillin Allergy Hives Verified 11/27/20 16:17 Sulfa (Sulfonamide Allergy Hives Verified 11/27/20 16:17 Antibiotics) tomato Allergy Hives Verified 11/27/20 16:17 Family History Grandmother Diabetes Father Respiratory disease Uncle Respiratory disease Aunt Respiratory disease Social History Smoking Status: Current every day smoker tobacco type: cigarettes Tobacco: How many years used: 1 alcohol intake: never substance use type: does not use what type of physical activity do you participate in: walking frequency: daily ROS ROS Narrative Constitutional: Reports: Malaise, Weakness, Fatigue. Denies: Anorexia, Chills, Fever, Night Sweats, Weight Change Eyes: Denies: Blurred vision, Cataracts, Conjunctivae Inflammation, Pain, Redness, Vision Change HEENT: Denies: Difficulty Hearing, Difficulty Swallowing, Head Aches, Hearing Changes, Sinus Congestion, Sinus Drainage Cardiovascular: Denies: Chest Pain, Orthopnea, Palpitations Respiratory: Denies: Cough, Shortness of breath at rest, Sputum production Gastrointestinal: Denies: Abdominal Pain, Nausea, Vomiting Genitourinary: Denies: Dysuria Musculoskeletal: Denies: Joint Pain, Joint stiffness, Joint swelling, Joint Tenderness Skin: Denies: Rash, Wounds Neurological: Denies: Numbness, Tingling, Focal weakness Vital Signs Vital Signs Vital Signs: 11/27/20 16:13 11/27/20 16:17 11/27/20 16:32 Temperature 98.2 F 98.2 F Temperature Source Oral Oral Pulse Rate 128 H 122 H Respiratory Rate 25 H 30 H Respiratory Effort Short of Breath Respiratory Pattern Kussmaul Blood Pressure 138/97 H 138/97 H Blood Pressure Mean 110 110 Pulse Ox 100 100 Oxygen Delivery Method Nasal Cannula Room Air Oxygen Flow Rate (L/min) 3 11/27/20 18:21 11/27/20 18:30 11/27/20 18:45 Temperature 98.0 F Temperature Source Temporal Pulse Rate 133 H 125 H 138 H Respiratory Rate 31 H 20 H 36 H Respiratory Effort Respiratory Pattern Blood Pressure 130/90 H 131/79 H 145/89 H Blood Pressure Mean 103 96 107 Pulse Ox 100 99 99 Oxygen Delivery Method Room Air Room Air Room Air Oxygen Flow Rate (L/min) 11/27/20 19:00 11/27/20 19:15 11/27/20 19:30 Temperature Temperature Source Pulse Rate 132 H 129 H 130 H Respiratory Rate 35 H 32 H 28 H Respiratory Effort Respiratory Pattern Blood Pressure 127/85 H 125/90 H 130/88 H Blood Pressure Mean 99 101 102 Pulse Ox 100 100 100 Oxygen Delivery Method Room Air Room Air Room Air Oxygen Flow Rate (L/min) 11/27/20 19:45 11/27/20 20:06 11/27/20 20:19 Temperature 97.0 F L Temperature Source Temporal Pulse Rate 124 H 129 H 120 H Respiratory Rate 30 H 29 H 30 H Respiratory Effort Respiratory Pattern Blood Pressure 125/78 H 125/90 H 137/76 H Blood Pressure Mean 93 101 96 Pulse Ox 100 100 100 Oxygen Delivery Method Room Air Room Air Room Air Oxygen Flow Rate (L/min) Weight Weight: 65.2 kg Body Mass Index (BMI) 21.8 Physical Exam Narrative Physical exam: General: Alert, Oriented x3, lethargic, cooperative, No apparent distress, malnourished, having Kussmaul's breathing HEENT: Atraumatic Oral: Dry Mucosa Neck: Supple Lungs: Clear to auscultation Cardiovascular: HS I+II, regular, no murmurs Abdomen: Bowel Sounds Present, Soft, Non Tender Extremities: Multiple areas of ulcers on the legs Neurological: Grossly intact Psych/Mental Status: Appropriate Lab / Micro Data Result Diagrams: 11/27/20 19:35 11/27/20 19:35 Labs: Laboratory Results - last 24 hr 11/27/20 11/27/20 11/27/20 18:15 19:35 19:35 WBC 20.0 H RBC 5.45 H Hgb 16.7 H Hct 49.5 H MCV 90.8 MCH 30.6 MCHC 33.7 RDW Std Deviation 44.3 H RDW Coeff of Mark 13.5 Plt Count 436 MPV 9.6 Immature Gran % (Auto) 1.200 H Neut % (Auto) 77.6 H Lymph % (Auto) 14.5 L [place] % (Auto) 5.6 Eos % (Auto) 0.2 Baso % (Auto) 0.9 Absolute Neuts (auto) 15.5 H Absolute Lymphs (auto) 2.90 Nucleated RBC % 0 PT INR Sodium 138 Potassium 3.0 L Chloride 111 H Carbon Dioxide 2.0 L* Anion Gap 25 H BUN 10 Creatinine 0.74 Estim Creat Clear Calc 122.33 Est GFR (MDRD) Af Amer 128 Est GFR (MDRD) Non-Af 106 BUN/Creatinine Ratio 13.6 Glucose 405 H Lactic Acid Calcium 8.2 L Magnesium Total Bilirubin 0.40 AST 7 L ALT 14 Alkaline Phosphatase 145 H Troponin I < 0.015 Total Protein 7.8 Albumin 3.9 Globulin 3.9 Albumin/Globulin Ratio 1.0 Serum , Qual Urine Color Yellow Urine Clarity Sl. Cloudy Urine pH 5.0 Ur Specific [place] 1.025 Urine Protein 100 H Urine Glucose (UA) 1000 H Urine Ketones 150 A* Urine Occult Blood 10 H Urine Nitrite Negative Urine Bilirubin Negative Urine Urobilinogen Normal Ur Leukocyte Esterase Negative Urine RBC 0-5 SEEN Urine WBC 0-5 SEEN Ur Squamous Epith Cells 5-10 SEEN Amorphous Sediment 1+ URATE Urine Bacteria 0 SEEN Urine Mucus 0 SEEN Acetone Level 11/27/20 11/27/20 11/27/20 19:35 19:35 19:35 WBC RBC Hgb Hct MCV MCH MCHC RDW Std Deviation RDW Coeff of Mark Plt Count MPV Immature Gran % (Auto) Neut % (Auto) Lymph % (Auto) [place] % (Auto) Eos % (Auto) Baso % (Auto) Absolute Neuts (auto) Absolute Lymphs (auto) Nucleated RBC % PT 15.3 H INR 1.3 Sodium Potassium Chloride Carbon Dioxide Anion Gap BUN Creatinine Estim Creat Clear Calc Est GFR (MDRD) Af Amer Est GFR (MDRD) Non-Af BUN/Creatinine Ratio Glucose Lactic Acid Calcium Magnesium Total Bilirubin AST ALT Alkaline Phosphatase Troponin I Total Protein Albumin Globulin Albumin/Globulin Ratio Serum , Qual NEGATIVE Urine Color Urine Clarity Urine pH Ur Specific [place] Urine Protein Urine Glucose (UA) Urine Ketones Urine Occult Blood Urine Nitrite Urine Bilirubin Urine Urobilinogen Ur Leukocyte Esterase Urine RBC Urine WBC Ur Squamous Epith Cells Amorphous Sediment Urine Bacteria Urine Mucus Acetone Level LARGE H 11/27/20 11/27/20 19:35 19:35 WBC RBC Hgb Hct MCV MCH MCHC RDW Std Deviation RDW Coeff of Mark Plt Count MPV Immature Gran % (Auto) Neut % (Auto) Lymph % (Auto) [place] % (Auto) Eos % (Auto) Baso % (Auto) Absolute Neuts (auto) Absolute Lymphs (auto) Nucleated RBC % PT INR Sodium Potassium Chloride Carbon Dioxide Anion Gap BUN Creatinine Estim Creat Clear Calc Est GFR (MDRD) Af Amer Est GFR (MDRD) Non-Af BUN/Creatinine Ratio Glucose Lactic Acid 0.8 Calcium Magnesium 1.5 L Total Bilirubin AST ALT Alkaline Phosphatase Troponin I Total Protein Albumin Globulin Albumin/Globulin Ratio Serum , Qual Urine Color Urine Clarity Urine pH Ur Specific [place] Urine Protein Urine Glucose (UA) Urine Ketones Urine Occult Blood Urine Nitrite Urine Bilirubin Urine Urobilinogen Ur Leukocyte Esterase Urine RBC Urine WBC Ur Squamous Epith Cells Amorphous Sediment Urine Bacteria Urine Mucus Acetone Level Micro: Microbiology 11/27/20 18:02 SARS-CoV-2 Antigen (Rapid) - Final Nasal Secretion ABG Data ABG results: ABG 11/27/20 20:10 Specimen Type HAN VBG pH 6.93 L* VBG pO2 61 H VBG HCO3 3 L VBG Total CO2 < 5 L VBG O2 Sat (Calc) 73 H VBG Base Excess -30 L POC Mix VBG pCO2 Pt Tmp 13.8 L* Crit Call To/Read Back Yes Blood Gas Notified Whom DR ALEJANDRO Radiology Impression Chest X-Ray 11/27/20 19:35 IMPRESSION: 1. No acute pulmonary abnormality. 2. Central venous catheter in good position. at 2017 Reported and signed by: Brody Kapoor MD Electronically Signed: Brody Kapoor MD at 20:16 EDT Tel , Service support , Chest X-Ray 11/27/20 19:55 IMPRESSION: 1. No acute pulmonary abnormality. 2. Central venous catheter in good position. at 2026 Reported and signed by: Brody Kapoor MD Electronically Signed: Brody Kapoor MD at 20:26 EDT Tel , Service support , Assessment & Plan Assessment/Plan (1) Noncompliance: (2) DKA (diabetic ketoacidoses): QUALIFIERS: Diabetes mellitus type: type 1 Diabetes mellitus complication detail: without coma Qualified Code(s): E10.10 - Type 1 diabetes mellitus with ketoacidosis without coma (3) Bipolar disorder: QUALIFIERS: Active/Remission status: remission status unspecified Qualified Code(s): F31.9 - Bipolar disorder, unspecified (4) Tobacco abuse: (5) High anion gap metabolic acidosis: (6) Leucocytosis: QUALIFIERS: Leukocytosis type: unspecified Qualified Code(s): D72.829 - Elevated white blood cell count, unspecified (7) Hypokalemia: (8) Hypomagnesemia: PLAN: 1. Severe acute DKA in the type I DM patient, noncompliant with insulin Patient follows with Dr. 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 Electrolyte imbalances/hypokalemia/hypomagnesemia -replace, continue to monitor 3. Leukocytosis without evidence of sepsis, secondary to #1, trend 4. Nicotine dependence, on replacement 5. Rest of chronic medical problems including bipolar disorder, noncompliance, complicates patient's care resulting in recurrent admissions and increases risk for Continue with home psychotropic medication when verified Visit Charges Inpatient E&M: 42193 Init Hosp L3
[2020-11-27] MEDS: Potassium Chloride 10mEq/100mL 10 MEQ/100 ML IV.SOLN. 100 MEQ IV BOLUS ×3 (21:10→23:07)
[2020-11-27 21:22] LABS: Phosphorus 3.2 mg/dL (2.5-4.9)
[2020-11-27] MEDS: Potassium Chloride Oral Tablet 20 MEQ 40 MEQ PO (21:52)
[2020-11-27 23:12] LABS: Amphetamine Urine VISTA NEGATIVE (<1000 ng/mL); Barbiturate Urine VISTA NEGATIVE (< 200 ng/mL); Benzodiazepine Urine VISTA NEGATIVE (< 200 ng/mL); Cocaine Urine VISTA NEGATIVE (< 300 ng/mL); Ecstacy Urine VISTA NEGATIVE (< 500 ng/mL); Methadone Urine VISTA NEGATIVE (< 300 ng/mL); PCP Urine VISTA NEGATIVE (< 25 ng/mL); THC Urine VISTA NEGATIVE (< 50 ng/mL); Vista UDS pH Range 6
[2020-11-28] VITALS (27 sets, daily range): BP systolic 100–130; BP diastolic 54–96; PULSE 85–150; RESP 15–30; TEMP 35.4–37.2; O2SAT 100; BMI 21.7
[2020-11-28 00:01] LABS: Bedside Glucose 343 mg/dL (70-110)
[2020-11-28 00:01] LABS: Bedside Glucose 438 mg/dL (70-110)
[2020-11-28 00:11] LABS: Hemoglobin A1c 11.7 % (3.8-5.6)
[2020-11-28 00:11] LABS: Bedside Glucose 366 mg/dL (70-110)
[2020-11-28] MEDS: Potassium Chloride 10mEq/100mL 10 MEQ/100 ML IV.SOLN. 100 MEQ IV BOLUS ×4 (00:13→23:47)
[2020-11-28 00:17] LABS: Anion Gap 20 (5-15); BUN 10 mg/dL (7-18); BUN/Creat Ratio 16.4 RATIO (10-20); Calcium,Total 6.7 mg/dL (8.5-10.1); Chloride 119 mmol/L (98-107); Creatinine, Serum 0.61 mg/dL (0.55-1.02); EST Glomerular Filtration Rate 132 mL/min (>60); Est Glom Filt Rate - Afr Amer 160 mL/min (>60); Glucose 365 mg/dL (74-106); Potassium 4.1 mmol/L (3.5-5.1); Sodium Level 141 mmol/L (136-145)
[2020-11-28] MEDS: 0.9% Normal Saline 1,000 ML 500 ML IV (00:32)
[2020-11-28 01:06] LABS: Bedside Glucose 326 mg/dL (70-110)
[2020-11-28 01:26] LABS: Bedside Glucose 322 mg/dL (70-110)
[2020-11-28] MEDS: Dext 5%-0.45% NS 1,000 ML 150 ML IV ×3 (03:32→18:08)
[2020-11-28 03:36] LABS: Bedside Glucose 204 mg/dL (70-110)
[2020-11-28 04:19] LABS: AST(SGOT) 8 U/L (15-37); Alanine Aminotransfer ALT/SGPT 16 U/L (13-56); Albumin, Serum 3.4 g/dL (3.2-5.0); Alkaline Phosphatase 149 U/L (45-117); Anion Gap 17 (5-15); BUN 10 mg/dL (7-18); BUN/Creat Ratio 17.3 RATIO (10-20); Calcium,Total 6.5 mg/dL (8.5-10.1); Chloride 122 mmol/L (98-107); Creatinine, Serum 0.58 mg/dL (0.55-1.02); EST Glomerular Filtration Rate 141 mL/min (>60); Est Glom Filt Rate - Afr Amer 170 mL/min (>60); Estimated Creatinine Clearance 156.08 ml/min; Globulin 3.3 g/dL (2.2-4.2); Glucose 203 mg/dL (74-106); Magnesium 2.1 mg/dL (1.6-2.6); Potassium 3.6 mmol/L (3.5-5.1); Protein, Total 6.7 g/dL (6.4-8.2); Sodium Level 143 mmol/L (136-145)
[2020-11-28 04:31] LABS: Bedside Glucose 191 mg/dL (70-110)
[2020-11-28 05:31] LABS: Bedside Glucose 263 mg/dL (70-110)
[2020-11-28 05:31] LABS: Bedside Glucose 212 mg/dL (70-110)
[2020-11-28] MEDS: Calcium Chloride 1 GM/10 ML Syringe IV (05:58)
[2020-11-28 06:30] LABS: Bedside Glucose 187 mg/dL (70-110)
--- NOTE | 2020-11-28 06:32 | EX.PCM.CONCC ---
Assessment & Plan Assessment/Plan (1) DKA (diabetic ketoacidoses): QUALIFIERS: Diabetes mellitus type: type 1 Diabetes mellitus complication detail: without coma Qualified Code(s): E10.10 - Type 1 diabetes mellitus with ketoacidosis without coma PLAN: RECOMMENDATIONS: 1. Continue supplemental IV fluid hydration and insulin infusion per DKA protocol. 2. Continue aggressive electrolyte repletion as needed. 3. Once anion gap has been closed x2, the patient can be transitioned to basal and sliding scale coverage. 4. Patient to remain n.p.o. until gap closed x2. 5. Diabetic education to be provided. IMPRESSIONS: 1. Diabetic ketoacidosis secondary to outpatient noncompliance The patient was just recently seen by her painter spray and was noted to have a significantly elevated hemoglobin A1c. She does have a known history of outpatient noncompliance with her prescribed diabetic regimen. Accordingly, the patient will be continued on treatment per DKA protocol with supplemental IV fluids, aggressive electrolyte repletion and continuous insulin infusion, until anion gap has been closed x2. Following this, basal and sliding scale insulin can be initiated and diet advanced accordingly. Diabetic education to be once again provided to the patient. 2. History of tobacco dependency/bipolar disorder Complicates care, management, recovery and prognosis. Nicotine replacement therapy to be offered to the patient. This note was generated with [employer] dictation software. It may contain incorrect words, spelling, and punctuation that were not noted in checking the note before signing. HPI Consult Data Date of Consult: 11/28/20 HPI Narrative Reason for Consultation: Diabetic ketoacidosis HPI Narrative: The patient is a 20-year-old female, with a history as outlined below, who presented to the emergency department on November 27 with generalized malaise, shortness of breath and nausea. The patient has a known history of type 1 diabetes mellitus and is currently followed by Dr. Moustapha Rush in the endocrinology clinic. She was last seen by her painter spray on November 24. At that time, the patient was noted to have a hemoglobin A1c greater than 14. The patient was just admitted to the hospital in October for DKA as well secondary to outpatient noncompliance with her insulin regimen. Laboratory evaluation on presentation revealed a white blood cell count of 20,000. Chemistry profile was notable for a potassium of 3.0, chloride of 111, bicarbonate of 2.0 and anion gap of 25. Glucose was elevated to 405. Hemoglobin A1c on November 24 was noted to be 13.4. Lactate was within normal limits. Magnesium was low at 1.5. Large serum acetone level was noted. The patient received supplemental IV fluid hydration and was started on a continuous insulin infusion. She was subsequently admitted to the medical intensive care unit for management of her DKA. [facility] Medical History (Updated 11/28/20 @ 01:56 by Kylah Summers) Anxiety Bipolar 1 disorder, depressed Depression Type 1 diabetes mellitus Home Medications aripiprazole 400 mg intramuscular suspension,extended release 400 mg IM QMONTH ea 09/08/20 [History Last Taken 09/21/20] gabapentin 300 mg capsule 300 mg PO BID cap 09/08/20 [History Last Taken 10/08/20] blood sugar diagnostic #100 ea 11/24/20 [Rx Last Taken Unknown] blood-glucose meter #1 ea 11/24/20 [Rx Last Taken Unknown] insulin degludec 100 unit/mL (3 mL) subcutaneous pen 38 unit SC DAILY #15 ml 11/24/20 [Rx Last Taken Unknown] insulin lispro 100 unit/mL subcutaneous pen 25 unit SC TIDCM #30 ml 11/24/20 [Rx Last Taken Unknown] pen needle, diabetic 32 gauge x 5/16 #200 ea 11/27/20 [Rx Last Taken Unknown] Allergy/AdvReac Type Severity Reaction Status Date / Time amoxicillin Allergy Hives Verified 11/27/20 16:17 Sulfa (Sulfonamide Allergy Hives Verified 11/27/20 16:17 Antibiotics) tomato Allergy Hives Verified 11/27/20 16:17 Family History Grandmother Diabetes Father Respiratory disease Uncle Respiratory disease Aunt Respiratory disease Social History Smoking Status: Current every day smoker tobacco type: cigarettes and e-cigarettes Tobacco: How many years used: 1 alcohol intake: never substance use type: does not use what type of physical activity do you participate in: walking frequency: daily ROS Constitutional Constitutional: Reports fatigue and malaise Eyes Eyes: Denies blurry vision or change in vision ENT HEENT: Reports headache(s) Cardiovascular Cardiovascular: Denies chest pain, dizziness or dyspnea Respiratory/Chest Respiratory/Chest: Denies cough or dyspnea Gastrointestinal Gastrointestinal: Reports nausea Genitourinary Genitourinary: Denies difficulty urinating Musculoskeletal Musculoskeletal: Denies arthralgias or back pain Integumentary Integumentary: Denies lesions or rash Neurologic Neurologic: Denies abnormal gait Psychiatric Psychiatric: Reports mood swings Endocrine Endocrinology: Reports fatigue Hematologic/Lymphatic Hematologic/Lymphatic: Denies easy bleeding or easy bruising Physical Exam Const alert, oriented x3 and no apparent distress General Appearance: cooperative HEENT normocephalic and head/scalp atraumatic Eyes PERRL and EOMs intact bilaterally Resp normal respiratory effort Auscultation: Negative for rales, rhonchi or wheezes Cardio S1 normal heart sound and S2 normal heart sound Rate: tachycardic GI normal to inspection, nondistended, normoactive bowel sounds Extremity no clubbing, cyanosis or edema Skin no rashes or lesions noted Neuro oriented x3 and moves all extremities Psych cooperative and affect normal Lab / Micro Data Result Diagrams: 11/28/20 08:20 11/28/20 03:27 Labs: Laboratory Results - last 24 hr 11/27/20 11/27/20 11/27/20 18:15 18:15 19:35 WBC 20.0 H RBC 5.45 H Hgb 16.7 H Hct 49.5 H MCV 90.8 MCH 30.6 MCHC 33.7 RDW Std Deviation 44.3 H RDW Coeff of Mark 13.5 Plt Count 436 MPV 9.6 Immature Gran % (Auto) 1.200 H Neut % (Auto) 77.6 H Lymph % (Auto) 14.5 L [place] % (Auto) 5.6 Eos % (Auto) 0.2 Baso % (Auto) 0.9 Absolute Neuts (auto) 15.5 H Absolute Lymphs (auto) 2.90 Nucleated RBC % 0 PT INR Sodium Potassium Chloride Carbon Dioxide Anion Gap BUN Creatinine Estim Creat Clear Calc Est GFR (MDRD) Af Amer Est GFR (MDRD) Non-Af BUN/Creatinine Ratio Glucose Hemoglobin A1c Lactic Acid Calcium Phosphorus Magnesium Total Bilirubin AST ALT Alkaline Phosphatase Troponin I Total Protein Albumin Globulin Albumin/Globulin Ratio Serum , Qual Urine Color Yellow Urine Clarity Sl. Cloudy Urine pH 5.0 Ur Specific [place] 1.025 Urine Protein 100 H Urine Glucose (UA) 1000 H Urine Ketones 150 A* Urine Occult Blood 10 H Urine Nitrite Negative Urine Bilirubin Negative Urine Urobilinogen Normal Ur Leukocyte Esterase Negative Urine RBC 0-5 SEEN Urine WBC 0-5 SEEN Ur Squamous Epith Cells 5-10 SEEN Amorphous Sediment 1+ URATE Urine Bacteria 0 SEEN Urine Mucus 0 SEEN Urine Opiates Screen NEGATIVE Urine Methadone Screen NEGATIVE Ur Barbiturates Screen NEGATIVE Ur Phencyclidine Scrn NEGATIVE Ur Amphetamines Screen NEGATIVE U Methamphetamin-MDMA NEGATIVE U Benzodiazepines Scrn NEGATIVE Urine Cocaine Screen NEGATIVE U Cannabinoids Screen NEGATIVE Ur Drug Screen Comment Acetone Level POC Glucose 11/27/20 11/27/20 11/27/20 19:35 19:35 19:35 WBC RBC Hgb Hct MCV MCH MCHC RDW Std Deviation RDW Coeff of Mark Plt Count MPV Immature Gran % (Auto) Neut % (Auto) Lymph % (Auto) [place] % (Auto) Eos % (Auto) Baso % (Auto) Absolute Neuts (auto) Absolute Lymphs (auto) Nucleated RBC % PT INR Sodium 138 Potassium 3.0 L Chloride 111 H Carbon Dioxide 2.0 L* Anion Gap 25 H BUN 10 Creatinine 0.74 Estim Creat Clear Calc 122.33 Est GFR (MDRD) Af Amer 128 Est GFR (MDRD) Non-Af 106 BUN/Creatinine Ratio 13.6 Glucose 405 H Hemoglobin A1c Lactic Acid Calcium 8.2 L Phosphorus Magnesium Total Bilirubin 0.40 AST 7 L ALT 14 Alkaline Phosphatase 145 H Troponin I < 0.015 Total Protein 7.8 Albumin 3.9 Globulin 3.9 Albumin/Globulin Ratio 1.0 Serum , Qual NEGATIVE Urine Color Urine Clarity Urine pH Ur Specific [place] Urine Protein Urine Glucose (UA) Urine Ketones Urine Occult Blood Urine Nitrite Urine Bilirubin Urine Urobilinogen Ur Leukocyte Esterase Urine RBC Urine WBC Ur Squamous Epith Cells Amorphous Sediment Urine Bacteria Urine Mucus Urine Opiates Screen Urine Methadone Screen Ur Barbiturates Screen Ur Phencyclidine Scrn Ur Amphetamines Screen U Methamphetamin-MDMA U Benzodiazepines Scrn Urine Cocaine Screen U Cannabinoids Screen Ur Drug Screen Comment Acetone Level LARGE H POC Glucose 11/27/20 11/27/20 11/27/20 19:35 19:35 19:35 WBC RBC Hgb Hct MCV MCH MCHC RDW Std Deviation RDW Coeff of Mark Plt Count MPV Immature Gran % (Auto) Neut % (Auto) Lymph % (Auto) [place] % (Auto) Eos % (Auto) Baso % (Auto) Absolute Neuts (auto) Absolute Lymphs (auto) Nucleated RBC % PT 15.3 H INR 1.3 Sodium Potassium Chloride Carbon Dioxide Anion Gap BUN Creatinine Estim Creat Clear Calc Est GFR (MDRD) Af Amer Est GFR (MDRD) Non-Af BUN/Creatinine Ratio Glucose Hemoglobin A1c Lactic Acid 0.8 Calcium Phosphorus Magnesium 1.5 L Total Bilirubin AST ALT Alkaline Phosphatase Troponin I Total Protein Albumin Globulin Albumin/Globulin Ratio Serum , Qual Urine Color Urine Clarity Urine pH Ur Specific [place] Urine Protein Urine Glucose (UA) Urine Ketones Urine Occult Blood Urine Nitrite Urine Bilirubin Urine Urobilinogen Ur Leukocyte Esterase Urine RBC Urine WBC Ur Squamous Epith Cells Amorphous Sediment Urine Bacteria Urine Mucus Urine Opiates Screen Urine Methadone Screen Ur Barbiturates Screen Ur Phencyclidine Scrn Ur Amphetamines Screen U Methamphetamin-MDMA U Benzodiazepines Scrn Urine Cocaine Screen U Cannabinoids Screen Ur Drug Screen Comment Acetone Level POC Glucose 11/27/20 11/27/20 11/27/20 19:35 20:05 21:56 WBC RBC Hgb Hct MCV MCH MCHC RDW Std Deviation RDW Coeff of Mark Plt Count MPV Immature Gran % (Auto) Neut % (Auto) Lymph % (Auto) [place] % (Auto) Eos % (Auto) Baso % (Auto) Absolute Neuts (auto) Absolute Lymphs (auto) Nucleated RBC % PT INR Sodium Potassium Chloride Carbon Dioxide Anion Gap BUN Creatinine Estim Creat Clear Calc Est GFR (MDRD) Af Amer Est GFR (MDRD) Non-Af BUN/Creatinine Ratio Glucose Hemoglobin A1c Lactic Acid Calcium Phosphorus 3.2 Magnesium Total Bilirubin AST ALT Alkaline Phosphatase Troponin I Total Protein Albumin Globulin Albumin/Globulin Ratio Serum , Qual Urine Color Urine Clarity Urine pH Ur Specific [place] Urine Protein Urine Glucose (UA) Urine Ketones Urine Occult Blood Urine Nitrite Urine Bilirubin Urine Urobilinogen Ur Leukocyte Esterase Urine RBC Urine WBC Ur Squamous Epith Cells Amorphous Sediment Urine Bacteria Urine Mucus Urine Opiates Screen Urine Methadone Screen Ur Barbiturates Screen Ur Phencyclidine Scrn Ur Amphetamines Screen U Methamphetamin-MDMA U Benzodiazepines Scrn Urine Cocaine Screen U Cannabinoids Screen Ur Drug Screen Comment Acetone Level POC Glucose 438 H 343 H 11/27/20 11/27/20 11/27/20 23:26 23:35 23:35 WBC RBC Hgb Hct MCV MCH MCHC RDW Std Deviation RDW Coeff of Mark Plt Count MPV Immature Gran % (Auto) Neut % (Auto) Lymph % (Auto) [place] % (Auto) Eos % (Auto) Baso % (Auto) Absolute Neuts (auto) Absolute Lymphs (auto) Nucleated RBC % PT INR Sodium 141 Potassium 4.1 Chloride 119 H Carbon Dioxide 2.0 L* Anion Gap 20 H BUN 10 Creatinine 0.61 Estim Creat Clear Calc 148.40 Est GFR (MDRD) Af Amer 160 Est GFR (MDRD) Non-Af 132 BUN/Creatinine Ratio 16.4 Glucose 365 H Hemoglobin A1c 11.7 H Lactic Acid Calcium 6.7 L Phosphorus Magnesium Total Bilirubin AST ALT Alkaline Phosphatase Troponin I Total Protein Albumin Globulin Albumin/Globulin Ratio Serum , Qual Urine Color Urine Clarity Urine pH Ur Specific [place] Urine Protein Urine Glucose (UA) Urine Ketones Urine Occult Blood Urine Nitrite Urine Bilirubin Urine Urobilinogen Ur Leukocyte Esterase Urine RBC Urine WBC Ur Squamous Epith Cells Amorphous Sediment Urine Bacteria Urine Mucus Urine Opiates Screen Urine Methadone Screen Ur Barbiturates Screen Ur Phencyclidine Scrn Ur Amphetamines Screen U Methamphetamin-MDMA U Benzodiazepines Scrn Urine Cocaine Screen U Cannabinoids Screen Ur Drug Screen Comment Acetone Level POC Glucose 366 H 11/28/20 11/28/20 11/28/20 00:10 01:21 02:16 WBC RBC Hgb Hct MCV MCH MCHC RDW Std Deviation RDW Coeff of Mark Plt Count MPV Immature Gran % (Auto) Neut % (Auto) Lymph % (Auto) [place] % (Auto) Eos % (Auto) Baso % (Auto) Absolute Neuts (auto) Absolute Lymphs (auto) Nucleated RBC % PT INR Sodium Potassium Chloride Carbon Dioxide Anion Gap BUN Creatinine Estim Creat Clear Calc Est GFR (MDRD) Af Amer Est GFR (MDRD) Non-Af BUN/Creatinine Ratio Glucose Hemoglobin A1c Lactic Acid Calcium Phosphorus Magnesium Total Bilirubin AST ALT Alkaline Phosphatase Troponin I Total Protein Albumin Globulin Albumin/Globulin Ratio Serum , Qual Urine Color Urine Clarity Urine pH Ur Specific [place] Urine Protein Urine Glucose (UA) Urine Ketones Urine Occult Blood Urine Nitrite Urine Bilirubin Urine Urobilinogen Ur Leukocyte Esterase Urine RBC Urine WBC Ur Squamous Epith Cells Amorphous Sediment Urine Bacteria Urine Mucus Urine Opiates Screen Urine Methadone Screen Ur Barbiturates Screen Ur Phencyclidine Scrn Ur Amphetamines Screen U Methamphetamin-MDMA U Benzodiazepines Scrn Urine Cocaine Screen U Cannabinoids Screen Ur Drug Screen Comment Acetone Level POC Glucose 326 H 322 H 263 H 11/28/20 11/28/20 11/28/20 03:20 03:27 03:27 WBC RBC Hgb Hct MCV MCH MCHC RDW Std Deviation RDW Coeff of Mark Plt Count MPV Immature Gran % (Auto) Neut % (Auto) Lymph % (Auto) [place] % (Auto) Eos % (Auto) Baso % (Auto) Absolute Neuts (auto) Absolute Lymphs (auto) Nucleated RBC % PT INR Sodium Cancelled 143 Potassium Cancelled 3.6 Chloride Cancelled 122 H Carbon Dioxide Cancelled 4.0 L* Anion Gap Cancelled 17 H BUN Cancelled 10 Creatinine Cancelled 0.58 Estim Creat Clear Calc Cancelled 156.08 Est GFR (MDRD) Af Amer Cancelled 170 Est GFR (MDRD) Non-Af Cancelled 141 BUN/Creatinine Ratio Cancelled 17.3 Glucose Cancelled 203 H Hemoglobin A1c Lactic Acid Calcium Cancelled 6.5 L* Phosphorus Magnesium 2.1 Total Bilirubin 0.30 AST 8 L ALT 16 Alkaline Phosphatase 149 H Troponin I Total Protein 6.7 Albumin 3.4 Globulin 3.3 Albumin/Globulin Ratio 1.0 Serum , Qual Urine Color Urine Clarity Urine pH Ur Specific [place] Urine Protein Urine Glucose (UA) Urine Ketones Urine Occult Blood Urine Nitrite Urine Bilirubin Urine Urobilinogen Ur Leukocyte Esterase Urine RBC Urine WBC Ur Squamous Epith Cells Amorphous Sediment Urine Bacteria Urine Mucus Urine Opiates Screen Urine Methadone Screen Ur Barbiturates Screen Ur Phencyclidine Scrn Ur Amphetamines Screen U Methamphetamin-MDMA U Benzodiazepines Scrn Urine Cocaine Screen U Cannabinoids Screen Ur Drug Screen Comment Acetone Level POC Glucose 204 H 11/28/20 11/28/20 11/28/20 04:17 05:20 06:19 WBC RBC Hgb Hct MCV MCH MCHC RDW Std Deviation RDW Coeff of Mark Plt Count MPV Immature Gran % (Auto) Neut % (Auto) Lymph % (Auto) [place] % (Auto) Eos % (Auto) Baso % (Auto) Absolute Neuts (auto) Absolute Lymphs (auto) Nucleated RBC % PT INR Sodium Potassium Chloride Carbon Dioxide Anion Gap BUN Creatinine Estim Creat Clear Calc Est GFR (MDRD) Af Amer Est GFR (MDRD) Non-Af BUN/Creatinine Ratio Glucose Hemoglobin A1c Lactic Acid Calcium Phosphorus Magnesium Total Bilirubin AST ALT Alkaline Phosphatase Troponin I Total Protein Albumin Globulin Albumin/Globulin Ratio Serum , Qual Urine Color Urine Clarity Urine pH Ur Specific [place] Urine Protein Urine Glucose (UA) Urine Ketones Urine Occult Blood Urine Nitrite Urine Bilirubin Urine Urobilinogen Ur Leukocyte Esterase Urine RBC Urine WBC Ur Squamous Epith Cells Amorphous Sediment Urine Bacteria Urine Mucus Urine Opiates Screen Urine Methadone Screen Ur Barbiturates Screen Ur Phencyclidine Scrn Ur Amphetamines Screen U Methamphetamin-MDMA U Benzodiazepines Scrn Urine Cocaine Screen U Cannabinoids Screen Ur Drug Screen Comment Acetone Level POC Glucose 191 H 212 H 187 H Micro: Microbiology 11/27/20 18:02 SARS-CoV-2 Antigen (Rapid) - Final Nasal Secretion ABG Data ABG results: ABG 11/27/20 20:10 Specimen Type HAN VBG pH 6.93 L* VBG pO2 61 H VBG HCO3 3 L VBG Total CO2 < 5 L VBG O2 Sat (Calc) 73 H VBG Base Excess -30 L POC Mix VBG pCO2 Pt Tmp 13.8 L* Crit Call To/Read Back Yes Blood Gas Notified Whom DR ALEJANDRO Radiology Impression Chest X-Ray 11/27/20 19:35 IMPRESSION: 1. No acute pulmonary abnormality. 2. Central venous catheter in good position. at 2017 Reported and signed by: Brody Kapoor MD Electronically Signed: Brody Kapoor MD at 20:16 EDT Tel , Service support , Chest X-Ray 11/27/20 19:55 IMPRESSION: 1. No acute pulmonary abnormality. 2. Central venous catheter in good position. at 2026 Reported and signed by: Brody Kapoor MD Electronically Signed: Brody Kapoor MD at 20:26 EDT Tel , Service support , Charges/Coding Visit Charges Inpatient E&M: 56059 Init Hosp L3
[2020-11-28 07:26] LABS: Bedside Glucose 192 mg/dL (70-110)
[2020-11-28 08:30] LABS: Bedside Glucose 166 mg/dL (70-110)
[2020-11-28 08:39] LABS: Absolute Lymphocyte Count 2.47 X10^3/uL (0.83-4.51); Absolute Neutrophil Count 17.5 X10^3/uL (2.0-7.7); Basophil# 0.05 X10^3/uL; Basophil% 0.2 % (0-1); Hematocrit 41.1 % (37-47); Hemoglobin 14.4 g/dL (12.0-15.0); Lymphocyte # 2.47 X10^3/ul (0.83-4.51); Lymphocyte % 11.4 % (19-41); Mean Corpuscular Volume 88.6 fL (81-99); Mean Platelet Vol. 9.2 fl (6.2-12.0); Monocyte# 1.32 X10^3/uL; Monocyte% 6.1 % (0-10); NRBC Flagged by Analyzer 0 % (0-5); Neutrophil # 17.53 X10^3/uL (2.7-7.7); Neutrophil % 81.1 % (47-70); Platelet Count 246 K/mm3 (150-450); RBC Distribution Width CV 13.3 % (11.6-14.6); RBC Distribution Width SD 43.1 fl (35.1-43.9); Red Blood Count 4.64 M/mm3 (4.2-5.4); White Blood Count 21.6 K/mm3 (4.4-11.0)
[2020-11-28 08:57] LABS: Anion Gap 16 (5-15); BUN 10 mg/dL (7-18); Chloride 123 mmol/L (98-107); Creatinine, Serum 0.56 mg/dL (0.55-1.02); EST Glomerular Filtration Rate 147 mL/min (>60); Est Glom Filt Rate - Afr Amer 178 mL/min (>60); Estimated Creatinine Clearance 158.87 ml/min; Glucose 166 mg/dL (74-106); Sodium Level 143 mmol/L (136-145)
[2020-11-28 09:26] LABS: Bedside Glucose 167 mg/dL (70-110)
[2020-11-28 10:41] LABS: Bedside Glucose 120 mg/dL (70-110)
[2020-11-28 11:16] LABS: Bedside Glucose 118 mg/dL (70-110)
[2020-11-28 12:26] LABS: Bedside Glucose 127 mg/dL (70-110)
[2020-11-28 12:43] LABS: Anion Gap 11 (5-15); BUN 9 mg/dL (7-18); BUN/Creat Ratio 15.1 RATIO (10-20); Chloride 125 mmol/L (98-107); EST Glomerular Filtration Rate 136 mL/min (>60); Est Glom Filt Rate - Afr Amer 164 mL/min (>60); Estimated Creatinine Clearance 148.28 ml/min; Glucose 119 mg/dL (74-106); Potassium 2.9 mmol/L (3.5-5.1); Sodium Level 144 mmol/L (136-145)
--- NOTE | 2020-11-28 12:59 | PCM.PN.HOSP ---
Subjective Subjective Seen and examined. She complains of feeling hungry and wants to eat. She has been managed for DKA due to noncompliance. She denies any abdominal pain, nausea vomiting or diarrhea. Review of systems otherwise negative. Bicarb remains at 82 though anion gap is closed to 11 and potassium is 2.9. She has remained hemodynamically stable. Objective Data Objective Data Vital Signs: Vital Signs Temp Pulse Resp BP Pulse Ox 98.4 F 101 H 22 H 101/62 100 11/28/20 12:00 11/28/20 12:00 11/28/20 12:00 11/28/20 12:00 11/28/20 12:00 Oxygen Flow Rate (L/min) 3 Oxygen Delivery Method Room Air Weight: 138 lb 7.205 oz Body Mass Index (BMI) 21.7 Intake & Output: Intake and Output for Last 24 Hours 11/26/20 11/27/20 11/28/20 23:59 23:59 23:59 Intake Total 2686.67 / 2786.67 2679.06 / 2679.06 Output Total 3800 / 3800 Balance 2686.67 / 1986.67 -1120.94 / -1120.94 Lab / Micro Data Result Diagrams: 11/28/20 08:20 11/28/20 12:15 Labs: Laboratory Results - last 24 hr 11/27/20 11/27/20 11/27/20 18:15 18:15 19:35 WBC 20.0 H RBC 5.45 H Hgb 16.7 H Hct 49.5 H MCV 90.8 MCH 30.6 MCHC 33.7 RDW Std Deviation 44.3 H RDW Coeff of Mark 13.5 Plt Count 436 MPV 9.6 Immature Gran % (Auto) 1.200 H Neut % (Auto) 77.6 H Lymph % (Auto) 14.5 L [place] % (Auto) 5.6 Eos % (Auto) 0.2 Baso % (Auto) 0.9 Absolute Neuts (auto) 15.5 H Absolute Lymphs (auto) 2.90 Nucleated RBC % 0 PT INR Sodium Potassium Chloride Carbon Dioxide Anion Gap BUN Creatinine Estim Creat Clear Calc Est GFR (MDRD) Af Amer Est GFR (MDRD) Non-Af BUN/Creatinine Ratio Glucose Hemoglobin A1c Lactic Acid Calcium Phosphorus Magnesium Total Bilirubin AST ALT Alkaline Phosphatase Troponin I Total Protein Albumin Globulin Albumin/Globulin Ratio Serum , Qual Urine Color Yellow Urine Clarity Sl. Cloudy Urine pH 5.0 Ur Specific [place] 1.025 Urine Protein 100 H Urine Glucose (UA) 1000 H Urine Ketones 150 A* Urine Occult Blood 10 H Urine Nitrite Negative Urine Bilirubin Negative Urine Urobilinogen Normal Ur Leukocyte Esterase Negative Urine RBC 0-5 SEEN Urine WBC 0-5 SEEN Ur Squamous Epith Cells 5-10 SEEN Amorphous Sediment 1+ URATE Urine Bacteria 0 SEEN Urine Mucus 0 SEEN Urine Opiates Screen NEGATIVE Urine Methadone Screen NEGATIVE Ur Barbiturates Screen NEGATIVE Ur Phencyclidine Scrn NEGATIVE Ur Amphetamines Screen NEGATIVE U Methamphetamin-MDMA NEGATIVE U Benzodiazepines Scrn NEGATIVE Urine Cocaine Screen NEGATIVE U Cannabinoids Screen NEGATIVE Ur Drug Screen Comment Acetone Level POC Glucose 11/27/20 11/27/20 11/27/20 19:35 19:35 19:35 WBC RBC Hgb Hct MCV MCH MCHC RDW Std Deviation RDW Coeff of Mark Plt Count MPV Immature Gran % (Auto) Neut % (Auto) Lymph % (Auto) [place] % (Auto) Eos % (Auto) Baso % (Auto) Absolute Neuts (auto) Absolute Lymphs (auto) Nucleated RBC % PT INR Sodium 138 Potassium 3.0 L Chloride 111 H Carbon Dioxide 2.0 L* Anion Gap 25 H BUN 10 Creatinine 0.74 Estim Creat Clear Calc 122.33 Est GFR (MDRD) Af Amer 128 Est GFR (MDRD) Non-Af 106 BUN/Creatinine Ratio 13.6 Glucose 405 H Hemoglobin A1c Lactic Acid Calcium 8.2 L Phosphorus Magnesium Total Bilirubin 0.40 AST 7 L ALT 14 Alkaline Phosphatase 145 H Troponin I < 0.015 Total Protein 7.8 Albumin 3.9 Globulin 3.9 Albumin/Globulin Ratio 1.0 Serum , Qual NEGATIVE Urine Color Urine Clarity Urine pH Ur Specific [place] Urine Protein Urine Glucose (UA) Urine Ketones Urine Occult Blood Urine Nitrite Urine Bilirubin Urine Urobilinogen Ur Leukocyte Esterase Urine RBC Urine WBC Ur Squamous Epith Cells Amorphous Sediment Urine Bacteria Urine Mucus Urine Opiates Screen Urine Methadone Screen Ur Barbiturates Screen Ur Phencyclidine Scrn Ur Amphetamines Screen U Methamphetamin-MDMA U Benzodiazepines Scrn Urine Cocaine Screen U Cannabinoids Screen Ur Drug Screen Comment Acetone Level LARGE H POC Glucose 11/27/20 11/27/20 11/27/20 19:35 19:35 19:35 WBC RBC Hgb Hct MCV MCH MCHC RDW Std Deviation RDW Coeff of Mark Plt Count MPV Immature Gran % (Auto) Neut % (Auto) Lymph % (Auto) [place] % (Auto) Eos % (Auto) Baso % (Auto) Absolute Neuts (auto) Absolute Lymphs (auto) Nucleated RBC % PT 15.3 H INR 1.3 Sodium Potassium Chloride Carbon Dioxide Anion Gap BUN Creatinine Estim Creat Clear Calc Est GFR (MDRD) Af Amer Est GFR (MDRD) Non-Af BUN/Creatinine Ratio Glucose Hemoglobin A1c Lactic Acid 0.8 Calcium Phosphorus Magnesium 1.5 L Total Bilirubin AST ALT Alkaline Phosphatase Troponin I Total Protein Albumin Globulin Albumin/Globulin Ratio Serum , Qual Urine Color Urine Clarity Urine pH Ur Specific [place] Urine Protein Urine Glucose (UA) Urine Ketones Urine Occult Blood Urine Nitrite Urine Bilirubin Urine Urobilinogen Ur Leukocyte Esterase Urine RBC Urine WBC Ur Squamous Epith Cells Amorphous Sediment Urine Bacteria Urine Mucus Urine Opiates Screen Urine Methadone Screen Ur Barbiturates Screen Ur Phencyclidine Scrn Ur Amphetamines Screen U Methamphetamin-MDMA U Benzodiazepines Scrn Urine Cocaine Screen U Cannabinoids Screen Ur Drug Screen Comment Acetone Level POC Glucose 11/27/20 11/27/20 11/27/20 19:35 20:05 21:56 WBC RBC Hgb Hct MCV MCH MCHC RDW Std Deviation RDW Coeff of Mark Plt Count MPV Immature Gran % (Auto) Neut % (Auto) Lymph % (Auto) [place] % (Auto) Eos % (Auto) Baso % (Auto) Absolute Neuts (auto) Absolute Lymphs (auto) Nucleated RBC % PT INR Sodium Potassium Chloride Carbon Dioxide Anion Gap BUN Creatinine Estim Creat Clear Calc Est GFR (MDRD) Af Amer Est GFR (MDRD) Non-Af BUN/Creatinine Ratio Glucose Hemoglobin A1c Lactic Acid Calcium Phosphorus 3.2 Magnesium Total Bilirubin AST ALT Alkaline Phosphatase Troponin I Total Protein Albumin Globulin Albumin/Globulin Ratio Serum , Qual Urine Color Urine Clarity Urine pH Ur Specific [place] Urine Protein Urine Glucose (UA) Urine Ketones Urine Occult Blood Urine Nitrite Urine Bilirubin Urine Urobilinogen Ur Leukocyte Esterase Urine RBC Urine WBC Ur Squamous Epith Cells Amorphous Sediment Urine Bacteria Urine Mucus Urine Opiates Screen Urine Methadone Screen Ur Barbiturates Screen Ur Phencyclidine Scrn Ur Amphetamines Screen U Methamphetamin-MDMA U Benzodiazepines Scrn Urine Cocaine Screen U Cannabinoids Screen Ur Drug Screen Comment Acetone Level POC Glucose 438 H 343 H 11/27/20 11/27/20 11/27/20 23:26 23:35 23:35 WBC RBC Hgb Hct MCV MCH MCHC RDW Std Deviation RDW Coeff of Mark Plt Count MPV Immature Gran % (Auto) Neut % (Auto) Lymph % (Auto) [place] % (Auto) Eos % (Auto) Baso % (Auto) Absolute Neuts (auto) Absolute Lymphs (auto) Nucleated RBC % PT INR Sodium 141 Potassium 4.1 Chloride 119 H Carbon Dioxide 2.0 L* Anion Gap 20 H BUN 10 Creatinine 0.61 Estim Creat Clear Calc 148.40 Est GFR (MDRD) Af Amer 160 Est GFR (MDRD) Non-Af 132 BUN/Creatinine Ratio 16.4 Glucose 365 H Hemoglobin A1c 11.7 H Lactic Acid Calcium 6.7 L Phosphorus Magnesium Total Bilirubin AST ALT Alkaline Phosphatase Troponin I Total Protein Albumin Globulin Albumin/Globulin Ratio Serum , Qual Urine Color Urine Clarity Urine pH Ur Specific [place] Urine Protein Urine Glucose (UA) Urine Ketones Urine Occult Blood Urine Nitrite Urine Bilirubin Urine Urobilinogen Ur Leukocyte Esterase Urine RBC Urine WBC Ur Squamous Epith Cells Amorphous Sediment Urine Bacteria Urine Mucus Urine Opiates Screen Urine Methadone Screen Ur Barbiturates Screen Ur Phencyclidine Scrn Ur Amphetamines Screen U Methamphetamin-MDMA U Benzodiazepines Scrn Urine Cocaine Screen U Cannabinoids Screen Ur Drug Screen Comment Acetone Level POC Glucose 366 H 11/28/20 11/28/20 11/28/20 00:10 01:21 02:16 WBC RBC Hgb Hct MCV MCH MCHC RDW Std Deviation RDW Coeff of Mark Plt Count MPV Immature Gran % (Auto) Neut % (Auto) Lymph % (Auto) [place] % (Auto) Eos % (Auto) Baso % (Auto) Absolute Neuts (auto) Absolute Lymphs (auto) Nucleated RBC % PT INR Sodium Potassium Chloride Carbon Dioxide Anion Gap BUN Creatinine Estim Creat Clear Calc Est GFR (MDRD) Af Amer Est GFR (MDRD) Non-Af BUN/Creatinine Ratio Glucose Hemoglobin A1c Lactic Acid Calcium Phosphorus Magnesium Total Bilirubin AST ALT Alkaline Phosphatase Troponin I Total Protein Albumin Globulin Albumin/Globulin Ratio Serum , Qual Urine Color Urine Clarity Urine pH Ur Specific [place] Urine Protein Urine Glucose (UA) Urine Ketones Urine Occult Blood Urine Nitrite Urine Bilirubin Urine Urobilinogen Ur Leukocyte Esterase Urine RBC Urine WBC Ur Squamous Epith Cells Amorphous Sediment Urine Bacteria Urine Mucus Urine Opiates Screen Urine Methadone Screen Ur Barbiturates Screen Ur Phencyclidine Scrn Ur Amphetamines Screen U Methamphetamin-MDMA U Benzodiazepines Scrn Urine Cocaine Screen U Cannabinoids Screen Ur Drug Screen Comment Acetone Level POC Glucose 326 H 322 H 263 H 11/28/20 11/28/20 11/28/20 03:20 03:27 03:27 WBC RBC Hgb Hct MCV MCH MCHC RDW Std Deviation RDW Coeff of Mark Plt Count MPV Immature Gran % (Auto) Neut % (Auto) Lymph % (Auto) [place] % (Auto) Eos % (Auto) Baso % (Auto) Absolute Neuts (auto) Absolute Lymphs (auto) Nucleated RBC % PT INR Sodium Cancelled 143 Potassium Cancelled 3.6 Chloride Cancelled 122 H Carbon Dioxide Cancelled 4.0 L* Anion Gap Cancelled 17 H BUN Cancelled 10 Creatinine Cancelled 0.58 Estim Creat Clear Calc Cancelled 156.08 Est GFR (MDRD) Af Amer Cancelled 170 Est GFR (MDRD) Non-Af Cancelled 141 BUN/Creatinine Ratio Cancelled 17.3 Glucose Cancelled 203 H Hemoglobin A1c Lactic Acid Calcium Cancelled 6.5 L* Phosphorus Magnesium 2.1 Total Bilirubin 0.30 AST 8 L ALT 16 Alkaline Phosphatase 149 H Troponin I Total Protein 6.7 Albumin 3.4 Globulin 3.3 Albumin/Globulin Ratio 1.0 Serum , Qual Urine Color Urine Clarity Urine pH Ur Specific [place] Urine Protein Urine Glucose (UA) Urine Ketones Urine Occult Blood Urine Nitrite Urine Bilirubin Urine Urobilinogen Ur Leukocyte Esterase Urine RBC Urine WBC Ur Squamous Epith Cells Amorphous Sediment Urine Bacteria Urine Mucus Urine Opiates Screen Urine Methadone Screen Ur Barbiturates Screen Ur Phencyclidine Scrn Ur Amphetamines Screen U Methamphetamin-MDMA U Benzodiazepines Scrn Urine Cocaine Screen U Cannabinoids Screen Ur Drug Screen Comment Acetone Level POC Glucose 204 H 11/28/20 11/28/20 11/28/20 04:17 05:20 06:19 WBC RBC Hgb Hct MCV MCH MCHC RDW Std Deviation RDW Coeff of Mark Plt Count MPV Immature Gran % (Auto) Neut % (Auto) Lymph % (Auto) [place] % (Auto) Eos % (Auto) Baso % (Auto) Absolute Neuts (auto) Absolute Lymphs (auto) Nucleated RBC % PT INR Sodium Potassium Chloride Carbon Dioxide Anion Gap BUN Creatinine Estim Creat Clear Calc Est GFR (MDRD) Af Amer Est GFR (MDRD) Non-Af BUN/Creatinine Ratio Glucose Hemoglobin A1c Lactic Acid Calcium Phosphorus Magnesium Total Bilirubin AST ALT Alkaline Phosphatase Troponin I Total Protein Albumin Globulin Albumin/Globulin Ratio Serum , Qual Urine Color Urine Clarity Urine pH Ur Specific [place] Urine Protein Urine Glucose (UA) Urine Ketones Urine Occult Blood Urine Nitrite Urine Bilirubin Urine Urobilinogen Ur Leukocyte Esterase Urine RBC Urine WBC Ur Squamous Epith Cells Amorphous Sediment Urine Bacteria Urine Mucus Urine Opiates Screen Urine Methadone Screen Ur Barbiturates Screen Ur Phencyclidine Scrn Ur Amphetamines Screen U Methamphetamin-MDMA U Benzodiazepines Scrn Urine Cocaine Screen U Cannabinoids Screen Ur Drug Screen Comment Acetone Level POC Glucose 191 H 212 H 187 H 11/28/20 11/28/20 11/28/20 07:15 08:18 08:20 WBC RBC Hgb Hct MCV MCH MCHC RDW Std Deviation RDW Coeff of Mark Plt Count MPV Immature Gran % (Auto) Neut % (Auto) Lymph % (Auto) [place] % (Auto) Eos % (Auto) Baso % (Auto) Absolute Neuts (auto) Absolute Lymphs (auto) Nucleated RBC % PT INR Sodium 143 Potassium 3.0 L Chloride 123 H Carbon Dioxide 4.0 L* Anion Gap 16 H BUN 10 Creatinine 0.56 Estim Creat Clear Calc 158.87 Est GFR (MDRD) Af Amer 178 Est GFR (MDRD) Non-Af 147 BUN/Creatinine Ratio 18.0 Glucose 166 H Hemoglobin A1c Lactic Acid Calcium 8.0 L Phosphorus Magnesium Total Bilirubin AST ALT Alkaline Phosphatase Troponin I Total Protein Albumin Globulin Albumin/Globulin Ratio Serum , Qual Urine Color Urine Clarity Urine pH Ur Specific [place] Urine Protein Urine Glucose (UA) Urine Ketones Urine Occult Blood Urine Nitrite Urine Bilirubin Urine Urobilinogen Ur Leukocyte Esterase Urine RBC Urine WBC Ur Squamous Epith Cells Amorphous Sediment Urine Bacteria Urine Mucus Urine Opiates Screen Urine Methadone Screen Ur Barbiturates Screen Ur Phencyclidine Scrn Ur Amphetamines Screen U Methamphetamin-MDMA U Benzodiazepines Scrn Urine Cocaine Screen U Cannabinoids Screen Ur Drug Screen Comment Acetone Level POC Glucose 192 H 166 H 11/28/20 11/28/20 11/28/20 08:20 09:20 10:27 WBC 21.6 H RBC 4.64 Hgb 14.4 Hct 41.1 MCV 88.6 MCH 31.0 MCHC 35.0 RDW Std Deviation 43.1 RDW Coeff of Mark 13.3 Plt Count 246 MPV 9.2 Immature Gran % (Auto) 1.200 H Neut % (Auto) 81.1 H Lymph % (Auto) 11.4 L [place] % (Auto) 6.1 Eos % (Auto) 0.0 Baso % (Auto) 0.2 Absolute Neuts (auto) 17.5 H Absolute Lymphs (auto) 2.47 Nucleated RBC % 0 PT INR Sodium Potassium Chloride Carbon Dioxide Anion Gap BUN Creatinine Estim Creat Clear Calc Est GFR (MDRD) Af Amer Est GFR (MDRD) Non-Af BUN/Creatinine Ratio Glucose Hemoglobin A1c Lactic Acid Calcium Phosphorus Magnesium Total Bilirubin AST ALT Alkaline Phosphatase Troponin I Total Protein Albumin Globulin Albumin/Globulin Ratio Serum , Qual Urine Color Urine Clarity Urine pH Ur Specific [place] Urine Protein Urine Glucose (UA) Urine Ketones Urine Occult Blood Urine Nitrite Urine Bilirubin Urine Urobilinogen Ur Leukocyte Esterase Urine RBC Urine WBC Ur Squamous Epith Cells Amorphous Sediment Urine Bacteria Urine Mucus Urine Opiates Screen Urine Methadone Screen Ur Barbiturates Screen Ur Phencyclidine Scrn Ur Amphetamines Screen U Methamphetamin-MDMA U Benzodiazepines Scrn Urine Cocaine Screen U Cannabinoids Screen Ur Drug Screen Comment Acetone Level POC Glucose 167 H 120 H 11/28/20 11/28/20 11/28/20 11:08 12:14 12:15 WBC RBC Hgb Hct MCV MCH MCHC RDW Std Deviation RDW Coeff of Mark Plt Count MPV Immature Gran % (Auto) Neut % (Auto) Lymph % (Auto) [place] % (Auto) Eos % (Auto) Baso % (Auto) Absolute Neuts (auto) Absolute Lymphs (auto) Nucleated RBC % PT INR Sodium 144 Potassium 2.9 L Chloride 125 H Carbon Dioxide 8.0 L* Anion Gap 11 BUN 9 Creatinine 0.60 Estim Creat Clear Calc 148.28 Est GFR (MDRD) Af Amer 164 Est GFR (MDRD) Non-Af 136 BUN/Creatinine Ratio 15.1 Glucose 119 H Hemoglobin A1c Lactic Acid Calcium 8.0 L Phosphorus Magnesium Total Bilirubin AST ALT Alkaline Phosphatase Troponin I Total Protein Albumin Globulin Albumin/Globulin Ratio Serum , Qual Urine Color Urine Clarity Urine pH Ur Specific [place] Urine Protein Urine Glucose (UA) Urine Ketones Urine Occult Blood Urine Nitrite Urine Bilirubin Urine Urobilinogen Ur Leukocyte Esterase Urine RBC Urine WBC Ur Squamous Epith Cells Amorphous Sediment Urine Bacteria Urine Mucus Urine Opiates Screen Urine Methadone Screen Ur Barbiturates Screen Ur Phencyclidine Scrn Ur Amphetamines Screen U Methamphetamin-MDMA U Benzodiazepines Scrn Urine Cocaine Screen U Cannabinoids Screen Ur Drug Screen Comment Acetone Level POC Glucose 118 H 127 H Micro: Microbiology 11/27/20 18:02 Nasal Secretion SARS-CoV-2 Antigen (Rapid) - Final ABG Data ABG results: ABG 11/27/20 20:10 Specimen Type HAN VBG pH 6.93 L* VBG pO2 61 H VBG HCO3 3 L VBG Total CO2 < 5 L VBG O2 Sat (Calc) 73 H VBG Base Excess -30 L POC Mix VBG pCO2 Pt Tmp 13.8 L* Crit Call To/Read Back Yes Blood Gas Notified Whom DR ALEJANDRO Radiography Diagnostic Testing: Radiology Impression Chest X-Ray 11/27/20 19:35 IMPRESSION: 1. No acute pulmonary abnormality. 2. Central venous catheter in good position. at 2017 Reported and signed by: Brody Kapoor MD Electronically Signed: Brody Kapoor MD at 20:16 EDT Tel , Service support , Chest X-Ray 11/27/20 19:55 IMPRESSION: 1. No acute pulmonary abnormality. 2. Central venous catheter in good position. at 2026 Reported and signed by: Brody Kapoor MD Electronically Signed: Brody Kapoor MD at 20:26 EDT Tel , Service support , Physical Exam Const oriented x3 and no apparent distress Nutritional Appearance: thin HEENT head/scalp atraumatic, moist oral mucous membranes and oropharynx normal Head and Scalp: normocephalic Eyes PERRL, EOMs intact bilaterally and conjunctivae normal Neck no lymphadenopathy Resp normal respiratory effort, no retractions, no use of accessory muscles and clear to auscultation bilaterally Cardio regular rate, regular rhythm, S1 normal heart sound, S2 normal heart sound and no gallops GI normal to inspection, nondistended, normoactive bowel sounds, soft to palpation, non-tender and non-distended Extremity normal to inspection, full ROM and no clubbing, cyanosis or edema Peripheral Pulses: Yes pulses 2+ throughout Skin no rashes or lesions noted Neuro oriented x3 and moves all extremities Sensorium / Orientation: awake Psych affect normal Assessment & Plan Assessment/Plan (1) Diabetes: QUALIFIERS: Diabetes mellitus type: type 1 Diabetes mellitus complication status: with hyperglycemia Qualified Code(s): E10.65 - Type 1 diabetes mellitus with hyperglycemia (2) DKA (diabetic ketoacidoses): QUALIFIERS: Diabetes mellitus type: type 1 Diabetes mellitus complication detail: without coma Qualified Code(s): E10.10 - Type 1 diabetes mellitus with ketoacidosis without coma (3) Hypokalemia: (4) High anion gap metabolic acidosis: PLAN: #DKA due ot noncompliance Anion gap is closed to 11. Bicarb still remains low at 8. Will continue insulin drip since bicarb is still low. Switch to subcu insulin once bicarb normalizes and gap remains closed. Critical care on board. Continue hydration with IV fluids. #Anion gap metabolic acidosis due to DKA Bicarb is still low at 8. Though anion gap is close to 11. Being treated with insulin drip and IV fluids. We will trend bicarb. #Type 1 diabetes mellitus: Noncompliant with her medications. Currently in DKA as above #Hypokalemia: Potassium is 2.9. Replace and trend. #Leukocytosis: White cell count is still elevated. No evidence of infection. Likely reactive from DKA. Will trend. #Bipolar disorder: On aripiprazole. DVT prophylaxis: Lovenox Visit Charges Inpatient E&M: [id number] Subs Hosp L3
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
[2020-11-28 14:16] LABS: Bedside Glucose 110 mg/dL (70-110)
[2020-11-28 15:11] LABS: Bedside Glucose 117 mg/dL (70-110)
[2020-11-28 16:01] LABS: Bedside Glucose 116 mg/dL (70-110)
[2020-11-28 16:25] LABS: Bedside Glucose 101 mg/dL (70-110)
[2020-11-28] MEDS: Ondansetron 4 MG/2 ML Vial IV (17:08)
[2020-11-28 17:09] LABS: Anion Gap 9 (5-15); BUN 9 mg/dL (7-18); BUN/Creat Ratio 16.3 RATIO (10-20); Calcium,Total 7.9 mg/dL (8.5-10.1); Chloride 123 mmol/L (98-107); Creatinine, Serum 0.55 mg/dL (0.55-1.02); EST Glomerular Filtration Rate 148 mL/min (>60); Est Glom Filt Rate - Afr Amer 179 mL/min (>60); Estimated Creatinine Clearance 161.76 ml/min; Glucose 107 mg/dL (74-106); Potassium 2.5 mmol/L (3.5-5.1); Sodium Level 143 mmol/L (136-145)
[2020-11-28 17:11] LABS: Bedside Glucose 95 mg/dL (70-110)
[2020-11-28] MEDS: Potassium Chloride Oral Tablet 20 MEQ 40 MEQ PO (17:47)
[2020-11-28 18:15] LABS: Bedside Glucose 91 mg/dL (70-110)
[2020-11-28 19:01] LABS: Bedside Glucose 137 mg/dL (70-110)
[2020-11-28 20:21] LABS: Bedside Glucose 248 mg/dL (70-110)
[2020-11-28 21:04] LABS: Magnesium 1.7 mg/dL (1.6-2.6)
[2020-11-28 21:06] LABS: Anion Gap 15 (5-15); BUN 9 mg/dL (7-18); BUN/Creat Ratio 16.1 RATIO (10-20); Calcium,Total 7.9 mg/dL (8.5-10.1); Chloride 116 mmol/L (98-107); Creatinine, Serum 0.56 mg/dL (0.55-1.02); EST Glomerular Filtration Rate 146 mL/min (>60); Est Glom Filt Rate - Afr Amer 177 mL/min (>60); Estimated Creatinine Clearance 158.87 ml/min; Glucose 294 mg/dL (74-106); Potassium 3.2 mmol/L (3.5-5.1); Sodium Level 140 mmol/L (136-145)
[2020-11-28 22:06] LABS: Bedside Glucose 262 mg/dL (70-110)
[2020-11-29] VITALS (30 sets, daily range): BP systolic 85–114; BP diastolic 46–80; PULSE 89–119; RESP 15–23; TEMP 36.4–37.2; O2SAT 98–100
[2020-11-29] MEDS: Insulin Lispro 100 UNIT/ML INSULN.PEN SC ×5 (00:19→20:04)
[2020-11-29 00:31] LABS: Bedside Glucose 296 mg/dL (70-110)
[2020-11-29] MEDS: 0.9% Saline Lock 10 ML Syringe IV ×2 (00:33→04:30)
[2020-11-29 00:46] LABS: Anion Gap 18 (5-15); BUN 8 mg/dL (7-18); Calcium,Total 7.8 mg/dL (8.5-10.1); Chloride 112 mmol/L (98-107); Creatinine, Serum 0.53 mg/dL (0.55-1.02); EST Glomerular Filtration Rate 155 mL/min (>60); Est Glom Filt Rate - Afr Amer 187 mL/min (>60); Estimated Creatinine Clearance 167.86 ml/min; Glucose 355 mg/dL (74-106); Potassium 3.2 mmol/L (3.5-5.1); Sodium Level 137 mmol/L (136-145)
[2020-11-29] MEDS: 0.9% Normal Saline 1,000 ML 500 ML IV (01:11)
[2020-11-29] MEDS: Acetaminophen 325 MG Tablet 650 MG PO ×3 (01:38→23:25)
[2020-11-29 02:36] LABS: Bedside Glucose 214 mg/dL (70-110)
[2020-11-29] MEDS: 0.9% Normal Saline 1,000 ML 250 ML IV (02:55)
[2020-11-29 03:36] LABS: Bedside Glucose 180 mg/dL (70-110)
--- NOTE | 2020-11-29 05:48 | PCM.PN.INT ---
Assessment & Plan Assessment/Plan (1) DKA (diabetic ketoacidoses): QUALIFIERS: Diabetes mellitus complication detail: without coma Diabetes mellitus type: type 1 Qualified Code(s): E10.10 - Type 1 diabetes mellitus with ketoacidosis without coma PLAN: RECOMMENDATIONS: 1. Continue supplemental IV fluid hydration and insulin infusion per DKA protocol. 2. Continue aggressive electrolyte repletion as needed. 3. Once anion gap has been closed x2, the patient can be transitioned to basal and sliding scale coverage. 4. Patient to remain n.p.o. until gap closed x2. IMPRESSIONS: 1. Diabetic ketoacidosis secondary to outpatient noncompliance The patient was just recently seen by her bandage maker and was noted to have a significantly elevated hemoglobin A1c. She does have a known history of outpatient noncompliance with her prescribed diabetic regimen. Accordingly, the patient will be continued on treatment per DKA protocol with supplemental IV fluids, aggressive electrolyte repletion and continuous insulin infusion, until anion gap has been closed x2. Following this, basal and sliding scale insulin can be initiated and diet advanced accordingly. 2. History of tobacco dependency/bipolar disorder Complicates care, management, recovery and prognosis. Nicotine replacement therapy to be offered to the patient. This note was generated with [employer] dictation software. It may contain incorrect words, spelling, and punctuation that were not noted in checking the note before signing. Subjective Subjective The patient was seen and examined at the bedside this morning. Events from the last 24 hours have been reviewed. The patient is currently afebrile, hemodynamically stable and maintaining appropriate oxygen saturations on room air. The patient's DKA resolved last evening and she was transitioned off of her continuous insulin infusion. However, over the course of the night, the patient's anion gap opened up once again. She was subsequently placed back on the insulin infusion. Her repeat BMP from this morning revealed a potassium of 2.3 with a closed anion gap x1. Objective Data Objective Data The patient's most recent lab work, culture data and imaging studies have all been personally reviewed. Vital Signs: Vital Signs Temp Pulse Resp BP Pulse Ox 98.7 F 95 15 105/64 100 11/29/20 04:00 11/29/20 05:00 11/29/20 05:00 11/29/20 05:00 11/29/20 05:00 Oxygen Flow Rate (L/min) 3 Oxygen Delivery Method Room Air Weight: 138 lb 7.205 oz Body Mass Index (BMI) 21.7 Intake & Output: Intake and Output for Last 24 Hours 11/27/20 11/28/20 11/29/20 23:59 23:59 23:59 Intake Total 2686.67 / 2786.67 4775.42 / 4955.42 1581.58 / 1581.58 Output Total 6200 / 6200 1000 / 1000 Balance 2686.67 / 1986.67 -1424.58 / -1244.58 581.58 / 581.58 Lab / Micro Data Attestation: I reviewed the patient's lab results. Result Diagrams: 11/29/20 05:30 11/29/20 05:30 Labs: Laboratory Results - last 24 hr 11/28/20 11/28/20 11/28/20 06:19 07:15 08:18 WBC RBC Hgb Hct MCV MCH MCHC RDW Std Deviation RDW Coeff of Mark Plt Count MPV Immature Gran % (Auto) Neut % (Auto) Lymph % (Auto) [place] % (Auto) Eos % (Auto) Baso % (Auto) Absolute Neuts (auto) Absolute Lymphs (auto) Nucleated RBC % Sodium Potassium Chloride Carbon Dioxide Anion Gap BUN Creatinine Estim Creat Clear Calc Est GFR (MDRD) Af Amer Est GFR (MDRD) Non-Af BUN/Creatinine Ratio Glucose Calcium Magnesium POC Glucose 187 H 192 H 166 H 11/28/20 11/28/20 11/28/20 08:20 08:20 09:20 WBC 21.6 H RBC 4.64 Hgb 14.4 Hct 41.1 MCV 88.6 MCH 31.0 MCHC 35.0 RDW Std Deviation 43.1 RDW Coeff of Mark 13.3 Plt Count 246 MPV 9.2 Immature Gran % (Auto) 1.200 H Neut % (Auto) 81.1 H Lymph % (Auto) 11.4 L [place] % (Auto) 6.1 Eos % (Auto) 0.0 Baso % (Auto) 0.2 Absolute Neuts (auto) 17.5 H Absolute Lymphs (auto) 2.47 Nucleated RBC % 0 Sodium 143 Potassium 3.0 L Chloride 123 H Carbon Dioxide 4.0 L* Anion Gap 16 H BUN 10 Creatinine 0.56 Estim Creat Clear Calc 158.87 Est GFR (MDRD) Af Amer 178 Est GFR (MDRD) Non-Af 147 BUN/Creatinine Ratio 18.0 Glucose 166 H Calcium 8.0 L Magnesium POC Glucose 167 H 11/28/20 11/28/20 11/28/20 10:27 11:08 12:14 WBC RBC Hgb Hct MCV MCH MCHC RDW Std Deviation RDW Coeff of Mark Plt Count MPV Immature Gran % (Auto) Neut % (Auto) Lymph % (Auto) [place] % (Auto) Eos % (Auto) Baso % (Auto) Absolute Neuts (auto) Absolute Lymphs (auto) Nucleated RBC % Sodium Potassium Chloride Carbon Dioxide Anion Gap BUN Creatinine Estim Creat Clear Calc Est GFR (MDRD) Af Amer Est GFR (MDRD) Non-Af BUN/Creatinine Ratio Glucose Calcium Magnesium POC Glucose 120 H 118 H 127 H 11/28/20 11/28/20 11/28/20 12:15 13:16 14:08 WBC RBC Hgb Hct MCV MCH MCHC RDW Std Deviation RDW Coeff of Mark Plt Count MPV Immature Gran % (Auto) Neut % (Auto) Lymph % (Auto) [place] % (Auto) Eos % (Auto) Baso % (Auto) Absolute Neuts (auto) Absolute Lymphs (auto) Nucleated RBC % Sodium 144 Potassium 2.9 L Chloride 125 H Carbon Dioxide 8.0 L* Anion Gap 11 BUN 9 Creatinine 0.60 Estim Creat Clear Calc 148.28 Est GFR (MDRD) Af Amer 164 Est GFR (MDRD) Non-Af 136 BUN/Creatinine Ratio 15.1 Glucose 119 H Calcium 8.0 L Magnesium POC Glucose 116 H 110 11/28/20 11/28/20 11/28/20 15:03 16:14 16:15 WBC RBC Hgb Hct MCV MCH MCHC RDW Std Deviation RDW Coeff of Mark Plt Count MPV Immature Gran % (Auto) Neut % (Auto) Lymph % (Auto) [place] % (Auto) Eos % (Auto) Baso % (Auto) Absolute Neuts (auto) Absolute Lymphs (auto) Nucleated RBC % Sodium 143 Potassium 2.5 L* Chloride 123 H Carbon Dioxide 11.0 L Anion Gap 9 BUN 9 Creatinine 0.55 Estim Creat Clear Calc 161.76 Est GFR (MDRD) Af Amer 179 Est GFR (MDRD) Non-Af 148 BUN/Creatinine Ratio 16.3 Glucose 107 H Calcium 7.9 L Magnesium POC Glucose 117 H 101 11/28/20 11/28/20 11/28/20 17:02 18:06 18:55 WBC RBC Hgb Hct MCV MCH MCHC RDW Std Deviation RDW Coeff of Mark Plt Count MPV Immature Gran % (Auto) Neut % (Auto) Lymph % (Auto) [place] % (Auto) Eos % (Auto) Baso % (Auto) Absolute Neuts (auto) Absolute Lymphs (auto) Nucleated RBC % Sodium Potassium Chloride Carbon Dioxide Anion Gap BUN Creatinine Estim Creat Clear Calc Est GFR (MDRD) Af Amer Est GFR (MDRD) Non-Af BUN/Creatinine Ratio Glucose Calcium Magnesium POC Glucose 95 91 137 H 11/28/20 11/28/20 11/28/20 20:07 20:26 20:26 WBC RBC Hgb Hct MCV MCH MCHC RDW Std Deviation RDW Coeff of Mark Plt Count MPV Immature Gran % (Auto) Neut % (Auto) Lymph % (Auto) [place] % (Auto) Eos % (Auto) Baso % (Auto) Absolute Neuts (auto) Absolute Lymphs (auto) Nucleated RBC % Sodium 140 Potassium 3.2 L Chloride 116 H Carbon Dioxide 9.0 L* Anion Gap 15 BUN 9 Creatinine 0.56 Estim Creat Clear Calc 158.87 Est GFR (MDRD) Af Amer 177 Est GFR (MDRD) Non-Af 146 BUN/Creatinine Ratio 16.1 Glucose 294 H Calcium 7.9 L Magnesium 1.7 POC Glucose 248 H 11/28/20 11/29/20 11/29/20 21:59 00:15 00:27 WBC RBC Hgb Hct MCV MCH MCHC RDW Std Deviation RDW Coeff of Mark Plt Count MPV Immature Gran % (Auto) Neut % (Auto) Lymph % (Auto) [place] % (Auto) Eos % (Auto) Baso % (Auto) Absolute Neuts (auto) Absolute Lymphs (auto) Nucleated RBC % Sodium 137 Potassium 3.2 L Chloride 112 H Carbon Dioxide 7.0 L* Anion Gap 18 H BUN 8 Creatinine 0.53 L Estim Creat Clear Calc 167.86 Est GFR (MDRD) Af Amer 187 Est GFR (MDRD) Non-Af 155 BUN/Creatinine Ratio 15.0 Glucose 355 H Calcium 7.8 L Magnesium POC Glucose 262 H 296 H 11/29/20 11/29/20 02:29 03:27 WBC RBC Hgb Hct MCV MCH MCHC RDW Std Deviation RDW Coeff of Mark Plt Count MPV Immature Gran % (Auto) Neut % (Auto) Lymph % (Auto) [place] % (Auto) Eos % (Auto) Baso % (Auto) Absolute Neuts (auto) Absolute Lymphs (auto) Nucleated RBC % Sodium Potassium Chloride Carbon Dioxide Anion Gap BUN Creatinine Estim Creat Clear Calc Est GFR (MDRD) Af Amer Est GFR (MDRD) Non-Af BUN/Creatinine Ratio Glucose Calcium Magnesium POC Glucose 214 H 180 H Micro: Microbiology 11/27/20 18:02 Nasal Secretion SARS-CoV-2 Antigen (Rapid) - Final Physical Exam Const alert, oriented x3 and no apparent distress General Appearance: cooperative HEENT normocephalic and head/scalp atraumatic Eyes PERRL and EOMs intact bilaterally Resp normal respiratory effort Auscultation: Negative for rales, rhonchi or wheezes Cardio S1 normal heart sound and S2 normal heart sound Rate: tachycardic GI normal to inspection, nondistended, normoactive bowel sounds Extremity no clubbing, cyanosis or edema Skin no rashes or lesions noted Neuro oriented x3 and moves all extremities Psych cooperative and affect normal Charges/Coding Visit Charges Inpatient E&M: 33656 Subs Hosp L2
[2020-11-29 05:50] LABS: Absolute Lymphocyte Count 2.68 X10^3/uL (0.83-4.51); Absolute Neutrophil Count 7.5 X10^3/uL (2.0-7.7); Basophil# 0.03 X10^3/uL; Basophil% 0.3 % (0-1); Eosinophil# 0.09 X10^3/uL; Eosinophils% 0.8 % (0-5); Hematocrit 34.1 % (37-47); Hemoglobin 12.3 g/dL (12.0-15.0); Lymphocyte # 2.68 X10^3/ul (0.83-4.51); Lymphocyte % 23.2 % (19-41); Mean Corp Hgb Conc 36.1 g/dL (32-36); Mean Corpuscular Volume 85.9 fL (81-99); Mean Platelet Vol. 9.4 fl (6.2-12.0); Monocyte# 1.13 X10^3/uL; Monocyte% 9.8 % (0-10); NRBC Flagged by Analyzer 0 % (0-5); Neutrophil # 7.54 X10^3/uL (2.7-7.7); Neutrophil % 65.4 % (47-70); Platelet Count 226 K/mm3 (150-450); RBC Distribution Width CV 13.4 % (11.6-14.6); RBC Distribution Width SD 41.4 fl (35.1-43.9); Red Blood Count 3.97 M/mm3 (4.2-5.4); White Blood Count 11.5 K/mm3 (4.4-11.0)
[2020-11-29 06:27] LABS: Anion Gap 11 (5-15); BUN 7 mg/dL (7-18); BUN/Creat Ratio 16.9 RATIO (10-20); Calcium,Total 7.5 mg/dL (8.5-10.1); Chloride 120 mmol/L (98-107); Creatinine, Serum 0.42 mg/dL (0.55-1.02); EST Glomerular Filtration Rate 206 mL/min (>60); Est Glom Filt Rate - Afr Amer 249 mL/min (>60); Estimated Creatinine Clearance 214.86 ml/min; Glucose 103 mg/dL (74-106); Potassium 2.3 mmol/L (3.5-5.1); Sodium Level 145 mmol/L (136-145)
[2020-11-29 06:36] LABS: Bedside Glucose 143 mg/dL (70-110)
[2020-11-29 06:40] LABS: Bedside Glucose 98 mg/dL (70-110)
[2020-11-29] MEDS: Potassium Chloride Oral Tablet 20 MEQ 40 MEQ PO ×2 (07:01→14:54)
[2020-11-29] MEDS: Potassium Chloride 10mEq/100mL 10 MEQ/100 ML IV.SOLN. 100 MEQ IV BOLUS (07:02)
[2020-11-29] MEDS: Dext 5%-0.45% NS 1,000 ML 150 ML IV (07:45)
[2020-11-29] MEDS: Dextrose 50%-Water 25 GM/50 ML DISP.SYRIN IV (07:58)
[2020-11-29 08:21] LABS: Bedside Glucose 66 mg/dL (70-110)
[2020-11-29 08:21] LABS: Bedside Glucose 131 mg/dL (70-110)
[2020-11-29 09:11] LABS: Bedside Glucose 166 mg/dL (70-110)
[2020-11-29 09:28] LABS: Anion Gap 15 (5-15); BUN 7 mg/dL (7-18); BUN/Creat Ratio 15.9 RATIO (10-20); Calcium,Total 7.7 mg/dL (8.5-10.1); Chloride 115 mmol/L (98-107); Creatinine, Serum 0.44 mg/dL (0.55-1.02); EST Glomerular Filtration Rate 193 mL/min (>60); Est Glom Filt Rate - Afr Amer 234 mL/min (>60); Estimated Creatinine Clearance 205.09 ml/min; Glucose 178 mg/dL (74-106); Potassium 3.4 mmol/L (3.5-5.1); Sodium Level 142 mmol/L (136-145)
--- NOTE | 2020-11-29 10:15 | PN.HOSP_ITS ---
Subjective Subjective Patient seen and examined. She complained of feeling hungry. She went back into DKA overnight and had to be started back on the insulin drip. Blood sugar is now down again, but now up to 178. Bicarb is up 12 today, and anion gap is 15. Potassium is 3.4 today. Objective Data Objective Data Vital Signs: Vital Signs Temp Pulse Resp BP Pulse Ox 98.4 F 98 22 H 111/78 100 11/29/20 08:00 11/29/20 10:00 11/29/20 10:00 11/29/20 10:00 11/29/20 10:00 Oxygen Flow Rate (L/min) 3 Oxygen Delivery Method Room Air Weight: 140 lb 6.951 oz Body Mass Index (BMI) 21.7 Intake & Output: Intake and Output for Last 24 Hours 11/27/20 11/28/20 11/29/20 23:59 23:59 23:59 Intake Total 2686.67 / 2786.67 4775.42 / 4955.42 3116.30 / 3116.30 Output Total 6200 / 6200 2400 / 2400 Balance 2686.67 / 1986.67 -1424.58 / -1244.58 716.30 / 716.30 Lab / Micro Data Result Diagrams: 11/29/20 05:30 11/29/20 09:10 Labs: Laboratory Results - last 24 hr 11/28/20 11/28/20 11/28/20 10:27 11:08 12:14 WBC RBC Hgb Hct MCV MCH MCHC RDW Std Deviation RDW Coeff of Mark Plt Count MPV Immature Gran % (Auto) Neut % (Auto) Lymph % (Auto) [place] % (Auto) Eos % (Auto) Baso % (Auto) Absolute Neuts (auto) Absolute Lymphs (auto) Nucleated RBC % Sodium Potassium Chloride Carbon Dioxide Anion Gap BUN Creatinine Estim Creat Clear Calc Est GFR (MDRD) Af Amer Est GFR (MDRD) Non-Af BUN/Creatinine Ratio Glucose Calcium Magnesium POC Glucose 120 H 118 H 127 H 11/28/20 11/28/20 11/28/20 12:15 13:16 14:08 WBC RBC Hgb Hct MCV MCH MCHC RDW Std Deviation RDW Coeff of Mark Plt Count MPV Immature Gran % (Auto) Neut % (Auto) Lymph % (Auto) [place] % (Auto) Eos % (Auto) Baso % (Auto) Absolute Neuts (auto) Absolute Lymphs (auto) Nucleated RBC % Sodium 144 Potassium 2.9 L Chloride 125 H Carbon Dioxide 8.0 L* Anion Gap 11 BUN 9 Creatinine 0.60 Estim Creat Clear Calc 148.28 Est GFR (MDRD) Af Amer 164 Est GFR (MDRD) Non-Af 136 BUN/Creatinine Ratio 15.1 Glucose 119 H Calcium 8.0 L Magnesium POC Glucose 116 H 110 11/28/20 11/28/20 11/28/20 15:03 16:14 16:15 WBC RBC Hgb Hct MCV MCH MCHC RDW Std Deviation RDW Coeff of Mark Plt Count MPV Immature Gran % (Auto) Neut % (Auto) Lymph % (Auto) [place] % (Auto) Eos % (Auto) Baso % (Auto) Absolute Neuts (auto) Absolute Lymphs (auto) Nucleated RBC % Sodium 143 Potassium 2.5 L* Chloride 123 H Carbon Dioxide 11.0 L Anion Gap 9 BUN 9 Creatinine 0.55 Estim Creat Clear Calc 161.76 Est GFR (MDRD) Af Amer 179 Est GFR (MDRD) Non-Af 148 BUN/Creatinine Ratio 16.3 Glucose 107 H Calcium 7.9 L Magnesium POC Glucose 117 H 101 11/28/20 11/28/20 11/28/20 17:02 18:06 18:55 WBC RBC Hgb Hct MCV MCH MCHC RDW Std Deviation RDW Coeff of Mark Plt Count MPV Immature Gran % (Auto) Neut % (Auto) Lymph % (Auto) [place] % (Auto) Eos % (Auto) Baso % (Auto) Absolute Neuts (auto) Absolute Lymphs (auto) Nucleated RBC % Sodium Potassium Chloride Carbon Dioxide Anion Gap BUN Creatinine Estim Creat Clear Calc Est GFR (MDRD) Af Amer Est GFR (MDRD) Non-Af BUN/Creatinine Ratio Glucose Calcium Magnesium POC Glucose 95 91 137 H 11/28/20 11/28/20 11/28/20 20:07 20:26 20:26 WBC RBC Hgb Hct MCV MCH MCHC RDW Std Deviation RDW Coeff of Mark Plt Count MPV Immature Gran % (Auto) Neut % (Auto) Lymph % (Auto) [place] % (Auto) Eos % (Auto) Baso % (Auto) Absolute Neuts (auto) Absolute Lymphs (auto) Nucleated RBC % Sodium 140 Potassium 3.2 L Chloride 116 H Carbon Dioxide 9.0 L* Anion Gap 15 BUN 9 Creatinine 0.56 Estim Creat Clear Calc 158.87 Est GFR (MDRD) Af Amer 177 Est GFR (MDRD) Non-Af 146 BUN/Creatinine Ratio 16.1 Glucose 294 H Calcium 7.9 L Magnesium 1.7 POC Glucose 248 H 11/28/20 11/29/20 11/29/20 21:59 00:15 00:27 WBC RBC Hgb Hct MCV MCH MCHC RDW Std Deviation RDW Coeff of Mark Plt Count MPV Immature Gran % (Auto) Neut % (Auto) Lymph % (Auto) [place] % (Auto) Eos % (Auto) Baso % (Auto) Absolute Neuts (auto) Absolute Lymphs (auto) Nucleated RBC % Sodium 137 Potassium 3.2 L Chloride 112 H Carbon Dioxide 7.0 L* Anion Gap 18 H BUN 8 Creatinine 0.53 L Estim Creat Clear Calc 167.86 Est GFR (MDRD) Af Amer 187 Est GFR (MDRD) Non-Af 155 BUN/Creatinine Ratio 15.0 Glucose 355 H Calcium 7.8 L Magnesium POC Glucose 262 H 296 H 11/29/20 11/29/20 11/29/20 02:29 03:27 04:25 WBC RBC Hgb Hct MCV MCH MCHC RDW Std Deviation RDW Coeff of Mark Plt Count MPV Immature Gran % (Auto) Neut % (Auto) Lymph % (Auto) [place] % (Auto) Eos % (Auto) Baso % (Auto) Absolute Neuts (auto) Absolute Lymphs (auto) Nucleated RBC % Sodium Potassium Chloride Carbon Dioxide Anion Gap BUN Creatinine Estim Creat Clear Calc Est GFR (MDRD) Af Amer Est GFR (MDRD) Non-Af BUN/Creatinine Ratio Glucose Calcium Magnesium POC Glucose 214 H 180 H 143 H 11/29/20 11/29/20 11/29/20 05:30 05:30 06:32 WBC 11.5 H RBC 3.97 L Hgb 12.3 Hct 34.1 L MCV 85.9 MCH 31.0 MCHC 36.1 H RDW Std Deviation 41.4 RDW Coeff of Mark 13.4 Plt Count 226 MPV 9.4 Immature Gran % (Auto) 0.500 Neut % (Auto) 65.4 Lymph % (Auto) 23.2 [place] % (Auto) 9.8 Eos % (Auto) 0.8 Baso % (Auto) 0.3 Absolute Neuts (auto) 7.5 Absolute Lymphs (auto) 2.68 Nucleated RBC % 0 Sodium 145 Potassium 2.3 L* Chloride 120 H Carbon Dioxide 14.0 L Anion Gap 11 BUN 7 Creatinine 0.42 L Estim Creat Clear Calc 214.86 Est GFR (MDRD) Af Amer 249 Est GFR (MDRD) Non-Af 206 BUN/Creatinine Ratio 16.9 Glucose 103 Calcium 7.5 L Magnesium POC Glucose 98 11/29/20 11/29/20 11/29/20 07:54 08:15 09:05 WBC RBC Hgb Hct MCV MCH MCHC RDW Std Deviation RDW Coeff of Mark Plt Count MPV Immature Gran % (Auto) Neut % (Auto) Lymph % (Auto) [place] % (Auto) Eos % (Auto) Baso % (Auto) Absolute Neuts (auto) Absolute Lymphs (auto) Nucleated RBC % Sodium Potassium Chloride Carbon Dioxide Anion Gap BUN Creatinine Estim Creat Clear Calc Est GFR (MDRD) Af Amer Est GFR (MDRD) Non-Af BUN/Creatinine Ratio Glucose Calcium Magnesium POC Glucose 66 L 131 H 166 H 11/29/20 09:10 WBC RBC Hgb Hct MCV MCH MCHC RDW Std Deviation RDW Coeff of Mark Plt Count MPV Immature Gran % (Auto) Neut % (Auto) Lymph % (Auto) [place] % (Auto) Eos % (Auto) Baso % (Auto) Absolute Neuts (auto) Absolute Lymphs (auto) Nucleated RBC % Sodium 142 Potassium 3.4 L Chloride 115 H Carbon Dioxide 12.0 L Anion Gap 15 BUN 7 Creatinine 0.44 L Estim Creat Clear Calc 205.09 Est GFR (MDRD) Af Amer 234 Est GFR (MDRD) Non-Af 193 BUN/Creatinine Ratio 15.9 Glucose 178 H Calcium 7.7 L Magnesium POC Glucose Micro: Microbiology 11/27/20 18:02 Nasal Secretion SARS-CoV-2 Antigen (Rapid) - Final Physical Exam Const alert, oriented x3 and no apparent distress Exam Limitations: no limitations Nutritional Appearance: thin HEENT head/scalp atraumatic, moist oral mucous membranes and oropharynx normal Head and Scalp: normocephalic Eyes PERRL, EOMs intact bilaterally and conjunctivae normal Neck no lymphadenopathy Resp normal respiratory effort, no retractions, no use of accessory muscles and clear to auscultation bilaterally Cardio regular rate, regular rhythm, S1 normal heart sound, S2 normal heart sound and no gallops GI normal to inspection, nondistended, normoactive bowel sounds, soft to palpation, non-tender and non-distended Extremity normal to inspection, full ROM and no clubbing, cyanosis or edema Peripheral Pulses: Yes pulses 2+ throughout Skin no rashes or lesions noted Neuro oriented x3 and moves all extremities Sensorium / Orientation: awake and alert Psych affect normal Assessment & Plan Assessment/Plan (1) Diabetes: QUALIFIERS: Diabetes mellitus type: type 1 Diabetes mellitus complication status: with hyperglycemia Qualified Code(s): E10.65 - Type 1 diabetes mellitus with hyperglycemia (2) DKA (diabetic ketoacidoses): QUALIFIERS: Diabetes mellitus type: type 1 Diabetes mellitus complication detail: without coma Qualified Code(s): E10.10 - Type 1 diabetes mellitus with ketoacidosis without coma (3) Hypokalemia: (4) High anion gap metabolic acidosis: PLAN: #DKA due to noncompliance * bicarb is 12 now; had to be put back on the insulin drip overnight because the gap opened up again. * gap has now closed again,a nd bicarb is 12, with anion gap is 15. * insulin drip now on hold as blood sugars are running low * critical care on board. * #Anion gap metabolic acidosis due to DKA * bicarb is 12 today. Anion gap is now 15. * continue hydration with IVF * * #Type 1 diabetes mellitus: Noncompliant with her medications. Currently in DKA as above #Hypokalemia: Potassium is 3.4. Will replace and trend. #Leukocytosis: White cell count is down to 11.5. Likely reactive. Will trend. No evidence of infection #Bipolar disorder: On aripiprazole. DVT prophylaxis: Lovenox Visit Charges Inpatient E&M: 27437 [facility] Hosp L3
[2020-11-29 10:41] LABS: Bedside Glucose 163 mg/dL (70-110)
[2020-11-29 12:20] LABS: Bedside Glucose 228 mg/dL (70-110)
[2020-11-29 14:12] LABS: Anion Gap 12 (5-15); BUN 7 mg/dL (7-18); BUN/Creat Ratio 10.7 RATIO (10-20); Calcium,Total 7.9 mg/dL (8.5-10.1); Chloride 109 mmol/L (98-107); Creatinine, Serum 0.66 mg/dL (0.55-1.02); EST Glomerular Filtration Rate 122 mL/min (>60); Est Glom Filt Rate - Afr Amer 147 mL/min (>60); Estimated Creatinine Clearance 136.73 ml/min; Glucose 346 mg/dL (74-106); Potassium 3.1 mmol/L (3.5-5.1); Sodium Level 137 mmol/L (136-145)
[2020-11-29 16:01] LABS: Bedside Glucose 154 mg/dL (70-110)
[2020-11-29 16:46] LABS: Bedside Glucose 115 mg/dL (70-110)
[2020-11-29 20:10] LABS: Bedside Glucose 223 mg/dL (70-110)
[2020-11-29 23:31] LABS: Bedside Glucose 132 mg/dL (70-110)
[2020-11-30] VITALS (13 sets, daily range): BP systolic 88–106; BP diastolic 51–73; PULSE 78–104; RESP 14–20; TEMP 36.4–36.7; O2SAT 98–100
[2020-11-30 05:15] LABS: Bedside Glucose 110 mg/dL (70-110)
[2020-11-30 05:16] LABS: Absolute Lymphocyte Count 4.69 X10^3/uL (0.83-4.51); Absolute Neutrophil Count 2.7 X10^3/uL (2.0-7.7); Basophil# 0.05 X10^3/uL; Basophil% 0.6 % (0-1); Eosinophil# 0.25 X10^3/uL; Hematocrit 31.2 % (37-47); Hemoglobin 11.4 g/dL (12.0-15.0); Lymphocyte # 4.69 X10^3/ul (0.83-4.51); Mean Corp Hgb Conc 36.5 g/dL (32-36); Mean Corpuscular Hgb 30.9 pg (27.0-32.0); Mean Corpuscular Volume 84.6 fL (81-99); Monocyte# 0.66 X10^3/uL; Monocyte% 7.9 % (0-10); NRBC Flagged by Analyzer 0 % (0-5); Neutrophil # 2.71 X10^3/uL (2.7-7.7); Neutrophil % 32.3 % (47-70); Platelet Count 182 K/mm3 (150-450); RBC Distribution Width CV 13.5 % (11.6-14.6); RBC Distribution Width SD 41.6 fl (35.1-43.9); Red Blood Count 3.69 M/mm3 (4.2-5.4); White Blood Count 8.4 K/mm3 (4.4-11.0)
--- NOTE | 2020-11-30 05:27 | PCM.PN.INT ---
Assessment & Plan Assessment/Plan (1) DKA (diabetic ketoacidoses): QUALIFIERS: Diabetes mellitus complication detail: without coma Diabetes mellitus type: type 1 Qualified Code(s): E10.10 - Type 1 diabetes mellitus with ketoacidosis without coma PLAN: RECOMMENDATIONS: 1. Continue basal and sliding scale insulin coverage as ordered. 2. Close outpatient follow-up with endocrinology. 3. The patient is medically stable for transfer out of the intensive care unit. 4. Will sign off from a critical care perspective. Please call with any additional questions. IMPRESSIONS: 1. Diabetic ketoacidosis secondary to outpatient noncompliance Resolved. The patient was just recently seen by her calibration technician and was noted to have a significantly elevated hemoglobin A1c. She does have a known history of outpatient noncompliance with her prescribed diabetic regimen. The patient was treated with supplemental IV fluid hydration and insulin infusion, with subsequent resolution of her DKA. Continue basal and sliding scale insulin coverage as ordered. 2. Hypokalemia Additional electrolyte repletion as ordered. Recheck levels in the morning. 3. History of tobacco dependency/bipolar disorder Complicates care, management, recovery and prognosis. Nicotine replacement therapy to be offered to the patient. This note was generated with [employer] dictation software. It may contain incorrect words, spelling, and punctuation that were not noted in checking the note before signing. Subjective Subjective The patient was seen and examined at the bedside this morning. Events from the last 24 hours have been reviewed. The patient is currently afebrile, hemodynamically stable and maintaining appropriate oxygen saturations on room air. The patient's anion gap did eventually closed yesterday and she was subsequently transitioned to basal and sliding scale coverage. Potassium is again low this morning at 2.5. Objective Data Objective Data The patient's most recent lab work, culture data and imaging studies have all been personally reviewed. Vital Signs: Vital Signs Temp Pulse Resp BP Pulse Ox 97.6 F L 83 20 H 103/59 L 99 11/30/20 04:00 11/30/20 05:00 11/30/20 05:00 11/30/20 05:00 11/30/20 05:00 Oxygen Flow Rate (L/min) 3 Oxygen Delivery Method Room Air Weight: 142 lb 13.753 oz Body Mass Index (BMI) 21.7 Intake & Output: Intake and Output for Last 24 Hours 11/28/20 11/29/20 11/30/20 23:59 23:59 23:59 Intake Total 4775.42 / 4955.42 4236.30 / 4236.30 Output Total 6200 / 6200 6300 / 6300 500 / 500 Balance -1424.58 / -1244.58 -2063.70 / -2063.70 -500 / -500 Lab / Micro Data Attestation: I reviewed the patient's lab results. Result Diagrams: 11/30/20 05:05 11/30/20 05:05 Labs: Laboratory Results - last 24 hr 11/29/20 11/29/20 11/29/20 04:25 05:30 05:30 WBC 11.5 H RBC 3.97 L Hgb 12.3 Hct 34.1 L MCV 85.9 MCH 31.0 MCHC 36.1 H RDW Std Deviation 41.4 RDW Coeff of Mark 13.4 Plt Count 226 MPV 9.4 Immature Gran % (Auto) 0.500 Neut % (Auto) 65.4 Lymph % (Auto) 23.2 [place] % (Auto) 9.8 Eos % (Auto) 0.8 Baso % (Auto) 0.3 Absolute Neuts (auto) 7.5 Absolute Lymphs (auto) 2.68 Nucleated RBC % 0 Sodium 145 Potassium 2.3 L* Chloride 120 H Carbon Dioxide 14.0 L Anion Gap 11 BUN 7 Creatinine 0.42 L Estim Creat Clear Calc 214.86 Est GFR (MDRD) Af Amer 249 Est GFR (MDRD) Non-Af 206 BUN/Creatinine Ratio 16.9 Glucose 103 Calcium 7.5 L POC Glucose 143 H 11/29/20 11/29/20 11/29/20 06:32 07:54 08:15 WBC RBC Hgb Hct MCV MCH MCHC RDW Std Deviation RDW Coeff of Mark Plt Count MPV Immature Gran % (Auto) Neut % (Auto) Lymph % (Auto) [place] % (Auto) Eos % (Auto) Baso % (Auto) Absolute Neuts (auto) Absolute Lymphs (auto) Nucleated RBC % Sodium Potassium Chloride Carbon Dioxide Anion Gap BUN Creatinine Estim Creat Clear Calc Est GFR (MDRD) Af Amer Est GFR (MDRD) Non-Af BUN/Creatinine Ratio Glucose Calcium POC Glucose 98 66 L 131 H 05/11/29/20 11/29/20 09:05 09:10 10:32 WBC RBC Hgb Hct MCV MCH MCHC RDW Std Deviation RDW Coeff of Mark Plt Count MPV Immature Gran % (Auto) Neut % (Auto) Lymph % (Auto) [place] % (Auto) Eos % (Auto) Baso % (Auto) Absolute Neuts (auto) Absolute Lymphs (auto) Nucleated RBC % Sodium 142 Potassium 3.4 L Chloride 115 H Carbon Dioxide 12.0 L Anion Gap 15 BUN 7 Creatinine 0.44 L Estim Creat Clear Calc 205.09 Est GFR (MDRD) Af Amer 234 Est GFR (MDRD) Non-Af 193 BUN/Creatinine Ratio 15.9 Glucose 178 H Calcium 7.7 L POC Glucose 166 H 163 H 11/29/20 11/29/20 11/29/20 12:13 13:45 15:58 WBC RBC Hgb Hct MCV MCH MCHC RDW Std Deviation RDW Coeff of Mark Plt Count MPV Immature Gran % (Auto) Neut % (Auto) Lymph % (Auto) [place] % (Auto) Eos % (Auto) Baso % (Auto) Absolute Neuts (auto) Absolute Lymphs (auto) Nucleated RBC % Sodium 137 Potassium 3.1 L Chloride 109 H Carbon Dioxide 16.0 L Anion Gap 12 BUN 7 Creatinine 0.66 Estim Creat Clear Calc 136.73 Est GFR (MDRD) Af Amer 147 Est GFR (MDRD) Non-Af 122 BUN/Creatinine Ratio 10.7 Glucose 346 H Calcium 7.9 L POC Glucose 228 H 154 H 11/29/20 11/29/20 11/29/20 16:43 20:02 23:23 WBC RBC Hgb Hct MCV MCH MCHC RDW Std Deviation RDW Coeff of Mark Plt Count MPV Immature Gran % (Auto) Neut % (Auto) Lymph % (Auto) [place] % (Auto) Eos % (Auto) Baso % (Auto) Absolute Neuts (auto) Absolute Lymphs (auto) Nucleated RBC % Sodium Potassium Chloride Carbon Dioxide Anion Gap BUN Creatinine Estim Creat Clear Calc Est GFR (MDRD) Af Amer Est GFR (MDRD) Non-Af BUN/Creatinine Ratio Glucose Calcium POC Glucose 115 H 223 H 132 H 11/30/20 11/30/20 05:05 05:09 WBC 8.4 RBC 3.69 L Hgb 11.4 L Hct 31.2 L MCV 84.6 MCH 30.9 MCHC 36.5 H RDW Std Deviation 41.6 RDW Coeff of Mark 13.5 Plt Count 182 MPV 9.0 Immature Gran % (Auto) 0.200 Neut % (Auto) 32.3 L Lymph % (Auto) 56.0 H [place] % (Auto) 7.9 Eos % (Auto) 3.0 Baso % (Auto) 0.6 Absolute Neuts (auto) 2.7 Absolute Lymphs (auto) 4.69 H Nucleated RBC % 0 Sodium Potassium Chloride Carbon Dioxide Anion Gap BUN Creatinine Estim Creat Clear Calc Est GFR (MDRD) Af Amer Est GFR (MDRD) Non-Af BUN/Creatinine Ratio Glucose Calcium POC Glucose 110 Micro: Microbiology 11/27/20 18:15 Urine, Clean Catch Urine Culture - Final Mixed Gram Positive Organisms 11/27/20 18:02 Nasal Secretion SARS-CoV-2 Antigen (Rapid) - Final Physical Exam Const alert, oriented x3 and no apparent distress General Appearance: cooperative HEENT normocephalic and head/scalp atraumatic Eyes PERRL and EOMs intact bilaterally Neck supple General: trachea midline Lymph Lymphatic: no lymphadenopathy noted Resp normal respiratory effort Auscultation: Negative for rales, rhonchi or wheezes Cardio regular rate, regular rhythm, S1 normal heart sound and S2 normal heart sound GI normal to inspection, nondistended, normoactive bowel sounds Extremity no clubbing, cyanosis or edema Skin no rashes or lesions noted Neuro oriented x3 and moves all extremities Psych cooperative and affect normal Charges/Coding Visit Charges Inpatient E&M: 99446 Subs Hosp L2
[2020-11-30 05:43] LABS: Anion Gap 7 (5-15); BUN 10 mg/dL (7-18); BUN/Creat Ratio 29.9 RATIO (10-20); Calcium,Total 7.9 mg/dL (8.5-10.1); Chloride 112 mmol/L (98-107); Creatinine, Serum 0.33 mg/dL (0.55-1.02); EST Glomerular Filtration Rate 265 mL/min (>60); Est Glom Filt Rate - Afr Amer 320 mL/min (>60); Estimated Creatinine Clearance 274.32 ml/min; Glucose 110 mg/dL (74-106); Potassium 2.5 mmol/L (3.5-5.1); Sodium Level 143 mmol/L (136-145)
[2020-11-30 08:00] LABS: Magnesium 1.8 mg/dL (1.6-2.6)
[2020-11-30] MEDS: Potassium Chloride Oral Tablet 20 MEQ 40 MEQ PO (08:20)
[2020-11-30 08:21] LABS: Bedside Glucose 107 mg/dL (70-110)
--- NOTE | 2020-11-30 09:50 | PN.HOSP_ITS ---
Subjective Subjective Patient seen and examined. She feels much better today and was eating breakfast. She has no complaints and review of systems otherwise negative. Gap is closed. Blood sugars have normalized. She remains hypokalemic. She has otherwise remained hemodynamically stable. Objective Data Objective Data Vital Signs: Vital Signs Temp Pulse Resp BP Pulse Ox 98.1 F 93 17 97/63 100 11/30/20 07:00 11/30/20 07:00 11/30/20 07:00 11/30/20 07:00 11/30/20 07:00 Oxygen Flow Rate (L/min) 3 Oxygen Delivery Method Room Air Weight: 142 lb 13.753 oz Body Mass Index (BMI) 21.7 Intake & Output: Intake and Output for Last 24 Hours 11/28/20 11/29/20 11/30/20 23:59 23:59 23:59 Intake Total 4775.42 / 4955.42 4236.30 / 4236.30 240 / 240 Output Total 6200 / 6200 6300 / 6300 1300 / 1300 Balance -1424.58 / -1244.58 -2063.70 / -2063.70 -1060 / -1060 Lab / Micro Data Result Diagrams: 11/30/20 05:05 11/30/20 05:05 Labs: Laboratory Results - last 24 hr 11/29/20 11/29/20 11/29/20 10:32 12:13 13:45 WBC RBC Hgb Hct MCV MCH MCHC RDW Std Deviation RDW Coeff of Mark Plt Count MPV Immature Gran % (Auto) Neut % (Auto) Lymph % (Auto) [place] % (Auto) Eos % (Auto) Baso % (Auto) Absolute Neuts (auto) Absolute Lymphs (auto) Nucleated RBC % Sodium 137 Potassium 3.1 L Chloride 109 H Carbon Dioxide 16.0 L Anion Gap 12 BUN 7 Creatinine 0.66 Estim Creat Clear Calc 136.73 Est GFR (MDRD) Af Amer 147 Est GFR (MDRD) Non-Af 122 BUN/Creatinine Ratio 10.7 Glucose 346 H Calcium 7.9 L Magnesium POC Glucose 163 H 228 H 11/29/20 11/29/20 11/29/20 15:58 16:43 20:02 WBC RBC Hgb Hct MCV MCH MCHC RDW Std Deviation RDW Coeff of Mark Plt Count MPV Immature Gran % (Auto) Neut % (Auto) Lymph % (Auto) [place] % (Auto) Eos % (Auto) Baso % (Auto) Absolute Neuts (auto) Absolute Lymphs (auto) Nucleated RBC % Sodium Potassium Chloride Carbon Dioxide Anion Gap BUN Creatinine Estim Creat Clear Calc Est GFR (MDRD) Af Amer Est GFR (MDRD) Non-Af BUN/Creatinine Ratio Glucose Calcium Magnesium POC Glucose 154 H 115 H 223 H 11/29/20 11/30/20 11/30/20 23:23 05:05 05:05 WBC 8.4 RBC 3.69 L Hgb 11.4 L Hct 31.2 L MCV 84.6 MCH 30.9 MCHC 36.5 H RDW Std Deviation 41.6 RDW Coeff of Mark 13.5 Plt Count 182 MPV 9.0 Immature Gran % (Auto) 0.200 Neut % (Auto) 32.3 L Lymph % (Auto) 56.0 H [place] % (Auto) 7.9 Eos % (Auto) 3.0 Baso % (Auto) 0.6 Absolute Neuts (auto) 2.7 Absolute Lymphs (auto) 4.69 H Nucleated RBC % 0 Sodium 143 Potassium 2.5 L* Chloride 112 H Carbon Dioxide 24.0 Anion Gap 7 BUN 10 Creatinine 0.33 L Estim Creat Clear Calc 274.32 Est GFR (MDRD) Af Amer 320 Est GFR (MDRD) Non-Af 265 BUN/Creatinine Ratio 29.9 H Glucose 110 H Calcium 7.9 L Magnesium POC Glucose 132 H 11/30/20 11/30/20 11/30/20 05:05 05:09 08:19 WBC RBC Hgb Hct MCV MCH MCHC RDW Std Deviation RDW Coeff of Mark Plt Count MPV Immature Gran % (Auto) Neut % (Auto) Lymph % (Auto) [place] % (Auto) Eos % (Auto) Baso % (Auto) Absolute Neuts (auto) Absolute Lymphs (auto) Nucleated RBC % Sodium Potassium Chloride Carbon Dioxide Anion Gap BUN Creatinine Estim Creat Clear Calc Est GFR (MDRD) Af Amer Est GFR (MDRD) Non-Af BUN/Creatinine Ratio Glucose Calcium Magnesium 1.8 POC Glucose 110 107 Micro: Microbiology 11/27/20 20:10 Blood Culture (Wb) - Line Draw Blood Culture - Preliminary No growth in 48 hours. 11/27/20 19:30 Blood Culture (Wb) - Port Blood Culture - Preliminary No growth in 48 hours. 11/27/20 18:15 Urine, Clean Catch Urine Culture - Final Mixed Gram Positive Organisms 11/27/20 18:02 Nasal Secretion SARS-CoV-2 Antigen (Rapid) - Final Physical Exam Narrative Physical exam: General: Alert, Oriented x3, lethargic, cooperative, No apparent distress, malnourished, having Kussmaul's breathing HEENT: Atraumatic Oral: Dry Mucosa Neck: Supple Lungs: Clear to auscultation Cardiovascular: HS I+II, regular, no murmurs Abdomen: Bowel Sounds Present, Soft, Non Tender Extremities: Multiple areas of ulcers on the legs Neurological: Grossly intact Psych/Mental Status: Appropriate Const alert, oriented x3 and no apparent distress Exam Limitations: no limitations Nutritional Appearance: thin HEENT head/scalp atraumatic, moist oral mucous membranes and oropharynx normal Eyes PERRL, EOMs intact bilaterally and conjunctivae normal Neck no lymphadenopathy Resp normal respiratory effort, no retractions, no use of accessory muscles and clear to auscultation bilaterally Cardio regular rate, regular rhythm, S1 normal heart sound, S2 normal heart sound and no gallops GI normal to inspection, nondistended, normoactive bowel sounds, soft to palpation, non-tender and non-distended Extremity normal to inspection, full ROM and no clubbing, cyanosis or edema Skin no rashes or lesions noted Neuro oriented x3 and moves all extremities Sensorium / Orientation: awake and alert Psych affect normal Assessment & Plan Assessment/Plan (1) Diabetes: QUALIFIERS: Diabetes mellitus type: type 1 Diabetes mellitus complication status: with hyperglycemia Qualified Code(s): E10.65 - Type 1 diabetes mellitus with hyperglycemia (2) DKA (diabetic ketoacidoses): QUALIFIERS: Diabetes mellitus type: type 1 Diabetes mellitus complication detail: without coma Qualified Code(s): E10.10 - Type 1 diabetes mellitus with ketoacidosis without coma (3) Hypokalemia: (4) High anion gap metabolic acidosis: PLAN: #DKA due to noncompliance * anion gap is now 7, with bicarb of 24. * off insulin drip, and on her baseline insulin lantus dose of 38 units daily. * ISS. Accuchecks ACHS * #Anion gap metabolic acidosis due to DKA * resolved. * #Type 1 diabetes mellitus: Noncompliant with her medications. DKA has resolved. On lantus 38 units daily as above. #Hypokalemia: * has been refractory despite aggressive replacement. * K is 2.5 today. will replace. * Check magnesium and replace as needed. #Leukocytosis:resolved. #Bipolar disorder: On aripiprazole. DVT prophylaxis: SCDs Disposition: transfer out of ICU today. Visit Charges Inpatient E&M: 89658 Subs Hosp L2
[2020-11-30] MEDS: Insulin Lispro 100 UNIT/ML INSULN.PEN SC ×3 (12:15→21:18)
[2020-11-30 12:36] LABS: Bedside Glucose 264 mg/dL (70-110)
[2020-11-30 16:45] LABS: Bedside Glucose 274 mg/dL (70-110)
[2020-11-30 21:45] LABS: Bedside Glucose 339 mg/dL (70-110)
[2020-12-01 03:43] VITALS: BP 102/58; PULSE 84; RESP 16; TEMP 36.8; O2SAT 98
[2020-12-01 09:27] LABS: Anion Gap 6 (5-15); BUN 16 mg/dL (7-18); BUN/Creat Ratio 28.5 RATIO (10-20); Calcium,Total 8.4 mg/dL (8.5-10.1); Chloride 108 mmol/L (98-107); Creatinine, Serum 0.56 mg/dL (0.55-1.02); EST Glomerular Filtration Rate 145 mL/min (>60); Est Glom Filt Rate - Afr Amer 176 mL/min (>60); Estimated Creatinine Clearance 161.65 ml/min; Glucose 241 mg/dL (74-106); Potassium 3.4 mmol/L (3.5-5.1); Sodium Level 141 mmol/L (136-145)
--- NOTE | 2020-12-01 10:05 | CASEMGMT ---
Palliative screening tool completed at this time for Lace/Strata 3. Patient does not meet criteria at this time.
[2020-12-01 10:22] VITALS: BP 105/65; PULSE 91; RESP 18; TEMP 36.7; O2SAT 99
--- NOTE | 2020-12-01 10:50 | CASEMGMT ---
Patient follows with phlebotomy specialist Dr. Rush. Patient just seen Dr. Rush on 11/24 and new prescriptions sent to [facility]. PETEY GREGORY called [facility] and inquired about prescriptions. Per [facility] pharmacist they were having trouble with pen needles and will fill with brand that is in-network with insurance. Patient filled script for test strips and pharmacy can give her a meter. Patient has follow-up appt with Dr. Rush on 02/23/21 0800. PETEY GREGORY updated floor nurse Kassidy ANGELO.
--- NOTE | 2020-12-01 11:13 | DS.PCM_ITS ---
Providers Date of Admission: 11/27/20 Primary Care Physician: Dr. Thalia Gallo MD Reason For Visit: ACUTE DKA Diagnosis Discharge Diagnosis (1) Diabetes: Status: Chronic Code(s): E11.9 - Type 2 diabetes mellitus without complications Qualifiers: Diabetes mellitus type: type 1 Diabetes mellitus complication status: with hyperglycemia Qualified Code(s): E10.65 - Type 1 diabetes mellitus with hyperglycemia (2) DKA (diabetic ketoacidoses): Status: Acute Code(s): E11.10 - Type 2 diabetes mellitus with ketoacidosis without coma Qualifiers: Diabetes mellitus type: type 1 Diabetes mellitus complication detail: without coma Qualified Code(s): E10.10 - Type 1 diabetes mellitus with ketoacidosis without coma (3) Hypokalemia: Status: Acute Code(s): E87.6 - Hypokalemia (4) High anion gap metabolic acidosis: Status: Acute Code(s): E87.2 - Acidosis Medications at Discharge Home Medications aripiprazole 400 mg intramuscular suspension,extended release 400 mg IM QMONTH ea 09/08/20 gabapentin 300 mg capsule 300 mg PO BID cap 09/08/20 blood sugar diagnostic #100 ea 11/24/20 blood-glucose meter #1 ea 11/24/20 insulin degludec 100 unit/mL (3 mL) subcutaneous pen 38 unit SC DAILY #15 ml 11/24/20 insulin lispro 100 unit/mL subcutaneous pen 25 unit SC TIDCM #30 ml 11/24/20 pen needle, diabetic 32 gauge x 5/16 #200 ea 11/27/20 potassium chloride 20 meq PO DAILY #10 tab 12/01/20 Hospital Course Operations None Procedures Central line placement Summary of Care Provided Minutes Spent on Discharge: 45 Hospital Course: Patient is a 20-year-old female with past medical history of type 1 diabetes mellitus, noncompliant with medication as well as anxiety and depression. She was admitted through the ED on 11/27/2020 with a complaint of abdominal pain, fever and difficulty breathing for 3 days prior to admission. She says she has also not been feeling well and admitted to taking her insulin. She denied any fever or chills, or any other symptoms. Covid test done in the ED was negative and chest x-ray was negative for any acute abnormality. On admission, patient was found to be in DKA due to noncompliance with insulin. She was also noted to have leukocytosis which was considered to be likely react steve in setting of DKA as it will have any other evidence of infection. Patient was started on insulin drip and hydrated with IV fluids and admitted to the ICU. She was also profoundly hypokalemic and hypomagnesemic and this was aggressively replaced. Patient stepped initially closed but opened up again and so she was restarted on insulin drip after she was weaned off of it. Hypokalemia improved with aggressive replacement. Patient was eventually transferred out of the ICU to the regular floor where she remained stable. Gap remains closed. A1c checked was 11.7 and patient admitted to not taking her insulin. She reported that she did not take her insulin because she did not feel she was diabetic. Patient was counseled strongly encouraged to be compliant with her insulin as with recurrent DKA's, this could be very injurious to her health. Patient remained stable and was discharged home on 12/01/2020. She was counseled to be compliant with her home dose of insulin degludec 38 un its daily as well as her insulin sliding scale at home was also discharged with a prescription for p.o. potassium 20 mEq daily for 10 days. She is to follow-up with her primary care doctor and stakes player. Patient seen and examined prior to discharge. She had no complaints and was eager to be discharged home. Review of symptoms otherwise negative. Labs and vitals reviewed. Medications reviewed and reconciled. Physical Exam Const alert, oriented x3 and no apparent distress General Appearance: cooperative and comfortable Exam Limitations: no limitations Nutritional Appearance: thin HEENT normocephalic, head/scalp atraumatic, moist oral mucous membranes and oropharynx normal Eyes PERRL, EOMs intact bilaterally and conjunctivae normal Neck no lymphadenopathy Resp normal respiratory effort, no retractions, no use of accessory muscles and clear to auscultation bilaterally Cardio regular rate, regular rhythm, S1 normal heart sound, S2 normal heart sound and no murmurs GI normal to inspection, nondistended, normoactive bowel sounds, soft to palpation, non-tender and non-distended Extremity normal to inspection, full ROM and no clubbing, cyanosis or edema Skin no rashes or lesions noted Neuro oriented x3 and moves all extremities Sensorium / Orientation: awake and alert Psych affect normal ABG / Lab / Microbiology Data Result Diagrams: 11/30/20 05:05 12/01/20 08:45 Laboratory: Laboratory Results - last 24 hr 11/30/20 11/30/20 11/30/20 12:14 16:23 21:17 Sodium Potassium Chloride Carbon Dioxide Anion Gap BUN Creatinine Estim Creat Clear Calc Est GFR (MDRD) Af Amer Est GFR (MDRD) Non-Af BUN/Creatinine Ratio Glucose Calcium POC Glucose 264 H 274 H 339 H 12/01/20 08:45 Sodium 141 Potassium 3.4 L Chloride 108 H Carbon Dioxide 27.0 Anion Gap 6 BUN 16 Creatinine 0.56 Estim Creat Clear Calc 161.65 Est GFR (MDRD) Af Amer 176 Est GFR (MDRD) Non-Af 145 BUN/Creatinine Ratio 28.5 H Glucose 241 H Calcium 8.4 L POC Glucose Microbiology: Microbiology 11/27/20 20:10 Blood Culture (Wb) - Line Draw Blood Culture - Preliminary No growth in 48 hours. 11/27/20 19:30 Blood Culture (Wb) - Port Blood Culture - Preliminary No growth in 48 hours. 11/27/20 18:15 Urine, Clean Catch Urine Culture - Final Mixed Gram Positive Organisms 11/27/20 18:02 Nasal Secretion SARS-CoV-2 Antigen (Rapid) - Final D/C Instructions Discharge Diet: 1800 Calorie Control Diet Discharge Activity: Return to Normal Activity Weight Bearing Status: Weight bearing as tolerated Call your doctor if you observe: Inability to urinate, Fainting spells and - (blood sugars are poorly controlled) Meaningful Use Info Meaningful Use Diagnoses (Choose all that apply): None applicable Discharge Plan Admission Admit Date/Time: 11/27/20 20:58 Primary Reason for Your Visit: DKA, hypokalemia Attending Provider: Tracy Mendoza Primary Care Provider: Thalia Gallo Instructions Patient Instructions: Diabetes: Understanding Carbohydrates, Diabetes: Keeping Feet Healthy, Diabetes: The Benefits of Exercise, Do You Have Diabetes?, A1C Additional Instructions / Restrictions: counseled very strongly to be compliant with her insulin. Discharge Orders/Prescriptions Prescriptions: New potassium chloride 20 mEq tablet extended release 20 meq PO DAILY Qty: 10 RF: 0 Continued aripiprazole 400 mg suspension,extended rel recon 400 mg IM QMONTH RF: 0 gabapentin 300 mg capsule 300 mg PO BID RF: 0 (DME) blood-glucose meter [True Metrix Glucose Meter] Misc See Rx Instructions .ROUTE .MEDSUPPLY Qty: 1 RF: 0 (DME) True Metrix Glucose Test Strip Strip See Rx Instructions .ROUTE .MEDSUPPLY Qty: 100 RF: 8 insulin degludec 100 unit/mL (3 mL) insulin pen 38 unit SC DAILY Qty: 15 RF: 6 insulin lispro 100 unit/mL insulin pen 25 unit SC TIDCM Qty: 30 RF: 6 (DME) TechLITE Pen Needle 32 gauge x 5/16 needle See Rx Instructions .ROUTE .MEDSUPPLY Qty: 200 RF: 4 Referrals / Follow Up: Thalia Gallo MD [Primary Care Provider] - In 1 Day Moustapha Rush MD [STAFF PHYSICIAN] - Within 2 Weeks Disposition Disposition (needs filled in before D/C Order can be placed): Home, self care Visit Charges Inpatient E&M: 09247 Disch Hosp
[2020-12-01 11:38] LABS: Bedside Glucose 106 mg/dL (70-110)
[2020-12-01] MEDS: Insulin Lispro 100 UNIT/ML INSULN.PEN SC (11:42)
[2020-12-01 11:51] LABS: Bedside Glucose 265 mg/dL (70-110)
--- NOTE | 2020-12-01 14:04 | NURSING ---
occlusive DSD of opsite applied over site of [facility].
--- NOTE | 2020-12-02 15:30 | CASEMGMT ---
PETEY CM Discharge Follow-Up Phone Call. Strata: 3 Discharge Date: 12/01/20 Adm Dx: Acute DKA Attempted discharge f/u phone call. No answer and VM has not been set up yet. Unable to leave a message. Sean PARKER RN CM
== END 2020-12-01 14:45 | disposition home or self-care (01) | DRG 420 ==
LOC: ED 18:27 → ICU 21:10 → MS3 11-30 15:25
PROVIDERS: Hospitalist; Nurse Practitioner Family; Admitting Provider Internal Medicine; Emergency Provider Student in an Organized Health Care Education/Training Program; PCP Internal Medicine; Visit Provider Student in an Organized Health Care Education/Training Program
DX: E10.10 Type 1 diabetes mellitus with ketoacidosis without coma (principal); E87.6 Hypokalemia; F31.30 Bipolar disorder, current episode depressed, mild or moderate severity, unspecified; F41.9 Anxiety disorder, unspecified; F17.210 Nicotine dependence, cigarettes, uncomplicated; E86.0 Dehydration; T38.3X6A Underdosing of insulin and oral hypoglycemic [antidiabetic] drugs, initial encounter; Z79.4 Long term (current) use of insulin; Z79.899 Other long term (current) drug therapy; Z91.14 Patient's other noncompliance with medication regimen; E83.42 Hypomagnesemia; D72.829 Elevated white blood cell count, unspecified
CPT/HCPCS: 36556; 71045; 80048; 80053; 80307; 81001; 82009; 82803; 82962; 83036; 83605; 83735; 84100; 84484; 84703; 85025; 85610; 87040; 87086; 87088; 87426; 93005; 97802; 99285; J7030; J7040; A4216; J2405; J7799

== ENCOUNTER 2020-12-15 14:55 | Emergency (ER) | payer MEDICAID, SELFPAY ==
[2020-12-02 15:01] VITALS: BMI 21.7
[2020-12-15] VITALS (7 sets, daily range): BP systolic 104–118; BP diastolic 70–76; PULSE 83–111; RESP 12–16; TEMP 36.8; O2SAT 97; BMI 20.2
--- NOTE | 2020-12-15 15:15 | EX.ED.VIS.PS ---
HPI HPI - Psych History of Present Illness Chief Complaint: Suicidal Informant: patient Narrative Narrative: Patient states that she is suicidal. She tried to burn herself with a cigarette but did not actually burn herself. She has been feeling this way for quite some time. She is been off of her Abilify for a couple of months because she has not found a psychiatrist in this area. She has a history of bipolar disorder. She has tried to burn herself in the past and attempted suicide as a young child. She does not currently have a psychiatrist she follows with regularly. She has been admitted to a psychiatric facility before. [facility] Medical History Anxiety Bipolar 1 disorder, depressed Depression Type 1 diabetes mellitus Home Medications blood sugar diagnostic #100 ea 11/24/20 [Rx Last Taken Unknown] blood-glucose meter #1 ea 11/24/20 [Rx Last Taken Unknown] pen needle, diabetic 32 gauge x 5/16 #200 ea 11/27/20 [Rx Last Taken Unknown] Humalog Pen 32 units ACHS 12/15/20 [History Last Taken Unknown] insulin degludec [Tresiba FlexTouch U-100] 30 unit SUBCUT DAILY 12/15/20 [History Last Taken Unknown] Allergy/AdvReac Type Severity Reaction Status Date / Time amoxicillin Allergy Hives Verified 12/15/20 14:56 Sulfa (Sulfonamide Allergy Hives Verified 12/15/20 14:56 Antibiotics) tomato Allergy Hives Verified 12/15/20 14:56 Family History Grandmother Diabetes Father Respiratory disease Uncle Respiratory disease Aunt Respiratory disease Social History Smoking Status: Current every day smoker tobacco type: cigarettes and e-cigarettes Tobacco: How many years used: 1 alcohol intake: never substance use type: does not use what type of physical activity do you participate in: walking frequency: daily ROS ROS ED Constitutional Constitutional ED: Denies chills or fever(s) Eyes Eyes: Denies blurry vision, change in vision or diplopia ENT ENT ED: Denies ear pain, rhinorrhea or sore throat Cardiovascular Cardiovascular: Denies chest pain or palpitations Respiratory/Chest Respiratory/Chest: Denies cough, dyspnea or sputum Gastrointestinal Gastrointestinal: Denies abdominal pain, diarrhea, nausea or vomiting Genitourinary Genitourinary ED: Denies dysuria, hematuria or urinary frequency Musculoskeletal Musculoskeletal: Denies back pain or neck pain Integumentary Denies change in pigmentation or rash Neurologic Neurologic: Denies headache(s), numbness or weakness Psychiatric Psychiatric: Reports depression and suicidal thoughts Endocrine Endocrinology: Denies polydipsia or polyuria EXAM Physical Exam Const Vital Signs: 12/15/20 14:56 12/15/20 16:04 12/15/20 17:53 Temperature 98.2 F Temperature Source Temporal Pulse Rate 107 H 111 H Respiratory Rate 16 12 14 Blood Pressure 115/70 118/76 Blood Pressure Mean 85 90 Pulse Ox 97 97 Oxygen Delivery Method Room Air Room Air 12/15/20 18:15 12/15/20 19:23 12/15/20 20:06 Temperature Temperature Source Pulse Rate 83 Respiratory Rate 12 16 14 Blood Pressure 104/70 Blood Pressure Mean 81 Pulse Ox 97 Oxygen Delivery Method Room Air 12/15/20 21:14 Temperature Temperature Source Pulse Rate Respiratory Rate 14 Blood Pressure Blood Pressure Mean Pulse Ox Oxygen Delivery Method Room Air Positive well nourished and well developed General Appearance ED: well developed and NAD HEENT Reports moist mucous membranes normocephalic and atraumatic; Negative for tenderness Eyes PERRL and EOMs intact bilaterally Neck supple and no JVD Chest Wall Chest: Negative for tenderness Resp normal respiratory effort and clear to auscultation bilaterally Effort and Inspection: Negative for respiratory distress Cardio regular rate, regular rhythm and no murmurs Rate: regular rate Rhythm: regular rhythm GI soft to palpation, non-tender and non-distended Palpation: soft Back/Spine no CVA tenderness and no thoracic nor lumbar tenderness Cervical Spine: Negative for cervical spine tenderness Extremity normal to inspection and full ROM General Extremety ED: Negative for tenderness Neuro oriented x3, CN's II-XII intact bilaterally and no sensory deficits noted Sensorium / Orientation: awake and alert Motor Exam: strength 5/5 throughout Psych Psych Narrative: Patient has a flat affect. She does voice suicidal thoughts. She avoids eye contact. Skin no rashes or lesions noted MDM MDM MDM Narrative Medical decision making narrative: The patient's laboratory examinations does reveal some glucose in her urine. She has a blood sugar of 562. Anion gap is 16. Creatinine is normal. test is negative. I gave her 20 units of regular insulin. Blood glucose check at 2145 is 210. She has not eaten yet so I would not give her any more insulin. If she does eat she will require insulin. She is a known type I diabetic and she can manage her blood sugar at home. The patient is currently pending psychiatric facility placement. She is medically cleared for psychiatric admission. Lab Data Labs: Laboratory Results - last 24 hr 12/15/20 12/15/20 12/15/20 15:17 15:17 15:27 WBC 5.8 RBC 4.78 Hgb 14.7 Hct 41.8 MCV 87.4 MCH 30.8 MCHC 35.2 RDW Std Deviation 39.6 RDW Coeff of Mark 12.6 Plt Count 333 MPV 10.1 Immature Gran % (Auto) 0.500 Neut % (Auto) 52.1 Lymph % (Auto) 35.3 [place] % (Auto) 6.7 Eos % (Auto) 4.2 Baso % (Auto) 1.2 H Absolute Neuts (auto) 3.0 Absolute Lymphs (auto) 2.04 Nucleated RBC % 0 Sodium Potassium Chloride Carbon Dioxide Anion Gap BUN Creatinine Estim Creat Clear Calc Est GFR (MDRD) Af Amer Est GFR (MDRD) Non-Af BUN/Creatinine Ratio Glucose Calcium Total Bilirubin AST ALT Alkaline Phosphatase Total Protein Albumin Globulin Albumin/Globulin Ratio Serum , Qual Urine Color Yellow Urine Clarity Clear Urine pH 6.0 Ur Specific [place] 1.010 Urine Protein Negative Urine Glucose (UA) 1000 H Urine Ketones 150 A* Urine Occult Blood 250 H Urine Nitrite Negative Urine Bilirubin Negative Urine Urobilinogen Normal Ur Leukocyte Esterase Negative Urine RBC 0-5 SEEN Urine WBC 0 SEEN Ur Squamous Epith Cells 0 SEEN Urine Bacteria 0 SEEN Urine Mucus 0 SEEN Urine Opiates Screen NEGATIVE Urine Methadone Screen NEGATIVE Ur Barbiturates Screen NEGATIVE Ur Phencyclidine Scrn NEGATIVE Ur Amphetamines Screen NEGATIVE U Methamphetamin-MDMA NEGATIVE U Benzodiazepines Scrn NEGATIVE Urine Cocaine Screen NEGATIVE U Cannabinoids Screen POSITIVE H Ur Drug Screen Comment Ethyl Alcohol POC Glucose 12/15/20 12/15/20 12/15/20 15:27 15:27 15:27 WBC RBC Hgb Hct MCV MCH MCHC RDW Std Deviation RDW Coeff of Mark Plt Count MPV Immature Gran % (Auto) Neut % (Auto) Lymph % (Auto) [place] % (Auto) Eos % (Auto) Baso % (Auto) Absolute Neuts (auto) Absolute Lymphs (auto) Nucleated RBC % Sodium 132 L Potassium 3.8 Chloride 97 L Carbon Dioxide 19.0 L Anion Gap 16 H BUN 9 Creatinine 0.69 Estim Creat Clear Calc 123.86 Est GFR (MDRD) Af Amer 138 Est GFR (MDRD) Non-Af 114 BUN/Creatinine Ratio 13.0 Glucose 562 H* Calcium 9.1 Total Bilirubin 0.70 AST 7 L ALT 16 Alkaline Phosphatase 215 H Total Protein 7.3 Albumin 3.7 Globulin 3.6 Albumin/Globulin Ratio 1.0 Serum , Qual NEGATIVE Urine Color Urine Clarity Urine pH Ur Specific [place] Urine Protein Urine Glucose (UA) Urine Ketones Urine Occult Blood Urine Nitrite Urine Bilirubin Urine Urobilinogen Ur Leukocyte Esterase Urine RBC Urine WBC Ur Squamous Epith Cells Urine Bacteria Urine Mucus Urine Opiates Screen Urine Methadone Screen Ur Barbiturates Screen Ur Phencyclidine Scrn Ur Amphetamines Screen U Methamphetamin-MDMA U Benzodiazepines Scrn Urine Cocaine Screen U Cannabinoids Screen Ur Drug Screen Comment Ethyl Alcohol 3.0 POC Glucose 12/15/20 12/15/20 17:11 18:58 WBC RBC Hgb Hct MCV MCH MCHC RDW Std Deviation RDW Coeff of Mark Plt Count MPV Immature Gran % (Auto) Neut % (Auto) Lymph % (Auto) [place] % (Auto) Eos % (Auto) Baso % (Auto) Absolute Neuts (auto) Absolute Lymphs (auto) Nucleated RBC % Sodium Potassium Chloride Carbon Dioxide Anion Gap BUN Creatinine Estim Creat Clear Calc Est GFR (MDRD) Af Amer Est GFR (MDRD) Non-Af BUN/Creatinine Ratio Glucose Calcium Total Bilirubin AST ALT Alkaline Phosphatase Total Protein Albumin Globulin Albumin/Globulin Ratio Serum , Qual Urine Color Urine Clarity Urine pH Ur Specific [place] Urine Protein Urine Glucose (UA) Urine Ketones Urine Occult Blood Urine Nitrite Urine Bilirubin Urine Urobilinogen Ur Leukocyte Esterase Urine RBC Urine WBC Ur Squamous Epith Cells Urine Bacteria Urine Mucus Urine Opiates Screen Urine Methadone Screen Ur Barbiturates Screen Ur Phencyclidine Scrn Ur Amphetamines Screen U Methamphetamin-MDMA U Benzodiazepines Scrn Urine Cocaine Screen U Cannabinoids Screen Ur Drug Screen Comment Ethyl Alcohol POC Glucose 397 H 210 H Discharge Plan Triage Chief Complaint: Suicidal ED Provider: Jamal Urbina Dx/Rx/DC Orders Clinical Impression: Suicidal ideation Prescriptions: No Action (DME) blood-glucose meter [True Metrix Glucose Meter] Misc See Rx Instructions .ROUTE .MEDSUPPLY Qty: 1 RF: 0 (DME) True Metrix Glucose Test Strip Strip See Rx Instructions .ROUTE .MEDSUPPLY Qty: 100 RF: 8 Tresiba FlexTouch U-100 100 unit/mL (3 mL) insulin pen 30 unit SUBCUT DAILY RF: 0 Humalog Pen 32 units 32 units ACHS RF: 0 (DME) TechLITE Pen Needle 32 gauge x 5/16 needle See Rx Instructions .ROUTE .MEDSUPPLY Qty: 200 RF: 4 Primary Care Provider: Thalia Gallo Referrals: Thalia Gallo MD [Primary Care Provider] - Disposition Disposition: Psychiatric Hospital or Unit
[2020-12-15 15:34] LABS: Bacteria 0 SEEN /hpf (None Seen); Mucous, Urine 0 SEEN /hpf (<or=2+); Squamous Epithelial Cells - UA 0 SEEN /hpf (5-10); White Blood Cells 0 SEEN /hpf (0-5)
[2020-12-15 15:45] LABS: Absolute Lymphocyte Count 2.04 X10^3/uL (0.83-4.51); Basophil# 0.07 X10^3/uL; Basophil% 1.2 % (0-1); Eosinophil# 0.24 X10^3/uL; Eosinophils% 4.2 % (0-5); Hematocrit 41.8 % (37-47); Hemoglobin 14.7 g/dL (12.0-15.0); Lymphocyte # 2.04 X10^3/ul (0.83-4.51); Lymphocyte % 35.3 % (19-41); Mean Corp Hgb Conc 35.2 g/dL (32-36); Mean Corpuscular Hgb 30.8 pg (27.0-32.0); Mean Corpuscular Volume 87.4 fL (81-99); Mean Platelet Vol. 10.1 fl (6.2-12.0); Monocyte# 0.39 X10^3/uL; Monocyte% 6.7 % (0-10); NRBC Flagged by Analyzer 0 % (0-5); Neutrophil # 3.01 X10^3/uL (2.7-7.7); Neutrophil % 52.1 % (47-70); Platelet Count 333 K/mm3 (150-450); RBC Distribution Width CV 12.6 % (11.6-14.6); RBC Distribution Width SD 39.6 fl (35.1-43.9); Red Blood Count 4.78 M/mm3 (4.2-5.4); White Blood Count 5.8 K/mm3 (4.4-11.0)
[2020-12-15 15:51] LABS: Color, Urine Yellow (Yellow); Glucose, Dipstick 1000 mg/dl (Normal); Leukocyte Esterase-Dipstick Negative /ul (Negative); Nitrite-Dipstick Negative (Negative); Occult Blood-Urine 250 /ul (Negative); Protein-Dipstick Negative (Negative); Urine Bilirubin Dipstick Negative (Negative); Urine Clarity Clear (Clear); Urine Urobilinogen Normal (Normal)
[2020-12-15 16:10] LABS: AST(SGOT) 7 U/L (15-37); Alanine Aminotransfer ALT/SGPT 16 U/L (13-56); Albumin, Serum 3.7 g/dL (3.2-5.0); Alkaline Phosphatase 215 U/L (45-117); Anion Gap 16 (5-15); BUN 9 mg/dL (7-18); Calcium,Total 9.1 mg/dL (8.5-10.1); Chloride 97 mmol/L (98-107); Creatinine, Serum 0.69 mg/dL (0.55-1.02); EST Glomerular Filtration Rate 114 mL/min (>60); Est Glom Filt Rate - Afr Amer 138 mL/min (>60); Estimated Creatinine Clearance 123.86 ml/min; Globulin 3.6 g/dL (2.2-4.2); Glucose 562 mg/dL (74-106); Potassium 3.8 mmol/L (3.5-5.1); Protein, Total 7.3 g/dL (6.4-8.2); Sodium Level 132 mmol/L (136-145)
[2020-12-15 16:10] LABS: Amphetamine Urine VISTA NEGATIVE (<1000 ng/mL); Barbiturate Urine VISTA NEGATIVE (< 200 ng/mL); Benzodiazepine Urine VISTA NEGATIVE (< 200 ng/mL); Cocaine Urine VISTA NEGATIVE (< 300 ng/mL); Ecstacy Urine VISTA NEGATIVE (< 500 ng/mL); Ketone-Dipstick 150 mg/dl (Negative); Methadone Urine VISTA NEGATIVE (< 300 ng/mL); PCP Urine VISTA NEGATIVE (< 25 ng/mL); THC Urine VISTA POSITIVE (< 50 ng/mL); Vista UDS pH Range 5
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
[2020-12-15 16:11] LABS: Internal QC Validated? YES +Cl - CLEAR BKGD; Pregnancy, Serum, hCG Quali. NEGATIVE Negative
[2020-12-15 16:11] LABS: Red Blood Cells-Urine 0-5 SEEN /hpf (0-5)
[2020-12-15] MEDS: Insulin Human 75/25 Kwickpen 20 UNIT SC (16:39)
[2020-12-15 17:21] LABS: Bedside Glucose 397 mg/dL (70-110)
--- NOTE | 2020-12-15 19:01 | ED.RN ---
DR. MTZ WANTS TO HOLD OFF ON THE HUMALOG THAT SHE TAKES WITH MEALS.
[2020-12-15 19:06] LABS: Bedside Glucose 210 mg/dL (70-110)
--- NOTE | 2020-12-15 19:47 | CM.ED ---
SOCIAL WORK Referral faxed and called to [facility]. Pending review at this time. Anjum Harding, PLANT TOUR GUIDE, SHAREPOINT APPLICATION ARCHITECT
--- NOTE | 2020-12-15 20:45 | CM.ED ---
SOCIAL WORK Call to [facility] to check on status of referral, spoke with Jannette. Per Jannette, still reviewing we will be giving a call back shortly. Anjum Harding, PHYSICAL SECURITY MANAGER, VENETIAN BLIND WASHER
[2020-12-15 21:50] LABS: Bedside Glucose 211 mg/dL (70-110)
--- NOTE | 2020-12-15 22:21 | CM.ED ---
SOCIAL WORK Call to [facility] to check on status of referral. Per intake, referral still being reviewed. Anjum Harding, SPINNING MACHINE TENDER, PIGMENT PRESSER
--- NOTE | 2020-12-15 23:04 | CM.ED ---
SOCIAL WORK Patient accepted to [facility] by Dr. Craig to [facility]. Nurse to call report to [phone]. [place] to set up transport. Patient updated. Copy of [place] [facility] faxed per request. Anjum Harding, VULCANIZED FIBER UNIT OPERATOR, HOT WATER HEATER INSTALLER
[2020-12-16 00:57] VITALS: BP 110/78; PULSE 76; RESP 12; O2SAT 96
== END 2020-12-16 00:58 ==
PROVIDERS: Emergency Provider Emergency Medicine; PCP Internal Medicine
DX: R45.851 Suicidal ideations (principal); F17.210 Nicotine dependence, cigarettes, uncomplicated; E10.9 Type 1 diabetes mellitus without complications; Z79.4 Long term (current) use of insulin
CPT/HCPCS: 36415; 80053; 80307; 81001; 82077; 82962; 84703; 85025; 87426; 99285

== ENCOUNTER 2020-12-26 12:45 | Emergency (ER) | payer MEDICAID, SELFPAY ==
[2020-12-15 14:56] VITALS: BMI 20.2
[2020-12-26 12:46] VITALS: BP 115/74; PULSE 115; RESP 16; TEMP 36.8; O2SAT 97; BMI 21.2
--- NOTE | 2020-12-26 14:19 | EX.ED.VIS.EY ---
HPI History of Present Illness Chief Complaint: Eye Problem Narrative Narrative: 20-year-old female presents with right eye vision change. States is been worsening over the past 4 days. Barely vision initially no difficulty seeing. Denies any trauma. Patient does have type 1 diabetes and her sugars been elevated. [facility] Medical History Anxiety Bipolar 1 disorder, depressed Depression Type 1 diabetes mellitus Home Medications blood sugar diagnostic #100 ea 11/24/20 [Rx Last Taken Unknown] blood-glucose meter #1 ea 11/24/20 [Rx Last Taken Unknown] pen needle, diabetic 32 gauge x 11/15 #200 ea 11/27/20 [Rx Last Taken Unknown] Humalog Pen 32 units TIDCM 12/15/20 [History Last Taken Unknown] insulin degludec [Tresiba FlexTouch U-100] 30 unit SUBCUT DAILY 12/15/20 [History Last Taken Unknown] Allergy/AdvReac Type Severity Reaction Status Date / Time amoxicillin Allergy Hives Verified 12/26/20 12:46 Sulfa (Sulfonamide Allergy Hives Verified 12/26/20 12:46 Antibiotics) tomato Allergy Hives Verified 12/26/20 12:46 Family History Grandmother Diabetes Father Respiratory disease Uncle Respiratory disease Aunt Respiratory disease Social History Smoking Status: Current every day smoker tobacco type: cigarettes and e-cigarettes Tobacco: How many years used: 1 alcohol intake: never substance use type: does not use what type of physical activity do you participate in: walking frequency: daily ROS ROS ED Constitutional Constitutional ED: Denies chills, fever(s) or sweats Eyes Eyes: Reports blurry vision and change in vision; Denies diplopia ENT ENT ED: Denies rhinorrhea or sore throat Cardiovascular Cardiovascular: Denies chest pain, orthopnea, palpitations or racing heartbeat Respiratory/Chest Respiratory/Chest: Denies cough, dyspnea, dyspnea on exertion, orthopnea or sputum Gastrointestinal Gastrointestinal: Denies abdominal pain, constipation, diarrhea, melena, nausea or vomiting Genitourinary Genitourinary ED: Denies dysuria, hematuria or urinary frequency Musculoskeletal Musculoskeletal: Denies arthralgias, myalgias or neck pain Integumentary Denies rash Neurologic Neurologic: Denies headache(s), paresthesias or weakness Psychiatric Psychiatric: Denies anxiety or depression Hematologic/Lymphatic Hematologic/Lymphatic: Denies easy bleeding or easy bruising Allergic/Immunologic Allergic/Immunologic ED: Denies mouth swelling or tongue swelling EXAM Physical Exam Const Vital Signs: 12/26/20 12:46 Temperature 98.2 F Temperature Source Temporal Pulse Rate 115 H Respiratory Rate 16 Blood Pressure 115/74 Blood Pressure Mean 87 Pulse Ox 97 Oxygen Delivery Method Room Air Positive well nourished and well developed General Appearance ED: well developed HEENT Reports TM's clear and moist mucous membranes normocephalic and atraumatic Tympanic Membrane ED: Yes TM's clear Eyes PERRL and EOMs intact bilaterally Eyes Narrative: Whitened pupil. Concern for cataract. Visual Acuity: visual acuity right eye 100 and visual acuity left eye 100 Visual Field: No peripheral vision loss Periorbital: periorbital findings normal Eyelid: eyelids normal Conjunctiva: conjunctiva normal Pupil: PERRL and accommodation reflex normal EOM: EOM abnormal Neck no lymphadenopathy, supple and no JVD Chest Wall inspection of chest normal Resp normal respiratory effort and clear to auscultation bilaterally Cardio regular rate, S1 normal heart sound, S2 normal heart sound and no murmurs Peripheral Pulses: pulses 2+ throughout GI soft to palpation, non-tender and non-distended Back/Spine no CVA tenderness and no thoracic nor lumbar tenderness Extremity normal to inspection General Extremety ED: Negative for edema or tenderness General Extremity: Negative for edema Neuro oriented x3, CN's II-XII intact bilaterally and no sensory deficits noted Sensorium / Orientation: alert Motor Exam: strength 5/5 throughout Psych mental status grossly normal Skin no rashes or lesions noted MDM MDM MDM Narrative Medical decision making narrative: Patient appears well and nontoxic. Vital signs within normal limits. Glucose significantly elevated. States that she was following with her professor of social work recently and her A1c was 13. Patient advised on tighter control of her blood glucose. Spoke with production assembly supervisor Dr. Celeste who advised follow-up in his office next week with concern for cataract formation. Patient stable at time of discharge. Discharge Plan Triage Chief Complaint: Eye Problem ED Provider: Chet Stern Dx/Rx/DC Orders Clinical Impression: Cataract Instructions: Cataracts: Your Evaluation Prescriptions: No Action (DME) blood-glucose meter [True Metrix Glucose Meter] Mis See Rx Instructions .ROUTE .MEDSUPPLY Qty: 1 RF: 0 (DME) True Metrix Glucose Test Strip Strip See Rx Instructions .ROUTE .MEDSUPPLY Qty: 100 RF: 8 Tresiba FlexTouch U-100 100 unit/mL (3 mL) insulin pen 30 unit SUBCUT DAILY RF: 0 Humalog Pen 32 units 32 units TIDCM RF: 0 (DME) TechLITE Pen Needle 32 gauge x 5/16 needle See Rx Instructions .ROUTE .MEDSUPPLY Qty: 200 RF: 4 Primary Care Provider: Thalia Gallo Referrals: Thalia Gallo MD [Primary Care Provider] - 2 Days Clay Celeste MD [STAFF PHYSICIAN] - As soon as possible Disposition Disposition: Home, Self Care
[2020-12-26 14:21] LABS: Bedside Glucose 390 mg/dL (70-110)
[2020-12-26 14:36] VITALS: PULSE 110; RESP 16; O2SAT 98
== END 2020-12-26 14:37 | disposition home or self-care (01) ==
PROVIDERS: Emergency Provider Emergency Medicine; PCP Internal Medicine
DX: H26.9 Unspecified cataract (principal); F17.210 Nicotine dependence, cigarettes, uncomplicated; E10.36 Type 1 diabetes mellitus with diabetic cataract; Z79.4 Long term (current) use of insulin
CPT/HCPCS: 82962; 99283

== ENCOUNTER 2021-05-29 15:26 | Observation (INO) | payer MEDICAID, SELFPAY ==
[2021-05-29] VITALS (14 sets, daily range): BP systolic 101–135; BP diastolic 44–96; PULSE 78–116; RESP 14–23; TEMP 36.6; O2SAT 97–100; BMI 25.4; BMI 25.3
--- NOTE | 2021-05-29 15:56 | EKG12_ITS ---
Test Reason : Blood Pressure : / mmHG Vent. Rate : 094 BPM Atrial Rate : 094 BPM P-R Int : 118 ms QRS Dur : 088 ms QT Int : 368 ms P-R-T Axes : 067 073 035 degrees QTc Int : 460 ms Normal sinus rhythm with sinus arrhythmia Normal ECG Confirmed by HENRIQUE IQBAL, MORIAH ([id number]), editor managing newspaper SERGIO LEE ([id number]) on 06/01/2021 9:02:14 AM Referred By: JULIUS/MINDY Confirmed By:MORIAH DUENAS MD
--- NOTE | 2021-05-29 15:57 | EX.ED.DYSGE1 ---
HPI History of Present Illness Chief Complaint: Hyperglycemia Informant: patient Onset/Context/Timing Onset: Yesterday Context: Gradual Onset Timing: Continuous Current Severity: Moderate Maximum Severity: Moderate Narrative Narrative: Patient states since yesterday she feels that she is in DKA again which she has a history of. When asked what reason, if she knows, the reason this time would be, she states because I do not take care of myself. She admits that she does not take her diabetes seriously and as a result, she does not use her insulin appropriately, she has been under dosing and skipping days at a time, but she feels chronically depressed which makes her eat more. She denies any recent illness. Prior similar symptoms: Yes Recent Illness/Hospitalization: No PFSH PFS Medical History Anxiety Bipolar 1 disorder, depressed Depression Type 1 diabetes mellitus Home Medications blood sugar diagnostic #100 ea 11/24/20 [Rx Last Taken Unknown] blood-glucose meter #1 ea 11/24/20 [Rx Last Taken Unknown] pen needle, diabetic 32 gauge x 5/16 #200 ea 11/27/20 [Rx Last Taken Unknown] insulin lispro [Humalog Pen] 18 unit SUBCUT TID 12/15/20 [History Last Taken Unknown] pen needle, diabetic 32 gauge x 5/32 #200 ea 03/11/21 [Rx Last Taken Unknown] prazosin 1 mg capsule 1 mg PO QHS 03/11/21 [History Last Taken Unknown] insulin glargine [Lantus Solostar U-100 Insulin] 38 unit SUBCUT DAILY 05/29/21 [History Last Taken Unknown] oxcarbazepine [Trileptal] 450 mg PO BID 05/29/21 [History Last Taken Unknown] trazodone 100 mg PO QHS 05/29/21 [History Last Taken Unknown] Allergy/AdvReac Type Severity Reaction Status Date / Time amoxicillin Allergy Hives Verified 05/29/21 15:28 Sulfa (Sulfonamide Allergy Hives Verified 05/29/21 15:28 Antibiotics) tomato Allergy Hives Verified 05/29/21 15:28 Family History Grandmother Diabetes Father Respiratory disease Uncle Respiratory disease Aunt Respiratory disease Social History Smoking Status: Current every day smoker tobacco type: cigarettes and e-cigarettes Tobacco: How many years used: 1 alcohol intake: never substance use type: does not use what type of physical activity do you participate in: walking frequency: daily ROS ROS ED Constitutional Constitutional ED: Reports fatigue; Denies chills or fever(s) Eyes Eyes: Denies change in vision or diplopia ENT ENT ED: Denies rhinorrhea or sore throat Cardiovascular Cardiovascular: Denies chest pain or palpitations Respiratory/Chest Respiratory/Chest: Reports dyspnea; Denies cough Gastrointestinal Gastrointestinal: Reports abdominal pain, nausea and vomiting; Denies diarrhea Genitourinary Genitourinary ED: Reports urinary frequency; Denies dysuria or hematuria Musculoskeletal Musculoskeletal: Denies back pain or neck pain Integumentary Denies abscess or rash Neurologic Neurologic: Denies headache(s), paresthesias or weakness Psychiatric Psychiatric: Denies anxiety or suicidal thoughts Endocrine Endocrinology: Reports polydipsia and polyuria EXAM Physical Exam Const Vital Signs: 05/29/21 15:26 05/29/21 15:42 05/29/21 17:05 Temperature 97.8 F Temperature Source Temporal Pulse Rate 116 H 90 Respiratory Rate 16 16 22 H Respiratory Effort Non-Labored Short of Breath Respiratory Pattern Normal Blood Pressure 135/96 H 114/67 Blood Pressure Mean 109 82 Pulse Ox 98 99 Oxygen Delivery Method Room Air Room Air Positive well nourished and well developed General Appearance ED: well developed and NAD HEENT Reports moist mucous membranes normocephalic and atraumatic Eyes PERRL and EOMs intact bilaterally Neck full ROM and supple Resp normal respiratory effort, no retractions and clear to auscultation bilaterally Resp Narrative: Conversive in full sentences no respiratory distress Cardio regular rate, regular rhythm, no murmurs and no JVD Rate: tachycardic GI non-distended GI Narrative: Mild epigastrium tenderness, no guarding or rebound, otherwise abdomen benign. Auscultation: normoactive bowel sounds Palpation: soft Back/Spine no CVA tenderness General Back: other FROM Extremity normal to inspection General Extremety ED: Negative for edema, pulses abnormal or tenderness General Extremity: Negative for edema or pulses abnormal Neuro oriented x3, CN's II-XII intact bilaterally and no sensory deficits noted Sensorium / Orientation: awake and alert Motor Exam: strength 5/5 throughout Skin no rashes or lesions noted and no wounds MDM MDM MDM Narrative Medical decision making narrative: Patient refuses central line and states instead, she would prefer to have multiple IVs and multiple sticks for every 4 hour blood draws if needed, instead of having a central line. Her work-up is consistent with DKA, is negative, blood counts are good. She is feeling better after Zofran and IV fluids, and able to take some ice chips. Her venous pH 7.33, her bicarb is 12, blood sugar is 490 with moderate serum ketones present. Insulin drip started since her potassium is not low, and will admit to the ICU. Lab Data Attestation: I reviewed the patient's lab results. Labs: Laboratory Results - last 24 hr 05/29/21 05/29/21 05/29/21 15:47 15:47 15:47 WBC 9.1 RBC 5.14 Hgb 15.1 H Hct 43.0 MCV 83.7 MCH 29.4 MCHC 35.1 RDW Std Deviation 38.6 RDW Coeff of Mark 12.8 Plt Count 339 MPV 9.8 Immature Gran % (Auto) 0.200 Neut % (Auto) 59.3 Lymph % (Auto) 30.8 [place] % (Auto) 6.2 Eos % (Auto) 2.8 Baso % (Auto) 0.7 Absolute Neuts (auto) 5.4 Absolute Lymphs (auto) 2.80 Nucleated RBC % 0 Sodium Potassium Chloride Carbon Dioxide Anion Gap BUN Creatinine Estim Creat Clear Calc Est GFR (MDRD) Af Amer Est GFR (MDRD) Non-Af BUN/Creatinine Ratio Glucose Calcium Serum , Qual NEGATIVE Urine Color Urine Clarity Urine pH Ur Specific [place] Urine Protein Urine Glucose (UA) Urine Ketones Urine Occult Blood Urine Nitrite Urine Bilirubin Urine Urobilinogen Ur Leukocyte Esterase Urine RBC Urine WBC Ur Squamous Epith Cells Urine Bacteria Hyaline Casts Fine Granular Casts Urine Mucus Acetone Level MODERATE H POC Glucose 05/29/21 05/29/21 05/29/21 15:47 16:00 16:43 WBC RBC Hgb Hct MCV MCH MCHC RDW Std Deviation RDW Coeff of Mark Plt Count MPV Immature Gran % (Auto) Neut % (Auto) Lymph % (Auto) [place] % (Auto) Eos % (Auto) Baso % (Auto) Absolute Neuts (auto) Absolute Lymphs (auto) Nucleated RBC % Sodium 131 L Potassium 4.3 Chloride 100 Carbon Dioxide 12.0 L Anion Gap 19 H BUN 13 Creatinine 0.67 Estim Creat Clear Calc 129.16 Est GFR (MDRD) Af Amer 143 Est GFR (MDRD) Non-Af 118 BUN/Creatinine Ratio 19.4 Glucose 490 H* Calcium 8.8 Serum , Qual Urine Color Yellow Urine Clarity Clear Urine pH 5.0 Ur Specific [place] 1.020 Urine Protein 15 H Urine Glucose (UA) 1000 H Urine Ketones 150 A* Urine Occult Blood Negative Urine Nitrite Negative Urine Bilirubin Negative Urine Urobilinogen Normal Ur Leukocyte Esterase Negative Urine RBC 0 SEEN Urine WBC 0-5 SEEN Ur Squamous Epith Cells 0-5 SEEN Urine Bacteria 0 SEEN Hyaline Casts 0-5 SEEN Fine Granular Casts 0-5 SEEN Urine Mucus 1+ Acetone Level POC Glucose 410 H ABG Data ABG results: ABG 05/29/21 16:38 Specimen Type HAN VBG pH 7.33 VBG pO2 126 H VBG HCO3 11 L VBG Total CO2 12 L VBG O2 Sat (Calc) 99 H VBG Base Excess -15 L POC Mix VBG pCO2 Pt Tmp 20.8 L EKG Initial EKG: Attestation: I personally reviewed and interpreted this EKG as follows: Interpretation: Sinus Rhythm (90's) and No Acute Injury Pattern Comments: No signs of hyperkalemia Critical Care Time Critical Care Time: Yes Critical care time (excluding procedures): 30-74 minutes (35), Including time spent:, Discussing w/Patient &/or Family/Vice President Education, Discussing w/Consultants, Arranging Admission or Transfer and Performing Direct Patient Care at Bedside Discharge Plan Dx/Rx/DC Orders Clinical Impression: DKA (diabetic ketoacidoses) Disposition Disposition: Acute Care [facility]
[2021-05-29 16:07] LABS: Absolute Neutrophil Count 5.4 X10^3/uL (2.0-7.7); Basophil# 0.06 X10^3/uL; Basophil% 0.7 % (0-1); Eosinophil# 0.25 X10^3/uL; Eosinophils% 2.8 % (0-5); Hemoglobin 15.1 g/dL (12.0-15.0); Lymphocyte % 30.8 % (19-41); Mean Corp Hgb Conc 35.1 g/dL (32-36); Mean Corpuscular Hgb 29.4 pg (27.0-32.0); Mean Corpuscular Volume 83.7 fL (81-99); Mean Platelet Vol. 9.8 fl (6.2-12.0); Monocyte# 0.56 X10^3/uL; Monocyte% 6.2 % (0-10); NRBC Flagged by Analyzer 0 % (0-5); Neutrophil % 59.3 % (47-70); Platelet Count 339 K/mm3 (150-450); RBC Distribution Width CV 12.8 % (11.6-14.6); RBC Distribution Width SD 38.6 fl (35.1-43.9); Red Blood Count 5.14 M/mm3 (4.2-5.4); White Blood Count 9.1 K/mm3 (4.4-11.0)
[2021-05-29 16:09] LABS: Bacteria 0 SEEN /hpf (None Seen); Red Blood Cells-Urine 0 SEEN /hpf (0-5)
[2021-05-29 16:13] LABS: Color, Urine Yellow (Yellow); Glucose, Dipstick 1000 mg/dl (Normal); Leukocyte Esterase-Dipstick Negative /ul (Negative); Nitrite-Dipstick Negative (Negative); Occult Blood-Urine Negative /ul (Negative); Protein-Dipstick 15 mg/dl (Negative); Urine Bilirubin Dipstick Negative (Negative); Urine Clarity Clear (Clear); Urine Urobilinogen Normal (Normal)
[2021-05-29 16:28] LABS: Internal QC Validated? YES +Cl - CLEAR BKGD; Pregnancy, Serum, hCG Quali. NEGATIVE Negative
[2021-05-29] MEDS: Ondansetron 4 MG/2 ML Vial IV (16:32)
[2021-05-29] MEDS: 0.9% Normal Saline 1,000 ML 999 ML IV ×2 (16:32→17:35)
[2021-05-29 16:45] LABS: Blood Gas Specimen Type VEN; VBG BASE EXCESS -15 mmol/L (-1.0-3.5); VBG Bicarbonate 11 mmol/L (22-26); VBG PO2 126 mmHg (25-40); VBG SO2 99 % (50-70); VBG TCO2 12 mmol/L (23-33); VBG pCO2 20.8 mmHg (41-51); VBG pH 7.33 (7.32-7.42)
[2021-05-29 16:46] LABS: Anion Gap 19 (5-15); BUN 13 mg/dL (7-18); BUN/Creat Ratio 19.4 RATIO (10-20); Calcium,Total 8.8 mg/dL (8.5-10.1); Chloride 100 mmol/L (98-107); Creatinine, Serum 0.67 mg/dL (0.55-1.02); EST Glomerular Filtration Rate 118 mL/min (>60); Est Glom Filt Rate - Afr Amer 143 mL/min (>60); Estimated Creatinine Clearance 129.16 ml/min; Glucose 490 mg/dL (74-106); Potassium 4.3 mmol/L (3.5-5.1); Sodium Level 131 mmol/L (136-145)
[2021-05-29 16:50] LABS: Bedside Glucose 410 mg/dL (70-110)
[2021-05-29 16:51] LABS: Ketone-Dipstick 150 mg/dl (Negative)
[2021-05-29 17:13] LABS: Hyaline Cast 0-5 SEEN /lpf (0-5)
[2021-05-29 17:14] LABS: Fine Granular Cast- Urine 0-5 SEEN /lpf (0-5); Squamous Epithelial Cells - UA 0-5 SEEN /hpf (5-10)
[2021-05-29 17:15] LABS: Mucous, Urine 1+ /hpf (<or=2+)
[2021-05-29 17:16] LABS: White Blood Cells 0-5 SEEN /hpf (0-5)
--- NOTE | 2021-05-29 17:46 | HP.PCM.HOS_ITS ---
[facility] - General General Date of Admission: 05/29/21 Date of Service: 05/29/21 Chief Complaint: Hyperglycemia HPI Narrative RONA CHAU, is a 21 F who presented to the emergency department at [facility] on 05/29/2021 with a chief complaint of hyperglycemia. She reported on presentation that she felt like she was in DKA again. When asked why she feels she is in DKA she stated to the emergency department physician because I do not take care of myself. She states that she does not regularly take her insulin as she does not like having hypoglycemic episodes. She states she considers hypoglycemia under 70 and she states she feels very poorly. It sounds as if she does not take care of her self on a regular basis. She states she had a recent psychiatric admission related to depression but would not go into depth any further. She denies any current suicidal ideation. She does states she skips insulin doses a days at a time. She denies any recent illnesses or sick contacts. At this time she is complaining of indigestion and some nausea. Patient has had multiple admissions and feels that she is had at least 10 DKA admissions in the past year. Not all of them are at this hospital and she reports that she goes here to [facility] and she is been [facility] as well. Vital signs in the emergency department show tachycardia that is mild but are otherwise overall unremarkable. Her CBC shows mild erythrocytosis with a hemoglobin of 15.1. Her BMP shows hyponatremia although I suspect this is related to her hyperglycemia as she has a blood sugar of 490. Her serum bicarb is 12 and her anion gap is 19. Her renal function is normal at this time. Serum test is negative. Her UA shows protein, glucose, and ketones. She is moderate acetone level. EKG shows mild sinus tach with no ST-T wave changes consistent with acute ischemia. VBG shows a pH of 7.33. She will be admitted to ICU. She was initiated on fluids and an insulin drip in the emergency department. [facility] Medical History (Updated 05/29/21 @ 17:[address] Rima Jordan DO) Anxiety Bipolar 1 disorder, depressed Depression Type 1 diabetes mellitus Home Medications blood sugar diagnostic #100 ea 11/24/20 [Rx Last Taken Unknown] blood-glucose meter #1 ea 11/24/20 [Rx Last Taken Unknown] pen needle, diabetic 32 gauge x 5/16 #200 ea 11/27/20 [Rx Last Taken Unknown] insulin lispro [Humalog Pen] 18 unit SUBCUT TID 12/15/20 [History Last Taken Unknown] pen needle, diabetic 32 gauge x #200 ea 03/11/21 [Rx Last Taken Unknown] prazosin 1 mg capsule 1 mg PO QHS 03/11/21 [History Last Taken Unknown] insulin glargine [Lantus Solostar U-100 Insulin] 38 unit SUBCUT DAILY 05/29/21 [History Last Taken Unknown] oxcarbazepine [Trileptal] 450 mg PO BID 05/29/21 [History Last Taken Unknown] trazodone 100 mg PO QHS 05/29/21 [History Last Taken Unknown] Allergy/AdvReac Type Severity Reaction Status Date / Time amoxicillin Allergy Hives Verified 05/29/21 15:28 Sulfa (Sulfonamide Allergy Hives Verified 05/29/21 15:28 Antibiotics) tomato Allergy Hives Verified 05/29/21 15:28 Family History Grandmother Diabetes Father Respiratory disease Uncle Respiratory disease Aunt Respiratory disease Social History Smoking Status: Current every day smoker tobacco type: cigarettes and e- cigarettes Tobacco: How many years used: 1 alcohol intake: never substance use type: does not use what type of physical activity do you participate in: walking frequency: daily ROS Constitutional Constitutional: Denies anorexia, change in weight, chills, fatigue, fever(s), malaise, night sweats, weakness or other Eyes Eyes: Denies blurry vision, change in eye color, change in vision, discharge from eye(s), double vision, erythema, eye pain, loss of vision or other ENT HEENT: Denies abnormal hearing, dysphagia, ear pain, epistaxis, headache(s), hearing loss, nasal congestion, nasal discharge, post nasal drip, sinus pressure, sore throat or other Cardiovascular Cardiovascular: Denies chest pain, claudication, dyspnea on exertion, edema, lightheadedness, orthopnea, palpitations, paroxysmal nocturnal dyspnea, rapid heart rate, syncope or other Respiratory/Chest Respiratory/Chest: Denies cough, dyspnea, excessive phlegm production, hemoptysis, productive cough, shortness of breath at rest, shortness of breath with exertion, wheezing or other Gastrointestinal Gastrointestinal: Reports dyspepsia and nausea; Denies abdominal pain, coffee ground emesis, constipation, diarrhea, hematemesis, hematochezia, loose stools, melena, vomiting or other Genitourinary Genitourinary: Reports urinary frequency; Denies burning urination, difficulty urinating, dysuria, hematuria, nocturia, urinary hesitancy, urinary incontinence, urinary urgency or other Neurologic Neurologic: Reports numbness; Denies abnormal gait, abnormal speech, confusion, disequilibrium, dizziness, focal weakness, headache(s), paresthesias, seizure- like activity, seizures, syncope, tingling, tremor(s) or other Psychiatric Psychiatric: Denies anxiety, depression, homicidal ideation, suicidal ideation or other Endocrine Endocrinology: Reports polyuria; Denies change in body appearance, cold intolerance, excessive sweating, heat intolerance, polydipsia or other Hematologic/Lymphatic Hematologic/Lymphatic: Denies anemia, easy bleeding, easy bruising, lymphadenopathy or other Allergic/Immunologic Allergic/Immunologic: Denies rhinitis, hives, eczemia, asthma or other Vital Signs Vital Signs Vital Signs: 05/29/21 15:26 05/29/21 15:42 05/29/21 17:05 Temperature 97.8 F Temperature Source Temporal Pulse Rate 116 H 90 Respiratory Rate 16 16 22 H Respiratory Effort Non-Labored Short of Breath Respiratory Pattern Normal Blood Pressure 135/96 H 114/67 Blood Pressure Mean 109 82 Pulse Ox 98 99 Oxygen Delivery Method Room Air Room Air Weight Weight: 73.652 kg Body Mass Index (BMI) 25.4 Physical Exam Const alert, oriented x3 and no apparent distress Constitutional Narrative: Young white female lying in bed, appears comfortable, somewhat ambivalent about her hospitalization seen at the bedside General Appearance: cooperative HEENT normocephalic, head/scalp atraumatic, hearing grossly normal bilaterally and moist oral mucous membranes HEENT Narrative: Mallampati 2, no thrush, dentition is good, right nasal piercing Eyes PERRL and EOMs intact bilaterally Eyes Narrative: No conjunctival icterus Neck no lymphadenopathy, supple and no JVD Neck Narrative: He has midline no thyroid enlargement noted Resp normal respiratory effort, no retractions, no use of accessory muscles and clear to auscultation bilaterally Auscultation: Negative for crackles, rales, rhonchi or wheezes Cardio regular rhythm, S1 normal heart sound, S2 normal heart sound, no murmurs, no rub, no gallops, no clicks and no JVD Cardio Narrative: Tachycardia GI normal to inspection, nondistended, normoactive bowel sounds, soft to palpation, non-tender and non-distended Extremity no clubbing, cyanosis or edema Peripheral Pulses: Yes pulses 2+ throughout Skin no rashes or lesions noted, no wounds, skin turgor normal, no jaundice, no petechiae and no mottling Neuro oriented x3, CN's II-XII intact bilaterally, moves all extremities and no focal motor deficits Sensorium / Orientation: awake and alert Psych Psych Narrative: Flat affect Results Lab / Micro Data Result Diagrams: 05/29/21 15:47 05/29/21 15:47 Labs: Laboratory Results - last 24 hr 05/29/21 15:47: Acetone Level MODERATE H 05/29/21 15:47: Serum , Qual NEGATIVE 05/29/21 15:47: WBC 9.1, RBC 5.14, Hgb 15.1 H, Hct 43.0, MCV 83.7, MCH 29.4, MCHC 35.1, RDW Std Deviation 38.6, RDW Coeff of Mark 12.8, Plt Count 339, MPV 9.8, Immature Gran % (Auto) 0.200, Neut % (Auto) 59.3, Lymph % (Auto) 30.8, [place] % (Auto) 6.2, Eos % (Auto) 2.8, Baso % (Auto) 0.7, Absolute Neuts (auto) 5.4, Absolute Lymphs (auto) 2.80, Nucleated RBC % 0 05/29/21 15:47: Sodium 131 L, Potassium 4.3, Chloride 100, Carbon Dioxide 12.0 L , Anion Gap 19 H, BUN 13, Creatinine 0.67, Estim Creat Clear Calc 129.16, Est GFR (MDRD) Af Amer 143, Est GFR (MDRD) Non-Af 118, BUN/Creatinine Ratio 19.4, Glucose 490 H*, Calcium 8.8 05/29/21 16:00: Urine Color Yellow, Urine Clarity Clear, Urine pH 5.0, Ur Specific [place] 1.020, Urine Protein 15 H, Urine Glucose (UA) 1000 H, Urine Ketones 150 A*, Urine Occult Blood Negative, Urine Nitrite Negative, Urine Bilirubin Negative, Urine Urobilinogen Normal, Ur Leukocyte Esterase Negative, Urine RBC 0 SEEN, Urine WBC 0-5 SEEN, Ur Squamous Epith Cells 0-5 SEEN, Urine Bacteria 0 SEEN, Hyaline Casts 0-5 SEEN, Fine Granular Casts 0-5 SEEN, Urine Mucus 1+ 05/29/21 16:43: POC Glucose 410 H ABG Data ABG results: ABG 05/29/21 16:38 Specimen Type HAN VBG pH 7.33 VBG pO2 126 H VBG HCO3 11 L VBG Total CO2 12 L VBG O2 Sat (Calc) 99 H VBG Base Excess -15 L POC Mix VBG pCO2 Pt Tmp 20.8 L Assessment & Plan Assessment/Plan (1) DKA (diabetic ketoacidoses): QUALIFIERS: Diabetes mellitus type: type 1 Diabetes mellitus complication detail: without coma Qualified Code(s): E10.10 - Type 1 diabetes mellitus with ketoacidosis without coma (2) Nausea: (3) High anion gap metabolic acidosis: PLAN: DKA secondary to noncompliance -Patient states she regularly does not take her insulin as she does not like hypoglycemia -Does not sound like she regularly follows up with endocrinology -There is a office visit from 2020 that documents noncompliance as well -Recent hemoglobin A1c was greater than 14 -DKA protocol with insulin drip and IV fluids -Serial labs as per protocol -We will transition to subcu insulin once patient is out of DKA Pseudohyponatremia -Secondary to hyperglycemia -Monitor BMP Nausea/dyspepsia -Likely related to DKA -As needed antiemetics -GI cocktail High anion gap metabolic acidosis -Secondary to DKA -Should resolve with resolution of DKA -Monitor serial lab DM-1 uncontrolled -Most recent hemoglobin A1c was greater than 14 -Home insulin doses are 38 units of Lantus daily and 18 units of Humalog 3 times daily -We will have patient follow-up with endocrinology after discharge History of bipolar disorder -Continue Trileptal -Continue trazodone History of suicidal ideation -No current suicidal ideation will readdress tomorrow Tobacco abuse -Nicotine replacement ordered -Recommend cessation DVT prophylaxis -Lovenox daily CODE STATUS -Full code Charges/Coding Visit Charges Inpatient E&M: 19563 Init Hosp L3
[2021-05-29 18:21] LABS: Anion Gap 17 (5-15); BUN 14 mg/dL (7-18); BUN/Creat Ratio 24.7 RATIO (10-20); Chloride 106 mmol/L (98-107); Creatinine, Serum 0.57 mg/dL (0.55-1.02); EST Glomerular Filtration Rate 143 mL/min (>60); Est Glom Filt Rate - Afr Amer 173 mL/min (>60); Estimated Creatinine Clearance 151.82 ml/min; Glucose 359 mg/dL (74-106); Potassium 3.9 mmol/L (3.5-5.1); Sodium Level 135 mmol/L (136-145)
[2021-05-29] MEDS: 0.9% Normal Saline 1,000 ML 250 ML IV (18:27)
[2021-05-29 18:36] LABS: Bedside Glucose 243 mg/dL (70-110)
[2021-05-29] MEDS: Mag Hydrox/Al Hydrox/Simeth 30 ML UDC PO (18:53)
[2021-05-29] MEDS: Dext 5%-0.45% NS 1,000 ML 150 ML IV (18:56)
[2021-05-29 19:20] LABS: Hemoglobin A1c 11.8 % (3.8-5.6)
[2021-05-29 19:46] LABS: Bedside Glucose 161 mg/dL (70-110)
[2021-05-29] MEDS: OXcarbazepine 150 MG Tablet 450 MG PO (21:09)
[2021-05-29] MEDS: traZODone 100 MG Tablet PO (21:10)
[2021-05-29] MEDS: Doxazosin 1 MG Tablet PO (21:10)
[2021-05-29 21:20] LABS: Bedside Glucose 160 mg/dL (70-110)
[2021-05-29 21:28] LABS: Anion Gap 11 (5-15); BUN 14 mg/dL (7-18); BUN/Creat Ratio 32.3 RATIO (10-20); Calcium,Total 7.8 mg/dL (8.5-10.1); Chloride 112 mmol/L (98-107); Creatinine, Serum 0.43 mg/dL (0.55-1.02); EST Glomerular Filtration Rate 195 mL/min (>60); Est Glom Filt Rate - Afr Amer 236 mL/min (>60); Estimated Creatinine Clearance 201.25 ml/min; Glucose 176 mg/dL (74-106); Potassium 3.8 mmol/L (3.5-5.1); Sodium Level 137 mmol/L (136-145)
[2021-05-29 22:40] LABS: Bedside Glucose 209 mg/dL (70-110)
[2021-05-29 23:41] LABS: Bedside Glucose 216 mg/dL (70-110)
[2021-05-30] VITALS (16 sets, daily range): BP systolic 85–116; BP diastolic 49–76; PULSE 72–96; RESP 15–22; TEMP 36.6–36.8; O2SAT 94–100
[2021-05-30 00:25] LABS: Bedside Glucose 195 mg/dL (70-110)
[2021-05-30 01:11] LABS: Anion Gap 8 (5-15); BUN 11 mg/dL (7-18); BUN/Creat Ratio 30.1 RATIO (10-20); Calcium,Total 6.2 mg/dL (8.5-10.1); Chloride 118 mmol/L (98-107); Creatinine, Serum 0.36 mg/dL (0.55-1.02); EST Glomerular Filtration Rate 238 mL/min (>60); Est Glom Filt Rate - Afr Amer 288 mL/min (>60); Estimated Creatinine Clearance 240.39 ml/min; Glucose 232 mg/dL (74-106); Potassium 3.3 mmol/L (3.5-5.1); Sodium Level 140 mmol/L (136-145)
[2021-05-30] MEDS: Potassium Chloride 10mEq/100mL 10 MEQ/100 ML IV.SOLN. 100 MEQ IV BOLUS ×4 (02:45→06:50)
[2021-05-30 04:45] LABS: Absolute Neutrophil Count 2.8 X10^3/uL (2.0-7.7); Basophil# 0.05 X10^3/uL; Basophil% 0.7 % (0-1); Eosinophil# 0.28 X10^3/uL; Eosinophils% 3.7 % (0-5); Hematocrit 37.7 % (37-47); Hemoglobin 13.1 g/dL (12.0-15.0); Lymphocyte % 50.8 % (19-41); Mean Corp Hgb Conc 34.7 g/dL (32-36); Mean Corpuscular Volume 83.6 fL (81-99); Mean Platelet Vol. 9.6 fl (6.2-12.0); Monocyte# 0.53 X10^3/uL; Monocyte% 7.1 % (0-10); NRBC Flagged by Analyzer 0 % (0-5); Neutrophil # 2.81 X10^3/uL (2.7-7.7); Neutrophil % 37.6 % (47-70); Platelet Count 310 K/mm3 (150-450); RBC Distribution Width CV 12.9 % (11.6-14.6); RBC Distribution Width SD 39.1 fl (35.1-43.9); Red Blood Count 4.51 M/mm3 (4.2-5.4); White Blood Count 7.5 K/mm3 (4.4-11.0)
[2021-05-30 05:11] LABS: Anion Gap 7 (5-15); BUN 12 mg/dL (7-18); BUN/Creat Ratio 32.6 RATIO (10-20); Calcium,Total 7.4 mg/dL (8.5-10.1); Chloride 114 mmol/L (98-107); Creatinine, Serum 0.37 mg/dL (0.55-1.02); EST Glomerular Filtration Rate 236 mL/min (>60); Est Glom Filt Rate - Afr Amer 285 mL/min (>60); Estimated Creatinine Clearance 233.89 ml/min; Glucose 152 mg/dL (74-106); Magnesium 1.9 mg/dL (1.6-2.6); Phosphorus 2.1 mg/dL (2.5-4.9); Sodium Level 138 mmol/L (136-145); Thyroid Stim Hormone (TSH) 0.99 uIU/mL (0.358-3.74)
[2021-05-30 05:31] LABS: Bedside Glucose 144 mg/dL (70-110)
[2021-05-30 06:50] LABS: Bedside Glucose 125 mg/dL (70-110)
[2021-05-30 06:50] LABS: Bedside Glucose 142 mg/dL (70-110)
[2021-05-30 08:51] LABS: Bedside Glucose 181 mg/dL (70-110)
[2021-05-30] MEDS: Insulin Lispro 100 UNIT/ML INSULN.PEN 18 UNIT SC (11:51)
[2021-05-30] MEDS: OXcarbazepine 150 MG Tablet 450 MG PO (11:52)
[2021-05-30 12:00] LABS: Bedside Glucose 341 mg/dL (70-110)
--- NOTE | 2021-05-30 12:21 | DS.PCM_ITS ---
Providers Date of Admission: 05/29/21 Primary Care Physician: Dr. Thalia Gallo MD Reason For Visit: DKA Diagnosis Discharge Diagnosis (1) DKA (diabetic ketoacidoses): Status: Acute Code(s): E11.10 - Type 2 diabetes mellitus with ketoacidosis without coma Qualifiers: Diabetes mellitus type: type 1 Diabetes mellitus complication detail: without coma Qualified Code(s): E10.10 - Type 1 diabetes mellitus with ketoacidosis without coma (2) Nausea: Status: Acute Code(s): R11.0 - Nausea (3) High anion gap metabolic acidosis: Status: Acute Code(s): E87.2 - Acidosis Medications at Discharge Home Medications blood sugar diagnostic #100 ea 11/24/20 blood-glucose meter #1 ea 11/24/20 pen needle, diabetic 32 gauge x 5/16 #200 ea 11/27/20 insulin lispro 18 unit SUBCUT TID 12/15/20 pen needle, diabetic 32 gauge x 5/32 #200 ea 03/11/21 prazosin 1 mg capsule 1 mg PO QHS 03/11/21 Lantus Solostar U-100 Insulin 38 unit SUBCUT DAILY 05/29/21 oxcarbazepine [Trileptal] 450 mg PO BID 05/29/21 trazodone 100 mg PO QHS 05/29/21 Hospital Course Operations None Procedures None Summary of Care Provided Minutes Spent on Discharge: 33 Hospital Course: RONA CHAU, is a 21 F who presented to the emergency department at [facility] on 05/29/2021 with a chief complaint of hyperglycemia. She reported on presentation that she felt like she was in DKA again. When asked why she feels she is in DKA she stated to the emergency de partment physician because I do not take care of myself. She stated that she does not regularly take her insulin as she does not like having hypoglycemic episodes. She stated she considers hypoglycemia under 70 and she states she feels very poorly. It sounded as if she does not take care of her self on a regular basis. She stated she had a recent psychiatric admission related to depression but would not go into depth any further. She denied any suicidal ideation upon admission. She did state she skips insulin doses a days at a time. She denied any recent illnesses or sick contacts. At this time she was complaining of indigestion and some nausea. Patient has had multiple admissions and feels that she is had at least 10 DKA admissions in the past year. Not all of them have been at this hospital and she reports that she goes here to [facility] and she is been [facility] as well. Vital signs in the emergency department showed tachycardia that is mild but are otherwise overall unremarkable. Her CBC showed mild erythrocytosis with a hemoglobin of 15.1. Her BMP showed hyponatremia although I suspect this is related to her hyperglycemia as she has a blood sugar of 490. Her serum bicarb was 12 and her anion gap is 19. Her renal function is normal at this time. Serum test was negative. Her UA showed protein, glucose, and ketones. She had a moderate acetone level. EKG showed mild sinus tach with no ST-T wave changes consistent with acute ischemia. VBG showed a pH of 7.33. She was initiated on fluids and an insulin drip in the emergency department and admitted to the intensive care unit. She was maintained on her insulin drip until she had closed her gap and her bicarb had normalized. At this time she was transitioned off of the insulin drip and IV fluids and a p.o. diet was started. Her home insulin regimen was reinitiated. Her nausea and dyspepsia had resolved. She ate without any difficulty and was able to be discharged home in stable condition on 05/30/2021. We did review with her the importance of compliance and the long-term complications that are associated with untreated or poorly treated diabetes. She is aware that she could have further issues with DKA or even as a result of noncompliance. Of note we did review her most recent hemoglobin A1c which was performed in March 2021 and it was greater than 14. I did not repeat one at this admission. We recommend she follow-up with her primary care physician in a week and recommend she follow-up with her food and beverage server within the next month. Discharge diagnoses: DKA-resolved Nausea-resolved Dyspepsia-resolved Anion gap metabolic acidosis-resolved DM-1 uncontrolled Bipolar disorder History of suicidal ideation with no current suicidal thoughts or plan Tobacco abuse Physical Exam Const alert, oriented x3 and no apparent distress Constitutional Narrative: Young white female lying in bed, appears comfortable, states she is feeling much better and anxious to go home, asking if she can eat as she is hungry General Appearance: cooperative, comfortable, well kempt and well developed Orientation / Consciousness: awake Exam Limitations: no limitations Nutritional Appearance: overweight HEENT normocephalic, head/scalp atraumatic, hearing grossly normal bilaterally and moist oral mucous membranes HEENT Narrative: Mallampati 2, no thrush, right nares piercing Eyes PERRL, EOMs intact bilaterally and conjunctivae normal Eyes Narrative: No scleral icterus Neck no lymphadenopathy, supple and no JVD Neck Narrative: He has midline no thyroid enlargement noted Resp normal respiratory effort, no retractions, no use of accessory muscles and clear to auscultation bilaterally Auscultation: Negative for crackles, rales, rhonchi or wheezes Cardio regular rate, regular rhythm, S1 normal heart sound, S2 normal heart sound, no murmurs, no rub, no gallops, no clicks and no JVD GI normal to inspection, nondistended, normoactive bowel sounds, soft to palpation, non-tender and non-distended Extremity normal to inspection and no clubbing, cyanosis or edema Skin no rashes or lesions noted, no wounds, skin turgor normal, no jaundice, no p etechiae and no mottling Neuro oriented x3, CN's II-XII intact bilaterally, moves all extremities and no focal motor deficits Sensorium / Orientation: awake and alert Motor Exam: strength 5/5 throughout Psych Psych Narrative: Flat affect Weight / BMI Weight Weight: 74.9 kg Body Mass Index (BMI) 25.3 ABG / Lab / Microbiology Data Result Diagrams: 05/30/21 04:25 05/30/21 04:25 Laboratory: Laboratory Results - last 24 hr 05/29/21 15:47: Acetone Level MODERATE H 05/29/21 15:47: Serum , Qual NEGATIVE 05/29/21 15:47: WBC 9.1, RBC 5.14, Hgb 15.1 H, Hct 43.0, MCV 83.7, MCH 29.4, MCHC 35.1, RDW Std Deviation 38.6, RDW Coeff of Mark 12.8, Plt Count 339, MPV 9.8, Immature Gran % (Auto) 0.200, Neut % (Auto) 59.3, Lymph % (Auto) 30.8, [place] % (Auto) 6.2, Eos % (Auto) 2.8, Baso % (Auto) 0.7, Absolute Neuts (auto) 5.4, Absolute Lymphs (auto) 2.80, Nucleated RBC % 0 05/29/21 15:47: Sodium 131 L, Potassium 4.3, Chloride 100, Carbon Dioxide 12.0 L , Anion Gap 19 H, BUN 13, Creatinine 0.67, Estim Creat Clear Calc 129.16, Est GFR (MDRD) Af Amer 143, Est GFR (MDRD) Non-Af 118, BUN/Creatinine Ratio 19.4, Glucose 490 H*, Calcium 8.8 05/29/21 15:47: Hemoglobin A1c 11.8 H 05/29/21 16:00: Urine Color Yellow, Urine Clarity Clear, Urine pH 5.0, Ur Specific [place] 1.020, Urine Protein 15 H, Urine Glucose (UA) 1000 H, Urine Ketones 150 A*, Urine Occult Blood Negative, Urine Nitrite Negative, Urine Bilirubin Negative, Urine Urobilinogen Normal, Ur Leukocyte Esterase Negative, Urine RBC 0 SEEN, Urine WBC 0-5 SEEN, Ur Squamous Epith Cells 0-5 SEEN, Urine Bacteria 0 SEEN, Hyaline Casts 0-5 SEEN, Fine Granular Casts 0-5 SEEN, Urine Mucus 1+ 05/29/21 16:43: POC Glucose 410 H 05/29/21 17:45: Sodium 135 L, Potassium 3.9, Chloride 106, Carbon Dioxide 12.0 L , Anion Gap 17 H, BUN 14, Creatinine 0.57, Estim Creat Clear Calc 151.82, Est GFR (MDRD) Af Amer 173, Est GFR (MDRD) Non-Af 143, BUN/Creatinine Ratio 24.7 H, Glucose 359 H, Calcium 8.0 L 05/29/21 18:30: POC Glucose 243 H 05/29/21 19:32: POC Glucose 161 H 05/29/21 21:00: Sodium 137, Potassium 3.8, Chloride 112 H, Carbon Dioxide 14.0 L , Anion Gap 11, BUN 14, Creatinine 0.43 L, Estim Creat Clear Calc 201.25, Est GFR (MDRD) Af Amer 236, Est GFR (MDRD) Non-Af 195, BUN/Creatinine Ratio 32.3 H, Glucose 176 H, Calcium 7.8 L 05/29/21 21:04: POC Glucose 160 H 05/29/21 22:33: POC Glucose 209 H 05/29/21 23:32: POC Glucose 216 H 05/30/21 00:20: Sodium 140, Potassium 3.3 L, Chloride 118 H, Carbon Dioxide 14.0 L, Anion Gap 8, BUN 11, Creatinine 0.36 L, Estim Creat Clear Calc 240.39, Est GFR (MDRD) Af Amer 288, Est GFR (MDRD) Non-Af 238, BUN/Creatinine Ratio 30.1 H, Glucose 232 H, Calcium 6.2 L* 05/30/21 00:20: POC Glucose 195 H 05/30/21 02:19: POC Glucose 144 H 05/30/21 04:25: WBC 7.5, RBC 4.51, Hgb 13.1, Hct 37.7, MCV 83.6, MCH 29.0, MCHC 34.7, RDW Std Deviation 39.1, RDW Coeff of Mark 12.9, Plt Count 310, MPV 9.6, Immature Gran % (Auto) 0.100, Neut % (Auto) 37.6 L, Lymph % (Auto) 50.8 H, [place] % (Auto) 7.1, Eos % (Auto) 3.7, Baso % (Auto) 0.7, Absolute Neuts (auto) 2.8, Absolute Lymphs (auto) 3.80, Nucleated RBC % 0 05/30/21 04:25: Sodium 138, Potassium 4.0, Chloride 114 H, Carbon Dioxide 17.0 L , Anion Gap 7, BUN 12, Creatinine 0.37 L, Estim Creat Clear Calc 233.89, Est GFR (MDRD) Af Amer 285, Est GFR (MDRD) Non-Af 236, BUN/Creatinine Ratio 32.6 H, Glucose 152 H, Calcium 7.4 L, Phosphorus 2.1 L, Magnesium 1.9, TSH 0.99 05/30/21 04:29: POC Glucose 125 H 05/30/21 05:30: POC Glucose 142 H 05/30/21 08:41: POC Glucose 181 H 05/30/21 11:50: POC Glucose 341 H ABG: ABG 05/29/21 16:38 Specimen Type HAN VBG pH 7.33 VBG pO2 126 H VBG HCO3 11 L VBG Total CO2 12 L VBG O2 Sat (Calc) 99 H VBG Base Excess -15 L POC Mix VBG pCO2 Pt Tmp 20.8 L D/C Instructions Discharge Diet: 1800 Calorie Control Diet Discharge Activity: Return to Normal Activity Return to work on: 05/30/21 Meaningful Use Info Meaningful Use Diagnoses (Choose all that apply): None applicable Discharge Plan Admission Admit Date/Time: 05/29/21 17:25 Primary Reason for Your Visit: Diabetic ketoacidosis Attending Provider: Rima Jordan Primary Care Provider: Thalia Gallo Discharge Orders/Prescriptions Prescriptions: Continued (DME) blood-glucose meter [True Metrix Glucose Meter] Misc See Rx Instructions .ROUTE .MEDSUPPLY Qty: 1 RF: 0 (DME) True Metrix Glucose Test Strip Strip See Rx Instructions .ROUTE .MEDSUPPLY Qty: 100 RF: 8 prazosin 1 mg capsule 1 mg PO QHS RF: 0 (DME) pen needle, diabetic [BD Ultra-Fine Erin Pen Needle] 32 gauge x 5/32 needle See Rx Instructions .ROUTE .MEDSUPPLY Qty: 200 RF: 3 insulin lispro 100 unit/mL Insulin Pen 18 unit SUBCUT TID RF: 0 trazodone 50 mg tablet 100 mg PO QHS RF: 0 oxcarbazepine [Trileptal] 300 mg Tablet 450 mg PO BID RF: 0 Lantus Solostar U-100 Insulin 100 unit/mL (3 mL) insulin pen 38 unit SUBCUT DAILY RF: 0 (DME) TechLITE Pen Needle 32 gauge x 5/16 needle See Rx Instructions .ROUTE .MEDSUPPLY Qty: 200 RF: 4 Referrals / Follow Up: Thalia Gallo MD [Primary Care Provider] - In 1 Week Moustapha Rush MD [STAFF PHYSICIAN] - Within 2 Weeks Disposition Disposition (needs filled in before D/C Order can be placed): Home, Self Care Charges/Coding Visit Charges Inpatient E&M: 17868 Disch Hosp
[2021-05-30 14:16] LABS: Bedside Glucose 146 mg/dL (70-110)
== END 2021-05-30 14:05 | disposition home or self-care (01) | DRG 420 ==
LOC: ED 17:10 → ICU 05-30 12:23
PROVIDERS: Admitting Provider Internal Medicine; Emergency Provider Emergency Medicine; PCP Internal Medicine; Visit Provider Internal Medicine
DX: E10.10 Type 1 diabetes mellitus with ketoacidosis without coma (principal); F41.9 Anxiety disorder, unspecified; F31.30 Bipolar disorder, current episode depressed, mild or moderate severity, unspecified; F17.210 Nicotine dependence, cigarettes, uncomplicated; Z28.21 Immunization not carried out because of patient refusal; Z79.4 Long term (current) use of insulin; Z79.899 Other long term (current) drug therapy; Z91.19 Patient's noncompliance with other medical treatment and regimen
CPT/HCPCS: 80048; 81001; 82009; 82803; 82962; 83036; 83735; 84100; 84443; 84703; 85025; 93005; 96365; 96366; 96375; 97802; 99218; 99284; 99406; J7030; A4216; G0378; J2405; J7799

== ENCOUNTER 2021-06-06 17:43 | Inpatient (IN) | payer MEDICAID, SELFPAY ==
[2021-06-06] VITALS (11 sets, daily range): BP systolic 102–149; BP diastolic 56–94; PULSE 90–116; RESP 16–26; TEMP 36.6–37.2; O2SAT 71–100; BMI 25.2; BMI 24.2
[2021-06-06 17:50] LABS: Bedside Glucose 344 mg/dL (70-110)
--- NOTE | 2021-06-06 17:50 | EKG12_ITS ---
Test Reason : Blood Pressure : / mmHG Vent. Rate : 112 BPM Atrial Rate : 112 BPM P-R Int : 134 ms QRS Dur : 080 ms QT Int : 394 ms P-R-T Axes : 067 071 045 degrees QTc Int : 537 ms Sinus tachycardia Right atrial enlargement Prolonged QT Abnormal ECG Confirmed by HENRIQUE IQBAL, MORIAH ([id number]), editor department SERGIO LEE ([id number]) on 06/07/2021 10:44:14 AM Referred By: MAREK Confirmed By:MORIAH DUENAS MD
--- NOTE | 2021-06-06 18:12 | EX.ED.DYSGE1 ---
HPI History of Present Illness Chief Complaint: Hyperglycemia Informant: patient Narrative Narrative: Patient is a 21-year-old female with history of type 1 diabetes mellitus, bipolar disorder and tobacco abuse presenting with concern for DKA. Patient states that she was just discharged from the hospital where she was treated for DKA. Chart review shows that she was admitted from 05/29-05/30. Patient states she does not have any insulin at home. She does not think she was sent home with any. She states she does not have a glucometer because her insurance will not fill for another 1 since she just got one in July of this year. She states that one is broken because she actually read it over with her car. She states she is been having abdominal pain has been in 24 hours. She has body cramping. States she feels short of breath. States this feels like her prior DKA episodes. Denies any new or different symptoms. No she does have a history of not taking her insulin as a way of self-harm but currently denies that. States that she does currently not feel suicidal or want to . Patient's blood sugar was 344 in the ER. [facility] Medical History Anxiety Bipolar 1 disorder, depressed Depression Type 1 diabetes mellitus Home Medications blood sugar diagnostic #100 ea 11/24/20 [Rx Last Taken Unknown] blood-glucose meter #1 ea 11/24/20 [Rx Last Taken Unknown] pen needle, diabetic 32 gauge x 5/16 #200 ea 11/27/20 [Rx Last Taken Unknown] insulin lispro 18 unit SUBCUT TID 12/15/20 [History Last Taken Unknown] pen needle, diabetic 32 gauge x 5/32 #200 ea 03/11/21 [Rx Last Taken Unknown] prazosin 1 mg capsule 1 mg PO QHS 03/11/21 [History Last Taken Unknown] Lantus Solostar U-100 Insulin 38 unit SUBCUT DAILY 05/29/21 [History Last Taken Unknown] oxcarbazepine [Trileptal] 450 mg PO BID 05/29/21 [History Last Taken Unknown] trazodone 100 mg PO QHS 05/29/21 [History Last Taken Unknown] Allergy/AdvReac Type Severity Reaction Status Date / Time amoxicillin Allergy Hives Verified 06/06/21 17:49 Sulfa (Sulfonamide Allergy Hives Verified 06/06/21 17:49 Antibiotics) tomato Allergy Hives Verified 06/06/21 17:49 Family History Grandmother Diabetes Father Respiratory disease Uncle Respiratory disease Aunt Respiratory disease Social History Smoking Status: Current every day smoker tobacco type: cigarettes and e-cigarettes Tobacco: How many years used: 1 alcohol intake: never substance use type: does not use what type of physical activity do you participate in: walking frequency: daily ROS ROS ED Constitutional Constitutional ED: Reports chills; Denies fever(s) Eyes Eyes: Denies change in vision ENT ENT ED: Denies rhinorrhea Cardiovascular Cardiovascular: Reports chest pain; Denies palpitations Respiratory/Chest Respiratory/Chest: Reports dyspnea Gastrointestinal Gastrointestinal: Reports abdominal pain and nausea Musculoskeletal Musculoskeletal: Reports arthralgias and myalgias Integumentary Denies rash Neurologic Neurologic: Reports headache(s) and weakness Psychiatric Psychiatric: Reports depression; Denies suicidal ideation or suicidal thoughts EXAM Physical Exam Const Vital Signs: 06/06/21 17:45 Temperature 97.9 F Temperature Source Oral Pulse Rate 116 H Respiratory Rate 16 Blood Pressure 149/94 H Blood Pressure Mean 112 Pulse Ox 99 Oxygen Delivery Method Room Air Positive well nourished and well developed General Appearance ED: well developed and NAD HEENT Reports dry mucous membranes Negative for tenderness Mouth ED: Yes dry mucous membranes Mouth: dry mucous membranes Eyes PERRL and EOMs intact bilaterally Neck supple Chest Wall inspection of chest normal Resp normal respiratory effort and clear to auscultation bilaterally Cardio regular rhythm Rate: tachycardic GI normal to inspection, nondistended, normoactive bowel sounds and non-tender Extremity normal to inspection General Extremety ED: Negative for edema or tenderness General Extremity: Negative for edema Neuro oriented x3 Sensorium / Orientation: alert Motor Exam: general weakness Psych mental status grossly normal Mood & Affect: depressed Skin no rashes or lesions noted and no wounds MDM MDM MDM Narrative Medical decision making narrative: Patient is evaluated for concern for DKA. She is having abdominal pain, chest pain and multiple other complaints which she associates with her being in DKA. She is been noncompliant with her insulin stating that she does not have it in order to take. She was actually just admitted last week for DKA as well. Patient is found to have an elevated anion gap metabolic acidosis with moderate ketones and an elevated glucose. She has a potassium 4.0. Patient is given 2 L of IV fluid and potassium replacement. Will not start insulin drip until potassium can be replaced. Patient admitted to ICU for further management of her DKA. Lab Data Attestation: I reviewed the patient's lab results. Labs: Laboratory Results - last 24 hr 06/06/21 06/06/21 06/06/21 17:48 18:23 18:23 WBC 10.4 RBC 5.63 H Hgb 16.4 H Hct 49.1 H MCV 87.2 MCH 29.1 MCHC 33.4 RDW Std Deviation 41.5 RDW Coeff of Mark 13.1 Plt Count 385 MPV 9.3 Immature Gran % (Auto) 0.500 Neut % (Auto) 62.6 Lymph % (Auto) 28.9 [place] % (Auto) 6.0 Eos % (Auto) 1.2 Baso % (Auto) 0.8 Absolute Neuts (auto) 6.5 Absolute Lymphs (auto) 3.02 Nucleated RBC % 0 Sodium 134 L Potassium 4.0 Chloride 105 Carbon Dioxide 7.0 L* Anion Gap 22 H BUN 15 Creatinine 0.76 Estim Creat Clear Calc 113.87 Est GFR (MDRD) Af Amer 124 Est GFR (MDRD) Non-Af 102 BUN/Creatinine Ratio 19.8 Glucose 347 H Calcium 8.6 Phosphorus 3.3 Magnesium 1.9 Acetone Level POC Glucose 344 H 06/06/21 06/06/21 18:23 18:46 WBC RBC Hgb Hct MCV MCH MCHC RDW Std Deviation RDW Coeff of Mark Plt Count MPV Immature Gran % (Auto) Neut % (Auto) Lymph % (Auto) [place] % (Auto) Eos % (Auto) Baso % (Auto) Absolute Neuts (auto) Absolute Lymphs (auto) Nucleated RBC % Sodium Potassium Chloride Carbon Dioxide Anion Gap BUN Creatinine Estim Creat Clear Calc Est GFR (MDRD) Af Amer Est GFR (MDRD) Non-Af BUN/Creatinine Ratio Glucose Calcium Phosphorus Magnesium Acetone Level MODERATE H POC Glucose 292 H Critical Care Time Critical Care Time: Yes Critical care time (excluding procedures): 30-74 minutes (35), Arranging Admission or Transfer and - (Chart review. Interpretation of diagnostic results) Discharge Plan Dx/Rx/DC Orders Clinical Impression: Noncompliance, DKA (diabetic ketoacidoses), Hyperglycemia due to type 1 diabetes mellitus Disposition Disposition: Acute Care Hospital [facility] Discharge Date/Time: 06/06/21 20:18
[2021-06-06] MEDS: 0.9% Normal Saline 1,000 ML 999 ML IV ×2 (18:33→19:53)
[2021-06-06 18:34] LABS: Absolute Lymphocyte Count 3.02 X10^3/uL (0.83-4.51); Absolute Neutrophil Count 6.5 X10^3/uL (2.0-7.7); Basophil# 0.08 X10^3/uL; Basophil% 0.8 % (0-1); Eosinophil# 0.13 X10^3/uL; Eosinophils% 1.2 % (0-5); Hematocrit 49.1 % (37-47); Hemoglobin 16.4 g/dL (12.0-15.0); Lymphocyte # 3.02 X10^3/ul (0.83-4.51); Lymphocyte % 28.9 % (19-41); Mean Corp Hgb Conc 33.4 g/dL (32-36); Mean Corpuscular Hgb 29.1 pg (27.0-32.0); Mean Corpuscular Volume 87.2 fL (81-99); Mean Platelet Vol. 9.3 fl (6.2-12.0); Monocyte# 0.63 X10^3/uL; NRBC Flagged by Analyzer 0 % (0-5); Neutrophil # 6.53 X10^3/uL (2.7-7.7); Neutrophil % 62.6 % (47-70); Platelet Count 385 K/mm3 (150-450); RBC Distribution Width CV 13.1 % (11.6-14.6); RBC Distribution Width SD 41.5 fl (35.1-43.9); Red Blood Count 5.63 M/mm3 (4.2-5.4); White Blood Count 10.4 K/mm3 (4.4-11.0)
[2021-06-06 18:51] LABS: Bedside Glucose 292 mg/dL (70-110)
[2021-06-06 19:02] LABS: Anion Gap 22 (5-15); BUN 15 mg/dL (7-18); BUN/Creat Ratio 19.8 RATIO (10-20); Calcium,Total 8.6 mg/dL (8.5-10.1); Chloride 105 mmol/L (98-107); Creatinine, Serum 0.76 mg/dL (0.55-1.02); EST Glomerular Filtration Rate 102 mL/min (>60); Est Glom Filt Rate - Afr Amer 124 mL/min (>60); Estimated Creatinine Clearance 113.87 ml/min; Glucose 347 mg/dL (74-106); Magnesium 1.9 mg/dL (1.6-2.6); Phosphorus 3.3 mg/dL (2.5-4.9); Sodium Level 134 mmol/L (136-145)
--- NOTE | 2021-06-06 19:29 | PCM.HP.STD ---
HPI - General General Date of Admission: 06/06/21 HPI Narrative RONA CHAU, is a 21 F with history of type 1 diabetes mellitus and recurrent admission about 10 times for DKA in last 1 year came to ED for similar complaint of abdominal pain/cramps, headache, generalized distress, body ache, nausea, loss of appetite for about 2 days. Patient was last discharged on 05/30 after similar complaint. Patient has known history of nonadherence and states she does not have insulin at home. Patient symptoms started yesterday morning and has not eaten or drinking for 24 hours. Complain of severe headache 04/11 with photophobia. Denies chronic headache including migraine, trigeminal neuralgia or others. Patient also history of bipolar 1 disorder depression but denies suicidal ideation. She is not able to give detailed history and he states everyone asking same question and gets irritable. Detailed history is limited by irritable mood, headache and behavior problem. [facility] Medical History Anxiety Bipolar 1 disorder, depressed Depression Type 1 diabetes mellitus Home Medications blood sugar diagnostic #100 ea 11/24/20 [Rx Last Taken Unknown] blood-glucose meter #1 ea 11/24/20 [Rx Last Taken Unknown] pen needle, diabetic 32 gauge x 5/16 #200 ea 11/27/20 [Rx Last Taken Unknown] insulin lispro 18 unit SUBCUT TID 12/15/20 [History Last Taken Unknown] pen needle, diabetic 32 gauge x 5/32 #200 ea 03/11/21 [Rx Last Taken Unknown] prazosin 1 mg capsule 1 mg PO QHS 03/11/21 [History Last Taken Unknown] Lantus Solostar U-100 Insulin 38 unit SUBCUT DAILY 05/29/21 [History Last Taken Unknown] oxcarbazepine [Trileptal] 450 mg PO BID 05/29/21 [History Last Taken Unknown] trazodone 100 mg PO QHS 05/29/21 [History Last Taken Unknown] Allergy/AdvReac Type Severity Reaction Status Date / Time amoxicillin Allergy Hives Verified 06/06/21 17:49 Sulfa (Sulfonamide Allergy Hives Verified 06/06/21 17:49 Antibiotics) tomato Allergy Hives Verified 06/06/21 17:49 Family History Grandmother Diabetes Father Respiratory disease Uncle Respiratory disease Aunt Respiratory disease Social History Smoking Status: Current every day smoker tobacco type: cigarettes and e-cigarettes Tobacco: How many years used: 1 alcohol intake: never substance use type: does not use what type of physical activity do you participate in: walking frequency: daily ROS ROS Narrative Detailed ROS limited as patient is irritable and does not provide detail ROS. Significant headache Bipolar 1 disorder, impulsive behavior Dehydrated. Loss of appetite. Dark-colored urine. Denies fever, burning micturition or dysuria or new lower urinary tract symptoms Rest as mentioned in HPI Vital Signs Vital Signs Vital Signs: 06/06/21 17:45 Temperature 97.9 F Temperature Source Oral Pulse Rate 116 H Respiratory Rate 16 Blood Pressure 149/94 H Blood Pressure Mean 112 Pulse Ox 99 Oxygen Delivery Method Room Air Weight Weight: 161 lb 2.526 oz Body Mass Index (BMI) 25.2 Physical Exam Narrative General: Alert, Oriented x3, irritable, noncooperative HEENT: No scalp tenderness. Headache. Atraumatic, PERRLA, EOMI, Normocephalic Oral: No Gingival or Mucosal Lesions/ Ulcerations Neck: Oral mucosa dry. Supple, No JVD, Negative Carotid Bruits Lungs: Air entry diminished in bilateral lung bases. No crepitation/rhonchi Cardiovascular: Sinus tachycardia, Normal S1, Normal S2, No murmurs Abdomen: Bowel Sounds Present, Soft, Non Tender, Non-Distended : No renal angle tenderness. No suprapubic tenderness. Extremities: No edema, Capillary Refill Less than 3 Seconds Skin: No rashes, No breakdown Musculoskeletal: No Tenderness to Palpation of Joints or Extremities Neurological: Cranial nerves II-XII grossly intact, DTR 2+/4 Psych/Mental Status: Irritable, yelling, agitated. Results Lab / Micro Data Result Diagrams: 06/06/21 18:23 06/06/21 23:11 Labs: Laboratory Results - last 24 hr 06/06/21 17:48: POC Glucose 344 H 06/06/21 18:23: WBC 10.4, RBC 5.63 H, Hgb 16.4 H, Hct 49.1 H, MCV 87.2, MCH 29.1, MCHC 33.4, RDW Std Deviation 41.5, RDW Coeff of Mark 13.1, Plt Count 385, MPV 9.3, Immature Gran % (Auto) 0.500, Neut % (Auto) 62.6, Lymph % (Auto) 28.9, [place] % (Auto) 6.0, Eos % (Auto) 1.2, Baso % (Auto) 0.8, Absolute Neuts (auto) 6.5, Absolute Lymphs (auto) 3.02, Nucleated RBC % 0 06/06/21 18:23: Sodium 134 L, Potassium 4.0, Chloride 105, Carbon Dioxide 7.0 L*, Anion Gap 22 H, BUN 15, Creatinine 0.76, Estim Creat Clear Calc 113.87, Est GFR (MDRD) Af Amer 124, Est GFR (MDRD) Non-Af 102, BUN/Creatinine Ratio 19.8, Glucose 347 H, Calcium 8.6, Phosphorus 3.3, Magnesium 1.9 06/06/21 18:23: Acetone Level MODERATE H 06/06/21 18:46: POC Glucose 292 H Assessment & Plan Assessment/Plan (1) DKA (diabetic ketoacidoses): QUALIFIERS: Diabetes mellitus complication detail: without coma Diabetes mellitus type: type 1 Qualified Code(s): E10.10 - Type 1 diabetes mellitus with ketoacidosis without coma PLAN: 1. DKA with type 1 diabetes mellitus mainly due to nonadherence with high anion gap metabolic acidosis: Patient is being admitted in ICU. Patient on second liter of IV normal saline bolus. Start regular insulin drip. IV fluid and insulin drip titration as per DKA protocol. Anion gap 22, bicarb in BMP 7.0. Venous blood gas ordered. Serum sodium 134, potassium 4.0. Glucose 347. Magnesium and phosphorus in normal limit. 2. Hypertonic hypovolemic hypoglycemia secondary to DKA and mild hypokalemia: Corrected sodium is 137. Replace IV fluid normal saline. Patient refused for IV KCl bolus. Potassium added in IV fluid. When oral is allowed, can supplement oral potassium 3. Diabetes mellitus, type I uncontrolled: Most recent A1c was greater than 14. manager document consult to ensure insulin refill. Arrange patient follow-up with drug enforcement administration agent after discharge DM-1 uncontrolled 4. History of bipolar disorder: Continue tramadol and trazodone. Currently patient denies suicidal ideation. 5. Chronic nicotine use/cigarette smoking: On nicotine patch 6. VT prophylaxis mainly due to dehydration and DKA: Lovenox 40 mg subcu daily. DVT prophylaxis -Lovenox daily Full code Charges/Coding Visit Charges Inpatient E&M: 86454 Init Hosp L3
[2021-06-06 19:52] LABS: Bacteria 0 SEEN /hpf (None Seen); Mucous, Urine 0 SEEN /hpf (<or=2+)
[2021-06-06] MEDS: Ketorolac 15 MG/ML Vial IV (19:52)
[2021-06-06 19:57] LABS: Color, Urine Yellow (Yellow); Glucose, Dipstick 1000 mg/dl (Normal); Leukocyte Esterase-Dipstick Negative /ul (Negative); Nitrite-Dipstick Negative (Negative); Occult Blood-Urine 10 /ul (Negative); Protein-Dipstick 30 mg/dl (Negative); Specific Gravity, Urine 1.025 (1.002-1.030); Urine Bilirubin Dipstick Negative (Negative); Urine Clarity Clear (Clear); Urine Urobilinogen Normal (Normal)
[2021-06-06 20:01] LABS: Internal QC Validated? YES +Cl - CLEAR BKGD; Pregnancy, Urine Negative Negative
[2021-06-06 20:22] LABS: Anion Gap 18 (5-15); BUN 14 mg/dL (7-18); BUN/Creat Ratio 19.6 RATIO (10-20); Calcium,Total 7.9 mg/dL (8.5-10.1); Chloride 108 mmol/L (98-107); Creatinine, Serum 0.72 mg/dL (0.55-1.02); EST Glomerular Filtration Rate 109 mL/min (>60); Est Glom Filt Rate - Afr Amer 132 mL/min (>60); Estimated Creatinine Clearance 120.19 ml/min; Glucose 302 mg/dL (74-106); Potassium 3.9 mmol/L (3.5-5.1); Sodium Level 135 mmol/L (136-145)
[2021-06-06 20:30] LABS: Ketone-Dipstick 150 mg/dl (Negative)
[2021-06-06 20:32] LABS: Fine Granular Cast- Urine 0-5 SEEN /lpf (0-5); Hyaline Cast 0-5 SEEN /lpf (0-5)
[2021-06-06 20:33] LABS: Squamous Epithelial Cells - UA 0-5 SEEN /hpf (5-10)
[2021-06-06 20:34] LABS: Red Blood Cells-Urine 0-5 SEEN /hpf (0-5); White Blood Cells 0-5 SEEN /hpf (0-5)
[2021-06-06 20:35] LABS: Yeast-Urine RARE /hpf (None Seen)
[2021-06-06 22:00] LABS: Bedside Glucose 250 mg/dL (70-110)
[2021-06-06] MEDS: Enoxaparin 40 MG/0.4 ML Syringe SC (22:49)
[2021-06-06 23:11] LABS: Bedside Glucose 154 mg/dL (70-110)
[2021-06-06 23:21] LABS: Blood Gas Specimen Type VEN; VBG BASE EXCESS -20 mmol/L (-1.0-3.5); VBG Bicarbonate 8 mmol/L (22-26); VBG PO2 75 mmHg (25-40); VBG SO2 92 % (50-70); VBG TCO2 9 mmol/L (23-33); VBG pCO2 19.6 mmHg (41-51); VBG pH 7.21 (7.32-7.42)
[2021-06-06 23:57] LABS: Anion Gap 16 (5-15); BUN 14 mg/dL (7-18); Calcium,Total 7.6 mg/dL (8.5-10.1); Chloride 115 mmol/L (98-107); Creatinine, Serum 0.58 mg/dL (0.55-1.02); EST Glomerular Filtration Rate 139 mL/min (>60); Est Glom Filt Rate - Afr Amer 168 mL/min (>60); Estimated Creatinine Clearance 143.63 ml/min; Glucose 166 mg/dL (74-106); Potassium 3.4 mmol/L (3.5-5.1); Sodium Level 139 mmol/L (136-145)
[2021-06-07] VITALS (11 sets, daily range): BP systolic 111–130; BP diastolic 58–82; PULSE 87–103; RESP 13–23; TEMP 36.3–36.8; O2SAT 100
[2021-06-07 03:06] LABS: Bedside Glucose 117 mg/dL (70-110)
[2021-06-07 03:06] LABS: Bedside Glucose 124 mg/dL (70-110)
[2021-06-07 03:06] LABS: Bedside Glucose 95 mg/dL (70-110)
[2021-06-07 03:23] LABS: Absolute Lymphocyte Count 5.17 X10^3/uL (0.83-4.51); Absolute Neutrophil Count 3.9 X10^3/uL (2.0-7.7); Basophil# 0.08 X10^3/uL; Basophil% 0.8 % (0-1); Eosinophil# 0.31 X10^3/uL; Hematocrit 41.6 % (37-47); Hemoglobin 13.9 g/dL (12.0-15.0); Lymphocyte # 5.17 X10^3/ul (0.83-4.51); Mean Corp Hgb Conc 33.4 g/dL (32-36); Mean Corpuscular Hgb 28.7 pg (27.0-32.0); Mean Corpuscular Volume 85.8 fL (81-99); Mean Platelet Vol. 9.2 fl (6.2-12.0); Monocyte# 0.79 X10^3/uL; Monocyte% 7.6 % (0-10); NRBC Flagged by Analyzer 0 % (0-5); Neutrophil # 3.93 X10^3/uL (2.7-7.7); POSITIVE DIFFERENTIAL YES; Platelet Count 321 K/mm3 (150-450); RBC Distribution Width CV 13.1 % (11.6-14.6); RBC Distribution Width SD 40.7 fl (35.1-43.9); Red Blood Count 4.85 M/mm3 (4.2-5.4); White Blood Count 10.3 K/mm3 (4.4-11.0)
[2021-06-07 03:54] LABS: Differential Indicated SCAN CRITERIA MET
[2021-06-07 04:10] LABS: Anion Gap 12 (5-15); BUN 15 mg/dL (7-18); BUN/Creat Ratio 26.6 RATIO (10-20); Calcium,Total 7.8 mg/dL (8.5-10.1); Chloride 116 mmol/L (98-107); Creatinine, Serum 0.56 mg/dL (0.55-1.02); EST Glomerular Filtration Rate 144 mL/min (>60); Est Glom Filt Rate - Afr Amer 174 mL/min (>60); Estimated Creatinine Clearance 148.76 ml/min; Glucose 142 mg/dL (74-106); Magnesium 1.7 mg/dL (1.6-2.6); Potassium 3.9 mmol/L (3.5-5.1); Sodium Level 140 mmol/L (136-145)
[2021-06-07 05:25] LABS: Bedside Glucose 143 mg/dL (70-110)
[2021-06-07 05:25] LABS: Bedside Glucose 164 mg/dL (70-110)
[2021-06-07 05:25] LABS: Bedside Glucose 106 mg/dL (70-110)
[2021-06-07] MEDS: Dextrose 50%-Water 25 GM/50 ML DISP.SYRIN IV (07:25)
[2021-06-07 07:50] LABS: Bedside Glucose 83 mg/dL (70-110)
[2021-06-07 07:50] LABS: Bedside Glucose 57 mg/dL (70-110)
[2021-06-07 07:50] LABS: Bedside Glucose 179 mg/dL (70-110)
[2021-06-07 08:16] LABS: Anion Gap 8 (5-15); BUN 15 mg/dL (7-18); BUN/Creat Ratio 28.6 RATIO (10-20); Calcium,Total 7.9 mg/dL (8.5-10.1); Chloride 118 mmol/L (98-107); Creatinine, Serum 0.52 mg/dL (0.55-1.02); EST Glomerular Filtration Rate 157 mL/min (>60); Est Glom Filt Rate - Afr Amer 190 mL/min (>60); Estimated Creatinine Clearance 160.21 ml/min; Glucose 166 mg/dL (74-106); Potassium 3.8 mmol/L (3.5-5.1); Sodium Level 140 mmol/L (136-145)
[2021-06-07 09:11] LABS: Bedside Glucose 78 mg/dL (70-110)
[2021-06-07] MEDS: Pantoprazole Sodium 40 MG Tablet PO (09:41)
[2021-06-07 09:52] LABS: Bedside Glucose 152 mg/dL (70-110)
--- NOTE | 2021-06-07 09:55 | CASEMGMT ---
PETEY GREGORY Face to Face with patient for initial transition planning/care coordination assessment. PETEY GREGORY introduced self and role at [facility]. Patient lying in bed, alert and oriented. Patient willing to participate in assessment and is able to answer all questions appropriately. Care providers, pharmacy, and demographics verified. Patient wishes to discharge home, denies need for home health at this time. Patient states she has no further needs or concerns at this time. CM to follow for discharge planning needs that may arise. PCP: Joshua Specialists: [facility], last seen 03/11/21 Preferred Pharmacy: [facility] Insurance: Ji Prescription Benefit: yes Living Will/HPOA: none LNOK: father Living Arrangements: Patient lives with 3 roommate in a 2 story home. Patient is independent and able to ambulate stairs. Transportation:public, patient states she has missed appts due to not having transportation. Updated regarding taxi vouchers through insurance and [facility] van DME/HHC: Patietn states she has testing strips but no glucometer. Patient states her glucometer was broken and insurance will not pay for another till after the first of the year. PETEY GREGORY updated patient regarding over the count glucometer at [facility]. Patient states she needs pen needles and insulin as well. Disposition Plan: Patient to discharge home with follow-up plans in place. Yesica PARKER, RN, CM
[2021-06-07 10:54] LABS: Phosphorus 1.6 mg/dL (2.5-4.9)
--- NOTE | 2021-06-07 11:00 | CASEMGMT ---
PETEY GREGORY called Dr. Rush's office to schedule follow-up appt. had cancellation for tomorrow at 1400. Appt also scheduled with PCP Dr. Luevano at 1300. PETEY GREGORY updated patient patient states she has work and PETEY GERGORY explained to patient to update employer that she was in the hospital and has follow-up appts and request to be late to work. Patient voiced understanding and stated she would go to follow-up appts. Patient states that she does not have transportation to appt. PETEY GREGORY called [facility] Van transport but not times available. PETEY GREGORY called [facility] and spoke to Case Management. Patient is not established with CM at [facility] and this RN COLT requested that patient be established with CM at [facility]. Ji CM to be reaching out to patient in 7-10 days. PETEY GREGORY also arranged for transport through [facility] to take to appointment on 06/08/21. PETEY GREGORY updated patient regarding appts, transportation, and Ji CM. Patient voiced understanding. PETEY GREGORY updated discharge plan with transport information and appts.
--- NOTE | 2021-06-07 11:24 | CASEMGMT ---
Social Work SW met w/pt, provided to her a letter stating she is here in the hospital and has medical appointments tomorrow, explained to pt she can give this to her employer. Pt wants to get out of the hospital today in time to get to work at 2pm. SW explained does not know if she will be discharged in time or not. SW also asked pt about her mental health, pt states is doing fine. SW spoke w/pt about counseling, pt is not in counseling. Pt declined any referral information on counseling. Pt is taking medications, SW inquired who prescribes the meds. Pt states she just gets them from the hospital. SW suggested to pt to follow up w/psychiatry at [facility], pt declined. Pt does have an appointment set up with her PCP by CM for tomorrow. SW suggested to pt to speak w/PCP about his prescribing her medications. Pt states understanding. No further needs at this time, pt home today. RYAN Beckham
[2021-06-07] MEDS: Insulin Lispro 100 UNIT/ML INSULN.PEN 24 UNIT SC (11:30)
[2021-06-07] MEDS: Insulin Lispro 100 UNIT/ML INSULN.PEN SC (11:30)
[2021-06-07 11:35] LABS: Bedside Glucose 217 mg/dL (70-110)
--- NOTE | 2021-06-07 12:44 | PCM.DC ---
Discharge Instructions Diet Discharge Diet: 1800 Calorie Control Diet Follow Up Care Test Results: Test results from this visit will be discussed in further detail at your follow-up appointment, if applicable. Discharge Plan Admission Admit Date/Time: 06/06/21 19:19 Primary Reason for Your Visit: DKA Attending Provider: David Ortega Primary Care Provider: Thalia Gallo Instructions Additional Instructions / Restrictions: If you are having issues with transportation for appointments you can call [employer] transportation services at [phone]. You may also schedule transportation though [facility] at [phone] or request the Hospital Van when you schedule your appointments with Dr. Luevano or Dr. Rush. You were also setup with a returned case inspector through [employer] and they will be reaching out to you in 7-10 days to see how they can assist you. Discharge Orders/Prescriptions Prescriptions: New insulin lispro [Humalog KwikPen Insulin] 100 unit/mL Insulin Pen 24 unit subcut TIDCM Qty: 15 RF: 0 Continued (DME) blood-glucose meter [True Metrix Glucose Meter] [facility] [place] See Rx Instructions .ROUTE .MEDSUPPLY Qty: 1 RF: 0 prazosin 1 mg capsule 1 mg PO QHS RF: 0 trazodone 50 mg tablet 100 mg PO QHS RF: 0 oxcarbazepine [Trileptal] 300 mg Tablet 450 mg PO BID RF: 0 (DME) True Metrix Glucose Test Strip Strip See Rx Instructions .ROUTE .MEDSUPPLY Qty: 100 RF: 8 Lantus Solostar U-100 Insulin 100 unit/mL (3 mL) insulin pen 38 unit SUBCUT DAILY Qty: 15 RF: 0 (DME) pen needle, diabetic [BD Ultra-Fine Erin Pen Needle] 32 gauge x 5/32 needle See Rx Instructions .ROUTE .MEDSUPPLY Qty: 200 RF: 3 (DME) TechLITE Pen Needle 32 gauge x 5/16 needle See Rx Instructions .ROUTE .MEDSUPPLY Qty: 200 RF: 4 Discontinued insulin lispro 100 unit/mL Insulin Pen 18 unit SUBCUT TID RF: 0 Referrals / Follow Up: Thalia Gallo MD [Primary Care Provider] - 06/08/21 1:00 pm Moustapha Rush MD [STAFF PHYSICIAN] - 06/08/21 2:00 pm Disposition Disposition (needs filled in before D/C Order can be placed): Home, Self Care
--- NOTE | 2021-06-07 12:48 | DS.PCM_ITS ---
Providers Date of Admission: 06/06/21 Primary Care Physician: Dr. Thalia Gallo MD Reason For Visit: DKA Diagnosis Discharge Diagnosis (1) DKA (diabetic ketoacidoses): Status: Resolved Code(s): E11.10 - Type 2 diabetes mellitus with ketoacidosis without coma Qualifiers: Diabetes mellitus type: type 1 Diabetes mellitus complication detail: without coma Qualified Code(s): E10.10 - Type 1 diabetes mellitus with ketoacidosis without coma Medications at Discharge Home Medications blood-glucose meter #1 ea 11/24/20 pen needle, diabetic 32 gauge x 5/16 #200 ea 11/27/20 prazosin 1 mg capsule 1 mg PO QHS 03/11/21 oxcarbazepine [Trileptal] 450 mg PO BID 05/29/21 trazodone 100 mg PO QHS 05/29/21 Lantus Solostar U-100 Insulin 38 unit SUBCUT DAILY #15 ml 06/07/21 True Metrix Glucose Test Strip #100 ea 06/07/21 insulin lispro [Humalog KwikPen Insulin] 24 unit SUBCUT TIDCM #15 ml 06/07/21 pen needle, diabetic [BD Ultra-Fine Erin Pen Needle] #200 ea 06/07/21 Hospital Course Operations None Procedures None Summary of Care Provided Minutes Spent on Discharge: 32 Hospital Course: 21-year-old female presents with with abdominal pain and cramps. Patient was found to be in diabetic ketoacidosis. Patient started on insulin drip. Patient anion gap resolved patient was resumed on her home regimen insulin. When asked seeing the patient if she stopped taking medication she says she did because she ran out. She said that she would need a refill. She denies any suicide attempt in regards to not taking her insulin. Patient will receive prescription to her pharmacy for her insulin as well as testing supplies. Patient does have a history of noncompliance. Patient will have an appointment with Dr. Gallo as well as Dr. Rush on the seventh. Physical Exam Const alert and no apparent distress Resp normal respiratory effort, no retractions, no use of accessory muscles and clear to auscultation bilaterally Cardio regular rate, regular rhythm, S1 normal heart sound and S2 normal heart sound GI normal to inspection, nondistended, normoactive bowel sounds, soft to palpation, non-tender and non-distended Extremity normal to inspection Weight / BMI Weight Weight: 71.2 kg Body Mass Index (BMI) 24.2 ABG / Lab / Microbiology Data Result Diagrams: 06/07/21 03:00 06/07/21 07:45 Laboratory: Laboratory Results - last 24 hr 06/06/21 17:48: POC Glucose 344 H 06/06/21 18:23: WBC 10.4, RBC 5.63 H, Hgb 16.4 H, Hct 49.1 H, MCV 87.2, MCH 29.1, MCHC 33.4, RDW Std Deviation 41.5, RDW Coeff of Mark 13.1, Plt Count 385, MPV 9.3, Immature Gran % (Auto) 0.500, Neut % (Auto) 62.6, Lymph % (Auto) 28.9, [place] % (Auto) 6.0, Eos % (Auto) 1.2, Baso % (Auto) 0.8, Absolute Neuts (auto) 6.5, Absolute Lymphs (auto) 3.02, Nucleated RBC % 0 06/06/21 18:23: Sodium 134 L, Potassium 4.0, Chloride 105, Carbon Dioxide 7.0 L* , Anion Gap 22 H, BUN 15, Creatinine 0.76, Estim Creat Clear Calc 113.87, Est GFR (MDRD) Af Amer 124, Est GFR (MDRD) Non-Af 102, BUN/Creatinine Ratio 19.8, Glucose 347 H, Calcium 8.6, Phosphorus 3.3, Magnesium 1.9 06/06/21 18:23: Acetone Level MODERATE H 06/06/21 18:46: POC Glucose 292 H 06/06/21 19:40: Sodium 135 L, Potassium 3.9, Chloride 108 H, Carbon Dioxide 9.0 L*, Anion Gap 18 H, BUN 14, Creatinine 0.72, Estim Creat Clear Calc 120.19, Est GFR (MDRD) Af Amer 132, Est GFR (MDRD) Non-Af 109, BUN/Creatinine Ratio 19.6, Glucose 302 H, Calcium 7.9 L 06/06/21 19:45: Urine Color Yellow, Urine Clarity Clear, Urine pH 5.0, Ur Specific [place] 1.025, Urine Protein 30 H, Urine Glucose (UA) 1000 H, Urine Ketones 150 A*, Urine Occult Blood 10 H, Urine Nitrite Negative, Urine Bilirubin Negative, Urine Urobilinogen Normal, Ur Leukocyte Esterase Negative, Urine RBC 0-5 SEEN, Urine WBC 0-5 SEEN, Ur Squamous Epith Cells 0-5 SEEN, Urine Bacteria 0 SEEN, Hyaline Casts 0-5 SEEN, Fine Granular Casts 0-5 SEEN, Urine Mucus 0 SEEN, Urine Yeast RARE, Urine Test Negative 06/06/21 21:54: POC Glucose 250 H 06/06/21 22:00: Sodium Cancelled, Potassium Cancelled, Chloride Cancelled, Carbon Dioxide Cancelled, Anion Gap Cancelled, BUN Cancelled, Creatinine Cancelled, Estim Creat Clear Calc Cancelled, Est GFR (MDRD) Af Amer Cancelled, Est GFR (MDRD) Non-Af Cancelled, BUN/Creatinine Ratio Cancelled, Glucose Cancelled, Calcium Cancelled 06/06/21 23:02: POC Glucose 154 H 06/06/21 23:11: Sodium 139, Potassium 3.4 L, Chloride 115 H, Carbon Dioxide 8.0 L*, Anion Gap 16 H, BUN 14, Creatinine 0.58, Estim Creat Clear Calc 143.63, Est GFR (MDRD) Af Amer 168, Est GFR (MDRD) Non-Af 139, BUN/Creatinine Ratio 24.0 H, Glucose 166 H, Calcium 7.6 L 06/07/21 00:11: POC Glucose 124 H 06/07/21 01:04: POC Glucose 95 06/07/21 01:57: POC Glucose 117 H 06/07/21 03:00: Sodium 140, Potassium 3.9, Chloride 116 H, Carbon Dioxide 12.0 L , Anion Gap 12, BUN 15, Creatinine 0.56, Estim Creat Clear Calc 148.76, Est GFR (MDRD) Af Amer 174, Est GFR (MDRD) Non-Af 144, BUN/Creatinine Ratio 26.6 H, Glucose 142 H, Calcium 7.8 L, Magnesium 1.7 06/07/21 03:00: WBC 10.3, RBC 4.85, Hgb 13.9, Hct 41.6, MCV 85.8, MCH 28.7, MCHC 33.4, RDW Std Deviation 40.7, RDW Coeff of Mark 13.1, Plt Count 321, MPV 9.2, Immature Gran % (Auto) 0.600, Neut % (Auto) 38.0 L, Lymph % (Auto) 50.0 H, [place] % (Auto) 7.6, Eos % (Auto) 3.0, Baso % (Auto) 0.8, Absolute Neuts (auto) 3.9, Absolute Lymphs (auto) 5.17 H, Nucleated RBC % 0 06/07/21 03:06: POC Glucose 164 H 06/07/21 04:05: POC Glucose 143 H 06/07/21 04:57: POC Glucose 106 06/07/21 05:56: POC Glucose 83 06/07/21 07:04: POC Glucose 57 L 06/07/21 07:45: Phosphorus 1.6 L 06/07/21 07:45: Sodium 140, Potassium 3.8, Chloride 118 H, Carbon Dioxide 14.0 L , Anion Gap 8, BUN 15, Creatinine 0.52 L, Estim Creat Clear Calc 160.21, Est GFR (MDRD) Af Amer 190, Est GFR (MDRD) Non-Af 157, BUN/Creatinine Ratio 28.6 H, Glucose 166 H, Calcium 7.9 L 06/07/21 07:46: POC Glucose 179 H 06/07/21 09:03: POC Glucose 78 06/07/21 09:39: POC Glucose 152 H 06/07/21 11:29: POC Glucose 217 H ABG: ABG 06/06/21 23:13 Specimen Type HAN VBG pH 7.21 L VBG pO2 75 H VBG HCO3 8 L VBG Total CO2 9 L VBG O2 Sat (Calc) 92 H VBG Base Excess -20 L POC Mix VBG pCO2 Pt Tmp 19.6 L D/C Instructions Discharge Diet: 1800 Calorie Control Diet Meaningful Use Info Meaningful Use Diagnoses (Choose all that apply): None applicable Discharge Plan Admission Admit Date/Time: 06/06/21 19:19 Primary Reason for Your Visit: DKA Attending Provider: David Ortega Primary Care Provider: Thalia Gallo Instructions Additional Instructions / Restrictions: If you are having issues with transportation for appointments you can call [employer] transportation services at [phone]. You may also schedule transportation though [facility] at [phone] or request the Hospital Van when you schedule your appointments with Dr. Luevano or Dr. Rush. You we re also setup with a casework manager through [employer] and they will be reaching out to you in 7-10 days to see how they can assist you. Discharge Orders/Prescriptions Prescriptions: New insulin lispro [Humalog KwikPen Insulin] 100 unit/mL Insulin Pen 24 unit subcut TIDCM Qty: 15 RF: 0 Continued (DME) blood-glucose meter [True Metrix Glucose Meter] Misc See Rx Instructions .ROUTE .MEDSUPPLY Qty: 1 RF: 0 prazosin 1 mg capsule 1 mg PO QHS RF: 0 trazodone 50 mg tablet 100 mg PO QHS RF: 0 oxcarbazepine [Trileptal] 300 mg Tablet 450 mg PO BID RF: 0 (DME) True Metrix Glucose Test Strip Strip See Rx Instructions .ROUTE .MEDSUPPLY Qty: 100 RF: 8 Lantus Solostar U-100 Insulin 100 unit/mL (3 mL) insulin pen 38 unit SUBCUT DAILY Qty: 15 RF: 0 (DME) pen needle, diabetic [BD Ultra-Fine Erin Pen Needle] 32 gauge x 5/32 needle See Rx Instructions .ROUTE .MEDSUPPLY Qty: 200 RF: 3 (DME) TechLITE Pen Needle 32 gauge x 5/16 needle See Rx Instructions .ROUTE .MEDSUPPLY Qty: 200 RF: 4 Discontinued insulin lispro 100 unit/mL Insulin Pen 18 unit SUBCUT TID RF: 0 Referrals / Follow Up: Thalia Gallo MD [Primary Care Provider] - 06/08/21 1:00 pm Moustapha Rush MD [STAFF PHYSICIAN] - 06/08/21 2:00 pm Disposition Disposition (needs filled in before D/C Order can be placed): Home, Self Care Charges/Coding Visit Charges Inpatient E&M: 52813 Disch Hosp
[2021-06-07] MEDS: OXcarbazepine 150 MG Tablet 450 MG PO (12:57)
== END 2021-06-07 13:02 | disposition home or self-care (01) | DRG 420 ==
LOC: ED 19:03 → ICU 19:39
PROVIDERS: Admitting Provider Internal Medicine; Emergency Provider Emergency Medicine; PCP Internal Medicine
DX: E10.10 Type 1 diabetes mellitus with ketoacidosis without coma (principal); F31.30 Bipolar disorder, current episode depressed, mild or moderate severity, unspecified; F41.9 Anxiety disorder, unspecified; Z23 Encounter for immunization; F17.210 Nicotine dependence, cigarettes, uncomplicated; E87.6 Hypokalemia; Z91.19 Patient's noncompliance with other medical treatment and regimen; Z79.4 Long term (current) use of insulin; Z79.899 Other long term (current) drug therapy
CPT/HCPCS: 80048; 81001; 81025; 82009; 82803; 82962; 83735; 84100; 85025; 93005; 97802; 99285; J7030; 90686; A4216

== ENCOUNTER 2021-06-20 13:49 | Inpatient (IN) | payer MEDICAID, SELFPAY ==
[2021-06-20] VITALS (15 sets, daily range): BP systolic 100–147; BP diastolic 63–96; PULSE 68–148; RESP 16–30; TEMP 36.2–37.5; O2SAT 92–100; BMI 23.2; BMI 23.1
--- NOTE | 2021-06-20 14:24 | EDS_ITS ---
HPI History of Present Illness Chief Complaint: General Illness Detail of Chief Complaint: Patient complaining of cough and vomiting and abdominal pain Informant: patient Narrative Narrative: Patient presents to the emergency department with complaint of cough and abdominal pain and not feeling well since being discharged from [facility] [place] 4 days ago for DKA. Patient states she has been taking her insulin and checked her blood sugar before coming into the ER today and it was 100. Patient states that she coughs so much that it makes her vomit and she is been throwing up this morning. Patient has history of bipolar disorder as well as PTSD and type 1 diabetes. Patient denies Covid exposures. [facility] Medical History Anxiety Bipolar 1 disorder, depressed Depression Type 1 diabetes mellitus Home Medications blood-glucose meter #1 ea 11/24/20 [Rx Last Taken Unknown] pen needle, diabetic 32 gauge x 5/16 #200 ea 11/27/20 [Rx Last Taken Unknown] prazosin 1 mg capsule 1 mg PO QHS 03/11/21 [History Last Taken Unknown] oxcarbazepine [Trileptal] 450 mg PO BID 05/29/21 [History Last Taken Unknown] trazodone 100 mg PO QHS 05/29/21 [History Last Taken Unknown] Lantus Solostar U-100 Insulin 38 unit SUBCUT DAILY #15 ml 06/07/21 [Rx Last Taken Unknown] True Metrix Glucose Test Strip #100 ea 06/07/21 [Rx Last Taken Unknown] insulin lispro [Humalog KwikPen Insulin] 24 unit SUBCUT TIDCM #15 ml 06/07/21 [Rx Last Taken Unknown] pen needle, diabetic [BD Ultra-Fine Erin Pen Needle] #200 ea 06/07/21 [Rx Last Taken Unknown] Allergy/AdvReac Type Severity Reaction Status Date / Time amoxicillin Allergy Hives Verified 06/20/21 13:52 Sulfa (Sulfonamide Allergy Hives Verified 06/20/21 13:52 Antibiotics) tomato Allergy Hives Verified 06/20/21 13:52 Family History Grandmother Diabetes Father Respiratory disease Uncle Respiratory disease Aunt Respiratory disease Social History Smoking Status: Current every day smoker tobacco type: cigarettes and e- cigarettes Tobacco: How many years used: 1 alcohol intake: never substance use type: does not use what type of physical activity do you participate in: walking frequency: daily ROS ROS ED Constitutional Constitutional ED: Reports systems reviewed and no addt'l complaints, except as documented; Denies body ache(s), change in weight or chills Eyes Eyes: Denies acute decrease in peripheral vision, change in vision, double vision or loss of vision ENT ENT ED: Reports none; Denies ear pain, lip swelling, loss taste/smell, neck pain, otalgia or sore throat Cardiovascular Cardiovascular: Reports none; Denies abdominal pain, chest pain with activity, leg edema, lightheadedness, palpitations, rapid heart rate or syncope Respiratory/Chest Respiratory/Chest: Reports none and cough; Denies change in mental status, dry cough, dyspnea, hemoptysis, shortness of breath at rest or shortness of breath with exertion Gastrointestinal Gastrointestinal: Reports none, abdominal pain, nausea and vomiting; Denies change in stool character, diarrhea, hematemesis, hematochezia, melena or rectal bleeding Genitourinary Genitourinary ED: Reports none; Denies abdominal discomfort, anuria, dysuria, genital pain or polyuria Musculoskeletal Musculoskeletal: Reports none; Denies arthralgias, back pain, difficulty walking, extremity pain, muscle weakness or myalgias Integumentary Reports none; Denies abscess or rash Neurologic Neurologic: Reports none; Denies abnormal gait, confusion, focal weakness, frequent falls, headache(s), loss of vision, numbness, paresthesias, radicular pain, vertigo or weakness Psychiatric Psychiatric: Reports systems reviewed and no addt'l complaints, except as documented and none; Denies behavioral changes, confusion, difficulty concentrating, hallucinations, suicidal ideation, tactile hallucinations or visual hallucinations Endocrine Endocrinology: Denies none, cold intolerance, excessive sweating, fatigue or heat intolerance Hematologic/Lymphatic Hematologic/Lymphatic: Reports none; Denies anemia, easy bleeding or easy bruising Allergic/Immunologic Allergic/Immunologic ED: Denies as per HPI, none, lip swelling, mouth swelling, throat swelling, tongue swelling or hives EXAM Physical Exam Const Vital Signs: 06/20/21 13:49 06/20/21 14:44 06/20/21 14:45 Temperature 97.5 F L Temperature Source Temporal Pulse Rate 148 H 68 Respiratory Rate 30 H 20 H Respiratory Effort Normal Respiratory Pattern Normal Blood Pressure 129/96 H 125/63 H Blood Pressure Mean 107 83 Pulse Ox 100 92 Oxygen Delivery Method Room Air Room Air Positive well nourished and well developed General Appearance ED: well developed and NAD HEENT Reports TM's clear and moist mucous membranes normocephalic and atraumatic; Negative for trauma or tenderness Tympanic Membrane ED: Yes TM's clear Eyes PERRL and EOMs intact bilaterally General Eye ED: Negative for pale conjunctiva or scleral icterus Neck no lymphadenopathy, supple and no JVD General: Negative for tenderness Chest Wall inspection of chest normal and palpation of chest normal Chest: Negative for tenderness Resp normal respiratory effort and clear to auscultation bilaterally Effort and Inspection: Negative for respiratory distress or pain with movement Auscultation: Negative for rhonchi, wheezes or diminished lung sounds Cardio regular rhythm, S1 normal heart sound, S2 normal heart sound and no murmurs Rate: tachycardic Peripheral Pulses: pulses 2+ throughout GI normal to inspection, nondistended, normoactive bowel sounds, soft to palpation, non-distended and no masses GI Narrative: Patient with some tenderness to the right lower quadrant and suprapubic region. There is no rebound, rigidity, or peritoneal signs. Back/Spine no CVA tenderness and no thoracic nor lumbar tenderness Extremity normal to inspection General Extremety ED: Negative for edema General Extremity: Negative for edema Neuro oriented x3, CN's II-XII intact bilaterally, no sensory deficits noted and gait normal Sensorium / Orientation: awake, alert, oriented to person, oriented to place and oriented to time Motor Exam: strength 5/5 throughout and strength abnormal Psych mental status grossly normal Skin no rashes or lesions noted and no wounds MDM MDM MDM Narrative Medical decision making narrative: IV line established. Patient noted to have a elevated blood sugar on fingerstick over 350. Patient was started on an insulin drip and given IV fluids. Patient noted to be in DKA the once her labs returned. Case discussed with hospitalist will evaluate patient for admission ABG pending. Lab Data Attestation: I reviewed the patient's lab results. Labs: Laboratory Results - last 24 hr 06/20/21 06/20/21 06/20/21 14:50 15:10 15:10 WBC RBC Hgb Hct MCV MCH MCHC RDW Std Deviation RDW Coeff of Mark Plt Count MPV Immature Gran % (Auto) Neut % (Auto) Lymph % (Auto) [place] % (Auto) Eos % (Auto) Baso % (Auto) Absolute Neuts (auto) Absolute Lymphs (auto) Nucleated RBC % Sodium Potassium Chloride Carbon Dioxide Anion Gap BUN Creatinine Estim Creat Clear Calc Est GFR (MDRD) Af Amer Est GFR (MDRD) Non-Af BUN/Creatinine Ratio Glucose Lactic Acid Calcium Total Bilirubin AST ALT Alkaline Phosphatase Total Protein Albumin Globulin Albumin/Globulin Ratio Serum , Qual Urine Color Yellow Urine Clarity Clear Urine pH 5.0 Ur Specific [place] 1.030 Urine Protein 100 H Urine Glucose (UA) 1000 H Urine Ketones 150 A* Urine Occult Blood 10 H Urine Nitrite Negative Urine Bilirubin Negative Urine Urobilinogen Normal Ur Leukocyte Esterase Negative Urine RBC 0 SEEN Urine WBC 0 SEEN Ur Squamous Epith Cells 0 SEEN Urine Bacteria 0 SEEN Urine Mucus 0 SEEN Urine Opiates Screen NEGATIVE Urine Methadone Screen NEGATIVE Ur Barbiturates Screen NEGATIVE Ur Phencyclidine Scrn NEGATIVE Ur Amphetamines Screen NEGATIVE U Methamphetamin-MDMA NEGATIVE U Benzodiazepines Scrn NEGATIVE Urine Cocaine Screen NEGATIVE U Cannabinoids Screen NEGATIVE Ur Drug Screen Comment Acetone Level POC Glucose 343 H 06/20/21 06/20/21 06/20/21 15:40 15:40 15:40 WBC RBC Hgb Hct MCV MCH MCHC RDW Std Deviation RDW Coeff of Mark Plt Count MPV Immature Gran % (Auto) Neut % (Auto) Lymph % (Auto) [place] % (Auto) Eos % (Auto) Baso % (Auto) Absolute Neuts (auto) Absolute Lymphs (auto) Nucleated RBC % Sodium 131 L Potassium 4.9 Chloride 109 H Carbon Dioxide 4.0 L* Anion Gap 18 H BUN 7 Creatinine 0.75 Estim Creat Clear Calc 115.39 Est GFR (MDRD) Af Amer 126 Est GFR (MDRD) Non-Af 104 BUN/Creatinine Ratio 9.4 L Glucose 335 H Lactic Acid 0.9 Calcium 8.5 Total Bilirubin 0.40 AST 18 ALT 21 Alkaline Phosphatase 160 H Total Protein 8.4 H Albumin 3.2 Globulin 5.2 H Albumin/Globulin Ratio 0.6 L Serum , Qual Urine Color Urine Clarity Urine pH Ur Specific [place] Urine Protein Urine Glucose (UA) Urine Ketones Urine Occult Blood Urine Nitrite Urine Bilirubin Urine Urobilinogen Ur Leukocyte Esterase Urine RBC Urine WBC Ur Squamous Epith Cells Urine Bacteria Urine Mucus Urine Opiates Screen Urine Methadone Screen Ur Barbiturates Screen Ur Phencyclidine Scrn Ur Amphetamines Screen U Methamphetamin-MDMA U Benzodiazepines Scrn Urine Cocaine Screen U Cannabinoids Screen Ur Drug Screen Comment Acetone Level LARGE H POC Glucose 06/20/21 06/20/21 06/20/21 15:40 15:40 15:57 WBC 9.2 RBC 5.70 H Hgb 16.6 H Hct 46.5 MCV 81.6 MCH 29.1 MCHC 35.7 RDW Std Deviation 40.3 RDW Coeff of Mark 14.0 Plt Count 359 MPV 8.8 Immature Gran % (Auto) 2.300 H Neut % (Auto) 63.8 Lymph % (Auto) 21.4 [place] % (Auto) 10.0 Eos % (Auto) 1.0 Baso % (Auto) 1.5 H Absolute Neuts (auto) 5.9 Absolute Lymphs (auto) 1.97 Nucleated RBC % 0 Sodium Potassium Chloride Carbon Dioxide Anion Gap BUN Creatinine Estim Creat Clear Calc Est GFR (MDRD) Af Amer Est GFR (MDRD) Non-Af BUN/Creatinine Ratio Glucose Lactic Acid Calcium Total Bilirubin AST ALT Alkaline Phosphatase Total Protein Albumin Globulin Albumin/Globulin Ratio Serum , Qual NEGATIVE Urine Color Urine Clarity Urine pH Ur Specific [place] Urine Protein Urine Glucose (UA) Urine Ketones Urine Occult Blood Urine Nitrite Urine Bilirubin Urine Urobilinogen Ur Leukocyte Esterase Urine RBC Urine WBC Ur Squamous Epith Cells Urine Bacteria Urine Mucus Urine Opiates Screen Urine Methadone Screen Ur Barbiturates Screen Ur Phencyclidine Scrn Ur Amphetamines Screen U Methamphetamin-MDMA U Benzodiazepines Scrn Urine Cocaine Screen U Cannabinoids Screen Ur Drug Screen Comment Acetone Level POC Glucose 317 H Discharge Plan Triage Chief Complaint: General Illness ED Provider: Ngozi Mendoza Dx/Rx/DC Orders Clinical Impression: DKA (diabetic ketoacidosis), Diabetes, Psychosocial problem Prescriptions: No Action (DME) blood-glucose meter [True Metrix Glucose Meter] Misc See Rx Instructions .ROUTE .MEDSUPPLY Qty: 1 RF: 0 prazosin 1 mg capsule 1 mg PO QHS RF: 0 trazodone 50 mg tablet 100 mg PO QHS RF: 0 oxcarbazepine [Trileptal] 300 mg Tablet 450 mg PO BID RF: 0 insulin lispro [Humalog KwikPen Insulin] 100 unit/mL Insulin Pen 24 unit subcut TIDCM Qty: 15 RF: 0 (DME) True Metrix Glucose Test Strip Strip See Rx Instructions .ROUTE .MEDSUPPLY Qty: 100 RF: 8 Lantus Solostar U-100 Insulin 100 unit/mL (3 mL) insulin pen 38 unit SUBCUT DAILY Qty: 15 RF: 0 (DME) pen needle, diabetic [BD Ultra-Fine Erin Pen Needle] 32 gauge x 5/32 needle See Rx Instructions .ROUTE .MEDSUPPLY Qty: 200 RF: 3 (DME) TechLITE Pen Needle 32 gauge x 5/16 needle See Rx Instructions .ROUTE .MEDSUPPLY Qty: 200 RF: 4 Primary Care Provider: Thalia Gallo Referrals: Thalia Gallo MD [Primary Care Provider] - Disposition Disposition: Acute Care Hospital [facility]
[2021-06-20 14:56] LABS: Bedside Glucose 343 mg/dL (70-110)
[2021-06-20] MEDS: 0.9% Normal Saline 1,000 ML 1000 ML IV (15:09)
[2021-06-20] MEDS: Ondansetron 4 MG/2 ML Vial IV ×2 (15:09→23:29)
[2021-06-20 15:23] LABS: Bacteria 0 SEEN /hpf (None Seen); Color, Urine Yellow (Yellow); Glucose, Dipstick 1000 mg/dl (Normal); Leukocyte Esterase-Dipstick Negative /ul (Negative); Mucous, Urine 0 SEEN /hpf (<or=2+); Nitrite-Dipstick Negative (Negative); Occult Blood-Urine 10 /ul (Negative); Protein-Dipstick 100 mg/dl (Negative); Red Blood Cells-Urine 0 SEEN /hpf (0-5); Squamous Epithelial Cells - UA 0 SEEN /hpf (5-10); Urine Bilirubin Dipstick Negative (Negative); Urine Clarity Clear (Clear); Urine Urobilinogen Normal (Normal); White Blood Cells 0 SEEN /hpf (0-5)
[2021-06-20 15:29] LABS: Ketone-Dipstick 150 mg/dl (Negative)
[2021-06-20 15:40] LABS: Amphetamine Urine VISTA NEGATIVE (<1000 ng/mL); Barbiturate Urine VISTA NEGATIVE (< 200 ng/mL); Benzodiazepine Urine VISTA NEGATIVE (< 200 ng/mL); Cocaine Urine VISTA NEGATIVE (< 300 ng/mL); Ecstacy Urine VISTA NEGATIVE (< 500 ng/mL); Methadone Urine VISTA NEGATIVE (< 300 ng/mL); PCP Urine VISTA NEGATIVE (< 25 ng/mL); THC Urine VISTA NEGATIVE (< 50 ng/mL); Vista UDS pH Range 4
[2021-06-20 15:44] LABS: Absolute Lymphocyte Count 1.97 X10^3/uL (0.83-4.51); Absolute Neutrophil Count 5.9 X10^3/uL (2.0-7.7); Basophil# 0.14 X10^3/uL; Basophil% 1.5 % (0-1); Eosinophil# 0.09 X10^3/uL; Hematocrit 46.5 % (37-47); Hemoglobin 16.6 g/dL (12.0-15.0); Lymphocyte # 1.97 X10^3/ul (0.83-4.51); Lymphocyte % 21.4 % (19-41); Mean Corp Hgb Conc 35.7 g/dL (32-36); Mean Corpuscular Hgb 29.1 pg (27.0-32.0); Mean Corpuscular Volume 81.6 fL (81-99); Mean Platelet Vol. 8.8 fl (6.2-12.0); Monocyte# 0.92 X10^3/uL; NRBC Flagged by Analyzer 0 % (0-5); Neutrophil # 5.89 X10^3/uL (2.7-7.7); Neutrophil % 63.8 % (47-70); Platelet Count 359 K/mm3 (150-450); RBC Distribution Width SD 40.3 fl (35.1-43.9); White Blood Count 9.2 K/mm3 (4.4-11.0)
[2021-06-20 15:58] LABS: Internal QC Validated? YES +Cl - CLEAR BKGD; Pregnancy, Serum, hCG Quali. NEGATIVE Negative
[2021-06-20 16:10] LABS: Bedside Glucose 317 mg/dL (70-110)
[2021-06-20 16:11] LABS: Lactic Acid 0.9 mmol/L (0.4-1.9)
[2021-06-20 16:12] LABS: ALB/GLOB Ratio 0.6 RATIO (0.9-2.4); AST(SGOT) 18 U/L (15-37); Alanine Aminotransfer ALT/SGPT 21 U/L (13-56); Albumin, Serum 3.2 g/dL (3.2-5.0); Alkaline Phosphatase 160 U/L (45-117); Anion Gap 18 (5-15); BUN 7 mg/dL (7-18); BUN/Creat Ratio 9.4 RATIO (10-20); Calcium,Total 8.5 mg/dL (8.5-10.1); Chloride 109 mmol/L (98-107); Creatinine, Serum 0.75 mg/dL (0.55-1.02); EST Glomerular Filtration Rate 104 mL/min (>60); Est Glom Filt Rate - Afr Amer 126 mL/min (>60); Estimated Creatinine Clearance 115.39 ml/min; Globulin 5.2 g/dL (2.2-4.2); Glucose 335 mg/dL (74-106); Potassium 4.9 mmol/L (3.5-5.1); Protein, Total 8.4 g/dL (6.4-8.2); Sodium Level 131 mmol/L (136-145)
--- NOTE | 2021-06-20 16:30 | ED.RN ---
DR LIPSCOMB IN WITH PT. CAME OUT REQUESTING NURSE TO ASSIST WITH PT BEING HOSTILE. REPORTS PT WAS ESCALATING AND USING INAPPROPRIATE LANGUAGE. tHIS NURSE ACCOMPANIED DR LIPSCOMB BACK IN ROOM TO TALK WITH PT. PT BECAME DEFENSIVE THAT DR REQUESTED ANOTHER STAFF, PT WAS UPSET SHE WANTED TO TALK TO THE DR THROUGH THE NURSE. THIS NURSE FIRMLY EXPLAINED TO PATIENT CURRENT SITUATION WITH DKA, NEED FOR TREATMENT AND NEED TO TALK TO THE DR. WAS ABLE TO DEESCALATE AND PT AND DOCTOR ABLE TO CONVERSE AND AGREEABLE WITH A PLAN OF CARE. THIS NURSE REINFORCED AFER DR LIPSCOMB LEFT ROOM. PT COOPERATIVE AND CALM WITH NO FURTHER CONCERNS OR COMPLAINTS AT THIS TIME.
--- NOTE | 2021-06-20 16:34 | ED.RN ---
TITRATED INSULIN DRIP TP 3.5UNITS PER DR CHOU VERBAL ORDER.
--- NOTE | 2021-06-20 16:55 | CPS ---
Dr. Dominguez notified of abg critical values bt [employer]
[2021-06-20 17:10] LABS: Magnesium 2.2 mg/dL (1.6-2.6); Phosphorus 2.3 mg/dL (2.5-4.9)
--- NOTE | 2021-06-20 17:11 | PCM.HP.STD ---
HPI - General General Date of Admission: 06/20/21 HPI Narrative RONA CHAU, is a 21 F with history of multiple recurrent admissions for DKA, last 06/06?06/07 and then went to [facility] and was discharged on 06/17 came here with abdominal pain, nausea, vomiting, cough and labs consistent with DKA. Patient has cough for about 3 days complain of retrosternal burning chest pain, reflux symptoms burning in throat. 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 She also complains of chills and sweating and pleuritic chest pain on coughing. Rapid SARS-CoV-2 antigen negative. Chest x-ray is ordered. PCR ordered. In ED, patient found tachycardic, tachypneic but not hypoxic. Labs shows bicarb 4, anion gap 18. ABG shows 7.125/9.2/119, end-tidal CO2 less than 5. Patient is tachypneic with mixed acid-base disorder, severe high anion gap metabolic acidosis and respiratory alkalosis. Serum acetone positive [facility] Medical History Anxiety Bipolar 1 disorder, depressed Depression Noncompliance Type 1 diabetes mellitus Home Medications blood-glucose meter #1 ea 11/24/20 [Rx Last Taken Unknown] pen needle, diabetic 32 gauge x 11/15 #200 ea 11/27/20 [Rx Last Taken Unknown] prazosin 1 mg capsule 1 mg PO QHS 03/11/21 [History Last Taken Unknown] oxcarbazepine [Trileptal] 450 mg PO BID 05/29/21 [History Last Taken Unknown] trazodone 100 mg PO QHS 05/29/21 [History Last Taken Unknown] Lantus Solostar U-100 Insulin 38 unit SUBCUT DAILY #15 ml 06/07/21 [Rx Last Taken Unknown] True Metrix Glucose Test Strip #100 ea 06/07/21 [Rx Last Taken Unknown] insulin lispro [Humalog KwikPen Insulin] 24 unit SUBCUT TIDCM #15 ml 06/07/21 [Rx Last Taken Unknown] pen needle, diabetic [BD Ultra-Fine Erin Pen Needle] #200 ea 06/07/21 [Rx Last Taken Unknown] Allergy/AdvReac Type Severity Reaction Status Date / Time amoxicillin Allergy Hives Verified 06/20/21 13:52 Sulfa (Sulfonamide Allergy Hives Verified 06/20/21 13:52 Antibiotics) tomato Allergy Hives Verified 06/20/21 13:52 Family History Grandmother Diabetes Father Respiratory disease Uncle Respiratory disease Aunt Respiratory disease Social History Smoking Status: Current every day smoker tobacco type: cigarettes and e-cigarettes Tobacco: How many years used: 1 alcohol intake: never substance use type: does not use what type of physical activity do you participate in: walking frequency: daily ROS ROS Narrative Constitutional: Reports fatigue and weakness. Malaise, vomiting HEENT: Reports systems reviewed and no addt'l complaints, except as documented Respiratory/Chest: As mentioned in HPI. Breathing fast Gastrointestinal: Vomiting, abdominal pain generalized Genitourinary: Denies burning urination or new urinary tract symptoms Musculoskeletal: Mild joint pain and muscle aches Neurologic: Denies seizure-like activity skin: No ulcer. No rash Endocrinology: Diabetes mellitus type 1. Reports systems reviewed and no addt'l complaints, except as documented Hematologic/Lymphatic: Reports systems reviewed and no addt'l complaints, except as documented Rest 12 ROS are negative except as mentioned in HPI Vital Signs Vital Signs Vital Signs: 06/20/21 13:49 06/20/21 14:44 06/20/21 14:45 Temperature 97.5 F L Temperature Source Temporal Pulse Rate 148 H 68 Respiratory Rate 30 H 20 H Respiratory Effort Normal Respiratory Pattern Normal Blood Pressure 129/96 H 125/63 H Blood Pressure Mean 107 83 Pulse Ox 100 92 Oxygen Delivery Method Room Air Room Air 06/20/21 16:15 Temperature Temperature Source Pulse Rate 87 Respiratory Rate 18 Respiratory Effort Respiratory Pattern Blood Pressure 100/74 Blood Pressure Mean 82 Pulse Ox 98 Oxygen Delivery Method Room Air Weight Weight: 148 lb 5.938 oz Body Mass Index (BMI) 23.2 Physical Exam Narrative General: Alert, Oriented x3, Cooperative. Irritable. HEENT: Atraumatic, PERRLA, EOMI, Normocephalic Oral: Oral mucosa dry. No Gingival or Mucosal Lesions/ Ulcerations Neck: Supple, No JVD, Negative Carotid Bruits Lungs: Air entry diminished in bilateral lung bases. No crepitation/rhonchi. Tachypnea Cardiovascular: Sinus tachycardia, Normal S1, Normal S2, No murmurs Abdomen: Bowel Sounds Present, Soft, Non Tender, Non-Distended : No renal angle tenderness. No suprapubic tenderness. Extremities: No edema, Capillary Refill Less than 3 Seconds Skin: No rashes, No breakdown Musculoskeletal: No Tenderness to Palpation of Joints or Extremities Neurological: Cranial nerves II-XII grossly intact, DTR 2+/4 Psych/Mental Status: Impulsive, uses abusive language. Results Lab / Micro Data Result Diagrams: 06/20/21 15:40 06/20/21 15:40 Labs: Laboratory Results - last 24 hr 06/20/21 14:50: POC Glucose 343 H 06/20/21 15:10: Urine Color Yellow, Urine Clarity Clear, Urine pH 5.0, Ur Specific [place] 1.030, Urine Protein 100 H, Urine Glucose (UA) 1000 H, Urine Ketones 150 A*, Urine Occult Blood 10 H, Urine Nitrite Negative, Urine Bilirubin Negative, Urine Urobilinogen Normal, Ur Leukocyte Esterase Negative, Urine RBC 0 SEEN, Urine WBC 0 SEEN, Ur Squamous Epith Cells 0 SEEN, Urine Bacteria 0 SEEN, Urine Mucus 0 SEEN 06/20/21 15:10: Urine Opiates Screen NEGATIVE, Urine Methadone Screen NEGATIVE, Ur Barbiturates Screen NEGATIVE, Ur Phencyclidine Scrn NEGATIVE, Ur Amphetamines Screen NEGATIVE, U Methamphetamin-MDMA NEGATIVE, U Benzodiazepines Scrn NEGATIVE, Urine Cocaine Screen NEGATIVE, U Cannabinoids Screen NEGATIVE, Ur Drug Screen Comment 06/20/21 15:40: Sodium 131 L, Potassium 4.9, Chloride 109 H, Carbon Dioxide 4.0 L*, Anion Gap 18 H, BUN 7, Creatinine 0.75, Estim Creat Clear Calc 115.39, Est GFR (MDRD) Af Amer 126, Est GFR (MDRD) Non-Af 104, BUN/Creatinine Ratio 9.4 L, Glucose 335 H, Calcium 8.5, Total Bilirubin 0.40, AST 18, ALT 21, Alkaline Phosphatase 160 H, Total Protein 8.4 H, Albumin 3.2, Globulin 5.2 H, Albumin/Globulin Ratio 0.6 L 06/20/21 15:40: Acetone Level LARGE H 06/20/21 15:40: Lactic Acid 0.9 06/20/21 15:40: Serum , Qual NEGATIVE 06/20/21 15:40: WBC 9.2, RBC 5.70 H, Hgb 16.6 H, Hct 46.5, MCV 81.6, MCH 29.1, MCHC 35.7, RDW Std Deviation 40.3, RDW Coeff of Mark 14.0, Plt Count 359, MPV 8.8, Immature Gran % (Auto) 2.300 H, Neut % (Auto) 63.8, Lymph % (Auto) 21.4, [place] % (Auto) 10.0, Eos % (Auto) 1.0, Baso % (Auto) 1.5 H, Absolute Neuts (auto) 5.9, Absolute Lymphs (auto) 1.97, Nucleated RBC % 0 06/20/21 15:40: Phosphorus 2.3 L, Magnesium 2.2 06/20/21 15:57: POC Glucose 317 H Assessment & Plan Assessment/Plan (1) DKA (diabetic ketoacidosis): PLAN: 1. DKA with type 1 diabetes mellitus with high anion gap metabolic acidosis and respiratory alkalosis, mixed acid-base disorder: Patient is being admitted in ICU. Patient on first liter of normal saline in ED. Continue IV fluid normal saline and insulin drip as per DKA protocol. Patient also has hypophosphatemia, phosphorus 2.3, normal magnesium 2.2. Lactic acid 0.9. Bicarb 4.0, anion gap 18. IV potassium phosphate ordered. 2. Hypertonic hypovolemic hypoglycemia secondary to DKA: Corrected sodium is 135. Replace IV fluid normal saline. 3. 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 4. History of bipolar disorder: Continue tramadol and trazodone. The patient denies suicidal ideation, attempt. 5. Chronic nicotine use/cigarette smoking: On nicotine patch 6. VTE prophylaxis mainly due to dehydration and DKA: Lovenox 40 mg subcu daily. Full code. Charges/Coding Visit Charges Inpatient E&M: 48352 Init Hosp L3
--- NOTE | 2021-06-20 17:17 | ED.RN ---
INSULIN DECREASED BY PER DR LIPSCOMB ORDER, WHICH WAS BIGGER DECREASE THAN TITRATE SCALE. NOT TITRATED FURTHER AT THIS TIME
[2021-06-20 17:21] LABS: Bedside Glucose 235 mg/dL (70-110)
[2021-06-20] MEDS: 0.9% Normal Saline 1,000 ML 999 ML IV (18:16)
[2021-06-20 18:21] LABS: Bedside Glucose 162 mg/dL (70-110)
[2021-06-20 18:25] LABS: Allen Test Positive; Base Excess -26 mmol/L (-2 to +2); Blood Gas Specimen Type ART; FI02 21; PO2 119 mmHG (75-100); SITE R Radial; SO2 97 % (95-99); Total Carbon Dioxide < 5 mmol/L; pH 7.13 (7.35-7.45)
[2021-06-20 18:27] LABS: O2 Delivery Device ROOM AIR
[2021-06-20 18:28] LABS: pCO2 9.2 mmHg (35-45)
--- NOTE | 2021-06-20 19:16 | ED.RN ---
clarified with dr thompson. dr thompson wanted pt to hve 2000ml total, dr tom had already ordered the second liter. discontinued duplicate order
[2021-06-20 19:21] LABS: Bedside Glucose 141 mg/dL (70-110)
[2021-06-20] MEDS: Dext 5%-0.45% NS 1,000 ML 250 ML IV (20:13)
[2021-06-20 21:02] LABS: Anion Gap 14 (5-15); BUN 6 mg/dL (7-18); BUN/Creat Ratio 10.6 RATIO (10-20); Calcium,Total 7.7 mg/dL (8.5-10.1); Chloride 117 mmol/L (98-107); Creatinine, Serum 0.57 mg/dL (0.55-1.02); EST Glomerular Filtration Rate 143 mL/min (>60); Est Glom Filt Rate - Afr Amer 173 mL/min (>60); Estimated Creatinine Clearance 151.82 ml/min; Glucose 136 mg/dL (74-106); Potassium 3.6 mmol/L (3.5-5.1); Sodium Level 139 mmol/L (136-145)
[2021-06-20 21:35] LABS: Bedside Glucose 126 mg/dL (70-110)
[2021-06-20 21:35] LABS: Bedside Glucose 151 mg/dL (70-110)
[2021-06-20 22:35] LABS: Bedside Glucose 173 mg/dL (70-110)
[2021-06-20] MEDS: guaiFENesin Dm 10 ML UDC PO (23:21)
[2021-06-20] MEDS: 0.9% Saline Lock 10 ML Syringe IV (23:29)
[2021-06-20] MEDS: Acetaminophen 325 MG Tablet 650 MG PO (23:29)
[2021-06-21] VITALS (14 sets, daily range): BP systolic 107–129; BP diastolic 60–88; PULSE 78–105; RESP 15–22; TEMP 36.7–37.6; O2SAT 99–100
[2021-06-21] MEDS: Dext 5%-0.45% NS 1,000 ML 250 ML IV ×2 (00:13→04:13)
[2021-06-21 00:21] LABS: Bedside Glucose 172 mg/dL (70-110)
[2021-06-21 00:33] LABS: Anion Gap 12 (5-15); BUN 5 mg/dL (7-18); BUN/Creat Ratio 8.4 RATIO (10-20); Calcium,Total 7.7 mg/dL (8.5-10.1); Chloride 115 mmol/L (98-107); Creatinine, Serum 0.59 mg/dL (0.55-1.02); EST Glomerular Filtration Rate 135 mL/min (>60); Est Glom Filt Rate - Afr Amer 164 mL/min (>60); Estimated Creatinine Clearance 146.68 ml/min; Glucose 239 mg/dL (74-106); Potassium 3.3 mmol/L (3.5-5.1); Sodium Level 137 mmol/L (136-145)
[2021-06-21 00:40] LABS: Bedside Glucose 130 mg/dL (70-110)
[2021-06-21 03:06] LABS: Bedside Glucose 122 mg/dL (70-110)
[2021-06-21 03:21] LABS: Bedside Glucose 126 mg/dL (70-110)
[2021-06-21] MEDS: guaiFENesin Dm 10 ML UDC PO (03:39)
[2021-06-21 04:24] LABS: Absolute Lymphocyte Count 2.77 X10^3/uL (0.83-4.51); Absolute Neutrophil Count 2.7 X10^3/uL (2.0-7.7); Basophil# 0.04 X10^3/uL; Basophil% 0.6 % (0-1); Eosinophil# 0.19 X10^3/uL; Eosinophils% 2.8 % (0-5); Hematocrit 35.8 % (37-47); Hemoglobin 12.5 g/dL (12.0-15.0); Lymphocyte # 2.77 X10^3/ul (0.83-4.51); Lymphocyte % 40.6 % (19-41); Mean Corp Hgb Conc 34.9 g/dL (32-36); Mean Corpuscular Hgb 28.3 pg (27.0-32.0); Mean Corpuscular Volume 81.2 fL (81-99); Mean Platelet Vol. 8.4 fl (6.2-12.0); Monocyte# 1.03 X10^3/uL; Monocyte% 15.1 % (0-10); NRBC Flagged by Analyzer 0 % (0-5); Neutrophil % 39.4 % (47-70); POSITIVE MORPHOLOGY YES; Platelet Count 328 K/mm3 (150-450); RBC Distribution Width CV 13.7 % (11.6-14.6); RBC Distribution Width SD 40.1 fl (35.1-43.9); Red Blood Count 4.41 M/mm3 (4.2-5.4); White Blood Count 6.8 K/mm3 (4.4-11.0)
[2021-06-21 04:46] LABS: Bedside Glucose 92 mg/dL (70-110)
[2021-06-21 04:52] LABS: Differential Indicated SCAN CRITERIA MET
[2021-06-21 05:03] LABS: Anion Gap 10 (5-15); BUN 4 mg/dL (7-18); BUN/Creat Ratio 7.9 RATIO (10-20); Calcium,Total 7.9 mg/dL (8.5-10.1); Chloride 115 mmol/L (98-107); Creatinine, Serum 0.51 mg/dL (0.55-1.02); EST Glomerular Filtration Rate 162 mL/min (>60); Est Glom Filt Rate - Afr Amer 196 mL/min (>60); Estimated Creatinine Clearance 169.69 ml/min; Glucose 100 mg/dL (74-106); Potassium 2.5 mmol/L (3.5-5.1); Sodium Level 139 mmol/L (136-145)
[2021-06-21 05:51] LABS: Bedside Glucose 83 mg/dL (70-110)
[2021-06-21] MEDS: Dextrose 50%-Water 25 GM/50 ML DISP.SYRIN IV (06:02)
[2021-06-21 06:14] LABS: Atypical Lymphocyte 1+ %
[2021-06-21 06:21] LABS: Bedside Glucose 54 mg/dL (70-110)
[2021-06-21 06:21] LABS: Bedside Glucose 236 mg/dL (70-110)
[2021-06-21] MEDS: Potassium Chloride 10mEq/100mL 10 MEQ/100 ML IV.SOLN. 50 MEQ IV BOLUS (06:25)
[2021-06-21] MEDS: 0.9% Normal Saline 1,000 ML 100 ML IV (06:42)
[2021-06-21] MEDS: Insulin Lispro 100 UNIT/ML INSULN.PEN 15 UNIT SC ×2 (08:06→12:10)
[2021-06-21] MEDS: Potassium Chloride 10mEq/100mL 10 MEQ/100 ML IV.SOLN. 40 MEQ IV BOLUS (10:08)
[2021-06-21] MEDS: Potassium Chloride Oral Tablet 20 MEQ 40 MEQ PO ×2 (10:16→12:15)
--- NOTE | 2021-06-21 11:52 | PCM.DC ---
Discharge Instructions Diet Discharge Diet: 1800 Calorie Control Diet Activity Discharge Activity: Return to Normal Activity Additional Activity Instructions:: Self isolate for at least 10 days since symptoms began or the first postive COVID-19 test AND at least one day (24 hours) have passed since resolution of fever without the use of fever-reducing agents AND improvement of symptoms (e.g., cough, shortness of breath) When around people in the same room, wear a face mask. Individuals also in the room should wear a mask. If possible, use a different bathroom and bedroom. Perform adequate hand hygiene. Avoid sharing dishes, glasses, etc. Follow Up Care Test Results: Test results from this visit will be discussed in further detail at your follow-up appointment, if applicable. Discharge Plan Admission Admit Date/Time: 06/20/21 16:38 Primary Reason for Your Visit: DKA Attending Provider: David Ortega Primary Care Provider: Thalia Gallo Discharge Orders/Prescriptions Prescriptions: Continued (DME) blood-glucose meter [True Metrix Glucose Meter] Misc See Rx Instructions .ROUTE .MEDSUPPLY Qty: 1 RF: 0 prazosin 1 mg capsule 1 mg PO QHS RF: 0 trazodone 50 mg tablet 100 mg PO QHS RF: 0 oxcarbazepine [Trileptal] 300 mg Tablet 450 mg PO BID RF: 0 (DME) True Metrix Glucose Test Strip Strip See Rx Instructions .ROUTE .MEDSUPPLY Qty: 100 RF: 8 (DME) pen needle, diabetic [BD Ultra-Fine Erin Pen Needle] 32 gauge x 5/32 needle See Rx Instructions .ROUTE .MEDSUPPLY Qty: 200 RF: 3 insulin lispro [Humalog KwikPen Insulin] 100 unit/mL insulin pen 24 unit subcut TIDCM RF: 0 Lantus Solostar U-100 Insulin 100 unit/mL (3 mL) insulin pen 38 unit SUBCUT DAILY RF: 0 (DME) TechLITE Pen Needle 32 gauge x 5/16 needle See Rx Instructions .ROUTE .MEDSUPPLY Qty: 200 RF: 4 Referrals / Follow Up: Thalia Gallo MD [Primary Care Provider] - Within 2 Weeks Moustapha Rush MD [STAFF PHYSICIAN] - Within 2 Weeks Disposition Disposition (needs filled in before D/C Order can be placed): Home, Self Care
--- NOTE | 2021-06-21 11:56 | PCM.DC.SUM ---
Providers Date of Admission: 06/20/21 Primary Care Physician: Dr. Thalia Gallo MD Reason For Visit: DKA, COUGH Diagnosis Discharge Diagnosis (1) DKA (diabetic ketoacidosis): Status: Acute Code(s): E11.10 - Type 2 diabetes mellitus with ketoacidosis without coma Medications at Discharge Home Medications blood-glucose meter #1 ea 11/24/20 pen needle, diabetic 32 gauge x 5/16 #200 ea 11/27/20 prazosin 1 mg capsule 1 mg PO QHS 03/11/21 oxcarbazepine [Trileptal] 450 mg PO BID 05/29/21 trazodone 100 mg PO QHS 05/29/21 True Metrix Glucose Test Strip #100 ea 06/07/21 pen needle, diabetic [BD Ultra-Fine Erin Pen Needle] #200 ea 06/07/21 Lantus Solostar U-100 Insulin 38 unit SUBCUT DAILY 06/20/21 insulin lispro [Humalog KwikPen Insulin] 24 unit SUBCUT TIDCM 06/20/21 Hospital Course Operations None Procedures None Summary of Care Provided Hospital Course: 21-year-old female presents with recurrent DKA. Patient was not feeling well and was taking her insulin according to her. Friends with diabetic ketoacidosis. Patient is put on insulin drip and then changed over to her basal and prandial insulin and has been doing well. Patient was just recently till [facility] for DKA and was here earlier this month for the same. Patient states that she does take her insulin. Strongly encouraged that if patient does not feel well for her distill to take her basal insulin. Patient had been previously scheduled to see with endocrinology but patient currently never followed up. Patient advised to follow-up but still very concerned the patient may not. Last time she was here the appointment was set up and the patient failed to show up. Patient was not feeling well as she has contracted COVID-19. Patient stable from a respiratory status and will need to quarantine for total 10 days from the onset of symptoms. No treatment is indicated. Patient advised that if her breathing does start to get worse that she should seek further attention and treatment. Physical Exam Const alert and no apparent distress Psych Psych Narrative: flat affect Weight / BMI Weight Weight: 68.4 kg Body Mass Index (BMI) 23.1 ABG / Lab / Microbiology Data Result Diagrams: 06/21/21 04:00 06/21/21 04:00 Laboratory: Laboratory Results - last 24 hr 06/20/21 14:50: POC Glucose 343 H 06/20/21 15:10: Urine Color Yellow, Urine Clarity Clear, Urine pH 5.0, Ur Specific [place] 1.030, Urine Protein 100 H, Urine Glucose (UA) 1000 H, Urine Ketones 150 A*, Urine Occult Blood 10 H, Urine Nitrite Negative, Urine Bilirubin Negative, Urine Urobilinogen Normal, Ur Leukocyte Esterase Negative, Urine RBC 0 SEEN, Urine WBC 0 SEEN, Ur Squamous Epith Cells 0 SEEN, Urine Bacteria 0 SEEN, Urine Mucus 0 SEEN 06/20/21 15:10: Urine Opiates Screen NEGATIVE, Urine Methadone Screen NEGATIVE, Ur Barbiturates Screen NEGATIVE, Ur Phencyclidine Scrn NEGATIVE, Ur Amphetamines Screen NEGATIVE, U Methamphetamin-MDMA NEGATIVE, U Benzodiazepines Scrn NEGATIVE, Urine Cocaine Screen NEGATIVE, U Cannabinoids Screen NEGATIVE, Ur Drug Screen Comment 06/20/21 15:40: Sodium 131 L, Potassium 4.9, Chloride 109 H, Carbon Dioxide 4.0 L*, Anion Gap 18 H, BUN 7, Creatinine 0.75, Estim Creat Clear Calc 115.39, Est GFR (MDRD) Af Amer 126, Est GFR (MDRD) Non-Af 104, BUN/Creatinine Ratio 9.4 L, Glucose 335 H, Calcium 8.5, Total Bilirubin 0.40, AST 18, ALT 21, Alkaline Phosphatase 160 H, Total Protein 8.4 H, Albumin 3.2, Globulin 5.2 H, Albumin/Globulin Ratio 0.6 L 06/20/21 15:40: Acetone Level LARGE H 06/20/21 15:40: Lactic Acid 0.9 06/20/21 15:40: Serum , Qual NEGATIVE 06/20/21 15:40: WBC 9.2, RBC 5.70 H, Hgb 16.6 H, Hct 46.5, MCV 81.6, MCH 29.1, MCHC 35.7, RDW Std Deviation 40.3, RDW Coeff of Mark 14.0, Plt Count 359, MPV 8.8, Immature Gran % (Auto) 2.300 H, Neut % (Auto) 63.8, Lymph % (Auto) 21.4, [place] % (Auto) 10.0, Eos % (Auto) 1.0, Baso % (Auto) 1.5 H, Absolute Neuts (auto) 5.9, Absolute Lymphs (auto) 1.97, Nucleated RBC % 0 06/20/21 15:40: Phosphorus 2.3 L, Magnesium 2.2 06/20/21 15:57: POC Glucose 317 H 06/20/21 16:23: COVID-19 (RAMON) Detected 06/20/21 17:15: POC Glucose 235 H 06/20/21 18:12: POC Glucose 162 H 06/20/21 19:14: POC Glucose 141 H 06/20/21 20:17: POC Glucose 126 H 06/20/21 20:19: Sodium 139, Potassium 3.6, Chloride 117 H, Carbon Dioxide 8.0 L*, Anion Gap 14, BUN 6 L, Creatinine 0.57, Estim Creat Clear Calc 151.82, Est GFR (MDRD) Af Amer 173, Est GFR (MDRD) Non-Af 143, BUN/Creatinine Ratio 10.6, Glucose 136 H, Calcium 7.7 L 06/20/21 21:28: POC Glucose 151 H 06/20/21 22:23: POC Glucose 173 H 06/20/21 23:18: POC Glucose 172 H 06/20/21 23:50: Sodium 137, Potassium 3.3 L, Chloride 115 H, Carbon Dioxide 10.0 L, Anion Gap 12, BUN 5 L, Creatinine 0.59, Estim Creat Clear Calc 146.68, Est GFR (MDRD) Af Amer 164, Est GFR (MDRD) Non-Af 135, BUN/Creatinine Ratio 8.4 L, Glucose 239 H, Calcium 7.7 L 06/21/21 00:26: POC Glucose 130 H 06/21/21 01:33: POC Glucose 122 H 06/21/21 03:09: POC Glucose 126 H 06/21/21 04:00: Sodium Cancelled, Potassium Cancelled, Chloride Cancelled, Carbon Dioxide Cancelled, Anion Gap Cancelled, BUN Cancelled, Creatinine Cancelled, Estim Creat Clear Calc Cancelled, Est GFR (MDRD) Af Amer Cancelled, Est GFR (MDRD) Non-Af Cancelled, BUN/Creatinine Ratio Cancelled, Glucose Cancelled, Calcium Cancelled 06/21/21 04:00: WBC 6.8, RBC 4.41, Hgb 12.5, Hct 35.8 L, MCV 81.2, MCH 28.3, MCHC 34.9, RDW Std Deviation 40.1, RDW Coeff of Mark 13.7, Plt Count 328, MPV 8.4, Immature Gran % (Auto) 1.500 H, Neut % (Auto) 39.4 L, Lymph % (Auto) 40.6, [place] % (Auto) 15.1 H, Eos % (Auto) 2.8, Baso % (Auto) 0.6, Absolute Neuts (auto) 2.7, Absolute Lymphs (auto) 2.77, Nucleated RBC % 0, Atypical Lymphocytes 1+ 06/21/21 04:00: Sodium 139, Potassium 2.5 L*, Chloride 115 H, Carbon Dioxide 14.0 L, Anion Gap 10, BUN 4 L, Creatinine 0.51 L, Estim Creat Clear Calc 169.69, Est GFR (MDRD) Af Amer 196, Est GFR (MDRD) Non-Af 162, BUN/Creatinine Ratio 7.9 L, Glucose 100, Calcium 7.9 L 06/21/21 04:00: Acetone Level SMALL H 06/21/21 04:29: POC Glucose 92 06/21/21 05:32: POC Glucose 83 06/21/21 05:56: POC Glucose 54 L 06/21/21 06:14: POC Glucose 236 H ABG: ABG 06/20/21 16:12 Specimen Type ART Sample Site R Radial pH 7.13 L* Bicarbonate Actual 3.0 L Total CO2 < 5 Base Excess -26 L O2 Saturation 97 O2 % 21 ABG pCO2 9.2 L* ABG pO2 119 H Miko Test Positive O2 Delivery Device ROOM AIR Crit Call To/Read Back Yes D/C Instructions Discharge Diet: 1800 Calorie Control Diet Additional Activity Instructions: Self isolate for at least 10 days since symptoms began or the first postive COVID-19 test AND at least one day (24 hours) have passed since resolution of fever without the use of fever-reducing agents AND improvement of symptoms (e.g., cough, shortness of breath) When around people in the same room, wear a face mask. Individuals also in the room should wear a mask. If possible, use a different bathroom and bedroom. Perform adequate hand hygiene. Avoid sharing dishes, glasses, etc. Meaningful Use Info Meaningful Use Diagnoses (Choose all that apply): None applicable Discharge Plan Admission Admit Date/Time: 06/20/21 16:38 Primary Reason for Your Visit: DKA Attending Provider: David Ortega Primary Care Provider: Thalia Gallo Discharge Orders/Prescriptions Prescriptions: Continued (DME) blood-glucose meter [True Metrix Glucose Meter] Misc See Rx Instructions .ROUTE .MEDSUPPLY Qty: 1 RF: 0 prazosin 1 mg capsule 1 mg PO QHS RF: 0 trazodone 50 mg tablet 100 mg PO QHS RF: 0 oxcarbazepine [Trileptal] 300 mg Tablet 450 mg PO BID RF: 0 (DME) True Metrix Glucose Test Strip Strip See Rx Instructions .ROUTE .MEDSUPPLY Qty: 100 RF: 8 (DME) pen needle, diabetic [BD Ultra-Fine Erin Pen Needle] 32 gauge x 5/32 needle See Rx Instructions .ROUTE .MEDSUPPLY Qty: 200 RF: 3 insulin lispro [Humalog KwikPen Insulin] 100 unit/mL insulin pen 24 unit subcut TIDCM RF: 0 Lantus Solostar U-100 Insulin 100 unit/mL (3 mL) insulin pen 38 unit SUBCUT DAILY RF: 0 (DME) TechLITE Pen Needle 32 gauge x 5/16 needle See Rx Instructions .ROUTE .MEDSUPPLY Qty: 200 RF: 4 Referrals / Follow Up: Thalia Gallo MD [Primary Care Provider] - Within 2 Weeks Moustapha Rush MD [STAFF PHYSICIAN] - Within 2 Weeks Disposition Disposition (needs filled in before D/C Order can be placed): Home, Self Care Charges/Coding Visit Charges Inpatient E&M: 68897 Disch Hosp
--- NOTE | 2021-06-21 12:00 | CASEMGMT ---
PETEY GREGORY chart review: Patient was admitted 06/06-06/07/21 for DKA. Patient was setup with follow-up appts with PCP and endocrinolgist for 06/08/21. Transportation was set with [employer] for follow-up appts prior to discharge. CM also set patient up with casework specialist through [employer] for follow-up. Patient was discharged home follow-up plans in place. Patient did not attend follow-up appts and was discharged from Dr. Rush, test clerk, services. Patient returned to [facility] 06/20/21 for DKA and cough. Patient was found to be covid positive but on room air. PETEY GREGORY in to speak with patient. Patient states she forgot about her follow-up appts. Patient was also in [facility] and was discharged on 06/17/21. Patient has had 6 hospitalization and 3 ED visit at [facility] this year. Patient requested this PETEY GREGORY make follow-up appt with PCP. PETEY GREGORY called and scheduled follow-up appt with PCP on 07/14/21 0830. Patient provided with number on discharge instructions to schedule transportation through [employer]. PETEY GREGORY also called [facility] to inquire about case management follow-up. CM is Domingo Murray [phone]. PETEY GREGORY updated patient regarding [employer] and provided contact information. PETEY GREGORY inquired if patient [facility], patient agreeable and SW updated. Patient states she did purchase a new glucometer and has been checking BS and taking insulin. Patient to discharge home with follow-up plans in place.
[2021-06-21] MEDS: Insulin Lispro 100 UNIT/ML INSULN.PEN SC (12:10)
[2021-06-21 12:45] LABS: Bedside Glucose 181 mg/dL (70-110)
--- NOTE | 2021-06-21 13:03 | CASEMGMT ---
Social Work Pt is agreeable to an appointment with [facility]. SW called [facility], set up appointment for July 06 at 8:30am. 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 SW put the information regarding this appointment into pt's discharge instructions. RYAN Beckham
--- NOTE | 2021-06-21 14:47 | NURSING ---
Dr Ortega was aware prior to DC that pt did not receive her 3rd K-Desean but pt was given oral doses today.
[2021-06-21 22:25] LABS: Bedside Glucose 205 mg/dL (70-110)
== END 2021-06-21 13:50 | disposition home or self-care (01) | DRG 420 ==
LOC: ED 16:20 → ICU 17:14
PROVIDERS: Admitting Provider Internal Medicine; Emergency Provider Emergency Medicine; PCP Internal Medicine
DX: E10.10 Type 1 diabetes mellitus with ketoacidosis without coma (principal); F31.30 Bipolar disorder, current episode depressed, mild or moderate severity, unspecified; F43.10 Post-traumatic stress disorder, unspecified; Z79.4 Long term (current) use of insulin; Z79.899 Other long term (current) drug therapy; F17.210 Nicotine dependence, cigarettes, uncomplicated
CPT/HCPCS: 36600; 80048; 80053; 80307; 81001; 82009; 82803; 82962; 83605; 83735; 84100; 84703; 85025; 87635; 99251; 99285; 99406; J7030; U0005; A4216; G0463; J2405; J7799; U0003

== ENCOUNTER 2021-06-27 10:44 | Inpatient (IN) | payer MEDICAID, SELFPAY ==
[2021-06-27] VITALS (19 sets, daily range): BP systolic 114–147; BP diastolic 67–105; PULSE 104–158; RESP 18–34; TEMP 36.1–36.6; O2SAT 93–100; BMI 22.6; BMI 23.0
--- NOTE | 2021-06-27 11:00 | EKG12_ITS ---
Test Reason : DKA Blood Pressure : / mmHG Vent. Rate : 134 BPM Atrial Rate : 134 BPM P-R Int : 120 ms QRS Dur : 082 ms QT Int : 388 ms P-R-T Axes : 076 074 062 degrees QTc Int : 579 ms Sinus tachycardia Right atrial enlargement Nonspecific ST abnormality Abnormal ECG Confirmed by HENRIQUE IQBAL, MORIAH ([id number]), primer expeditor and drier SERGIO LEE ([id number]) on 06/29/2021 10:02:21 AM Referred By: SARA/JULIUS Confirmed By:MORIAH DUENAS MD
--- NOTE | 2021-06-27 11:28 | EX.ED.DYSGE1 ---
HPI History of Present Illness Chief Complaint: Hyperglycemia Informant: patient Narrative Narrative: 21-year-old female with a history of bipolar disorder and diabetes states that she is not taking in any insulin in an attempt to kill herself. She states that she waits until she starts getting pretty ill and then come to the hospital. This is her fourth DKA this month. She states that she does not currently have a primary care doctor and well driller helper or psychiatrist. Patient is also Covid positive. PFSH PFS Medical History Anxiety Anxiety Bipolar 1 disorder, depressed Depression Depression Diabetes Noncompliance Type 1 diabetes mellitus Home Medications blood-glucose meter #1 ea 11/24/20 [Rx Last Taken Unknown] pen needle, diabetic 32 gauge x 11/15 #200 ea 11/27/20 [Rx Last Taken Unknown] prazosin 1 mg capsule 1 mg PO QHS 03/11/21 [History Last Taken Unknown] oxcarbazepine [Trileptal] 450 mg PO BID 05/29/21 [History Last Taken Unknown] trazodone 100 mg PO QHS 05/29/21 [History Last Taken Unknown] True Metrix Glucose Test Strip #100 ea 06/07/21 [Rx Last Taken Unknown] pen needle, diabetic [BD Ultra-Fine Erin Pen Needle] #200 ea 06/07/21 [Rx Last Taken Unknown] Lantus Solostar U-100 Insulin 38 unit SUBCUT DAILY 06/20/21 [History Last Taken Unknown] insulin lispro [Humalog KwikPen Insulin] 24 unit SUBCUT TIDCM 06/20/21 [History Last Taken Unknown] Allergy/AdvReac Type Severity Reaction Status Date / Time amoxicillin Allergy Hives Verified 06/27/21 10:45 Sulfa (Sulfonamide Allergy Hives Verified 06/27/21 10:45 Antibiotics) tomato Allergy Hives Verified 06/27/21 10:45 Family History Grandmother Diabetes Father Respiratory disease Uncle Respiratory disease Aunt Respiratory disease Social History Smoking Status: Current every day smoker tobacco type: cigarettes and e-cigarettes Tobacco: How many years used: 1 alcohol intake: never substance use type: does not use what type of physical activity do you participate in: walking frequency: daily ROS ROS ED Constitutional Constitutional ED: Denies chills, fever(s) or weight loss Eyes Eyes: Denies change in vision or diplopia ENT ENT ED: Denies ear pain, rhinorrhea or sore throat Cardiovascular Cardiovascular: Denies chest pain, orthopnea, palpitations or racing heartbeat Respiratory/Chest Respiratory/Chest: Reports dyspnea; Denies cough or orthopnea Gastrointestinal Gastrointestinal: Denies abdominal pain, diarrhea, nausea or vomiting Genitourinary Genitourinary ED: Denies dysuria, hematuria or urinary frequency Musculoskeletal Musculoskeletal: Denies arthralgias or myalgias Integumentary Denies abscess or rash Neurologic Neurologic: Denies headache(s) or weakness Psychiatric Psychiatric: Reports depression, suicidal ideation and suicidal thoughts; Denies anxiety Endocrine Endocrinology: Denies polydipsia, polyphagia or polyuria Allergic/Immunologic Allergic/Immunologic ED: Denies mouth swelling, tongue swelling or urticaria EXAM Physical Exam Const Vital Signs: 06/27/21 10:45 06/27/21 11:50 06/27/21 11:56 Temperature 97.3 F L Temperature Source Temporal Pulse Rate 158 H 144 H Respiratory Rate 30 H 27 H Respiratory Effort Short of Breath Respiratory Depth Shallow Respiratory Pattern Tachypnea Blood Pressure 139/94 H 140/105 H Blood Pressure Mean 109 116 Pulse Ox 93 97 Oxygen Delivery Method Room Air Room Air Room Air 06/27/21 12:00 06/27/21 13:00 Temperature Temperature Source Pulse Rate 143 H 129 H Respiratory Rate 30 H 30 H Respiratory Effort Respiratory Depth Respiratory Pattern Blood Pressure 136/85 H 137/93 H Blood Pressure Mean 102 107 Pulse Ox 96 97 Oxygen Delivery Method Room Air Room Air Positive well nourished and well developed General Appearance ED: well developed HEENT Reports normocephalic, head/scalp atraumatic and moist mucous membranes HEENT Narrative: Right tympanic membrane is erythematous with loss of landmarks Negative for trauma Eyes PERRL and EOMs intact bilaterally Neck no lymphadenopathy, supple and no JVD Resp clear to auscultation bilaterally Resp Narrative: Patient is tachypneic Cardio regular rate and no murmurs Rate: tachycardic GI normal to inspection, nondistended, normoactive bowel sounds and non-tender Palpation: soft Back/Spine no CVA tenderness and normal ROM Extremity normal to inspection General Extremety ED: Negative for edema General Extremity: Negative for edema Neuro oriented x3 and CN's II-XII intact bilaterally Sensorium / Orientation: alert Motor Exam: strength 5/5 throughout Psych mental status grossly normal Mood & Affect: Negative for depressed or tearful Skin no rashes or lesions noted and no wounds MDM MDM MDM Narrative Medical decision making narrative: Patient received IV fluids and then an insulin drip was placed. She will receive a dose of Omnicef for ear infection. She was placed under suicide precautions. Plan is admission into the hospital to clear the DKA and then she would most likely require transfer to psychiatric facility. Patient is very difficult IV access. She has a small peripheral in her hand. Hospitalist attempted a left IJ central line with no success due to the dehydration status of the patient. I was asked to place a central line. On ultrasound the IJ had significant respiratory collapse. Patient states that her right IJ has had difficulty being accessed in the past. Therefore decision to place a left femoral line was made. Area was washed with chlorhexidine. Is allowed to dry. Was locally anesthetized using 1% lidocaine. The femoral vein was identified on ultrasound and the needle aspirated dark red nonpulsatile blood. Utilizing the modified Seldinger technique central line was placed. Was sutured in place. There is no expanding hematoma or swelling on reexamination. At this time the patient will then be placed in the ICU. Lab Data Attestation: I reviewed the patient's lab results. Labs: Laboratory Results - last 24 hr 06/27/21 06/27/21 06/27/21 11:43 11:43 11:43 WBC 20.9 H RBC 5.57 H Hgb 16.3 H Hct 47.5 H MCV 85.3 MCH 29.3 MCHC 34.3 RDW Std Deviation 42.0 RDW Coeff of Mark 13.9 Plt Count 513 H MPV 9.4 Immature Gran % (Auto) 1.500 H Neut % (Auto) 78.7 H Lymph % (Auto) 14.8 L [place] % (Auto) 4.2 Eos % (Auto) 0.1 Baso % (Auto) 0.7 Absolute Neuts (auto) 16.4 H Absolute Lymphs (auto) 3.08 Nucleated RBC % 0 Sodium 133 L Potassium 3.7 Chloride 103 Carbon Dioxide 5.0 L* Anion Gap 25 H BUN 14 Creatinine 0.85 Estim Creat Clear Calc 101.81 Est GFR (MDRD) Af Amer 109 Est GFR (MDRD) Non-Af 90 BUN/Creatinine Ratio 16.5 Glucose 435 H Lactic Acid Calcium 9.2 Magnesium 1.9 Total Bilirubin 0.40 AST 9 L ALT 19 Alkaline Phosphatase 163 H Troponin I High Sens < 3 L Total Protein 9.3 H Albumin 3.2 Globulin 6.1 H Albumin/Globulin Ratio 0.5 L Lipase 40 L Acetone Level MODERATE H 06/27/21 11:43 WBC RBC Hgb Hct MCV MCH MCHC RDW Std Deviation RDW Coeff of Mark Plt Count MPV Immature Gran % (Auto) Neut % (Auto) Lymph % (Auto) [place] % (Auto) Eos % (Auto) Baso % (Auto) Absolute Neuts (auto) Absolute Lymphs (auto) Nucleated RBC % Sodium Potassium Chloride Carbon Dioxide Anion Gap BUN Creatinine Estim Creat Clear Calc Est GFR (MDRD) Af Amer Est GFR (MDRD) Non-Af BUN/Creatinine Ratio Glucose Lactic Acid 1.6 Calcium Magnesium Total Bilirubin AST ALT Alkaline Phosphatase Troponin I High Sens Total Protein Albumin Globulin Albumin/Globulin Ratio Lipase Acetone Level Radiography Diagnostic Testing: Clinical Impression(s) from Imaging Studies Chest X-Ray 06/27/21 11:55 IMPRESSION: Normal x-ray examination of the chest. Electronically Signed: Sharif Gonzalez MD at 12:13 EST Tel , Service support , EKG Initial EKG: Attestation: I personally reviewed and interpreted this EKG as follows: Comments: Sinus tachycardia with a ventricular rate of 134 bpm Critical Care Time Critical Care Time: Yes Critical care time (excluding procedures): 30-74 minutes (32 min), Including time spent:, Discussing w/Patient &/or Family/Batch Plant Supervisor, Discussing w/Consultants, Arranging Admission or Transfer and Performing Direct Patient Care at Bedside Discharge Plan Dx/Rx/DC Orders Clinical Impression: Diabetic ketoacidosis, Bipolar disorder, Suicide attempt, Acute right otitis media, COVID-19 Disposition Disposition: [facility] Discharge Date/Time: 06/27/21 17:14
[2021-06-27] MEDS: 0.9% Normal Saline 1,000 ML 999 ML IV ×4 (11:52→16:42)
[2021-06-27 11:55] LABS: Absolute Lymphocyte Count 3.08 X10^3/uL (0.83-4.51); Absolute Neutrophil Count 16.4 X10^3/uL (2.0-7.7); Basophil# 0.14 X10^3/uL; Basophil% 0.7 % (0-1); Eosinophil# 0.02 X10^3/uL; Eosinophils% 0.1 % (0-5); Hematocrit 47.5 % (37-47); Hemoglobin 16.3 g/dL (12.0-15.0); Lymphocyte # 3.08 X10^3/ul (0.83-4.51); Lymphocyte % 14.8 % (19-41); Mean Corp Hgb Conc 34.3 g/dL (32-36); Mean Corpuscular Hgb 29.3 pg (27.0-32.0); Mean Corpuscular Volume 85.3 fL (81-99); Mean Platelet Vol. 9.4 fl (6.2-12.0); Monocyte# 0.87 X10^3/uL; Monocyte% 4.2 % (0-10); NRBC Flagged by Analyzer 0 % (0-5); Neutrophil # 16.44 X10^3/uL (2.7-7.7); Neutrophil % 78.7 % (47-70); Platelet Count 513 K/mm3 (150-450); RBC Distribution Width CV 13.9 % (11.6-14.6); Red Blood Count 5.57 M/mm3 (4.2-5.4); White Blood Count 20.9 K/mm3 (4.4-11.0)
--- NOTE | 2021-06-27 11:55 | RAD_ITS ---
STUDY: X-RAY CHEST REASON FOR EXAM: Female, 21 years old. covid TECHNIQUE: Single AP portable view of the chest. COMPARISON: 11/27/2020 FINDINGS: Interval removal of the left internal jugular deep venous line. The lungs are clear and expanded. There is no demonstrated pleural abnormality. Normal size heart. Normal mediastinum and raji. Normal visualized pulmonary arteries. Normal visualized aortic arch and descending thoracic aorta. Normal visualized thoracic spine. Normal visualized ribs, clavicles, and shoulders. There is no demonstrated abnormality of the visualized soft tissue structures of the upper abdomen. RAD/Chest 1 View (Portable) IMPRESSION: Normal x-ray examination of the chest. Electronically Signed: Sharif Gonzalez MD at 12:13 EST Tel , Service support ,
[2021-06-27 12:17] LABS: ALB/GLOB Ratio 0.5 RATIO (0.9-2.4); AST(SGOT) 9 U/L (15-37); Alanine Aminotransfer ALT/SGPT 19 U/L (13-56); Albumin, Serum 3.2 g/dL (3.2-5.0); Alkaline Phosphatase 163 U/L (45-117); Anion Gap 25 (5-15); BUN 14 mg/dL (7-18); BUN/Creat Ratio 16.5 RATIO (10-20); Calcium,Total 9.2 mg/dL (8.5-10.1); Chloride 103 mmol/L (98-107); Creatinine, Serum 0.85 mg/dL (0.55-1.02); EST Glomerular Filtration Rate 90 mL/min (>60); Est Glom Filt Rate - Afr Amer 109 mL/min (>60); Estimated Creatinine Clearance 101.81 ml/min; Globulin 6.1 g/dL (2.2-4.2); Glucose 435 mg/dL (74-106); Lipase 40 U/L (73-393); Magnesium 1.9 mg/dL (1.6-2.6); Potassium 3.7 mmol/L (3.5-5.1); Protein, Total 9.3 g/dL (6.4-8.2); Sodium Level 133 mmol/L (136-145); Troponin-I HS < 3 pg/mL (3.0-54.0)
[2021-06-27 12:18] LABS: Lactic Acid 1.6 mmol/L (0.4-1.9)
[2021-06-27] MEDS: Ondansetron 4 MG/2 ML Vial IV (12:18)
--- NOTE | 2021-06-27 13:33 | PCM.HP.STD ---
HPI - General General Date of Admission: 06/27/21 Date of Service: 06/27/21 Chief Complaint: Nausea, vomiting, abdominal pain -2 days HPI Narrative RONA CHAU, is a 21 F who presents with the above ongoing for. Patient has history of type I DM, noncompliant with medications, anxiety/depression who was recently discharged on 06/21/21 after acute hospitalization for acute DKA. This is a patient's fourth?fifth admission to a hospital for DKA over the past couple of months. She was discharged from [facility] a few weeks prior. When asked by the ED doctor, patient admits to wanting to kill herself prior to going into DKA but currently because she feels measurable she does not want to kill herself. She was pink slipped by the emergency room physician for acute psychiatric stabilization after her medical stay. When asked further in the ED, patient stated that each time before she goes to DKA, she is tired of taking care of herself with type I DM and wants to kill herself. However because of the discomfort from acute DKA, she does not want to kill herself anymore. She stated that the last time, she took her insulin was before her discharge on 06/21/21. She lives in a house with 4 other men renting. She denies living in the same room as the men. She denied any dizziness or palpitation. She complains of right ear pain. She was started on oral cefdinir in the ED. Patient was diagnosed with acute COVID-19 pneumonia on 06/20. She did not require oxygen. She is still not on oxygen. REPLACED BY [facility] Medical History Anxiety Anxiety Bipolar 1 disorder, depressed Depression Depression Diabetes Noncompliance Type 1 diabetes mellitus Home Medications blood-glucose meter #1 ea 11/24/20 [Rx Last Taken Unknown] pen needle, diabetic 32 gauge x 11/15 #200 ea 11/27/20 [Rx Last Taken Unknown] prazosin 1 mg capsule 1 mg PO QHS 03/11/21 [History Last Taken Unknown] oxcarbazepine [Trileptal] 450 mg PO BID 05/29/21 [History Last Taken Unknown] trazodone 100 mg PO QHS 05/29/21 [History Last Taken Unknown] True Metrix Glucose Test Strip #100 ea 06/07/21 [Rx Last Taken Unknown] pen needle, diabetic [BD Ultra-Fine Erin Pen Needle] #200 ea 06/07/21 [Rx Last Taken Unknown] Lantus Solostar U-100 Insulin 38 unit SUBCUT DAILY 06/20/21 [History Last Taken Unknown] insulin lispro [Humalog KwikPen Insulin] 24 unit SUBCUT TIDCM 06/20/21 [History Last Taken Unknown] Allergy/AdvReac Type Severity Reaction Status Date / Time amoxicillin Allergy Hives Verified 06/27/21 10:45 Sulfa (Sulfonamide Allergy Hives Verified 06/27/21 10:45 Antibiotics) tomato Allergy Hives Verified 06/27/21 10:45 Family History Grandmother Diabetes Father Respiratory disease Uncle Respiratory disease Aunt Respiratory disease Social History Smoking Status: Current every day smoker tobacco type: cigarettes and e-cigarettes Tobacco: How many years used: 1 alcohol intake: never substance use type: does not use what type of physical activity do you participate in: walking frequency: daily ROS ROS Narrative Constitutional: Reports: Malaise, Weakness, Fatigue. Denies: Anorexia, Chills, Fever, Night Sweats, Weight Change Eyes: Denies: Blurred vision, Cataracts, Conjunctivae Inflammation, Pain, Redness, Vision Change HEENT: Admits to right ear pain denies: Difficulty Hearing, Difficulty Swallowing, Head Aches, Hearing Changes, Sinus Congestion, Sinus Drainage Cardiovascular: Denies: Chest Pain, Orthopnea, Palpitations Respiratory: Denies: Cough, Shortness of breath at rest, Sputum production Gastrointestinal: Denies: Abdominal Pain, Nausea, Vomiting Genitourinary: Denies: Dysuria Musculoskeletal: Denies: Joint Pain, Joint stiffness, Joint swelling, Joint Tenderness Skin: Denies: Rash, Wounds Neurological: Denies: Numbness, Tingling, Focal weakness Vital Signs Vital Signs Vital Signs: 06/27/21 10:45 06/27/21 11:50 06/27/21 11:56 Temperature 97.3 F L Temperature Source Temporal Pulse Rate 158 H 144 H Respiratory Rate 30 H 27 H Respiratory Effort Short of Breath Respiratory Depth Shallow Respiratory Pattern Tachypnea Blood Pressure 139/94 H 140/105 H Blood Pressure Mean 109 116 Pulse Ox 93 97 Oxygen Delivery Method Room Air Room Air Room Air 06/27/21 12:00 06/27/21 13:00 Temperature Temperature Source Pulse Rate 143 H 129 H Respiratory Rate 30 H 30 H Respiratory Effort Respiratory Depth Respiratory Pattern Blood Pressure 136/85 H 137/93 H Blood Pressure Mean 102 107 Pulse Ox 96 97 Oxygen Delivery Method Room Air Room Air Weight Weight: 65.4 kg Body Mass Index (BMI) 22.6 Physical Exam Narrative Physical exam: General: Alert, Oriented x3, Cooperative, appears unwell, cachectic HEENT: Atraumatic Oral: Dry oral mucosa Neck: Supple Lungs: Clear to auscultation Cardiovascular: HS I+II, regular, no murmurs Abdomen: Bowel Sounds Present, Soft, Non Tender Extremities: No edema Results Lab / Micro Data Result Diagrams: 06/27/21 11:43 06/27/21 11:43 Labs: Laboratory Results - last 24 hr 06/27/21 11:43: WBC 20.9 H, RBC 5.57 H, Hgb 16.3 H, Hct 47.5 H, MCV 85.3, MCH 29.3, MCHC 34.3, RDW Std Deviation 42.0, RDW Coeff of Mark 13.9, Plt Count 513 H, MPV 9.4, Immature Gran % (Auto) 1.500 H, Neut % (Auto) 78.7 H, Lymph % (Auto) 14.8 L, [place] % (Auto) 4.2, Eos % (Auto) 0.1, Baso % (Auto) 0.7, Absolute Neuts (auto) 16.4 H, Absolute Lymphs (auto) 3.08, Nucleated RBC % 0 06/27/21 11:43: Sodium 133 L, Potassium 3.7, Chloride 103, Carbon Dioxide 5.0 L*, Anion Gap 25 H, BUN 14, Creatinine 0.85, Estim Creat Clear Calc 101.81, Est GFR (MDRD) Af Amer 109, Est GFR (MDRD) Non-Af 90, BUN/Creatinine Ratio 16.5, Glucose 435 H, Calcium 9.2, Magnesium 1.9, Total Bilirubin 0.40, AST 9 L, ALT 19, Alkaline Phosphatase 163 H, Troponin I High Sens < 3 L, Total Protein 9.3 H, Albumin 3.2, Globulin 6.1 H, Albumin/Globulin Ratio 0.5 L, Lipase 40 L 06/27/21 11:43: Acetone Level MODERATE H 06/27/21 11:43: Lactic Acid 1.6 Radiology Impression Chest X-Ray 06/27/21 11:55 IMPRESSION: Normal x-ray examination of the chest. Electronically Signed: Sharif Gonzalez MD at 12:13 EST Tel , Service support , Assessment & Plan Assessment/Plan (1) DKA (diabetic ketoacidosis): (2) COVID-19: (3) Acute right otitis media: (4) Suicide attempt: PLAN: 1. Acute DKA, recurrent in a known type I DM patient with history of noncompliance Patient was recently discharged from the hospital on 06/21/21; she admits to not taking any insulin since discharge Will admit to ICU, manage with DKA protocol 2. Suicidal attempt- patient has been refusing to take her insulin because she is tired of not being able to take care of herself She has been pinks care from the ED 3. Acute COVID-19 infection without hypoxia, diagnosed on 06/20 Continue on current 4. Acute right otitis media, patient with penicillin allergy?hives Given cefdinir in the ED, will continue with azithromycin 500 mg IV x1 tomorrow and then 250 mg p.o. daily for 4 days 5. Leukocytosis/elevated hemoglobin/thrombocytosis/pseudohyponatremia secondary to #1 Repeat in a.m. 6. Hypomagnesemia, replaced, recheck in a.m. 7. Nicotine dependence, on replacement 8. Bipolar disorder 9. DVT prophylaxis with early ambulation Charges/Coding Visit Charges Inpatient E&M: 43562 Init Hosp L3
[2021-06-27 13:57] LABS: Bacteria 0 SEEN /hpf (None Seen); Mucous, Urine 0 SEEN /hpf (<or=2+); Red Blood Cells-Urine 0 SEEN /hpf (0-5); White Blood Cells 0 SEEN /hpf (0-5)
[2021-06-27 14:00] LABS: Color, Urine Yellow (Yellow); Glucose, Dipstick 1000 mg/dl (Normal); Leukocyte Esterase-Dipstick Negative /ul (Negative); Nitrite-Dipstick Negative (Negative); Occult Blood-Urine 10 /ul (Negative); Protein-Dipstick 100 mg/dl (Negative); Specific Gravity, Urine 1.025 (1.002-1.030); Urine Bilirubin Dipstick Negative (Negative); Urine Clarity Clear (Clear); Urine Urobilinogen Normal (Normal)
[2021-06-27 14:10] LABS: Ketone-Dipstick 150 mg/dl (Negative)
[2021-06-27 14:12] LABS: Amphetamine Urine VISTA NEGATIVE (<1000 ng/mL); Barbiturate Urine VISTA NEGATIVE (< 200 ng/mL); Benzodiazepine Urine VISTA NEGATIVE (< 200 ng/mL); Cocaine Urine VISTA NEGATIVE (< 300 ng/mL); Ecstacy Urine VISTA NEGATIVE (< 500 ng/mL); Methadone Urine VISTA NEGATIVE (< 300 ng/mL); PCP Urine VISTA NEGATIVE (< 25 ng/mL); Squamous Epithelial Cells - UA 0-5 SEEN /hpf (5-10); THC Urine VISTA NEGATIVE (< 50 ng/mL); Vista UDS pH Range 5
--- NOTE | 2021-06-27 14:18 | ED.RN ---
Report given to PETEY Santos in ICU for this patient. Requests for central line to be placed prior to patient coming to ICU, mentioned to Dr. Garcia and he is unable to accommodate this request. Danielle aware and speaking with hospitalist.
[2021-06-27 15:10] LABS: Bedside Glucose 315 mg/dL (70-110)
--- NOTE | 2021-06-27 16:41 | ED.RN ---
no change to insulin due to minimal change to BGL 315 down to 285
--- NOTE | 2021-06-27 17:21 | PCS.PANDOC ---
PANDEMIC DOCUMENTATION INITIATED: Date: 02/15/2021 Time: 190
[2021-06-27 17:30] LABS: Bedside Glucose 173 mg/dL (70-110)
[2021-06-27 17:30] LABS: Bedside Glucose 284 mg/dL (70-110)
[2021-06-27] MEDS: Dext 5%-0.45% NS 1,000 ML 150 ML IV (18:06)
[2021-06-27 18:35] LABS: Bedside Glucose 139 mg/dL (70-110)
[2021-06-27 18:47] LABS: International Normalized Ratio 1.2; Prothrombin Time (Protime)PT. 14.4 SECONDS (11.7-14.9)
[2021-06-27 18:49] LABS: Anion Gap 16 (5-15); BUN 11 mg/dL (7-18); BUN/Creat Ratio 21.9 RATIO (10-20); Calcium,Total 7.1 mg/dL (8.5-10.1); Chloride 121 mmol/L (98-107); EST Glomerular Filtration Rate 165 mL/min (>60); Est Glom Filt Rate - Afr Amer 199 mL/min (>60); Estimated Creatinine Clearance 173.08 ml/min; Glucose 136 mg/dL (74-106); Potassium 3.4 mmol/L (3.5-5.1); Sodium Level 144 mmol/L (136-145)
[2021-06-27 19:15] LABS: Bedside Glucose 151 mg/dL (70-110)
[2021-06-27 22:47] LABS: Anion Gap 11 (5-15); BUN 11 mg/dL (7-18); BUN/Creat Ratio 19.8 RATIO (10-20); Calcium,Total 7.4 mg/dL (8.5-10.1); Chloride 119 mmol/L (98-107); Creatinine, Serum 0.56 mg/dL (0.55-1.02); EST Glomerular Filtration Rate 147 mL/min (>60); Est Glom Filt Rate - Afr Amer 177 mL/min (>60); Estimated Creatinine Clearance 154.53 ml/min; Glucose 167 mg/dL (74-106); Potassium 2.9 mmol/L (3.5-5.1); Sodium Level 141 mmol/L (136-145)
[2021-06-28] VITALS (12 sets, daily range): BP systolic 104–121; BP diastolic 61–73; PULSE 94–102; RESP 16–21; TEMP 36.2–37.1; O2SAT 98–100
[2021-06-28] MEDS: Potassium Chloride 10mEq/100mL 10 MEQ/100 ML IV.SOLN. 100 MEQ IV BOLUS ×8 (00:09→11:40)
[2021-06-28 00:15] LABS: Bedside Glucose 160 mg/dL (70-110)
[2021-06-28 00:15] LABS: Bedside Glucose 148 mg/dL (70-110)
[2021-06-28 00:15] LABS: Bedside Glucose 158 mg/dL (70-110)
[2021-06-28 00:20] LABS: Bedside Glucose 134 mg/dL (70-110)
[2021-06-28 00:20] LABS: Bedside Glucose 146 mg/dL (70-110)
[2021-06-28] MEDS: Dext 5%-0.45% NS 1,000 ML 150 ML IV (00:48)
[2021-06-28] MEDS: Ondansetron 4 MG/2 ML Vial IV ×2 (01:06→10:58)
[2021-06-28 03:20] LABS: Absolute Lymphocyte Count 2.23 X10^3/uL (0.83-4.51); Absolute Neutrophil Count 10.4 X10^3/uL (2.0-7.7); Basophil# 0.05 X10^3/uL; Basophil% 0.4 % (0-1); Eosinophils% 0.7 % (0-5); Hematocrit 33.7 % (37-47); Hemoglobin 11.7 g/dL (12.0-15.0); Lymphocyte # 2.23 X10^3/ul (0.83-4.51); Lymphocyte % 16.2 % (19-41); Mean Corp Hgb Conc 34.7 g/dL (32-36); Mean Corpuscular Hgb 28.5 pg (27.0-32.0); Mean Corpuscular Volume 82.2 fL (81-99); Mean Platelet Vol. 8.9 fl (6.2-12.0); Monocyte# 0.87 X10^3/uL; Monocyte% 6.3 % (0-10); NRBC Flagged by Analyzer 0 % (0-5); Neutrophil # 10.41 X10^3/uL (2.7-7.7); Neutrophil % 75.7 % (47-70); Platelet Count 385 K/mm3 (150-450); RBC Distribution Width CV 13.5 % (11.6-14.6); RBC Distribution Width SD 40.5 fl (35.1-43.9); White Blood Count 13.8 K/mm3 (4.4-11.0)
[2021-06-28 04:28] LABS: Anion Gap 9 (5-15); BUN 10 mg/dL (7-18); BUN/Creat Ratio 19.8 RATIO (10-20); Calcium,Total 7.6 mg/dL (8.5-10.1); Chloride 119 mmol/L (98-107); EST Glomerular Filtration Rate 163 mL/min (>60); Est Glom Filt Rate - Afr Amer 198 mL/min (>60); Estimated Creatinine Clearance 173.08 ml/min; Glucose 115 mg/dL (74-106); Potassium 2.9 mmol/L (3.5-5.1); Sodium Level 141 mmol/L (136-145)
[2021-06-28 06:26] LABS: Bedside Glucose 116 mg/dL (70-110)
[2021-06-28 06:26] LABS: Bedside Glucose 85 mg/dL (70-110)
[2021-06-28 06:26] LABS: Bedside Glucose 82 mg/dL (70-110)
[2021-06-28 06:26] LABS: Bedside Glucose 114 mg/dL (70-110)
[2021-06-28 06:32] LABS: ALB/GLOB Ratio 0.5 RATIO (0.9-2.4); AST(SGOT) 12 U/L (15-37); Alanine Aminotransfer ALT/SGPT 12 U/L (13-56); Albumin, Serum 2.1 g/dL (3.2-5.0); Alkaline Phosphatase 108 U/L (45-117); Anion Gap 7 (5-15); BUN 10 mg/dL (7-18); Calcium,Total 7.5 mg/dL (8.5-10.1); Chloride 119 mmol/L (98-107); Creatinine, Serum 0.53 mg/dL (0.55-1.02); EST Glomerular Filtration Rate 156 mL/min (>60); Est Glom Filt Rate - Afr Amer 188 mL/min (>60); Estimated Creatinine Clearance 163.28 ml/min; Glucose 162 mg/dL (74-106); Magnesium 2.1 mg/dL (1.6-2.6); Potassium 3.2 mmol/L (3.5-5.1); Protein, Total 6.1 g/dL (6.4-8.2); Sodium Level 141 mmol/L (136-145)
[2021-06-28 06:50] LABS: Bedside Glucose 92 mg/dL (70-110)
--- NOTE | 2021-06-28 07:28 | PN.HOSP_ITS ---
Subjective Subjective Patient is a 21-year-old lady with history of diabetes mellitus type 1 with history of noncompliance with therapy presented in DKA. She had also tested positive for Covid on 06/20/2021 Objective Data Objective Data Vital Signs: Vital Signs Temp Pulse Resp BP Pulse Ox 97.2 F L 102 H 20 H 111/66 99 06/28/21 05:00 06/28/21 05:00 06/28/21 05:00 06/28/21 05:00 06/28/21 05:00 Oxygen Delivery Method Room Air Weight: 66.6 kg Body Mass Index (BMI) 23.0 Intake & Output: Intake and Output for Last 24 Hours 06/26/21 06/27/21 06/28/21 23:59 23:59 23:59 Intake Total 4134.92 / 4234.92 2498.82 / 2498.82 Balance 4134.92 / 4234.92 2498.82 / 2498.82 Lab / Micro Data Result Diagrams: 06/28/21 02:30 06/28/21 05:30 Labs: Laboratory Results - last 24 hr 06/27/21 11:43: WBC 20.9 H, RBC 5.57 H, Hgb 16.3 H, Hct 47.5 H, MCV 85.3, MCH 29.3, MCHC 34.3, RDW Std Deviation 42.0, RDW Coeff of Mark 13.9, Plt Count 513 H, MPV 9.4, Immature Gran % (Auto) 1.500 H, Neut % (Auto) 78.7 H, Lymph % (Auto) 14.8 L, [place] % (Auto) 4.2, Eos % (Auto) 0.1, Baso % (Auto) 0.7, Absolute Neuts (auto) 16.4 H, Absolute Lymphs (auto) 3.08, Nucleated RBC % 0 06/27/21 11:43: Sodium 133 L, Potassium 3.7, Chloride 103, Carbon Dioxide 5.0 L* , Anion Gap 25 H, BUN 14, Creatinine 0.85, Estim Creat Clear Calc 101.81, Est GFR (MDRD) Af Amer 109, Est GFR (MDRD) Non-Af 90, BUN/Creatinine Ratio 16.5, Glucose 435 H, Calcium 9.2, Magnesium 1.9, Total Bilirubin 0.40, AST 9 L, ALT 19, Alkaline Phosphatase 163 H, Troponin I High Sens < 3 L, Total Protein 9.3 H, Albumin 3.2, Globulin 6.1 H, Albumin/Globulin Ratio 0.5 L, Lipase 40 L 06/27/21 11:43: Acetone Level MODERATE H 06/27/21 11:43: Lactic Acid 1.6 06/27/21 13:50: Urine Opiates Screen NEGATIVE, Urine Methadone Screen NEGATIVE, Ur Barbiturates Screen NEGATIVE, Ur Phencyclidine Scrn NEGATIVE, Ur Amphetamines Screen NEGATIVE, U Methamphetamin-MDMA NEGATIVE, U Benzodiazepines Scrn NEGATIVE, Urine Cocaine Screen NEGATIVE, U Cannabinoids Screen NEGATIVE, Ur Drug Screen Comment 06/27/21 13:50: Urine Color Yellow, Urine Clarity Clear, Urine pH 5.0, Ur Specific [place] 1.025, Urine Protein 100 H, Urine Glucose (UA) 1000 H, Urine Ketones 150 A*, Urine Occult Blood 10 H, Urine Nitrite Negative, Urine Bilirubin Negative, Urine Urobilinogen Normal, Ur Leukocyte Esterase Negative, Urine RBC 0 SEEN, Urine WBC 0 SEEN, Ur Squamous Epith Cells 0-5 SEEN, Urine Bacteria 0 SEEN, Urine Mucus 0 SEEN 06/27/21 15:01: POC Glucose 315 H 06/27/21 16:26: POC Glucose 284 H 06/27/21 17:03: POC Glucose 173 H 06/27/21 18:09: POC Glucose 139 H 06/27/21 18:20: PT 14.4, INR 1.2 06/27/21 18:20: Sodium 144, Potassium 3.4 L, Chloride 121 H, Carbon Dioxide 7.0 L*, Anion Gap 16 H, BUN 11, Creatinine 0.50 L, Estim Creat Clear Calc 173.08, Est GFR (MDRD) Af Amer 199, Est GFR (MDRD) Non-Af 165, BUN/Creatinine Ratio 21.9 H, Glucose 136 H, Calcium 7.1 L 06/27/21 19:09: POC Glucose 151 H 06/27/21 20:07: POC Glucose 160 H 06/27/21 21:04: POC Glucose 148 H 06/27/21 22:10: POC Glucose 158 H 06/27/21 22:18: Sodium 141, Potassium 2.9 L, Chloride 119 H, Carbon Dioxide 11.0 L, Anion Gap 11, BUN 11, Creatinine 0.56, Estim Creat Clear Calc 154.53, Est GFR (MDRD) Af Amer 177, Est GFR (MDRD) Non-Af 147, BUN/Creatinine Ratio 19.8, Glucose 167 H, Calcium 7.4 L 06/27/21 23:18: POC Glucose 146 H 06/28/21 00:06: POC Glucose 134 H 06/28/21 01:05: POC Glucose 116 H 06/28/21 02:30: WBC 13.8 H, RBC 4.10 L, Hgb 11.7 L, Hct 33.7 L, MCV 82.2, MCH 28.5, MCHC 34.7, RDW Std Deviation 40.5, RDW Coeff of Mark 13.5, Plt Count 385, MPV 8.9, Immature Gran % (Auto) 0.700, Neut % (Auto) 75.7 H, Lymph % (Auto) 16.2 L, [place] % (Auto) 6.3, Eos % (Auto) 0.7, Baso % (Auto) 0.4, Absolute Neuts (auto) 10.4 H, Absolute Lymphs (auto) 2.23, Nucleated RBC % 0 06/28/21 02:30: Sodium 141, Potassium 2.9 L, Chloride 119 H, Carbon Dioxide 13.0 L, Anion Gap 9, BUN 10, Creatinine 0.50 L, Estim Creat Clear Calc 173.08, Est GFR (MDRD) Af Amer 198, Est GFR (MDRD) Non-Af 163, BUN/Creatinine Ratio 19.8, Glucose 115 H, Calcium 7.6 L 06/28/21 02:39: POC Glucose 114 H 06/28/21 05:25: POC Glucose 82 06/28/21 05:30: Sodium 141, Potassium 3.2 L, Chloride 119 H, Carbon Dioxide 15.0 L, Anion Gap 7, BUN 10, Creatinine 0.53 L, Estim Creat Clear Calc 163.28, Est GFR (MDRD) Af Amer 188, Est GFR (MDRD) Non-Af 156, BUN/Creatinine Ratio 19.0, Glucose 162 H, Calcium 7.5 L, Magnesium 2.1, Total Bilirubin 0.30, AST 12 L, ALT 12 L, Alkaline Phosphatase 108, Total Protein 6.1 L, Albumin 2.1 L, Globulin 4.0, Albumin/Globulin Ratio 0.5 L 06/28/21 06:23: POC Glucose 85 06/28/21 06:47: POC Glucose 92 Radiography Diagnostic Testing: Radiology Impression Chest X-Ray 06/27/21 11:55 IMPRESSION: Normal x-ray examination of the chest. Electronically Signed: Sharif Gonzalez MD at 12:13 EST Tel , Service support , Physical Exam Narrative GENERAL: cooperative HEENT: Atraumatic; EYES; Anicteric, Normal Conjunctiva NECK; supple, normal thyroid, RESPIRATORY: Diminished to auscultation CARDIOVASCULAR: Regular S1 S2, GI: soft, normoactive bowel sounds, : No Renal angle tenderness; EXTREMITIES: No edema, no clubbing, MUSCULOSKELETAL: no muscle waisting NEURO: Awake; no lateralizing signs. SKIN: No Rash PSYCH; Flat affect Assessment & Plan Assessment/Plan (1) DKA (diabetic ketoacidosis): (2) COVID-19: (3) Acute right otitis media: (4) Suicide attempt: PLAN: Patient is a 21-year-old lady with history of diabetes mellitus type 1 with history of noncompliance with therapy presented in DKA. She had also tested positive for Covid on 06/20/2021 1. Acute diabetic ketoacidosis ?Secondary to noncompliance. Patient was apparently assessed to be suicidal after she confessed not wanting to take her insulin. She however stated that that was in the past and she no longer feels that way. Her DKA has been managed with aggressive IV fluids correction of electrolytes and insulin drip. Her anion gap is closed. Plan is to switch to scheduled long-acting insulin 2. Suicidal ideation/attempts ?Patient currently has a sitter consult has been placed to the crisis center for assessment 3. Hypokalemia ?Corrected per protocol 4. Hypomagnesemia ?Corrected per protocol 5. Acute right otitis media ?Managed with cefdinir and azithromycin 6. Tobacco dependence - Counseled on cessation, offered nicotine patch for tobacco cravings 7. Bipolar disorder -Patient is on trazodone at night 8. DVT prophylaxis ?Due to be low risk did encourage early ambulation 9. Recent COVID-19 infection ?Currently out of current time Charges/Coding Visit Charges Inpatient E&M: 01569 Subs Hosp L3
[2021-06-28] MEDS: Acetaminophen 325 MG Tablet 650 MG PO ×2 (08:27→21:30)
[2021-06-28 08:50] LABS: Bedside Glucose 110 mg/dL (70-110)
--- NOTE | 2021-06-28 10:39 | CASEMGMT ---
Addendum entered by Suma Harding 06/28/21 11:08: Informed by Yesica from Crisis, patient to be safety planned home. Original Note: SOCIAL WORK Spoke with nursing, Crisis has been consulted and is speaking with patient. Awaiting Crisis disposition. Anjum Harding, SOCIAL SECURITY BENEFITS INTERVIEWER, ENGINE GENERATOR ASSEMBLER
[2021-06-28] MEDS: Insulin Lispro 100 UNIT/ML INSULN.PEN SC ×2 (10:44→15:55)
[2021-06-28 10:51] LABS: Bedside Glucose 394 mg/dL (70-110)
[2021-06-28] MEDS: Insulin Lispro 100 UNIT/ML INSULN.PEN 24 UNIT SC ×2 (11:05→15:54)
[2021-06-28 11:31] LABS: Alcohol, Blood (Medical)-Serum < 3.0 mg/dL
--- NOTE | 2021-06-28 11:35 | CASEMGMT ---
Addendum entered by Sri Davis 06/28/21 14:17: Spoke w/[facility] CM, Domingo Murray, @ [phone]. She was notified of pt's admission to [facility] and given update. She states she tried to reach out to pt last week without success, stating pt did not answer and VM not set up yet. She states Simona Maxwell was CM who had been working w/pt previously and states she will reach out to her as well and update her on pt. Domingo also states will try and reach pt today @ [facility] to talk w/her. Phone number to pt's room provided. Domingo aware of appts scheduled @ counseling center 07/06 and PCP 07/14 and that pt will need transportation arranged through [facility]. Addendum entered by Sri Davis 06/28/21 12:11: Pt did tell this PETEY GREGORY she plans to start taking her insulin once returning home. Original Note: RN CM readmission note: Prior admission: Admitted 06/20 w/DKA and cough. Discharged home 06/21/21. Pt has had multiple admissions this year. See Memo ANGELO CM readmission note 06/21. Pt was discharged home w/ appts scheduled for 07/06/21 @ 0830 @ [facility] and 07/14/21 @ [address] Gallo's office and pt to arrange for transportation through [employer]. Current admission: Pt admitted w/Acute DKA. Pt voiced suicidal thoughts in ED and has not taken any insulin since discharge on 06/21 in attempts to kill herself. Pt was pink-slipped and has been evaluated by Crisis today 06/28. Safe plan has been placed. Plan is for pt to return home w/Safe Plan. RN CM to room to talk w/pt. Pt answered questions appropriately but barely opened eyes while RN CM in room. Reviewed appts @ [facility] on 07/06 and w/PCP on 07/14 w/pt and reminded her to call [facility] to arrange for transportation. Pt stated she is aware of these appts. PETEY CM informed her they will also be on her Discharge plan @ d/c. Pt states she has glucometer and insulin but still needs insulin pen needles, stating [facility] did not [facility] them when she checked last. RN CM placed call to [facility] [place] and they informed PETEY GREGORY that pt's scripts are all @ [facility] in [place]. PETEY GREGORY spoke w/pt again. Pt states she just moved to [place] area and would like all of her scripts @ [facility] transferred to [facility] in [place]. TC to [facility] in [place] and they were made aware and will have them transferred. Pt made aware insulin pen needles will be available @ [facility] in [place] when she is discharged. PETEY GREGORY inquired if she has been in touch w/[facility] ANGELO CM, Domingo, recently and she states she has not. Pt states she plans to return home where she has been living w/roommates and denies having any other d/c needs or concerns. PETEY GREGORY placed call to [address] CM, @ [phone]. No answer. VM left for her to return call to this PETEY GREGORY. Sean CHAMBERSN PETEY GREGORY
[2021-06-28 16:05] LABS: Bedside Glucose 157 mg/dL (70-110)
[2021-06-28 17:48] LABS: Anion Gap 8 (5-15); BUN 9 mg/dL (7-18); BUN/Creat Ratio 15.7 RATIO (10-20); Calcium,Total 8.6 mg/dL (8.5-10.1); Chloride 114 mmol/L (98-107); Creatinine, Serum 0.57 mg/dL (0.55-1.02); EST Glomerular Filtration Rate 142 mL/min (>60); Est Glom Filt Rate - Afr Amer 171 mL/min (>60); Estimated Creatinine Clearance 151.82 ml/min; Glucose 75 mg/dL (74-106); Potassium 2.7 mmol/L (3.5-5.1); Sodium Level 140 mmol/L (136-145)
[2021-06-28] MEDS: Potassium Chloride Oral Tablet 20 MEQ 40 MEQ PO (20:14)
[2021-06-28] MEDS: 0.9% Saline Lock 10 ML Syringe IV (20:22)
[2021-06-28 21:21] LABS: Bedside Glucose 51 mg/dL (70-110)
[2021-06-28 21:56] LABS: Bedside Glucose 140 mg/dL (70-110)
[2021-06-29] VITALS (8 sets, daily range): BP systolic 105–112; BP diastolic 58–69; PULSE 82–104; RESP 16–18; TEMP 36.5–36.6; O2SAT 96–100
[2021-06-29 08:00] LABS: Absolute Neutrophil Count 3.4 X10^3/uL (2.0-7.7); Basophil# 0.07 X10^3/uL; Basophil% 0.9 % (0-1); Eosinophil# 0.16 X10^3/uL; Eosinophils% 2.1 % (0-5); Hematocrit 32.5 % (37-47); Hemoglobin 11.5 g/dL (12.0-15.0); Lymphocyte % 40.6 % (19-41); Mean Corp Hgb Conc 35.4 g/dL (32-36); Mean Corpuscular Hgb 28.6 pg (27.0-32.0); Mean Corpuscular Volume 80.8 fL (81-99); Monocyte# 0.85 X10^3/uL; Monocyte% 11.1 % (0-10); NRBC Flagged by Analyzer 0 % (0-5); Neutrophil # 3.42 X10^3/uL (2.7-7.7); Neutrophil % 44.8 % (47-70); Platelet Count 326 K/mm3 (150-450); RBC Distribution Width CV 13.6 % (11.6-14.6); Red Blood Count 4.02 M/mm3 (4.2-5.4); White Blood Count 7.6 K/mm3 (4.4-11.0)
[2021-06-29 08:00] LABS: Bedside Glucose 166 mg/dL (70-110)
[2021-06-29 08:22] LABS: Anion Gap 7 (5-15); BUN 7 mg/dL (7-18); BUN/Creat Ratio 14.6 RATIO (10-20); Calcium,Total 8.2 mg/dL (8.5-10.1); Chloride 116 mmol/L (98-107); Creatinine, Serum 0.48 mg/dL (0.55-1.02); EST Glomerular Filtration Rate 174 mL/min (>60); Est Glom Filt Rate - Afr Amer 210 mL/min (>60); Estimated Creatinine Clearance 180.29 ml/min; Glucose 153 mg/dL (74-106); Potassium 2.7 mmol/L (3.5-5.1); Sodium Level 143 mmol/L (136-145)
[2021-06-29] MEDS: Potassium Chloride 10mEq/100mL 10 MEQ/100 ML IV.SOLN. 100 MEQ IV BOLUS ×4 (09:16→12:52)
[2021-06-29] MEDS: Azithromycin 250 MG Tablet PO (09:18)
[2021-06-29] MEDS: 0.9% Saline Lock 10 ML Syringe IV ×2 (09:18→23:47)
[2021-06-29] MEDS: Potassium Chloride Oral Tablet 20 MEQ 40 MEQ PO (09:24)
[2021-06-29] MEDS: Insulin Lispro 100 UNIT/ML INSULN.PEN SC (09:26)
[2021-06-29] MEDS: Insulin Lispro 100 UNIT/ML INSULN.PEN 24 UNIT SC ×2 (09:27→12:53)
--- NOTE | 2021-06-29 09:41 | NURSING ---
gave pt po potassium, pt put it on bedside table. asked pt to take the pills, pt stated i will. pt went back to sleep. will recheck with pt in short time.
--- NOTE | 2021-06-29 10:43 | PN.HOSP_ITS ---
Subjective Subjective Patient seen currently out of DKA however has significant electrolyte abnormalities with potassium of 2.7. Aggressive repletion currently underway Objective Data Objective Data Vital Signs: Vital Signs Temp Pulse Resp BP Pulse Ox 97.7 F L 104 H 16 109/60 97 06/29/21 07:38 06/29/21 07:38 06/29/21 07:38 06/29/21 07:38 06/29/21 07:38 Oxygen Delivery Method Room Air Weight: 65.998 kg Body Mass Index (BMI) 23.0 Intake & Output: Intake and Output for Last 24 Hours 06/27/21 06/28/21 06/29/21 23:59 23:59 23:59 Intake Total 4134.92 / 4234.92 3997.77 / 3997.77 100 / 100 Balance 4134.92 / 4234.92 3997.77 / 3997.77 100 / 100 Medical Nutrition Assessment Dietitian: Malnutrition Criteria Met Start: 06/28/21 13:12 Freq: Status: Active Protocol: Document 06/28/21 13:12 AG (Rec: 06/28/21 13:12 [id number]) Nutrition Malnutrition Evidence of Malnutrition Exists Yes Malnutrition (severe): Acute Illness/Injury Evidenced By Suboptimal Energy Intake ( Severe),Weight Loss (Severe) Clinical Problem Acute Disease or Injury Related Malnutrition Etiology severe, acute malnutrition r/t inadequate energy intake d/t acute illness Signs/Symptoms as evidenced by wt loss of 4#/ 3% x 1 week, estimated PO intake meeting <50% of estimated energy needs >1 week . Status Active Problem Recommendation Dietitian Recommendations/Changes continue CHO controlled diet; will add 4oz glucerna ONS w/ meals for additional calories/ protein if consumed. Lab / Micro Data Result Diagrams: 06/29/21 07:30 06/29/21 07:30 Labs: Laboratory Results - last 24 hr 06/27/21 14:40: Ethyl Alcohol < 3.0 06/28/21 10:43: POC Glucose 394 H 06/28/21 15:36: POC Glucose 157 H 06/28/21 17:00: Sodium 140, Potassium 2.7 L*, Chloride 114 H, Carbon Dioxide 18.0 L, Anion Gap 8, BUN 9, Creatinine 0.57, Estim Creat Clear Calc 151.82, Est GFR (MDRD) Af Amer 171, Est GFR (MDRD) Non-Af 142, BUN/Creatinine Ratio 15.7, Glucose 75, Calcium 8.6 06/28/21 20:11: POC Glucose 51 L 06/28/21 21:28: POC Glucose 140 H 06/29/21 07:30: WBC 7.6, RBC 4.02 L, Hgb 11.5 L, Hct 32.5 L, MCV 80.8 L, MCH 28.6, MCHC 35.4, RDW Std Deviation 40.0, RDW Coeff of Mark 13.6, Plt Count 326, MPV 9.0, Immature Gran % (Auto) 0.500, Neut % (Auto) 44.8 L, Lymph % (Auto) 40.6, [place] % (Auto) 11.1 H, Eos % (Auto) 2.1, Baso % (Auto) 0.9, Absolute Neuts (auto) 3.4, Absolute Lymphs (auto) 3.10, Nucleated RBC % 0 06/29/21 07:30: Sodium 143, Potassium 2.7 L*, Chloride 116 H, Carbon Dioxide 20.0 L, Anion Gap 7, BUN 7, Creatinine 0.48 L, Estim Creat Clear Calc 180.29, Est GFR (MDRD) Af Amer 210, Est GFR (MDRD) Non-Af 174, BUN/Creatinine Ratio 14. 6, Glucose 153 H, Calcium 8.2 L, Magnesium 2.0 06/29/21 07:33: POC Glucose 166 H Physical Exam Narrative GENERAL: cooperative HEENT: Atraumatic; EYES; Anicteric, Normal Conjunctiva NECK; supple, normal thyroid, RESPIRATORY: Diminished to auscultation CARDIOVASCULAR: Regular S1 S2, GI: soft, normoactive bowel sounds, : No Renal angle tenderness; EXTREMITIES: No edema, no clubbing, MUSCULOSKELETAL: no muscle waisting NEURO: Awake; no lateralizing signs. SKIN: No Rash PSYCH; Flat affect Assessment & Plan Assessment/Plan (1) DKA (diabetic ketoacidosis): (2) COVID-19: (3) Acute right otitis media: (4) Suicide attempt: PLAN: Patient is a 21-year-old lady with history of diabetes mellitus type 1 with history of noncompliance with therapy presented in DKA. She had also tested positive for Covid on 06/20/2021 1. Acute diabetic ketoacidosis ?Secondary to noncompliance. Patient was apparently assessed to be suicidal after she confessed not wanting to take her insulin. She however stated that that was in the past and she no longer feels that way. Her DKA has been managed with aggressive IV fluids correction of electrolytes and insulin drip. Her anion gap is closed. Plan is to switch to scheduled long-acting insulin -06/29/2021 patient out of DKA on long-acting insulin with short acting scheduled premeal insulin in addition to sliding scale 2. Suicidal ideation/attempts ?Patient currently has a sitter consult has been placed to the crisis center for assessment ?06/29/2021; patient was taken out of suicide precautions by the crisis team. Patient will be discharged with a care plan and follow-up with crisis team 3. Hypokalemia ?Corrected per protocol -06/29/2021 potassium 2.7. Additional potassium given repeat labs ordered for monitoring 4. Hypomagnesemia ?Corrected per protocol ?06/29/2021 magnesium up to 2.0 5. Acute right otitis media ?Managed with cefdinir and azithromycin 6. Tobacco dependence - Counseled on cessation, offered nicotine patch for tobacco cravings 7. Bipolar disorder -Patient is on trazodone at night 8. DVT prophylaxis ?Due to be low risk did encourage early ambulation 9. Recent COVID-19 infection ?Currently out of quarantine Charges/Coding Visit Charges Inpatient E&M: 95875 Subs Hosp L3
[2021-06-29] MEDS: Acetaminophen 325 MG Tablet 650 MG PO (14:16)
[2021-06-29 15:31] LABS: Bedside Glucose 122 mg/dL (70-110)
[2021-06-29 15:31] LABS: Bedside Glucose 46 mg/dL (70-110)
[2021-06-29 15:46] LABS: Anion Gap 9 (5-15); BUN 7 mg/dL (7-18); BUN/Creat Ratio 11.3 RATIO (10-20); Calcium,Total 8.8 mg/dL (8.5-10.1); Chloride 113 mmol/L (98-107); Creatinine, Serum 0.62 mg/dL (0.55-1.02); EST Glomerular Filtration Rate 129 mL/min (>60); Est Glom Filt Rate - Afr Amer 156 mL/min (>60); Estimated Creatinine Clearance 139.58 ml/min; Glucose 114 mg/dL (74-106); Potassium 3.4 mmol/L (3.5-5.1); Sodium Level 144 mmol/L (136-145)
[2021-06-29] MEDS: Insulin Lispro 100 UNIT/ML INSULN.PEN 10 UNIT SC (16:30)
[2021-06-29] MEDS: Potassium Chloride Oral Tablet 20 MEQ PO (16:30)
[2021-06-29 21:31] LABS: Bedside Glucose 83 mg/dL (70-110)
[2021-06-29 23:55] LABS: Bedside Glucose 107 mg/dL (70-110)
[2021-06-30 01:51] VITALS: PULSE 79; O2SAT 97
[2021-06-30 06:47] VITALS: BP 104/65; PULSE 85; RESP 18; TEMP 36.1; O2SAT 98
[2021-06-30 07:02] LABS: Absolute Lymphocyte Count 3.85 X10^3/uL (0.83-4.51); Absolute Neutrophil Count 2.1 X10^3/uL (2.0-7.7); Basophil# 0.06 X10^3/uL; Basophil% 0.9 % (0-1); Eosinophil# 0.17 X10^3/uL; Eosinophils% 2.5 % (0-5); Hematocrit 32.7 % (37-47); Hemoglobin 11.1 g/dL (12.0-15.0); Lymphocyte # 3.85 X10^3/ul (0.83-4.51); Lymphocyte % 56.5 % (19-41); Mean Corp Hgb Conc 33.9 g/dL (32-36); Mean Corpuscular Hgb 27.7 pg (27.0-32.0); Mean Corpuscular Volume 81.5 fL (81-99); Mean Platelet Vol. 9.2 fl (6.2-12.0); Monocyte% 8.8 % (0-10); NRBC Flagged by Analyzer 0 % (0-5); Neutrophil # 2.12 X10^3/uL (2.7-7.7); Neutrophil % 31.2 % (47-70); Platelet Count 299 K/mm3 (150-450); RBC Distribution Width CV 13.9 % (11.6-14.6); RBC Distribution Width SD 40.6 fl (35.1-43.9); Red Blood Count 4.01 M/mm3 (4.2-5.4); White Blood Count 6.8 K/mm3 (4.4-11.0)
[2021-06-30 07:21] LABS: Anion Gap 6 (5-15); BUN 9 mg/dL (7-18); BUN/Creat Ratio 20.1 RATIO (10-20); Calcium,Total 8.4 mg/dL (8.5-10.1); Chloride 113 mmol/L (98-107); Creatinine, Serum 0.45 mg/dL (0.55-1.02); EST Glomerular Filtration Rate 188 mL/min (>60); Est Glom Filt Rate - Afr Amer 227 mL/min (>60); Estimated Creatinine Clearance 192.31 ml/min; Glucose 126 mg/dL (74-106); Potassium 2.8 mmol/L (3.5-5.1); Sodium Level 144 mmol/L (136-145)
[2021-06-30 08:20] LABS: Bedside Glucose 115 mg/dL (70-110)
[2021-06-30] MEDS: Potassium Chloride Oral Tablet 20 MEQ PO (08:31)
[2021-06-30] MEDS: Azithromycin 250 MG Tablet PO (08:31)
[2021-06-30] MEDS: Insulin Lispro 100 UNIT/ML INSULN.PEN 10 UNIT SC (08:35)
--- NOTE | 2021-06-30 09:22 | PCM.PN.HOSP ---
Objective Data Objective Data Vital Signs: Vital Signs Temp Pulse Resp BP Pulse Ox 97.0 F L 85 18 104/65 98 06/30/21 06:47 06/30/21 06:47 06/30/21 06:47 06/30/21 06:47 06/30/21 06:47 Oxygen Delivery Method Room Air Weight: 152 lb 5.431 oz Body Mass Index (BMI) 23.0 Intake & Output: Intake and Output for Last 24 Hours 06/28/21 06/29/21 06/30/21 23:59 23:59 23:59 Intake Total 3997.77 / 3997.77 1450 / 1450 200 / 200 Balance 3997.77 / 3997.77 1450 / 1450 200 / 200 Medical Nutrition Assessment Dietitian: Malnutrition Criteria Met Start: 06/28/21 13:12 Freq: Status: Active Protocol: Document 06/28/21 13:12 AG (Rec: 06/28/21 13:12 [id number]) Nutrition Malnutrition Evidence of Malnutrition Exists Yes Malnutrition (severe): Acute Illness/Injury Evidenced By Suboptimal Energy Intake ( Severe),Weight Loss (Severe) Clinical Problem Acute Disease or Injury Related Malnutrition Etiology severe, acute malnutrition r/t inadequate energy intake d/t acute illness Signs/Symptoms as evidenced by wt loss of 4#/ 3% x 1 week, estimated PO intake meeting <50% of estimated energy needs >1 week . Status Active Problem Recommendation Dietitian Recommendations/Changes continue CHO controlled diet; will add 4oz glucerna ONS w/ meals for additional calories/ protein if consumed. Lab / Micro Data Result Diagrams: 06/30/21 06:35 06/30/21 06:35 Labs: Laboratory Results - last 24 hr 06/29/21 11:29: POC Glucose 83 06/29/21 15:01: POC Glucose 46 L 06/29/21 15:24: Sodium 144, Potassium 3.4 L, Chloride 113 H, Carbon Dioxide 22.0, Anion Gap 9, BUN 7, Creatinine 0.62, Estim Creat Clear Calc 139.58, Est GFR (MDRD) Af Amer 156, Est GFR (MDRD) Non-Af 129, BUN/Creatinine Ratio 11.3, Glucose 114 H, Calcium 8.8 06/29/21 15:25: POC Glucose 122 H 06/29/21 23:20: POC Glucose 107 06/30/21 06:35: WBC 6.8, RBC 4.01 L, Hgb 11.1 L, Hct 32.7 L, MCV 81.5, MCH 27.7, MCHC 33.9, RDW Std Deviation 40.6, RDW Coeff of Mark 13.9, Plt Count 299, MPV 9.2, Immature Gran % (Auto) 0.100, Neut % (Auto) 31.2 L, Lymph % (Auto) 56.5 H, [place] % (Auto) 8.8, Eos % (Auto) 2.5, Baso % (Auto) 0.9, Absolute Neuts (auto) 2.1, Absolute Lymphs (auto) 3.85, Nucleated RBC % 0 06/30/21 06:35: Sodium 144, Potassium 2.8 L, Chloride 113 H, Carbon Dioxide 25.0, Anion Gap 6, BUN 9, Creatinine 0.45 L, Estim Creat Clear Calc 192.31, Est GFR (MDRD) Af Amer 227, Est GFR (MDRD) Non-Af 188, BUN/Creatinine Ratio 20.1 H, Glucose 126 H, Calcium 8.4 L 06/30/21 08:09: POC Glucose 115 H Physical Exam Narrative Seen and examined. Patient complain of right ear pain mainly at pinna/auricle. Complain of tinnitus. Patient had history of otitis media in childhood and had ear tubes placed which was removed later on. DKA resolved General: Alert, Oriented x3, Cooperative HEENT: Atraumatic, PERRLA, EOMI, Normocephalic. Tenderness over right mastoid region and auricle. Oral: No Gingival or Mucosal Lesions/ Ulcerations Neck: Supple, No JVD, Negative Carotid Bruits Lungs: Air entry equal in bilateral lung bases. No crepitation/rhonchi Cardiovascular: Regular rate, Regular Rhythm, Normal S1, Normal S2, No murmurs Abdomen: Bowel Sounds Present, Soft, Non Tender, Non-Distended : No renal angle tenderness. No suprapubic tenderness. Extremities: No edema, Capillary Refill Less than 3 Seconds Skin: No rashes, No breakdown Musculoskeletal: No Tenderness to Palpation of Joints or Extremities Neurological: Cranial nerves II-XII grossly intact, DTR 2+/4 and Symmetrical, Neuro grossly intact Psych/Mental Status: Normal Affect, Appropriate. Assessment & Plan Assessment/Plan (1) DKA (diabetic ketoacidosis): (2) COVID-19: (3) Acute right otitis media: (4) Suicide attempt: PLAN: Patient is a 21-year-old lady with history of diabetes mellitus type 1 with history of noncompliance with therapy presented in DKA. She had also tested positive for Covid on 06/20/2021 1. Acute diabetic ketoacidosis ?Secondary to noncompliance. Her DKA has been managed with aggressive IV fluids correction of electrolytes and insulin drip. Her anion gap is closed. DKA resolved. Glucose is 78, 115. Lantus dose and Humalog insulin dose decreased with holding parameter 2. Suicidal ideation/attempts ?Patient currently has a sitter consult has been placed to the crisis center for assessment. Patient was apparently assessed to be suicidal after she confessed not wanting to take her insulin. Patient evaluated by crisis team and found safe for discharge to home with no further intervention needed. Advised to follow-up psychiatrist to be referred by PCP as an outpatient 3. Hypokalemia persistent and hypophosphatemia: 06/30 potassium and phosphorus replacement ordered. Monitor electrolytes. 4. Hypomagnesemia ?Corrected per protocol ?06/29/2021 magnesium up to 2.0 5. Acute right otitis media 06/30: Patient is still complaining of severe right hand pain and right mastoid tenderness. ENT consult requested to Dr. Dodd. Managed with cefdinir and azithromycin 6. Tobacco dependence - Counseled on cessation,on nicotine patch for tobacco cravings 7. Bipolar disorder -Patient is on trazodone at night 8. DVT prophylaxis ?Due to be low risk did encourage early ambulation 9. Recent COVID-19 infection ?Currently out of quarantine Charges/Coding Visit Charges Inpatient E&M: 22047 Subs Hosp L2
[2021-06-30 09:50] LABS: Phosphorus 1.6 mg/dL (2.5-4.9)
[2021-06-30 11:50] LABS: Bedside Glucose 78 mg/dL (70-110)
[2021-06-30 11:53] VITALS: O2SAT 97
[2021-06-30 12:00] VITALS: BP 117/80; PULSE 97; RESP 18; TEMP 36.6; O2SAT 18
[2021-06-30] MEDS: 0.9% Saline Lock 10 ML Syringe IV ×3 (12:20→22:16)
--- NOTE | 2021-06-30 12:34 | NURSING ---
patricio 78 - pt is scheduled 10 units humalog - cortext to Dr Burrows regarding same
[2021-06-30] MEDS: Insulin Lispro 100 UNIT/ML INSULN.PEN 8 UNIT SC (16:30)
[2021-06-30] MEDS: Insulin Lispro 100 UNIT/ML INSULN.PEN SC ×2 (16:30→22:16)
[2021-06-30] MEDS: Potassium Chloride Oral Tablet 20 MEQ 40 MEQ PO (16:31)
[2021-06-30 16:40] LABS: Bedside Glucose 214 mg/dL (70-110)
[2021-06-30 18:00] VITALS: BP 117/72; PULSE 84; RESP 18; TEMP 36.3; O2SAT 100
[2021-06-30] MEDS: Ceftriaxone 1 GM/50 ML BAG IV (18:18)
--- NOTE | 2021-06-30 18:28 | PN_ITS ---
Progress Note History of Present Illness Chief Complaint: Asked to see the patient by Dr. Burrows for right ear pain : 21-year-old female with a history of bipolar disorder and diabetes states that she is not taking in any insulin in an attempt to kill herself. She states that she waits until she starts getting pretty ill and then come to the hospital. This is her fourth DKA this month. She states that she does not currently have a primary care doctor and head pumper or psychiatrist. Patient is also Covid positive. She noticed right ear pain followed by right-sided hearing loss on 06/24/2021. She was admitted to the hospital and placed on oral Zithromax. The pain has persisted. Today she was changed to IV Rocephin. [facility] Medical History Anxiety Anxiety Bipolar 1 disorder, depressed Depression Depression Diabetes Noncompliance Type 1 diabetes mellitus Home Medications blood-glucose meter #1 ea 11/24/20 [Rx Last Taken Unknown] pen needle, diabetic 32 gauge x 5/16 #200 ea 11/27/20 [Rx Last Taken Unknown] prazosin 1 mg capsule 1 mg PO QHS 03/11/21 [History Last Taken Unknown] oxcarbazepine [Trileptal] 450 mg PO BID 05/29/21 [History Last Taken Unknown] trazodone 100 mg PO QHS 05/29/21 [History Last Taken Unknown] True Metrix Glucose Test Strip #100 ea 06/07/21 [Rx Last Taken Unknown] pen needle, diabetic [BD Ultra-Fine Erin Pen Needle] #200 ea 06/07/21 [Rx Last Taken Unknown] Lantus Solostar U-100 Insulin 38 unit SUBCUT DAILY 06/20/21 [History Last Taken Unknown] insulin lispro [Humalog KwikPen Insulin] 24 unit SUBCUT TIDCM 06/20/21 [History Last Taken Unknown] Allergy/AdvReac Type Severity Reaction Status Date / Time amoxicillin Allergy Hives Verified 06/27/21 10:45 Sulfa (Sulfonamide Allergy Hives Verified 06/27/21 10:45 Antibiotics) tomato Allergy Hives Verified 06/27/21 10:45 Family History Grandmother Diabetes Father Respiratory disease Uncle Respiratory disease Aunt Respiratory disease Social History Smoking Status: Current every day smoker tobacco type: cigarettes and e- cigarettes Tobacco: How many years used: 1 alcohol intake: never substance use type: does not use what type of physical activity do you participate in: walking frequency: daily ROS ROS ED Constitutional Constitutional ED: Denies chills, fever(s) or weight loss Eyes Eyes: Denies change in vision or diplopia Cardiovascular Cardiovascular: Denies chest pain, orthopnea, palpitations or racing heartbeat Respiratory/Chest Respiratory/Chest: Reports dyspnea; Denies cough or orthopnea Gastrointestinal Gastrointestinal: Denies abdominal pain, diarrhea, nausea or vomiting Genitourinary Genitourinary ED: Denies dysuria, hematuria or urinary frequency Musculoskeletal Musculoskeletal: Denies arthralgias or myalgias Integumentary Denies abscess or rash Neurologic Neurologic: Denies headache(s) or weakness Psychiatric Psychiatric: Reports depression, suicidal ideation and suicidal thoughts; Denies anxiety Endocrine Endocrinology: Denies polydipsia, polyphagia or polyuria Allergic/Immunologic Allergic/Immunologic ED: Denies mouth swelling, tongue swelling or urticaria EXAM Physical Exam The patient is awake alert and in no acute distress. Scalp and skull are normal. The left ear is normal. The right ear reveals an air-fluid level in the middle ear. There is an tyson effusion inferiorly. There is no erythema of the tympanic membrane or external auditory canal. Nasal exam shows no purulence mouth oropharynx reveals no masses or lesions. The postauricular crease is normal. Assessment: COVID-19 Right acute otitis media. Plan: I would continue with antibiotics and continue them for 10 days orally when she is ready for discharge. She will likely have an effusion for the next few weeks which should resolve on its own. She does not need any acute surgical intervention at all.
[2021-06-30 22:02] VITALS: BP 123/81; PULSE 91; RESP 18; TEMP 36.2; O2SAT 98
[2021-07-01] MEDS: Acetaminophen 325 MG Tablet 650 MG PO (00:09)
[2021-07-01 00:16] LABS: Bedside Glucose 194 mg/dL (70-110)
[2021-07-01 03:51] VITALS: BP 104/68; PULSE 67; RESP 18; TEMP 36.3; O2SAT 95
[2021-07-01 07:00] LABS: Absolute Lymphocyte Count 4.26 X10^3/uL (0.83-4.51); Absolute Neutrophil Count 2.2 X10^3/uL (2.0-7.7); Basophil# 0.06 X10^3/uL; Basophil% 0.8 % (0-1); Eosinophil# 0.22 X10^3/uL; Eosinophils% 3.1 % (0-5); Hematocrit 31.9 % (37-47); Hemoglobin 10.9 g/dL (12.0-15.0); Lymphocyte # 4.26 X10^3/ul (0.83-4.51); Lymphocyte % 59.2 % (19-41); Mean Corp Hgb Conc 34.2 g/dL (32-36); Mean Corpuscular Hgb 28.5 pg (27.0-32.0); Mean Corpuscular Volume 83.3 fL (81-99); Monocyte# 0.47 X10^3/uL; Monocyte% 6.5 % (0-10); NRBC Flagged by Analyzer 0 % (0-5); Neutrophil # 2.16 X10^3/uL (2.7-7.7); Neutrophil % 30.1 % (47-70); Platelet Count 282 K/mm3 (150-450); RBC Distribution Width SD 42.1 fl (35.1-43.9); Red Blood Count 3.83 M/mm3 (4.2-5.4); White Blood Count 7.2 K/mm3 (4.4-11.0)
[2021-07-01 07:48] LABS: Anion Gap 6 (5-15); BUN 8 mg/dL (7-18); BUN/Creat Ratio 23.3 RATIO (10-20); Calcium,Total 8.4 mg/dL (8.5-10.1); Chloride 109 mmol/L (98-107); Creatinine, Serum 0.34 mg/dL (0.55-1.02); EST Glomerular Filtration Rate 255 mL/min (>60); Est Glom Filt Rate - Afr Amer 309 mL/min (>60); Estimated Creatinine Clearance 254.53 ml/min; Glucose 152 mg/dL (74-106); Magnesium 2.2 mg/dL (1.6-2.6); Potassium 3.4 mmol/L (3.5-5.1); Sodium Level 144 mmol/L (136-145)
[2021-07-01 08:01] LABS: Phosphorus 3.7 mg/dL (2.5-4.9)
[2021-07-01 08:25] LABS: Bedside Glucose 148 mg/dL (70-110)
[2021-07-01] MEDS: 0.9% Saline Lock 10 ML Syringe IV (09:22)
[2021-07-01] MEDS: Ceftriaxone 1 GM/50 ML BAG IV (09:22)
[2021-07-01] MEDS: Potassium Chloride Oral Tablet 20 MEQ 40 MEQ PO (09:23)
[2021-07-01] MEDS: Insulin Lispro 100 UNIT/ML INSULN.PEN 8 UNIT SC ×2 (09:24→13:00)
[2021-07-01 09:27] VITALS: BP 101/67; PULSE 84; RESP 18; TEMP 35.6; O2SAT 99
--- NOTE | 2021-07-01 09:42 | PCM.DC ---
Discharge Instructions Diet Discharge Diet: 1800 Calorie Control Diet Activity Discharge Activity: Return to Normal Activity and May Not Drive Weight Bearing Status: Weight bearing as tolerated Dressing / Incision Call your doctor if you observe: Fever of 101 or Higher, Coldness, Increased Pain, Numbness or Tingling, Change in Color, Inability to urinate, Inability to have a bowel movement, Using more than 1 pad per hour, Shortness of breath, Dizziness, Fainting spells, Swelling in the ankles, Chest pain, Prolonged hiccupping, Increased palpitations (irregular heartbeat), Calf discomfort and Uncontrolled pain Follow Up Care Test Results: Test results from this visit will be discussed in further detail at your follow-up appointment, if applicable. Discharge Plan Admission Admit Date/Time: 06/27/21 13:26 Primary Reason for Your Visit: DKA, right acute otitis media Attending Provider: Segundo Burrows Primary Care Provider: Thalia Gallo Consulting Providers: Forest Dodd Instructions Additional Instructions / Restrictions: Self quarantine for 20 days since06/20/21 Discharge Orders/Prescriptions Prescriptions: New potassium chloride [Klor-Con M20] 20 mEq Tablet,Er Particles/Crystals 40 meq PO DAILY Qty: 10 RF: 0 insulin lispro [Humalog KwikPen Insulin] 100 unit/mL Insulin Pen 8 unit subcut TIDCM Qty: 15 RF: 0 cephalexin 500 mg capsule 500 mg PO Q8H 10 Days Qty: 30 RF: 0 Continued (DME) blood-glucose meter [True Metrix Glucose Meter] [facility] [place] See Rx Instructions .ROUTE .MEDSUPPLY Qty: 1 RF: 0 prazosin 1 mg capsule 1 mg PO QHS RF: 0 trazodone 50 mg tablet 100 mg PO QHS RF: 0 oxcarbazepine [Trileptal] 300 mg Tablet 450 mg PO BID RF: 0 (DME) True Metrix Glucose Test Strip Strip See Rx Instructions .ROUTE .MEDSUPPLY Qty: 100 RF: 8 (DME) pen needle, diabetic [BD Ultra-Fine Erin Pen Needle] 32 gauge x 5/32 needle See Rx Instructions .ROUTE .MEDSUPPLY Qty: 200 RF: 3 (DME) TechLITE Pen Needle 32 gauge x 5/16 needle See Rx Instructions .ROUTE .MEDSUPPLY Qty: 200 RF: 4 Changed insulin lispro [Humalog KwikPen Insulin] 100 unit/mL insulin pen 13 unit subcut TIDCM Qty: 0 RF: 0 Lantus Solostar U-100 Insulin 100 unit/mL (3 mL) insulin pen 35 unit SUBCUT DAILY Qty: 0 RF: 0 Referrals / Follow Up: Thalia Gallo MD [Primary Care Provider] - In 1 Week Care Physician,No Primary [NON-STAFF] - Forest Dodd MD [STAFF PHYSICIAN] - Within 1 Month (if right ear pain persists ) Disposition Disposition (needs filled in before D/C Order can be placed): Home, Self Care
--- NOTE | 2021-07-01 09:42 | PCM.DC.SUM ---
Providers Date of Admission: 06/27/21 Primary Care Physician: Dr. Thalia Gallo MD Consultations 06/30/21 10:43 Consult: ENT Routine Consulting Provider: Forest Dodd Reason for Consult: Right ear otitis media, not improving on antibiotics EMERGENT Consult: No MD Notified: Yes Date Notified: 06/30/21 Time Notified: 10:43 Method of Notification: Page Reason For Visit: ACUTE DKA Diagnosis Discharge Diagnosis (1) DKA (diabetic ketoacidosis): Status: Resolved Code(s): E11.10 - Type 2 diabetes mellitus with ketoacidosis without coma (2) COVID-19: Status: Acute Code(s): U07.1 - COVID-19 (3) Acute right otitis media: Status: Acute Code(s): H66.91 - Otitis media, unspecified, right ear (4) Suicide attempt: Status: Acute Code(s): T14.91XA - Suicide attempt, initial encounter Medications at Discharge Home Medications blood-glucose meter #1 ea 11/24/20 pen needle, diabetic 32 gauge x 5/16 #200 ea 11/27/20 prazosin 1 mg capsule 1 mg PO QHS 03/11/21 oxcarbazepine [Trileptal] 450 mg PO BID 05/29/21 trazodone 100 mg PO QHS 05/29/21 True Metrix Glucose Test Strip #100 ea 06/07/21 pen needle, diabetic [BD Ultra-Fine Erin Pen Needle] #200 ea 06/07/21 Lantus Solostar U-100 Insulin 35 unit SUBCUT DAILY #0 ml 07/01/21 cephalexin 500 mg PO Q8H 10 Days #30 cap 07/01/21 insulin lispro [Humalog KwikPen Insulin] 8 unit SUBCUT TIDCM #15 ml 07/01/21 insulin lispro [Humalog KwikPen Insulin] 13 unit SUBCUT TIDCM #0 ml 07/01/21 potassium chloride [Klor-Con M20] 40 meq PO DAILY #10 tab 07/01/21 Hospital Course Summary of Care Provided Hospital Course: Patient is a 21-year-old lady with history of diabetes mellitus type 1 with history of noncompliance with therapy presented in DKA. She had also tested positive for Covid on 06/20/2021 1. Acute diabetic ketoacidosis ?Secondary to noncompliance. Her DKA has been managed with aggressive IV fluids correction of electrolytes and insulin drip. Her anion gap is closed. DKA resolved. Glucose is 78, 115. Lantus dose and Humalog insulin dose decreased with holding parameter. Prescription for insulin given. 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 2. Suicidal ideation/attempts ?Patient currently has a sitter consult has been placed to the crisis center for assessment. Patient was apparently assessed to be suicidal after she confessed not wanting to take her insulin. Patient evaluated by crisis team and found safe for discharge to home with no further intervention needed. Advised to follow-up psychiatrist to be referred by PCP as an outpatient 3. Hypokalemia persistent and hypophosphatemia: Patient potassium phosphorus was replaced.Prescription given for potassium supplement. 4. Hypomagnesemia ?Corrected per protocol magnesium up to 2.0 5. Acute right otitis media 06/30: Patient is still complaining of severe right hand pain and right mastoid tenderness. ENT consult requested to Dr. Dodd. Managed with cefdinir and azithromycin Patient seen by Dr. Dodd and agrees with antibiotics ceftriaxone. Patient is discharged on 10 more days of Keflex as per ENT suggestion. 6. Tobacco dependence - Counseled on cessation,on nicotine patch for tobacco cravings 7. Bipolar disorder -Patient is on trazodone at night 8. DVT prophylaxis ?Due to be low risk did encourage early ambulation 9. Recent COVID-19 infection ?Patient advised 20 days quarantine since 06/20/21. Discharge medication reconciliation done. Discharge follow-up instructions completed. Discharge process discussed with the patient and all questions were answered to patient's satisfaction. Total time spent, exact 35 minutes on discharge meds reconciliation, examination, coordination of care with nurses and ancillary staff, review of imaging and blood test and discussion with the patient on follow-up instructions Physical Exam Narrative Seen and examined. Right ear pain is much improved. Patient seen by Dr. Dodd and found to have acute right otitis media. Agrees with antibiotics ceftriaxone General: Alert, Oriented x3, Cooperative HEENT: Atraumatic, PERRLA, EOMI, Normocephalic. Mild Tenderness over right mastoid region and auricle Improved. Oral: No Gingival or Mucosal Lesions/ Ulcerations Neck: Supple, No JVD, Negative Carotid Bruits Lungs: Air entry equal in bilateral lung bases. No crepitation/rhonchi Cardiovascular: Regular rate, Regular Rhythm, Normal S1, Normal S2, No murmurs Abdomen: Bowel Sounds Present, Soft, Non Tender, Non-Distended : No renal angle tenderness. No suprapubic tenderness. Extremities: No edema, Capillary Refill Less than 3 Seconds Skin: No rashes, No breakdown Musculoskeletal: No Tenderness to Palpation of Joints or Extremities Neurological: Cranial nerves II-XII grossly intact, DTR 2+/4 and Symmetrical, Neuro grossly intact Psych/Mental Status: Normal Affect, Appropriate. Medical Records Data Medical Nutrition Assessment Dietitian: Malnutrition Criteria Met Start: 06/28/21 13:12 Freq: Status: Active Protocol: Document 06/28/21 13:12 AG (Rec: 06/28/21 13:12 [id number]) Nutrition Malnutrition Evidence of Malnutrition Exists Yes Malnutrition (severe): Acute Illness/Injury Evidenced By Suboptimal Energy Intake ( Severe),Weight Loss (Severe) Clinical Problem Acute Disease or Injury Related Malnutrition Etiology severe, acute malnutrition r/t inadequate energy intake d/t acute illness Signs/Symptoms as evidenced by wt loss of 4#/ 3% x 1 week, estimated PO intake meeting <50% of estimated energy needs >1 week . Status Active Problem Recommendation Dietitian Recommendations/Changes continue CHO controlled diet; will add 4oz glucerna ONS w/ meals for additional calories/ protein if consumed. Weight / BMI Weight Weight: 154 lb 5.177 oz Body Mass Index (BMI) 23.0 ABG / Lab / Microbiology Data Result Diagrams: 07/01/21 06:30 07/01/21 06:30 Laboratory: Laboratory Results - last 24 hr 06/30/21 06:35: Phosphorus 1.6 L 06/30/21 11:30: POC Glucose 78 06/30/21 16:25: POC Glucose 214 H 06/30/21 22:14: POC Glucose 194 H 07/01/21 06:30: WBC 7.2, RBC 3.83 L, Hgb 10.9 L, Hct 31.9 L, MCV 83.3, MCH 28.5, MCHC 34.2, RDW Std Deviation 42.1, RDW Coeff of Mark 14.0, Plt Count 282, MPV 9.0, Immature Gran % (Auto) 0.300, Neut % (Auto) 30.1 L, Lymph % (Auto) 59.2 H, Spink % (Auto) 6.5, Eos % (Auto) 3.1, Baso % (Auto) 0.8, Absolute Neuts (auto) 2.2, Absolute Lymphs (auto) 4.26, Nucleated RBC % 0 07/01/21 06:30: Sodium 144, Potassium 3.4 L, Chloride 109 H, Carbon Dioxide 29.0, Anion Gap 6, BUN 8, Creatinine 0.34 L, Estim Creat Clear Calc 254.53, Est GFR (MDRD) Af Amer 309, Est GFR (MDRD) Non-Af 255, BUN/Creatinine Ratio 23.3 H, Glucose 152 H, Calcium 8.4 L, Magnesium 2.2 07/01/21 06:30: Phosphorus 3.7 07/01/21 08:12: POC Glucose 148 H Meaningful Use Info Meaningful Use Diagnoses (Choose all that apply): None applicable Discharge Plan Admission Admit Date/Time: 06/27/21 13:26 Primary Reason for Your Visit: DKA, right acute otitis media Attending Provider: Segundo Burrows Primary Care Provider: Thalia Gallo Consulting Providers: Forest Dodd Instructions Additional Instructions / Restrictions: Self quarantine for 20 days since06/20/21 Discharge Orders/Prescriptions Prescriptions: New potassium chloride [Klor-Con M20] 20 mEq Tablet,Er Particles/Crystals 40 meq PO DAILY Qty: 10 RF: 0 insulin lispro [Humalog KwikPen Insulin] 100 unit/mL Insulin Pen 8 unit subcut TIDCM Qty: 15 RF: 0 cephalexin 500 mg capsule 500 mg PO Q8H 10 Days Qty: 30 RF: 0 Continued (DME) blood-glucose meter [True Metrix Glucose Meter] Misc See Rx Instructions .ROUTE .MEDSUPPLY Qty: 1 RF: 0 prazosin 1 mg capsule 1 mg PO QHS RF: 0 trazodone 50 mg tablet 100 mg PO QHS RF: 0 oxcarbazepine [Trileptal] 300 mg Tablet 450 mg PO BID RF: 0 (DME) True Metrix Glucose Test Strip Strip See Rx Instructions .ROUTE .MEDSUPPLY Qty: 100 RF: 8 (DME) pen needle, diabetic [BD Ultra-Fine Erin Pen Needle] 32 gauge x 5/32 needle See Rx Instructions .ROUTE .MEDSUPPLY Qty: 200 RF: 3 (DME) TechLITE Pen Needle 32 gauge x 5/16 needle See Rx Instructions .ROUTE .MEDSUPPLY Qty: 200 RF: 4 Changed insulin lispro [Humalog KwikPen Insulin] 100 unit/mL insulin pen 13 unit subcut TIDCM Qty: 0 RF: 0 Lantus Solostar U-100 Insulin 100 unit/mL (3 mL) insulin pen 35 unit SUBCUT DAILY Qty: 0 RF: 0 Referrals / Follow Up: Forest Dodd MD [STAFF PHYSICIAN] - Within 1 Month (if right ear pain persists ) Thalia Gallo MD [Primary Care Provider] - In 1 Week Care Physician,No Primary [NON-STAFF] - Disposition Disposition (needs filled in before D/C Order can be placed): Home, Self Care Charges/Coding Visit Charges Inpatient E&M: 75076 Disch Hosp
[2021-07-01 12:05] LABS: Bedside Glucose 94 mg/dL (70-110)
[2021-07-01 14:34] VITALS: BP 123/91; PULSE 87; RESP 18; TEMP 36.2; O2SAT 97
== END 2021-07-01 14:30 | disposition home or self-care (01) | DRG 420 ==
LOC: ED 11:31 → ICU 13:38 → MS3 06-29 14:05
PROVIDERS: Internal Medicine; Admitting Provider Internal Medicine; Emergency Provider Emergency Medicine; PCP Internal Medicine; Visit Provider Internal Medicine
DX: E10.10 Type 1 diabetes mellitus with ketoacidosis without coma (principal); U07.1 COVID-19; F17.210 Nicotine dependence, cigarettes, uncomplicated; E86.0 Dehydration; H66.91 Otitis media, unspecified, right ear; E87.6 Hypokalemia; R45.851 Suicidal ideations; E43 Unspecified severe protein-calorie malnutrition; F31.30 Bipolar disorder, current episode depressed, mild or moderate severity, unspecified; F41.9 Anxiety disorder, unspecified; Z79.4 Long term (current) use of insulin; Z79.899 Other long term (current) drug therapy; Z91.14 Patient's other noncompliance with medication regimen; Z68.22 Body mass index [BMI] 22.0-22.9, adult; E83.39 Other disorders of phosphorus metabolism
CPT/HCPCS: 36415; 36556; 71045; 80048; 80053; 80307; 81001; 82009; 82077; 82962; 83605; 83690; 83735; 84100; 84484; 85025; 85610; 93005; 99285; 99406; J7030; J7040; A4216; C1751; J2405; J7799

== ENCOUNTER 2021-07-28 17:10 | Emergency (ER) | payer MEDICAID, SELFPAY ==
[2021-07-28 17:12] VITALS: PULSE 103; RESP 19; TEMP 36.7; O2SAT 98; BMI 24.2
[2021-07-28 17:18] VITALS: BP 113/61; PULSE 100; RESP 26; TEMP 36.7; O2SAT 97
--- NOTE | 2021-07-28 17:37 | EDS_ITS ---
HPI History of Present Illness Chief Complaint: Anxiety Onset/Context/Timing Onset: Today Context: Sudden Onset Current Severity: Gone Maximum Severity: Moderate Narrative Narrative: 21-year-old female history of type 1 diabetes also anxiety depression bipolar disorder. Works at the [employer] in [place]. 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 And thinks she may have had a syncopal episode or panic attack. Currently states she feels fine. Denies any nausea vomiting or diarrhea. Said her blood sugar earlier today was 245 which for her she states is not that unremarkable. She denies any fever chills or dysuria. Her last admission was about a month ago for DKA. According to her the squad said her blood sugar was over 400. Prior similar symptoms: Yes Recent Illness/Hospitalization: Yes [facility] Medical History Acute right otitis media Anxiety Anxiety Bipolar 1 disorder, depressed Bipolar disorder COVID-19 Depression Depression Diabetes Diabetes Noncompliance Psychosocial problem Type 1 diabetes mellitus Home Medications blood-glucose meter #1 ea 11/24/20 [Rx Last Taken Unknown] pen needle, diabetic 32 gauge x 5/16 #200 ea 11/27/20 [Rx Last Taken Unknown] prazosin 1 mg capsule 1 mg PO QHS 03/11/21 [History Last Taken Unknown] oxcarbazepine [Trileptal] 450 mg PO BID 05/29/21 [History Last Taken Unknown] trazodone 100 mg PO QHS 05/29/21 [History Last Taken Unknown] True Metrix Glucose Test Strip #100 ea 06/07/21 [Rx Last Taken Unknown] pen needle, diabetic [BD Ultra-Fine Erin Pen Needle] #200 ea 06/07/21 [Rx Last Taken Unknown] Lantus Solostar U-100 Insulin 35 unit SUBCUT DAILY #0 ml 07/01/21 [Rx Last Taken Unknown] cephalexin 500 mg PO Q8H 10 Days #30 cap 07/01/21 [Rx Last Taken Unknown] insulin lispro [Humalog KwikPen Insulin] 8 unit SUBCUT TIDCM #15 ml 07/01/21 [Rx Last Taken Unknown] insulin lispro [Humalog KwikPen Insulin] 13 unit SUBCUT TIDCM #0 ml 07/01/21 [Rx Last Taken Unknown] potassium chloride [Klor-Con M20] 40 meq PO DAILY #10 tab 07/01/21 [Rx Last Taken Unknown] Allergy/AdvReac Type Severity Reaction Status Date / Time amoxicillin Allergy Hives Verified 06/27/21 10:45 Sulfa (Sulfonamide Allergy Hives Verified 06/27/21 10:45 Antibiotics) tomato Allergy Hives Verified 06/27/21 10:45 Family History Grandmother Diabetes Father Respiratory disease Uncle Respiratory disease Aunt Respiratory disease Social History Smoking Status: Current every day smoker tobacco type: cigarettes and e- cigarettes Tobacco: How many years used: 1 alcohol intake: never substance use type: does not use what type of physical activity do you participate in: walking frequency: daily ROS ROS ED ROS Narrative Denies recent illness. Review of Systems ROS Unobtainable: Denies due to encephalopathy Constitutional Constitutional ED: Denies chills or fever(s) Eyes Eyes: Denies change in vision ENT ENT ED: Denies ear pain Cardiovascular Cardiovascular: Denies chest pain or palpitations Respiratory/Chest Respiratory/Chest: Denies cough or dyspnea Gastrointestinal Gastrointestinal: Denies abdominal pain, diarrhea, nausea or vomiting Genitourinary Genitourinary ED: Denies dysuria or hematuria Musculoskeletal Musculoskeletal: Denies arthralgias or myalgias Integumentary Denies abscess or rash Neurologic Neurologic: Denies headache(s) or weakness Psychiatric Psychiatric: Reports anxiety; Denies depression Endocrine Endocrinology: Denies polydipsia or polyuria Allergic/Immunologic Allergic/Immunologic ED: Denies urticaria EXAM Physical Exam Narrative Exam Narrative: Well-appearing 21-year-old female. Vital signs stable afebrile. Pulse ox 97% on room air no hypoxia. HEENT exam unremarkable. Moist use membranes. Neck nontender no JVD. Lungs clear to auscultation bilaterally. Heart regular rhythm rate about 100 no murmur. Abdomen soft nontender normal bowel sounds no peritoneal signs. Moving all 4 extremities. Nontender no edema. Back nontender. Neurologically she is awake and alert. Bilateral equal symmetrical supervisor lending activities strength. Dorsi plantarflexion intact. Normal sensation. Const Vital Signs: 07/28/21 17:12 01/26/22 17:18 Temperature 98.1 F 98.1 F Temperature Source Oral Oral Pulse Rate 103 H 100 Respiratory Rate 19 H 26 H Blood Pressure 113/61 Blood Pressure Mean 78 Pulse Ox 98 97 Oxygen Delivery Method Room Air Room Air Positive well nourished and well developed; Negative for obese, cachectic, contractures or unkempt General Appearance ED: well developed and NAD; Negative for unkempt, cachectic, contractures, cyanotic, diaphoretic or pallor Nutritional Appearance: Negative for cachectic or obese HEENT Reports moist mucous membranes Negative for trauma or tenderness Eyes PERRL and EOMs intact bilaterally General Eye ED: Negative for pale conjunctiva or scleral icterus Neck no lymphadenopathy, supple and no JVD General: Negative for tenderness Chest Wall inspection of chest normal and palpation of chest normal Resp normal respiratory effort and clear to auscultation bilaterally Effort and Inspection: Negative for pain with movement Auscultation: Negative for rales, rhonchi or wheezes Cardio regular rate, regular rhythm, S1 normal heart sound, S2 normal heart sound and no murmurs GI normal to inspection, nondistended, normoactive bowel sounds, non-tender, non- distended and no masses Inspection: Negative for abdominal distention Auscultation: normoactive bowel sounds Palpation: soft; Negative for tender, guarding or rebound tenderness present Back/Spine no CVA tenderness General Back: Negative for CVA tenderness Cervical Spine: Negative for cervical spine tenderness Thoracic Spine / Upper Back: Negative for thoracic spinal tenderness or paraspinal muscle tenderness Extremity normal to inspection General Extremety ED: Negative for edema or tenderness General Extremity: Negative for edema Neuro oriented x3 and CN's II-XII intact bilaterally Sensorium / Orientation: alert; Negative for lethargic or stuporous Motor Exam: strength 5/5 throughout Psych mental status grossly normal Appearance: Negative for unkempt Attitude: No agitated Mood & Affect: Negative for depressed, anxious or tearful Skin no rashes or lesions noted and no wounds General Skin Exam: Negative for jaundice or pallor MDM MDM MDM Narrative Medical decision making narrative: 21-year-old diabetic female I think had an anxiety attack. Exam is benign. Unremarkable. We will check her blood sugar reportedly per squad is running high. If it is then she will be evaluated for possible DKA receive IV fluids. BG T is greater than 500. My concern is the patient might be in DKA. She has been treated for that multiple times in the past. She absolutely does not want to be treated for DKA. She understands she can get extremely ill even . She states that she has been much sicker than this before. And is signing out AGAINST MEDICAL ADVICE. Lab Data Attestation: I reviewed the patient's lab results. Labs: Laboratory Results - last 24 hr 07/28/21 17:43 POC Glucose > 500 H* Discharge Plan Triage Chief Complaint: Anxiety ED Provider: Jean Duarte Dx/Rx/DC Orders Clinical Impression: Anxiety attack, Acute hyperglycemia, DKA (diabetic ketoacidosis) Instructions: Diabetic Ketoacidosis, ED Panic Attack Prescriptions: No Action (DME) blood-glucose meter [True Metrix Glucose Meter] Misc See Rx Instructions .ROUTE .MEDSUPPLY Qty: 1 RF: 0 prazosin 1 mg capsule 1 mg PO QHS RF: 0 trazodone 50 mg tablet 100 mg PO QHS RF: 0 oxcarbazepine [Trileptal] 300 mg Tablet 450 mg PO BID RF: 0 (DME) True Metrix Glucose Test Strip Strip See Rx Instructions .ROUTE .MEDSUPPLY Qty: 100 RF: 8 (DME) pen needle, diabetic [BD Ultra-Fine Erin Pen Needle] 32 gauge x 5/32 needle See Rx Instructions .ROUTE .MEDSUPPLY Qty: 200 RF: 3 potassium chloride [Klor-Con M20] 20 mEq Tablet,Er Particles/Crystals 40 meq PO DAILY Qty: 10 RF: 0 insulin lispro [Humalog KwikPen Insulin] 100 unit/mL Insulin Pen 8 unit subcut TIDCM Qty: 15 RF: 0 cephalexin 500 mg capsule 500 mg PO Q8H 10 Days Qty: 30 RF: 0 insulin lispro [Humalog KwikPen Insulin] 100 unit/mL insulin pen 13 unit subcut TIDCM Qty: 0 RF: 0 Lantus Solostar U-100 Insulin 100 unit/mL (3 mL) insulin pen 35 unit SUBCUT DAILY Qty: 0 RF: 0 (DME) TechLITE Pen Needle 32 gauge x 5/16 needle See Rx Instructions .ROUTE .MEDSUPPLY Qty: 200 RF: 4 Primary Care Provider: Thalia Gallo Referrals: Thalia Gallo MD [Primary Care Provider] - As soon as possible Activity Restrictions/Additional Instructions: Plenty of water and rest. Watch your blood sugars very closely. You definitely have a very elevated blood sugar my concern is your back in diabetic ketoacidosis. This could even be fatal if not treated appropriately. Return if you are feeling worse. You will need IV fluids and possibly IV insulin. Follow-up with your doctor tomorrow. Disposition Disposition: Home, Self Care
[2021-07-28 17:51] LABS: Bedside Glucose > 500 mg/dL (70-110)
--- NOTE | 2021-07-28 18:12 | ED.RN ---
THIS RN AND MIRNA RN AT BEDSIDE WITH PT. MIRNA ESTABLISHED 22G IV IN [facility]. ONCE THE IV DRESSING WAS PLACED PT REPORTS SHE NEEDS TO URINATE. THIS RN LEFT ROOM AND GOT PT A BEDSIDE COMMODE. UPON RETURNING TO THE ROOM. PT A+OX4, REPORTS, NEVERMIND I DON'T WANT TO BE HERE ANYMORE, I WANT TO LEAVE. I HATE BEING IN THIS PLACE. I DON'T WANT TO HAVE DIABETES. THIS RN AT BEDSIDE EDUCATING PT ABOUT CONCERN FOR DIABETIC KETOACIDOSIS, AND THAT CONDITION CAN BE LIFE THREATENING. PT REPORTS, I CAN MANAGE THIS AT HOME, I ALWAYS DO. I CAN GIVE MYSELF INSULIN AT HOME. PT REPORTS SHE IS NOT MAD AT STAFF, BUT SHE DOES NOT WANT TO BE IN THE HOSPITAL. DR. RUIZ AT BEDSIDE TO SPEAK WITH PT ABOUT AMA FORMS. PT VERBALIZES UNDERSTANDING AND DENIES ANY QUESTIONS ABOUT AMA PROTOCOL. 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 THIS RN OBTAINS PAPER SCRUBS FOR THE PATIENT TO WEAR HOME HER CLOTHES SHE ARRIVED IN WERE SOILED. PT EDUCATED ON DISCHARGE INSTRUCTIONS. PT VERBALIZES UNDERSTANDING AND DENIES ANY FURTHER QUESTIONS. PT TALKING ON CELL REQUESTING A RIDE HOME. PT DRESSES SELF AND AMBULATES OUT OF DEPARTMENT ALONE.
[2021-07-28 18:22] VITALS: BP 119/87; PULSE 106; RESP 16; O2SAT 98
== END 2021-07-28 18:24 | disposition left against medical advice (07) ==
PROVIDERS: Emergency Provider Emergency Medicine; PCP Internal Medicine; Visit Provider Emergency Medicine
DX: E10.65 Type 1 diabetes mellitus with hyperglycemia (principal); F31.9 Bipolar disorder, unspecified; E10.10 Type 1 diabetes mellitus with ketoacidosis without coma; Z79.4 Long term (current) use of insulin; F17.210 Nicotine dependence, cigarettes, uncomplicated; F41.1 Generalized anxiety disorder; Z86.16 Personal history of COVID-19; Z79.899 Other long term (current) drug therapy
CPT/HCPCS: 82962; 99284; J7030; A4216

== ENCOUNTER 2021-08-23 11:36 | Emergency (ER) | payer MEDICAID, SELFPAY ==
[2021-08-23 11:42] VITALS: BP 122/83; PULSE 122; RESP 17; TEMP 36.2; O2SAT 96; BMI 22.8
[2021-08-23 11:51] LABS: Bedside Glucose 447 mg/dL (70-110)
== END 2021-08-23 23:59 | disposition left against medical advice (07) ==
LOC: ED 12:54
PROVIDERS: PCP Internal Medicine
DX: Z53.21 Procedure and treatment not carried out due to patient leaving prior to being seen by health care provider (principal)
CPT/HCPCS: 82962

== ENCOUNTER 2021-09-07 20:25 | Emergency (ER) | payer MEDICAID, SELFPAY ==
[2021-09-07 20:25] VITALS: BP 126/84; PULSE 134; RESP 18; TEMP 36.6; O2SAT 97; BMI 22.8
--- NOTE | 2021-09-07 20:44 | EDS_ITS ---
HPI History of Present Illness Chief Complaint: Hyperglycemia Informant: patient Onset/Context/Timing Onset: Today Context: Gradual Onset Timing: Continuous Current Severity: Mild Maximum Severity: Mild Narrative Narrative: 21-year-old female history of type 1 insulin-dependent diabetes and bipolar disorder. Patient has been in DKA in the past. Her last admission for this was June of last year. Patient states her blood sugar were elevated today at around 400. She did take insulin prior to arrival. She is also had nausea and vomiting. No diarrhea. No fever. No dysuria. She denies any hematemesis. Prior similar symptoms: Yes Recent Illness/Hospitalization: No [facility] Medical History Acute right otitis media Anxiety Anxiety Bipolar 1 disorder, depressed Bipolar disorder COVID-19 Depression Depression Diabetes Diabetes Noncompliance Psychosocial problem Type 1 diabetes mellitus Home Medications blood-glucose meter #1 ea 11/24/20 [Rx Last Taken Unknown] pen needle, diabetic 32 gauge x 5/16 #200 ea 11/27/20 [Rx Last Taken Unknown] prazosin 1 mg capsule 1 mg PO QHS 03/11/21 [History Last Taken Unknown] oxcarbazepine [Trileptal] 450 mg PO BID 05/29/21 [History Last Taken Unknown] trazodone 100 mg PO QHS 05/29/21 [History Last Taken Unknown] True Metrix Glucose Test Strip #100 ea 06/07/21 [Rx Last Taken Unknown] pen needle, diabetic [BD Ultra-Fine Erin Pen Needle] #200 ea 06/07/21 [Rx Last Taken Unknown] Lantus Solostar U-100 Insulin 35 unit SUBCUT DAILY #0 ml 07/01/21 [Rx Last Taken Unknown] cephalexin 500 mg PO Q8H 10 Days #30 cap 07/01/21 [Rx Last Taken Unknown] insulin lispro [Humalog KwikPen Insulin] 8 unit SUBCUT TIDCM #15 ml 07/01/21 [Rx Last Taken Unknown] insulin lispro [Humalog KwikPen Insulin] 13 unit SUBCUT TIDCM #0 ml 07/01/21 [Rx Last Taken Unknown] potassium chloride [Klor-Con M20] 40 meq PO DAILY #10 tab 07/01/21 [Rx Last Taken Unknown] ondansetron 4 mg PO Q6H PRN #7 tab 09/07/21 [Rx Last Taken Unknown] Allergy/AdvReac Type Severity Reaction Status Date / Time amoxicillin Allergy Hives Verified 09/07/21 20:29 Sulfa (Sulfonamide Allergy Hives Verified 09/07/21 20:29 Antibiotics) tomato Allergy Hives Verified 09/07/21 20:29 Family History Grandmother Diabetes Father Respiratory disease Uncle Respiratory disease Aunt Respiratory disease Social History Smoking Status: Current every day smoker tobacco type: cigarettes and e- cigarettes Tobacco: How many years used: 1 alcohol intake: never substance use type: does not use what type of physical activity do you participate in: walking frequency: daily ROS ROS ED ROS Narrative Nausea and vomiting. Elevated blood sugar. Review of Systems ROS Unobtainable: Denies due to encephalopathy Constitutional Constitutional ED: Denies chills Eyes Eyes: Denies change in vision ENT ENT ED: Denies ear pain or rhinorrhea Cardiovascular Cardiovascular: Denies chest pain or palpitations Respiratory/Chest Respiratory/Chest: Denies cough or dyspnea Gastrointestinal Gastrointestinal: Reports nausea and vomiting; Denies abdominal pain or diarrhea Genitourinary Genitourinary ED: Denies dysuria or hematuria Musculoskeletal Musculoskeletal: Denies arthralgias or myalgias Integumentary Denies rash Neurologic Neurologic: Denies headache(s) Psychiatric Psychiatric: Denies depression Endocrine Endocrinology: Denies polyuria Allergic/Immunologic Allergic/Immunologic ED: Denies urticaria EXAM Physical Exam Narrative Exam Narrative: 21-year-old female no acute distress. Vital signs stable. H EENT exam unremarkable. Mildly dry mucous membranes. Neck nontender. No lymphadenopathy. Lungs clear to auscultation bilaterally. Heart tachycardic rate about 130 no murmur. Abdomen soft. Nontender. Nondistended. No peritoneal signs. Moving all 4 extremities. Nontender no edema. Back nontender. Skin unremarkable. Neurologically awake and alert with no focal motor deficits. Const Vital Signs: 09/07/21 20:25 Temperature 97.9 F Temperature Source Oral Pulse Rate 134 H Respiratory Rate 18 Blood Pressure 126/84 H Blood Pressure Mean 98 Pulse Ox 97 Oxygen Delivery Method Room Air Positive well nourished and well developed; Negative for obese, cachectic, contractures or unkempt General Appearance ED: well developed and NAD; Negative for unkempt, cachectic, contractures, cyanotic, diaphoretic or pallor Nutritional Appearance: Negative for cachectic or obese HEENT Reports dry mucous membranes; Denies moist mucous membranes Negative for trauma or tenderness Mouth ED: Yes dry mucous membranes Mouth: dry mucous membranes Eyes PERRL and EOMs intact bilaterally General Eye ED: Negative for pale conjunctiva or scleral icterus Neck no lymphadenopathy, supple and no JVD General: Negative for tenderness Chest Wall inspection of chest normal and palpation of chest normal Resp normal respiratory effort and clear to auscultation bilaterally Effort and Inspection: Negative for pain with movement Auscultation: Negative for rales, rhonchi or wheezes Cardio regular rhythm, S1 normal heart sound, S2 normal heart sound and no murmurs; Negative for regular rate Rate: tachycardic GI normal to inspection, nondistended, normoactive bowel sounds, non-tender, non- distended and no masses Auscultation: normoactive bowel sounds Palpation: soft; Negative for tender, guarding or rebound tenderness present Back/Spine no CVA tenderness General Back: Negative for CVA tenderness Cervical Spine: Negative for cervical spine tenderness Thoracic Spine / Upper Back: Negative for thoracic spinal tenderness Extremity normal to inspection General Extremety ED: Negative for edema or tenderness General Extremity: Negative for edema Neuro oriented x3 Sensorium / Orientation: alert; Negative for orientation impaired, lethargic or stuporous Motor Exam: strength 5/5 throughout Psych mental status grossly normal Appearance: Negative for unkempt Mood & Affect: Negative for depressed or tearful Skin no rashes or lesions noted and no wounds General Skin Exam: Negative for jaundice or pallor MDM MDM MDM Narrative Medical decision making narrative: 21-year-old female elevated blood sugar concern by the patient for DKA. She has had DKA before. She will be treated with IV fluids and appropriate labs being obtained. Her initial blood sugar here was 110 but she did give herself insulin prior to arrival. Repeat exam patient is doing well at 9:55 PM. She is feeling better. She denies discussed her test results she probably had early DKA but when she took her insulin at home patient was altered. She has a normal gap. She does have small serum ketones and ketones in her urine but she clinically looks well. She was given a liter of fluid here. Her blood sugar is only 106. She is comfortable being discharged home. She will check her blood sugar closely prior to going [facility]. She knows return if worse. Lab Data Attestation: I reviewed the patient's lab results. Lab results narrative: CBC shows a white count 12.3. H&H is 16 and 46. Electrolytes sodium 135 gap 9 normal BUN and creatinine of 18 and 0.7. Glucose is 106. Urinalysis shows no signs of infection. Glucose in the urine. And ketones. Serum ketones were small. Labs: Laboratory Results - last 24 hr 09/07/21 09/07/21 09/07/21 20:41 20:48 20:48 WBC 12.3 H RBC 5.45 H Hgb 16.7 H Hct 46.3 MCV 85.0 MCH 30.6 MCHC 36.1 H RDW Std Deviation 39.9 RDW Coeff of Mark 13.0 Plt Count 364 MPV 8.8 Immature Gran % (Auto) 0.600 Neut % (Auto) 54.2 Lymph % (Auto) 34.2 [place] % (Auto) 8.3 Eos % (Auto) 1.9 Baso % (Auto) 0.8 Absolute Neuts (auto) 6.7 Absolute Lymphs (auto) 4.22 Nucleated RBC % 0 Sodium 135 L Potassium 3.5 Chloride 112 H Carbon Dioxide 14.0 L Anion Gap 9 BUN 18 Creatinine 0.74 Estim Creat Clear Calc 121.31 Est GFR (MDRD) Af Amer 128 Est GFR (MDRD) Non-Af 105 BUN/Creatinine Ratio 24.4 H Glucose 106 Calcium 9.3 Urine Color Urine Clarity Urine pH Ur Specific [place] Urine Protein Urine Glucose (UA) Urine Ketones Urine Occult Blood Urine Nitrite Urine Bilirubin Urine Urobilinogen Ur Leukocyte Esterase Urine RBC Urine WBC Ur Squamous Epith Cells Urine Bacteria Urine Mucus Acetone Level POC Glucose 110 H 09/07/21 09/07/21 20:48 20:48 WBC RBC Hgb Hct MCV MCH MCHC RDW Std Deviation RDW Coeff of Mark Plt Count MPV Immature Gran % (Auto) Neut % (Auto) Lymph % (Auto) [place] % (Auto) Eos % (Auto) Baso % (Auto) Absolute Neuts (auto) Absolute Lymphs (auto) Nucleated RBC % Sodium Potassium Chloride Carbon Dioxide Anion Gap BUN Creatinine Estim Creat Clear Calc Est GFR (MDRD) Af Amer Est GFR (MDRD) Non-Af BUN/Creatinine Ratio Glucose Calcium Urine Color Yellow Urine Clarity Clear Urine pH 6.0 Ur Specific [place] 1.020 Urine Protein 100 H Urine Glucose (UA) 1000 H Urine Ketones 150 A* Urine Occult Blood 10 H Urine Nitrite Negative Urine Bilirubin Negative Urine Urobilinogen Normal Ur Leukocyte Esterase Negative Urine RBC 0 SEEN Urine WBC 0-5 SEEN Ur Squamous Epith Cells 0-5 SEEN Urine Bacteria 1+ Urine Mucus 0 SEEN Acetone Level SMALL H POC Glucose Discharge Plan Triage Chief Complaint: Hyperglycemia ED Provider: Jean Duarte Dx/Rx/DC Orders Clinical Impression: Acute hyperglycemia Instructions: ED Diabetic Hyperglycemia Prescriptions: New ondansetron 4 mg tablet,disintegrating 4 mg PO Q6H PRN (Reason: nausea and vomiting) Qty: 7 RF: 0 No Action (DME) blood-glucose meter [True Metrix Glucose Meter] Misc See Rx Instructions .ROUTE .MEDSUPPLY Qty: 1 RF: 0 prazosin 1 mg capsule 1 mg PO QHS RF: 0 trazodone 50 mg tablet 100 mg PO QHS RF: 0 oxcarbazepine [Trileptal] 300 mg Tablet 450 mg PO BID RF: 0 (DME) True Metrix Glucose Test Strip Strip See Rx Instructions .ROUTE .MEDSUPPLY Qty: 100 RF: 8 (DME) pen needle, diabetic [BD Ultra-Fine Erin Pen Needle] 32 gauge x 5/32 needle See Rx Instructions .ROUTE .MEDSUPPLY Qty: 200 RF: 3 potassium chloride [Klor-Con M20] 20 mEq Tablet,Er Particles/Crystals 40 meq PO DAILY Qty: 10 RF: 0 insulin lispro [Humalog KwikPen Insulin] 100 unit/mL Insulin Pen 8 unit subcut TIDCM Qty: 15 RF: 0 cephalexin 500 mg capsule 500 mg PO Q8H 10 Days Qty: 30 RF: 0 insulin lispro [Humalog KwikPen Insulin] 100 unit/mL insulin pen 13 unit subcut TIDCM Qty: 0 RF: 0 Lantus Solostar U-100 Insulin 100 unit/mL (3 mL) insulin pen 35 unit SUBCUT DAILY Qty: 0 RF: 0 (DME) TechLITE Pen Needle 32 gauge x 5/16 needle See Rx Instructions .ROUTE .MEDSUPPLY Qty: 200 RF: 4 Primary Care Provider: Thalia Gallo Referrals: Thalia Gallo MD [Primary Care Provider] - 3-5 Days if not improving Activity Restrictions/Additional Instructions: Plenty of fluids and rest. Watch your blood sugars closely. Return if worse or follow-up your primary care physician not improving. Zofran as needed for nausea. Disposition Disposition: Home, Self Care
[2021-09-07] MEDS: 0.9% Normal Saline 1,000 ML 1000 ML IV (21:00)
[2021-09-07 21:02] LABS: Bedside Glucose 110 mg/dL (74-106)
[2021-09-07 21:03] LABS: Mucous, Urine 0 SEEN /hpf (<or=2+); Red Blood Cells-Urine 0 SEEN /hpf (0-5)
[2021-09-07 21:08] LABS: Absolute Lymphocyte Count 4.22 X10^3/uL (0.83-4.51); Absolute Neutrophil Count 6.7 X10^3/uL (2.0-7.7); Basophil% 0.8 % (0-1); Eosinophil# 0.24 X10^3/uL; Eosinophils% 1.9 % (0-5); Hematocrit 46.3 % (37-47); Hemoglobin 16.7 g/dL (12.0-15.0); Lymphocyte # 4.22 X10^3/ul (0.83-4.51); Lymphocyte % 34.2 % (19-41); Mean Corp Hgb Conc 36.1 g/dL (32-36); Mean Corpuscular Hgb 30.6 pg (27.0-32.0); Mean Platelet Vol. 8.8 fl (6.2-12.0); Monocyte# 1.02 X10^3/uL; Monocyte% 8.3 % (0-10); NRBC Flagged by Analyzer 0 % (0-5); Neutrophil # 6.68 X10^3/uL (2.7-7.7); Neutrophil % 54.2 % (47-70); Platelet Count 364 K/mm3 (150-450); RBC Distribution Width SD 39.9 fl (35.1-43.9); Red Blood Count 5.45 M/mm3 (4.2-5.4); White Blood Count 12.3 K/mm3 (4.4-11.0)
[2021-09-07 21:09] LABS: Color, Urine Yellow (Yellow); Glucose, Dipstick 1000 mg/dl (Normal); Leukocyte Esterase-Dipstick Negative /ul (Negative); Nitrite-Dipstick Negative (Negative); Occult Blood-Urine 10 /ul (Negative); Protein-Dipstick 100 mg/dl (Negative); Urine Bilirubin Dipstick Negative (Negative); Urine Clarity Clear (Clear); Urine Urobilinogen Normal (Normal)
[2021-09-07 21:11] LABS: Ketone-Dipstick 150 mg/dl (Negative)
[2021-09-07 21:21] LABS: White Blood Cells 0-5 SEEN /hpf (0-5)
[2021-09-07 21:22] LABS: Anion Gap 9 (5-15); BUN 18 mg/dL (7-18); BUN/Creat Ratio 24.4 RATIO (10-20); Calcium,Total 9.3 mg/dL (8.5-10.1); Chloride 112 mmol/L (98-107); Creatinine, Serum 0.74 mg/dL (0.55-1.02); EST Glomerular Filtration Rate 105 mL/min (>60); Est Glom Filt Rate - Afr Amer 128 mL/min (>60); Estimated Creatinine Clearance 121.31 ml/min; Glucose 106 mg/dL (74-106); Potassium 3.5 mmol/L (3.5-5.1); Sodium Level 135 mmol/L (136-145)
[2021-09-07 21:23] LABS: Bacteria 1+ /hpf (None Seen); Squamous Epithelial Cells - UA 0-5 SEEN /hpf (5-10)
[2021-09-07 22:10] VITALS: RESP 18
--- NOTE | 2021-09-08 11:30 | CASEMGMT ---
PETEY GREGORY ED follow-up: Date of ER visit: 09/07/2021 Presenting ER complaint: hyperglycemia RN COLT placed call to patient's telephone number listed on demographics and patient answered. PETEY GREGORY introduced self and role at [facility]. Patient states, Doing okay today and reports blood glucose was 98 this morning. Patient reports she has insulin at home but admits that she is running low on insulin needles. Patient admits that she has not followed-up with PCP in sometime and did not follow up after hospital discharge in June 2021. 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 Patient encouraged to call today to schedule appointment with PCP to discuss supplies that will soon be needed. PETEY GREGORY stressed importance of follow-up with PCP. Voiced understanding. PETEY GREGORY discussed transportation to and from medical appointments provided through [facility] and patient states she knows how to set this up. Patient instructed on red flag signs and symptoms to monitor for and voiced understanding. Patient denies further questions, needs or concerns. PETEY Hamilton CM
== END 2021-09-07 22:13 | disposition home or self-care (01) ==
PROVIDERS: Emergency Provider Emergency Medicine; PCP Internal Medicine; Visit Provider Emergency Medicine
DX: E10.65 Type 1 diabetes mellitus with hyperglycemia (principal); Z79.4 Long term (current) use of insulin; F17.210 Nicotine dependence, cigarettes, uncomplicated; Z86.16 Personal history of COVID-19
CPT/HCPCS: 80048; 81001; 82009; 82962; 85025; 96360; 99282; J7030; A4216

== ENCOUNTER 2021-09-22 14:40 | Observation (INO) | payer MEDICAID, SELFPAY ==
[2021-09-22] VITALS (15 sets, daily range): BP systolic 92–127; BP diastolic 52–91; PULSE 70–117; RESP 14–24; TEMP 36.3–37.3; O2SAT 96–100; BMI 22.9; BMI 22.5
[2021-09-22 14:51] LABS: Bedside Glucose > 500 mg/dL (74-106)
--- NOTE | 2021-09-22 14:52 | EX.ED.DYSGE1 ---
HPI History of Present Illness Chief Complaint: Nausea/Vomiting Informant: patient Onset/Context/Timing Onset: Today Context: Gradual Onset Timing: Continuous Quality: Tearing, aching Location: Abdomen and back Worsened by: Walking Relieved by: Nothing Narrative Narrative: Patient presents with nausea and vomiting that began today. Patient states her blood sugars have also been elevated today. Patient states that her emesis was orange and she has not eaten anything today. Patient admits to some pain in her abdomen and back. Patient describes her abdominal pain is a tearing sensation like somebody is pulling her intestines out. Patient states her back pain is aching. Patient states her nausea and vomiting got worse when she tried to walk to the library today. Patient states nothing seems to help with it. Patient denies any fevers or chills. [facility] Medical History (Updated 09/22/21 @ 17:[address] David Garcia DO) Acute right otitis media Anxiety Anxiety Asthma Bipolar 1 disorder, depressed COVID-19 Depression Diabetes Kidney stones Noncompliance Psychosocial problem Seizures Smoker Substance abuse Type 1 diabetes mellitus Home Medications NK 09/22/21 [History Last Taken Unknown] Allergy/AdvReac Type Severity Reaction Status Date / Time amoxicillin Allergy Hives Verified 09/22/21 14:42 Sulfa (Sulfonamide Allergy Hives Verified 09/22/21 14:42 Antibiotics) tomato Allergy Hives Verified 09/22/21 14:42 Family History Grandmother Diabetes Father Respiratory disease Uncle Respiratory disease Aunt Respiratory disease Surgical History no surgical history no surgical history Social History (Updated 09/22/21 @ 14:[address] David Garcia DO) Smoking Status: Current every day smoker tobacco type: cigarettes and e-cigarettes Tobacco: How many years used: 1 alcohol intake: current alcohol intake frequency: a few times a month substance use type: marijuana what type of physical activity do you participate in: walking frequency: daily ROS ROS ED Constitutional Constitutional ED: Denies chills or fever(s) Eyes Eyes: Denies blurry vision or change in vision ENT ENT ED: Denies rhinorrhea or sore throat Cardiovascular Cardiovascular: Denies chest pain or palpitations Respiratory/Chest Respiratory/Chest: Reports dyspnea; Denies cough Gastrointestinal Gastrointestinal: Reports abdominal pain, nausea and vomiting Genitourinary Genitourinary ED: Denies dysuria or hematuria Musculoskeletal Musculoskeletal: Reports back pain; Denies neck pain Integumentary Denies abscess or rash Neurologic Neurologic: Denies headache(s) or weakness Allergic/Immunologic Allergic/Immunologic ED: Denies mouth swelling or urticaria EXAM Physical Exam Const Vital Signs: 09/22/21 14:42 09/22/21 15:35 Temperature 99.1 F Temperature Source Temporal Pulse Rate 117 H 94 Respiratory Rate 22 H 21 H Blood Pressure 127/91 H 92/75 Blood Pressure Mean 103 80 Pulse Ox 96 97 Oxygen Delivery Method Room Air Room Air Positive well nourished and well developed General Appearance ED: well developed HEENT Reports moist mucous membranes Neck supple and no JVD Resp normal respiratory effort and clear to auscultation bilaterally Cardio regular rhythm and no murmurs Rate: tachycardic GI normal to inspection, nondistended, normoactive bowel sounds Palpation: soft and tender epigastric, LLQ, RLQ, LUQ, RUQ, periumbilical and suprapubic; Negative for guarding or rebound tenderness present Extremity normal to inspection General Extremety ED: Negative for edema or tenderness General Extremity: Negative for edema Neuro oriented x3, CN's II-XII intact bilaterally and no sensory deficits noted Sensorium / Orientation: alert Motor Exam: strength 5/5 throughout Psych mental status grossly normal Skin no rashes or lesions noted MDM MDM MDM Narrative Medical decision making narrative: Patient was given IV fluids and Zofran initially. The BGT was obtained and was 571. CBC was within normal limits. Comprehensive metabolic profile showed an elevated glucose of 524 with an anion gap of 21 and CO2 of 11. Serum acetone was moderate. Urinalysis was ordered and is pending. Venous blood gas was ordered and is pending. Patient was started on insulin drip. Case was discussed with the hospitalist. He will admit the patient to ICU. Patient understood and was agreeable with the plan. All questions were answered. Lab Data Attestation: I reviewed the patient's lab results. Labs: Laboratory Results - last 24 hr 09/22/21 09/22/21 09/22/21 14:47 15:20 15:20 WBC 8.2 RBC 5.18 Hgb 15.5 H Hct 45.3 MCV 87.5 MCH 29.9 MCHC 34.2 RDW Std Deviation 40.9 RDW Coeff of Mark 12.8 Plt Count 336 MPV 9.5 Immature Gran % (Auto) 0.600 Neut % (Auto) 65.9 Lymph % (Auto) 26.0 [place] % (Auto) 5.6 Eos % (Auto) 1.1 Baso % (Auto) 0.8 Absolute Neuts (auto) 5.4 Absolute Lymphs (auto) 2.14 Nucleated RBC % 0 Sodium 132 L Potassium 4.1 Chloride 100 Carbon Dioxide 11.0 L Anion Gap 21 H BUN 10 Creatinine 0.85 Estim Creat Clear Calc 101.81 Est GFR (MDRD) Af Amer 108 Est GFR (MDRD) Non-Af 89 BUN/Creatinine Ratio 11.8 Glucose 524 H* Calcium 9.0 Total Bilirubin 0.60 AST 10 L ALT 20 Alkaline Phosphatase 133 H Total Protein 8.1 Albumin 4.1 Globulin 4.0 Albumin/Globulin Ratio 1.0 Acetone Level POC Glucose > 500 H* 09/22/21 15:20 WBC RBC Hgb Hct MCV MCH MCHC RDW Std Deviation RDW Coeff of Mark Plt Count MPV Immature Gran % (Auto) Neut % (Auto) Lymph % (Auto) [place] % (Auto) Eos % (Auto) Baso % (Auto) Absolute Neuts (auto) Absolute Lymphs (auto) Nucleated RBC % Sodium Potassium Chloride Carbon Dioxide Anion Gap BUN Creatinine Estim Creat Clear Calc Est GFR (MDRD) Af Amer Est GFR (MDRD) Non-Af BUN/Creatinine Ratio Glucose Calcium Total Bilirubin AST ALT Alkaline Phosphatase Total Protein Albumin Globulin Albumin/Globulin Ratio Acetone Level MODERATE H POC Glucose Discharge Plan Triage Chief Complaint: Nausea/Vomiting ED Provider: David Garcia Dx/Rx/DC Orders Clinical Impression: Diabetic ketoacidosis Primary Care Provider: Thalia Gallo Disposition Disposition: Acute Care [facility]
[2021-09-22] MEDS: 0.9% Normal Saline 1,000 ML 1000 ML IV (15:27)
[2021-09-22] MEDS: Ondansetron 4 MG/2 ML Vial IV (15:27)
[2021-09-22 15:33] LABS: Absolute Lymphocyte Count 2.14 X10^3/uL (0.83-4.51); Absolute Neutrophil Count 5.4 X10^3/uL (2.0-7.7); Basophil# 0.07 X10^3/uL; Basophil% 0.8 % (0-1); Eosinophil# 0.09 X10^3/uL; Eosinophils% 1.1 % (0-5); Hematocrit 45.3 % (37-47); Hemoglobin 15.5 g/dL (12.0-15.0); Lymphocyte # 2.14 X10^3/ul (0.83-4.51); Mean Corp Hgb Conc 34.2 g/dL (32-36); Mean Corpuscular Hgb 29.9 pg (27.0-32.0); Mean Corpuscular Volume 87.5 fL (81-99); Mean Platelet Vol. 9.5 fl (6.2-12.0); Monocyte# 0.46 X10^3/uL; Monocyte% 5.6 % (0-10); NRBC Flagged by Analyzer 0 % (0-5); Neutrophil # 5.43 X10^3/uL (2.7-7.7); Neutrophil % 65.9 % (47-70); Platelet Count 336 K/mm3 (150-450); RBC Distribution Width CV 12.8 % (11.6-14.6); RBC Distribution Width SD 40.9 fl (35.1-43.9); Red Blood Count 5.18 M/mm3 (4.2-5.4); White Blood Count 8.2 K/mm3 (4.4-11.0)
[2021-09-22 15:58] LABS: AST(SGOT) 10 U/L (15-37); Alanine Aminotransfer ALT/SGPT 20 U/L (13-56); Albumin, Serum 4.1 g/dL (3.2-5.0); Alkaline Phosphatase 133 U/L (45-117); Anion Gap 21 (5-15); BUN 10 mg/dL (7-18); BUN/Creat Ratio 11.8 RATIO (10-20); Chloride 100 mmol/L (98-107); Creatinine, Serum 0.85 mg/dL (0.55-1.02); EST Glomerular Filtration Rate 89 mL/min (>60); Est Glom Filt Rate - Afr Amer 108 mL/min (>60); Estimated Creatinine Clearance 101.81 ml/min; Glucose 524 mg/dL (74-106); Potassium 4.1 mmol/L (3.5-5.1); Protein, Total 8.1 g/dL (6.4-8.2); Sodium Level 132 mmol/L (136-145)
--- NOTE | 2021-09-22 15:59 | ED.RN ---
glucose of 524 reported to misha
--- NOTE | 2021-09-22 16:24 | NURSING ---
DR BECKWITH FOR DR BURRELL
--- NOTE | 2021-09-22 16:41 | NURSING ---
ICU TERELETSKY DKA
--- NOTE | 2021-09-22 16:42 | NURSING ---
CV ICU 201
[2021-09-22 17:36] LABS: Bedside Glucose 271 mg/dL (74-106)
[2021-09-22 17:47] LABS: Bacteria 0 SEEN /hpf (None Seen); Mucous, Urine 0 SEEN /hpf (<or=2+); Red Blood Cells-Urine 0 SEEN /hpf (0-5)
[2021-09-22 17:49] LABS: Color, Urine Yellow (Yellow); Glucose, Dipstick 1000 mg/dl (Normal); Leukocyte Esterase-Dipstick 25 /ul (Negative); Nitrite-Dipstick Negative (Negative); Occult Blood-Urine Negative /ul (Negative); Protein-Dipstick 15 mg/dl (Negative); Specific Gravity, Urine 1.025 (1.002-1.030); Urine Bilirubin Dipstick Negative (Negative); Urine Clarity Sl. Cloudy (Clear); Urine Urobilinogen Normal (Normal)
[2021-09-22] MEDS: 0.9% Normal Saline 1,000 ML 500 ML IV (18:10)
[2021-09-22 18:11] LABS: Ketone-Dipstick 150 mg/dl (Negative)
[2021-09-22 18:12] LABS: Squamous Epithelial Cells - UA 0-5 SEEN /hpf (5-10); White Blood Cells 0-5 SEEN /hpf (0-5)
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
[2021-09-22 18:13] LABS: Amorphous Sediment 1+
[2021-09-22] MEDS: Dext 5%-0.45% NS 1,000 ML 250 ML IV (20:20)
[2021-09-22 20:31] LABS: Bedside Glucose 149 mg/dL (74-106)
[2021-09-22 20:31] LABS: Bedside Glucose 188 mg/dL (74-106)
[2021-09-22 20:31] LABS: Bedside Glucose 259 mg/dL (74-106)
[2021-09-22] MEDS: ARIPiprazole 10 MG Tablet PO (21:35)
[2021-09-22 21:58] LABS: Anion Gap 9 (5-15); BUN 9 mg/dL (7-18); Calcium,Total 7.6 mg/dL (8.5-10.1); Chloride 112 mmol/L (98-107); Creatinine, Serum 0.56 mg/dL (0.55-1.02); EST Glomerular Filtration Rate 144 mL/min (>60); Est Glom Filt Rate - Afr Amer 174 mL/min (>60); Estimated Creatinine Clearance 154.53 ml/min; Glucose 186 mg/dL (74-106); Potassium 3.3 mmol/L (3.5-5.1); Sodium Level 140 mmol/L (136-145)
[2021-09-23] VITALS (13 sets, daily range): BP systolic 96–143; BP diastolic 58–93; PULSE 70–99; RESP 14–23; TEMP 36.4–36.9; O2SAT 98–100
[2021-09-23 00:41] LABS: Bedside Glucose 178 mg/dL (74-106)
[2021-09-23 00:41] LABS: Bedside Glucose 201 mg/dL (74-106)
[2021-09-23 00:41] LABS: Bedside Glucose 89 mg/dL (74-106)
[2021-09-23 00:41] LABS: Bedside Glucose 100 mg/dL (74-106)
[2021-09-23 02:13] LABS: Anion Gap 9 (5-15); BUN 8 mg/dL (7-18); BUN/Creat Ratio 17.1 RATIO (10-20); Calcium,Total 7.8 mg/dL (8.5-10.1); Chloride 116 mmol/L (98-107); Creatinine, Serum 0.47 mg/dL (0.55-1.02); EST Glomerular Filtration Rate 178 mL/min (>60); Est Glom Filt Rate - Afr Amer 215 mL/min (>60); Estimated Creatinine Clearance 184.13 ml/min; Glucose 113 mg/dL (74-106); Potassium 3.4 mmol/L (3.5-5.1); Sodium Level 142 mmol/L (136-145)
[2021-09-23] MEDS: Insulin Glargine-YFGN 100 UNIT/ML Pen 10 UNIT SC (03:16)
[2021-09-23 06:09] LABS: Anion Gap 8 (5-15); BUN 8 mg/dL (7-18); Calcium,Total 7.6 mg/dL (8.5-10.1); Chloride 115 mmol/L (98-107); Creatinine, Serum 0.42 mg/dL (0.55-1.02); EST Glomerular Filtration Rate 202 mL/min (>60); Est Glom Filt Rate - Afr Amer 244 mL/min (>60); Estimated Creatinine Clearance 206.05 ml/min; Glucose 110 mg/dL (74-106); Potassium 3.3 mmol/L (3.5-5.1); Sodium Level 140 mmol/L (136-145)
[2021-09-23 06:34] LABS: Magnesium 1.4 mg/dL (1.6-2.6); Phosphorus 2.9 mg/dL (2.5-4.9)
[2021-09-23 06:41] LABS: Bedside Glucose 103 mg/dL (74-106)
[2021-09-23 06:41] LABS: Bedside Glucose 101 mg/dL (74-106)
[2021-09-23 06:41] LABS: Bedside Glucose 122 mg/dL (74-106)
[2021-09-23 06:41] LABS: Bedside Glucose 105 mg/dL (74-106)
[2021-09-23 06:41] LABS: Bedside Glucose 107 mg/dL (74-106)
[2021-09-23 06:41] LABS: Bedside Glucose 102 mg/dL (74-106)
[2021-09-23] MEDS: ARIPiprazole 10 MG Tablet PO (09:50)
[2021-09-23] MEDS: Insulin Glargine-YFGN 100 UNIT/ML Pen 15 UNIT SC (09:51)
[2021-09-23] MEDS: Potassium Chloride Oral Tablet 20 MEQ 40 MEQ PO (09:55)
[2021-09-23] MEDS: Magnesium Chloride 64 MG Delay Rel.Tablet 128 MG PO (09:55)
[2021-09-23] MEDS: Insulin Lispro 100 UNIT/ML INSULN.PEN 10 UNIT SC ×2 (09:56→13:14)
--- NOTE | 2021-09-23 10:15 | CASEMGMT ---
PETEY GREGORY Face to Face with patient for initial transition planning/care coordination assessment. PETEY GREGORY introduced self and role at [facility]. Patient lying in bed, alert and oriented. Patient willing to participate in assessment and is able to answer all questions appropriately. Care providers, pharmacy, and demographics verified. Patient wishes to discharge home, denies need for home health at this time. Patient states she has no further needs or concerns at this time. CM to follow for discharge planning needs that may arise. PCP: Dr. Gallo, was no show last appt on 07/14/21. PETEY GREGORY called PCP office per Tomasa patient has been discharged from services and they will not take her back. PETEY GREGORY requested patient be given one last chance. Tomasa to text Dr. Gallo Specialists: none, patient was discharged from Dr. Rush, ground water technician for non compliance. Preferred Pharmacy: [facility] Insurance: Ji, patient does not have card, CM to provide policy information. PETEY GREGORY called Domingo GREGORY at [facility] and left message requesting [facility] to reissue cards. Prescription Benefit: yes Living Will/HPOA: none LNOK: father listed as contact Living Arrangements: Patient lives with boyfriend in a house where they rent a room. Room is on second floor. Patient states she is independent and able to ambulate stairs. Transportation: [facility] van or through [facility]. Patient states she walks. DME/HHC: Patient states she has glucometer with all her testing supplies and states that she checks her BS five times daily. Patient states she has insulin at home. Patient states she needs pen needles. RN CM call [facility] and patient has active script for pen needles. PETEY CM updated patient regarding script at [facility] for pen needles. Patient also has prescriptions for Lispro insulin and lancets at [facility]. Patient updated that if she needs those prescriptions filled, she can call [facility] and have them transferred to [facility]. Patient voiced understanding. Disposition Plan: Patient to discharge home with support from boyfriend and follow-up plans in place. Yesica PARKER, RN, CM
[2021-09-23 11:18] LABS: Hemoglobin A1c 13.2 % (3.8-5.6)
--- NOTE | 2021-09-23 11:19 | CASEMGMT ---
Social Work Referral Date: 09/23/21 Date of Assessment: 09/23/21 Reason for Consult: Multiple hospitalizations Personal Status Mentation: A&O x3 Present during assessment: patient is alone Living Arrangements: Pt lives with her boyfriend in a boarding house type home. Pt and boyfriend have their own room with a shared bathroom, kitchen and living space with others living in the home. Pt states she is 4 months behind in rent payment. Lease is up in October and she expects she will not be able to continue living here. Employment: Pt is unemployed. She did state she went to job interviews at [employer] and [employer] this week and thinks she will get hired at both places. She states she will followup Family Dynamics/Relationships: Pt states she was with biological parents for several years and in out of the foster system and then was adopted at age 14. Pt states she does talk to her adoptive parents daily because they pay for her cell phone, but she hates them. Pt states she listed father on demographic sheet as emergency contact only. Pt reports to have a twin brother but they do not talk often and a 19 year old brother who she is currently not getting along with. Pt reports besides boyfriend, no other supports. Supports: Boyfriend Transportation: Pt does not drive. Boyfriend does not drive. [place] and states everything she needs is within walking distance. (grocery store, drug store, job opportunities). Pt has been made aware by CM multiple times of transportation arranged through [employer] insurance and pt is aware of this and how to contact transportation. Pt denies transportation concerns. ADLs: Independent Medical History and current status: Pt diagnosed with Type 1 Diabetes at age 16. Pt has had multiple hospitalizations over the past year for DKA. Pt does not followup with PCP appointments or pathology manager although CM has made appointments and set up transportation on behalf of pt multiple times. Pt states she does not feel she needs to see a PCP. She is educated about her disease and knows how to care for herself and take her medication. SW inquired if pt knows how to care for self why multiple hospitalizations. Pt states she does not need PCP to tell her how to care for herself and a PCP cannot make her do things. She knows what to do and will choose if she eats right or if she doesn't. Pt states she has all the insulin she needs from hospital stays. Substance abuse Alcohol: pt denies drinking alcohol Tobacco: pt states she does smoke and has no plans to stop although she knows that doctors say she should Marijuana: pt admits to frequent use and pt states she loves using it and has no plans to stop Other drug use: pt denies any other drug use Mental Health Diagnosis: Per pt report: PTSD, Bipolar, Boderline Personality Disorder, Anxiety, Depression, reactive attachment disorder SI: Pt denies current Suicide intention. But does confirm past suicide thoughts. Pt states she has been in [facility] for mental health reasons 9 times in the past year, one time for 3 weeks. Pt states she does not want this to happen again. Treatment: Pt states she has tried every kind of treatment in her life including outpatient therapy, IOP, inpatient placement, group therapy, and individual therapy. Pt states therapy does not work and cannot help her. SW enquired about [facility] Behavioral Health. Pt states she has been through this program before as well. Pt states she will talk to Behavioral Health about their program again. SW inquired about the Counseling Center and appointment that was made for pt in July. Pt adamant that she will not go to the Counseling Center. Medications: Pt states she is on and off of medications. States that hospitalist is planning on restarting medications and pt is agreeable to this. Resources JFS: Pt does recieve $300 a month in food stamps and states this is more than enough. Pt walks to [employer] to obtain groceries. Pt denies food insecurities and states she knows what to eat but does not want to eat healthy. [employer]: SW spoke with pt about these programs to assist with back rent. Pt states she is well aware of the available programs as she has used all the services in [employer]. Pt denies information Intervention SW and pt discussed Trauma and mental health and SW encouraged follow up with mental health professional. Pt is agreeable to referral to Behavioral Health but states she has tried everything and does not feel it will help. Pt appears to be self aware. Able to openly discuss her past trauma, mental health history and problem behaviors such as not following medical advice or taking care of self but states she does not want to do this and no one is able to motivate her to do what she does not want to do. After much discussion pt requested conversation with SW end. SW confirmed that referral will be made to Behavioral Health and pt is in agreement. Denies any other resources. Plan: Phone call to Maryjane in Behavioral Health and referral made. They do not have availability to see pt today but will followup with a phone call. VICENTA Messer
--- NOTE | 2021-09-23 12:09 | PCM.DC ---
Discharge Instructions Diet Discharge Diet: 2000 Calorie Control Diet Activity Discharge Activity: Return to Normal Activity Weight Bearing Status: Full weight bearing Follow Up Care Test Results: Test results from this visit will be discussed in further detail at your follow-up appointment, if applicable. Discharge Plan Admission Admit Date/Time: 09/22/21 16:28 Primary Reason for Your Visit: DKA Attending Provider: Emery Ny Primary Care Provider: Thalia Gallo Discharge Orders/Prescriptions Prescriptions: New doxazosin 1 mg Tablet 2 mg PO QHS Qty: 60 RF: 0 aripiprazole 10 mg Tablet 10 mg PO DAILY Qty: 30 RF: 0 Continued Lantus Solostar U-100 Insulin 100 unit/mL (3 mL) insulin pen 38 unit SUBCUT QHS RF: 0 insulin lispro 100 unit/mL insulin pen 15 unit SUBCUT TIDCM RF: 0 Referrals / Follow Up: Thalia Gallo MD [Primary Care Provider] - Disposition Disposition (needs filled in before D/C Order can be placed): Home, Self Care
--- NOTE | 2021-09-23 12:45 | CASEMGMT ---
RN COLT updated by hospitalist that he called PCP Dr. Gallo's office and spoke to change manager stating that patient was active with Dr. Gallo. RN COLT called Dr Gallo's office and spoke to Eric in scheduling. Appt scheduled for 09/30/21 8am. RN CM called [facility] Transport Van to arrange for transportation to appt. [facility] Transport Van will pick patient up at 7:30am for 8am appt on 09/30/21. RN CM in to updated patient regarding follow-up appt and importance to keep appointment. RN CM assisted patient in setting reminder of appt in phone. RN CM updated patient that [facility] transport van will be picking her up for appt. Patient voiced understanding. Patient provided with [facility] card for Dr. Gallo's office for patient to call if she will need to reschedule appt. Patient provided with information regarding [facility] Transportation Services. Patient had no further questions or concerns at this time.
[2021-09-23 13:05] LABS: Bedside Glucose 283 mg/dL (74-106)
--- NOTE | 2021-09-23 14:00 | PCM.DC.SUM ---
Providers Date of Admission: 09/22/21 Date of Discharge: 09/23/21 Primary Care Physician: Dr. Thalia Gallo MD Reason For Visit: DKA Diagnosis Discharge Diagnosis (1) Diabetic ketoacidosis: Status: Acute Code(s): E11.10 - Type 2 diabetes mellitus with ketoacidosis without coma Plan: 1. DKA with type 1 diabetes without coma #2 noncompliance with medical regimen #3 bipolar disorder Medications at Discharge Home Medications Lantus Solostar U-100 Insulin 38 unit SUBCUT QHS 09/23/21 aripiprazole 10 mg PO DAILY #30 tab 09/23/21 doxazosin 2 mg PO QHS #60 tab 09/23/21 insulin lispro 15 unit SUBCUT TIDCM 09/23/21 Hospital Course Operations None Procedures None Summary of Care Provided Minutes Spent on Discharge: 31 Hospital Course: This 21-year-old white female was seen in the emergency room at [facility] with chief complaint of nausea and vomiting, she is a type I diabetic and has been in the hospital multiple times for DKA. Labs revealed that the patient was indeed in DKA, she was admitted to ICU and placed on insulin drip, on the morning of 09/23/21 her insulin drip was discontinued, patient remained medically stable, she was seen by school social worker for follow-up due to her history of bipolar disorder and noncompliance with medical regimen. On 09/23/2021, patient was seen and examined: On examination she appeared in good health and spirits, she does not appear to be in any distress. Vital signs as documented. Skin warm and dry and without overt rashes. Neck without JVD, thyroid appears normal, trachea is midline, neck is supple. Lungs clear, normal air movement was noted. Heart exam notable for regular rhythm, normal sounds and absence of murmurs, rubs or gallops. Abdomen unremarkable and without evidence of organomegaly, masses, or abdominal aortic enlargement, bowel sounds are present in all 4 quadrants, no abdominal tenderness was noted. Extremities nonedematous, no cyanosis was noted, no clubbing was noted. Neuro: Cranial nerves II through XII are grossly intact, no focal motor deficits were noted, sensation to light touch and pinprick is intact, motor exam 5/5 throughout. Psych: Patient is alert and oriented x3, she does not appear anxious or depressed, she does not appear agitated. Patient was discharged home in stable condition on 09/23/2021. Weight / BMI Weight Weight: 67.7 kg Body Mass Index (BMI) 22.5 ABG / Lab / Microbiology Data Result Diagrams: 09/22/21 15:20 09/23/21 05:28 D/C Instructions Discharge Diet: 2000 Calorie Control Diet Weight Bearing Status: Full weight bearing Meaningful Use Info Meaningful Use Diagnoses (Choose all that apply): None applicable Discharge Plan Admission Admit Date/Time: 09/22/21 16:28 Primary Reason for Your Visit: DKA Attending Provider: Emery Ny Primary Care Provider: Thalia Gallo Discharge Orders/Prescriptions Prescriptions: New doxazosin 1 mg Tablet 2 mg PO QHS Qty: 60 RF: 0 aripiprazole 10 mg Tablet 10 mg PO DAILY Qty: 30 RF: 0 Continued Lantus Solostar U-100 Insulin 100 unit/mL (3 mL) insulin pen 38 unit SUBCUT QHS RF: 0 insulin lispro 100 unit/mL insulin pen 15 unit SUBCUT TIDCM RF: 0 Referrals / Follow Up: Thalia Gallo MD [Primary Care Provider] - 09/30/21 8:00 am (Hospital van will pick patient up at 07:30am to take to appointment.) Disposition Disposition (needs filled in before D/C Order can be placed): Home, Self Care Charges/Coding Visit Charges Inpatient E&M: 62042 Disch Hosp
[2021-09-24 02:03] LABS: Bedside Glucose 208 mg/dL (74-106)
--- NOTE | 2021-09-30 13:38 | CASEMGMT ---
RN CM called and spoke to patient. RN COLT updated and reminded patient of follow-up appt today and that the [facility] van will be picking her up. Patient voiced understanding and had no further questions or concerns at this time. CM will continue to follow this patient and coordinate care as indicated.
== END 2021-09-23 14:05 | disposition home or self-care (01) | DRG 420 ==
LOC: ED 15:01 → ICU 17:06
PROVIDERS: Internal Medicine; Admitting Provider Internal Medicine; Emergency Provider Emergency Medicine; PCP Internal Medicine; Visit Provider Internal Medicine
DX: E10.10 Type 1 diabetes mellitus with ketoacidosis without coma (principal); F31.9 Bipolar disorder, unspecified; F12.90 Cannabis use, unspecified, uncomplicated; F17.210 Nicotine dependence, cigarettes, uncomplicated; F17.290 Nicotine dependence, other tobacco product, uncomplicated; J45.909 Unspecified asthma, uncomplicated; F43.10 Post-traumatic stress disorder, unspecified; Z86.16 Personal history of COVID-19; Z87.442 Personal history of urinary calculi; Z91.14 Patient's other noncompliance with medication regimen; Z91.19 Patient's noncompliance with other medical treatment and regimen
CPT/HCPCS: 36415; 80048; 80053; 81001; 82009; 82962; 83036; 83735; 84100; 85025; 96361; 96365; 96366; 96375; 97802; 99218; 99285; J7030; G0378; J2405; J7799